=== PATIENT | female | born 1980 | race African-American/Black ===

== ENCOUNTER → 2017-06-29 | Outpatient (REF) | payer MEDICAID ==
[2017-07-05 01:08] LABS: O+P EXAM Final report (.)
== END ==
LOC: M LAB REF 09:59
PROVIDERS: ATTEND Physician Assistant
DX: E11.9 Type 2 diabetes mellitus without complications (principal); R10.817 Generalized abdominal tenderness; G43.009 Migraine without aura, not intractable, without status migrainosus

== ENCOUNTER → 2017-08-23 | Outpatient (REF) | payer MEDICAID ==
[2017-08-23 14:08] LABS: ESTIMATED AVERAGE GLUCOSE 120 MG/DL (60-110); HEMOGLOBIN A1c 5.8 %
== END ==
LOC: M LAB REF 12:44
DX: E11.9 Type 2 diabetes mellitus without complications (principal)

== ENCOUNTER → 2017-10-20 | Outpatient (CLI) | payer OTHER, SELFPAY | LOC: M WUC 14:52 | DX: M25.562 Pain in left knee (principal); M25.531 Pain in right wrist; M79.605 Pain in left leg; M79.601 Pain in right arm | CPT/HCPCS: 73110 ==

== ENCOUNTER 2018-01-26 18:10 | Emergency (ER) | payer OTHER, MEDICAID, SELFPAY ==
[2018-01-26 18:59] LABS: KETONE, URINE AUTO RFX NEGATIVE (NEGATIVE); LEUKOCYTE ESTERASE UR AUTO RFX TRACE (NEGATIVE); NITRITE, URINE AUTO RFX NEGATIVE (NEGATIVE); RBC, URINE AUTO RFX 1 /HPF (0-3); SPECIFIC GRAVITY UR AUTO RFX 1.019 (1.002-1.035); SQUAM EPITHELIAL CELL UR AURFX 1 /HPF (0-6); WBC, URINE AUTO RFX 15 /HPF (0-3)
== END 2018-01-26 20:51 | disposition home or self-care (01) ==
LOC: M ED 18:10
DX: N30.00 Acute cystitis without hematuria (principal); E11.9 Type 2 diabetes mellitus without complications; Z88.8 Allergy status to other drugs, medicaments and biological substances
CPT/HCPCS: 81001

== ENCOUNTER 2018-05-21 11:09 | Emergency (ER) | payer OTHER ==
[2018-05-21] MEDS: KETOROLAC TROMETHAMINE 10 MG TAB PO (14:11)
[2018-05-21] MEDS: BACLOFEN 10 MG TAB PO (14:11)
== END 2018-05-21 15:54 | disposition home or self-care (01) ==
LOC: M ED 11:09
DX: M62.838 Other muscle spasm (principal); J02.9 Acute pharyngitis, unspecified; E11.9 Type 2 diabetes mellitus without complications; G47.33 Obstructive sleep apnea (adult) (pediatric); Z88.8 Allergy status to other drugs, medicaments and biological substances
CPT/HCPCS: 87880

== ENCOUNTER 2018-05-22 05:47 | Emergency (ER) | payer OTHER ==
[2018-05-22 07:20] LABS: HEMATOCRIT 36.9 % (36.0-47.0); HEMOGLOBIN 12.2 g/dl (12.0-15.5); MEAN CORPUSCULAR HEMOGLOBIN 30.3 pg (27.0-33.0); MEAN CORPUSCULAR HGB CONC 33.1 g/dl (32.0-36.5); MEAN CORPUSCULAR VOLUME 91.8 fl (80.0-96.0); PLATELET COUNT, AUTOMATED 254 10^3/uL (150-450); RED BLOOD COUNT 4.02 10^6/uL (4.00-5.40); RED CELL DISTRIBUTION WIDTH 12.7 % (11.5-14.5); WHITE BLOOD COUNT 9.3 10^3/uL (4.0-10.0)
[2018-05-22 07:32] LABS: CONTROL LINE HCG INT CTR LINE PRESENT; HCG, SERUM QUALITATIVE NEGATIVE (NEGATIVE)
[2018-05-22 07:45] LABS: ANION GAP 5 MEQ/L (8-16); BLOOD UREA NITROGEN 9 MG/DL (7-18); CALCIUM LEVEL 8.1 MG/DL (8.5-10.1); CARBON DIOXIDE LEVEL 28 MEQ/L (21-32); CHLORIDE LEVEL 107 MEQ/L (98-107); CREATININE FOR GFR 0.69 MG/DL (0.55-1.30); GLOMERULAR FILTRATION RATE > 60.0 (>60); GLUCOSE, FASTING 100 MG/DL (70-100); SODIUM LEVEL 140 MEQ/L (136-145)
[2018-05-22] MEDS: MORPHINE 10 MG/ML 1ML VIAL (J2270) IM (08:25)
[2018-05-22] MEDS: diazePAM 2 MG TAB PO (10:01)
== END 2018-05-22 10:38 | disposition home or self-care (01) ==
LOC: M ED 05:47
DX: M50.30 Other cervical disc degeneration, unspecified cervical region (principal); E11.9 Type 2 diabetes mellitus without complications; Z86.73 Personal history of transient ischemic attack (TIA), and cerebral infarction without residual deficits; G47.30 Sleep apnea, unspecified; Z87.440 Personal history of urinary (tract) infections; M25.78 Osteophyte, vertebrae; Z88.8 Allergy status to other drugs, medicaments and biological substances
CPT/HCPCS: J2270

== ENCOUNTER → 2018-06-19 | Outpatient (CLI) | payer OTHER ==
[~2018-06-19] MED LIST: LIDOCAINE 1% MDV 20ML VIAL As Ordered
== END ==
LOC: M RADPRO 12:40
DX: C73 Malignant neoplasm of thyroid gland (principal)
CPT/HCPCS: 10022

== ENCOUNTER 2018-08-16 14:41 | Emergency (ER) | payer MEDICAID, OTHER ==
[~2018-08-16] VITALS: Ht 172.7 cm; Wt 136.4 kg
[~2018-08-16 14:41] MED LIST changes: +BACL10TA2 PO; +KETO10TAB PO; -LIDOCAINE 1% MDV 20ML VIAL As Ordered; +MACR100C43 PO; +VALI2TAB PO
[2018-08-16 14:42] VITALS: BP 136/89
[2018-08-16] MEDS ORDERED: IBUP80TA (14:50)
[2018-08-16] MEDS ORDERED: LEVO200T4 (14:50)
[2018-08-16] MEDS ORDERED: PERI0.126 PO (15:58)
[2018-08-16] MEDS ORDERED: NORCOTAB PO (15:58)
[2018-08-16] MEDS ORDERED: AMOX500C PO (15:58)
[2018-08-17] MEDS ORDERED: CLEO300C2 PO (16:51)
== END 2018-08-16 16:14 | disposition home or self-care (01) ==
LOC: M ED 14:41
DX: K08.89 Other specified disorders of teeth and supporting structures (principal); Z86.73 Personal history of transient ischemic attack (TIA), and cerebral infarction without residual deficits; G47.30 Sleep apnea, unspecified; Z79.899 Other long term (current) drug therapy; Z91.040 Latex allergy status; Z88.8 Allergy status to other drugs, medicaments and biological substances

== ENCOUNTER → 2018-08-28 | Outpatient (CLI) | payer OTHER ==
[~2018-08-28] MED LIST changes: +AMOX500C PO; +CLEO300C2 PO; +IBUP80TA; +LEVO200T4; +NORCOTAB PO; +PERI0.126 PO
--- NOTE | 2018-08-29 07:03 | REP ---
PET/CT: History: Initial staging thyroid cancer. CT study of the neck showed extensive lymphadenopathy including some nodes in the thoracic inlet. PET/CT to evaluate the activity level. Fine needle aspiration cytology biopsy positive for papillary thyroid carcinoma. Comparisons: Comparison soft-tissue neck CT study August 17, 2018. TECHNIQUE: 1 hour and 8 minutes following the intravenous injection of a 8.4 mCi dose of F-18 FDG, three-dimensional PET scintigraphy is acquired from the skull base to the proximal thighs. Triplanar noncontrast CT scanning is acquired through the same anatomic range for attenuation correction, and image registration with scan parameters optimized to minimize radiation exposure to the patient. PET scintigraphy and CT datasets were fused and displayed on a workstation with multiplanar and projection display capability. PET/CT Findings: There is mildly hypermetabolic diffuse uptake in the parotid and to some degree submandibular glands as a normal variant. Tonsillar and adenoidal FDG accumulation is seen symmetrically also consistent with normal variant. There are a few normal-sized lymph nodes visualized bilaterally in the neck. No enlarged lymph nodes are visible. The patient is status post thyroidectomy bilateral. Maximum SUV value in left neck lymph nodes is 2.4. There is a small normal-sized lymph node posteriorly in the right neck with maximum standard uptake value 2.5. No abnormal hypermetabolic uptake is seen within the chest. In the abdomen and pelvis, normal hepatic, splenic, gastrointestinal, and genitourinary FDG accumulation is seen. Normal lymph nodes are visible in the inguinal soft tissues. No abnormal abdominal or pelvic hypermetabolic uptake is seen. Impression: Normal size lymph nodes visualized in the neck show equivocal FDG avidity with maximum standard uptake value up to 2.5. No other abnormal hypermetabolic uptake is appreciated. Electronically Signed by Abhishek Frias MD 08/29/2018 11:44 A
== END ==
LOC: M PLARAD 09:09
PROVIDERS: ATTEND Internal Medicine
DX: C73 Malignant neoplasm of thyroid gland (principal); R59.0 Localized enlarged lymph nodes
CPT/HCPCS: 78815; A9552

== ENCOUNTER 2018-09-04 11:59 | Emergency (ER) | payer OTHER ==
[~2018-09-04] VITALS: Ht 172.7 cm; Wt 136.4 kg
[2018-09-04 13:00] LABS: BASO % 0.4 % (0.0-1.0); EOS # 0.1 10^3/uL (0.0-0.50); EOS % 1.6 % (0.0-3.0); HEMATOCRIT 37.1 % (36.0-47.0); HEMOGLOBIN 11.9 g/dl (12.0-15.5); LYMPH # 2.1 10^3/uL (1.5-4.5); LYMPH % 28.7 % (24.0-44.0); MEAN CORPUSCULAR HEMOGLOBIN 29.8 pg (27.0-33.0); MEAN CORPUSCULAR HGB CONC 32.1 g/dl (32.0-36.5); MONO # 0.7 10^3/uL (0.0-0.8); MONO % 9.7 % (0.0-5.0); NEUTROPHILS # 4.4 10^3/uL (1.8-7.7); NEUTROPHILS % 59.5 % (36.0-66.0); PLATELET COUNT, AUTOMATED 262 10^3/uL (150-450); RED BLOOD COUNT 3.99 10^6/uL (4.00-5.40); WHITE BLOOD COUNT 7.4 10^3/uL (4.0-10.0)
[2018-09-04] MEDS ORDERED: NS 1,000 ML IV ONE (13:00)
[2018-09-04 13:12] LABS: ALBUMIN 3.1 GM/DL (3.2-5.2); ALT/SGPT 25 U/L (12-78); AMYLASE 53 U/L (25-115); BILIRUBIN,DIRECT 0.1 MG/DL (0.0-0.2); BILIRUBIN,TOTAL 0.3 MG/DL (0.2-1.0); BLOOD UREA NITROGEN 6 MG/DL (7-18); CALCIUM LEVEL 8.6 MG/DL (8.5-10.1); CARBON DIOXIDE LEVEL 28 MEQ/L (21-32); CHLORIDE LEVEL 106 MEQ/L (98-107); CK-MB VALUE MASS < 1.0 NG/ML (<3.6); CPK CREATINE PHOSPHOKINASE 102 U/L (26-192); CREATININE FOR GFR 0.59 MG/DL (0.55-1.30); ETHYL ALCOHOL (ETHANOL) 0.004 % (0.000-0.010); GLOMERULAR FILTRATION RATE > 60.0 (>60); GLUCOSE, FASTING 85 MG/DL (70-100); LIPASE 85 U/L (73-393); MB/CK RELATIVE INDEX 0.98 (< OR =4); SODIUM LEVEL 140 MEQ/L (136-145); TOTAL PROTEIN 6.8 GM/DL (6.4-8.2); TROPONIN I < 0.02 NG/ML (< 0.10)
[2018-09-04 13:30] LABS: HCG, SERUM QUALITATIVE NEGATIVE (NEGATIVE)
[2018-09-04] MEDS ORDERED: ISOVUE-370 76% 100ML VIAL (Q9967) As Ordered ONE (13:30)
[2018-09-04] MEDS: MORPHINE 2 MG/ML 1ML SYRINGE (J2270) IV PRN ×2 (13:50→16:21)
[2018-09-04 14:33] LABS: AMPHETAMINES LEVEL URINE NEGATIVE (NEGATIVE); BARBITURATES URINE NEGATIVE (NEGATIVE); BENZODIAZEPINES URINE NEGATIVE (NEGATIVE); CANNABINOIDS URINE NEGATIVE (NEGATIVE); COCAINE METABOLITE URINE NEGATIVE (NEGATIVE); METHADONE URINE NEGATIVE (NEGATIVE); OPIATES URINE NEGATIVE (NEGATIVE); PHENCYCLIDINE URINE NEGATIVE (NEGATIVE)
--- NOTE | 2018-09-04 14:50 | REP ---
CT Head without contrast HISTORY: Trauma COMPARISON: 05/22/2018 There is no intraparenchymal hemorrhage, acute infarct, mass or midline shift. The ventricular system is normal in appearance. There is no extra cerebral collection. There is no fracture. The visualized sinuses are clear. IMPRESSION: There is no intracranial lesion. Electronically Signed by Mainor Miller MD 09/04/2018 02:41 P
--- NOTE | 2018-09-04 14:56 | REP ---
CT cervical spine without contrast HISTORY: Trauma COMPARISON: 05/22/2018 The cervical spine is visualized from C1-2 at the C6-7 level. There is no acute fracture or subluxation. Disc bulges are present at the C3-4 and C4-5 levels. A disc bulge with associated osteophyte formation is present at the C5-6 level. There is minimal narrowing of the spinal canal. The neural foramina are patent. The C3-4 through C5-6 intervertebral discs are decreased in height consistent with disc degeneration. There is loss of the normal lordotic curve. IMPRESSION: 1. There is no acute fracture or subluxation. 2. There is cervical spondylosis at the C3-4 through C5-6 levels. Electronically Signed by Mainor Miller MD 09/04/2018 02:47 P
--- NOTE | 2018-09-04 15:06 | REP ---
CT CHEST WITH IV CONTRAST: HISTORY: Pain. CT CONTRAST DOSE: 100 mL of intravenous Isovue 370. Comparison is made with images obtained as part of the PET/CT from August 28, 2018. CT FINDINGS: Digital preliminary facilities officer radiograph demonstrates that the patient's left hand and arm are not able to be raised. There is good opacification of the thoracic aorta and to a slightly lesser extent the pulmonary arterial tree. There is no vascular abnormality. There is minimal residual thymic tissue. No mediastinal mass or adenopathy is observed. No pleural or pericardial effusion is seen. No pulmonary nodule or pulmonary mass lesion is seen. No infiltrate is noted. The lung berry are clear. Bone window settings show no visible rib fracture or bony destructive lesion. IMPRESSION: No acute disease. Electronically Signed by Abhishek Frias MD 09/04/2018 05:38 P
--- NOTE | 2018-09-04 15:10 | REP ---
CT abdomen and pelvis with IV but without oral contrast: History: Pain. Trauma. Comparison is made with CT imaging from PET/CT study August 28, 2018. CT findings: Preliminary digital supervisor boarding radiograph shows nonspecific small and large bowel gas in the central abdomen. The lung bases are clear. The patient appears to be status post gastric bypass procedure. The liver and the spleen are intact. There are two accessory splenules. Gallbladder and pancreas are unremarkable. The kidneys enhance symmetrically are morphologically intact. No abdominal adenopathy is seen. There is a large quantity of formed stool filling and dilating the rectum consistent with constipation. No uterine or ovarian abnormality is seen. Urinary bladder is unremarkable. No abdominal wall defect is seen. Bone window settings show no bony destructive lesion. Impression: Large quantity of formed stool dilating the rectum consistent with constipation. No traumatic abdominal abnormality. Postoperative changes in the left upper quadrant. Electronically Signed by Abhishek Frias MD 09/04/2018 05:38 P
--- NOTE | 2018-09-04 15:26 | REP ---
LEFT WRIST, FOUR VIEWS: HISTORY: Pain. There is no acute fracture or dislocation. The joint spaces are normal in appearance. A small cyst is present in the capitate. IMPRESSION: There is no acute fracture or dislocation. Electronically Signed by Mainor Miller MD 09/04/2018 03:27 P
--- NOTE | 2018-09-04 15:29 | REP ---
Left shoulder: Three views. History: Pain. Findings: The left glenohumeral and acromioclavicular joints are normally aligned. No fracture or subluxation is seen. Impression: No acute bony abnormality. Electronically Signed by Abhishek Frias MD 09/04/2018 05:39 P
--- NOTE | 2018-09-04 15:31 | REP ---
LEFT HAND, FOUR VIEWS: HISTORY: Pain. There is no acute fracture or dislocation. The joint spaces are normal in appearance. A small cyst is present in the capitate. IMPRESSION: There is no acute fracture or dislocation. Electronically Signed by Mainor Miller MD 09/04/2018 03:34 P
--- NOTE | 2018-09-04 15:41 | REP ---
LEFT ELBOW, FIVE VIEWS: HISTORY: Pain. A faint linear lucency is present in the proximal ulna. This may represent a nondisplaced fracture. There is no dislocation. There is no joint effusion. IMPRESSION: There is a faint linear lucency in the proximal ulna seen in only one view. This may represent a fracture. Electronically Signed by Mainor Miller MD 09/04/2018 03:44 P
[2018-09-04] MEDS ORDERED: KETOROLAC 30 MG/ML VIAL (J1885) IV ONE (15:45)
--- NOTE | 2018-09-04 19:34 | REP ---
LEFT HIP, TWO VIEWS: Two views of the left hip performed. There is no acute fracture or dislocation. There are mild degenerative changes at the hip joint with mild joint space narrowing, subchondral sclerosis and spurring. IMPRESSION: Mild degenerative changes without fracture or dislocation. Electronically Signed by Wilian Mueller MD 09/04/2018 07:55 P
--- NOTE | 2018-09-04 19:36 | REP ---
LEFT KNEE: Four views of the left knee performed. There is no acute fracture or dislocation. There is mild medial joint space narrowing, subchondral sclerosis and spurring. Linear ligamentous calcification is seen along the medial femoral condyle. There is mild spurring of the superior pole of the patella. I do not see a significant joint effusion. IMPRESSION: Mild degenerative changes. Mild ligamentous calcification medially. No fracture or dislocation. Electronically Signed by Wilian Mueller MD 09/04/2018 07:55 P
--- NOTE | 2018-09-04 19:38 | REP ---
LEFT FEMUR: AP and lateral views of the left femur are performed. No fracture or dislocation is seen. There are mild degenerative changes at the hip joint and medial knee joint. Mild linear ligamentous calcification is again seen along the medial femoral condyle. There is mild spurring of the superior pole of the patella. No joint effusion is seen at the knee. IMPRESSION: Mild degenerative changes at the hip and knee. No fracture or dislocation. Electronically Signed by Wilian Mueller MD 09/04/2018 07:55 P
[2018-09-04] MEDS ORDERED: MORPHINE 2 MG/ML 1ML SYRINGE (J2270) As Ordered ONE (19:44)
[2018-09-04] MEDS ORDERED: NORC1TAB4 PO (20:16)
[2018-09-04 20:56] VITALS: BP 122/66
--- NOTE | 2018-09-05 17:34 | ECGEPIP ---
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
== END 2018-09-04 21:00 | disposition home or self-care (01) ==
LOC: M ED 11:59 → EDBD 11:59 → M ED 21:00
DX: M79.632 Pain in left forearm (principal); R93.7 Abnormal findings on diagnostic imaging of other parts of musculoskeletal system; V43.52XA Car driver injured in collision with other type car in traffic accident, initial encounter; Y92.410 Unspecified street and highway as the place of occurrence of the external cause; E11.9 Type 2 diabetes mellitus without complications; E89.0 Postprocedural hypothyroidism; Z90.89 Acquired absence of other organs; Z85.850 Personal history of malignant neoplasm of thyroid; Z88.8 Allergy status to other drugs, medicaments and biological substances; Z79.899 Other long term (current) drug therapy
CPT/HCPCS: 36415; 51701; 70450; 71260; 72125; 73030; 73080; 73110; 73130; 73502; 73552; 73564; 74177; 80048; 80076; 80307; 82150; 82550; 82553; 83690; 84484; 84703; 85025; 93005; 93041; 94760; 96374; 96375; 96376; 99285; G0480; J1885; J2270; Q9967

== ENCOUNTER 2018-10-16 08:41 | Emergency (ER) | payer OTHER ==
[~2018-10-16] VITALS: Ht 172.7 cm; Wt 136.4 kg
[~2018-10-16 08:41] MED LIST changes: +NORC1TAB4 PO
[2018-10-16 08:42] VITALS: BP 140/84
[2018-10-16] MEDS ORDERED: IBUP80TA (08:49)
--- NOTE | 2018-10-16 09:32 | REP ---
LEFT HUMERUS: Three views of the left humerus performed. There is no evidence of an acute fracture, dislocation or intrinsic bone disease. IMPRESSION: No fracture or dislocation. Electronically Signed by Wilian Mueller MD 10/17/2018 09:06 A
[2018-10-16] MEDS ORDERED: CODE30TA3 PO (09:35)
== END 2018-10-16 09:38 | disposition home or self-care (01) ==
LOC: M ED 08:41
DX: S40.022A Contusion of left upper arm, initial encounter (principal); W19.XXXA Unspecified fall, initial encounter; Y92.099 Unspecified place in other non-institutional residence as the place of occurrence of the external cause; Y93.9 Activity, unspecified; Y99.9 Unspecified external cause status; Z79.899 Other long term (current) drug therapy; Z91.040 Latex allergy status; Z88.8 Allergy status to other drugs, medicaments and biological substances

== ENCOUNTER → 2018-11-14 | Outpatient (CLI) | payer OTHER ==
[~2018-11-14] MED LIST changes: +ACET300T47 PO; +HYDR-3715 PO; -NORC1TAB4 PO; +NORC1TAB7 PO; -NORCOTAB PO
--- NOTE | 2018-11-15 09:22 | REP ---
MRI LEFT ELBOW: TECHNIQUE: Multiple sequences in the axial, coronal and sagittal planes. There is a chip fracture of the medial aspect of the coronoid process of the proximal ulna with 1 or 2 osseous fragments at that location, not significantly displaced. The two osseous fragments measures approximately 6 mm in maximum length and about 9 mm in maximum length. There is no associated marrow edema of the adjacent ulna. There are no other areas of marrow edema seen in the distal humerus or proximal radius. There is a small joint effusion. Triceps, biceps, brachialis and brachial radialis demonstrate no abnormal signal. There is no abnormal signal in the common flexor or extensor tendons. The collateral ligaments appear intact. No ganglion cyst or other abnormality is seen. IMPRESSION: Chip fracture of the medial aspect of the coronoid process with what appear to be two small osseous fragments at that location, not significantly displaced. No significant marrow edema. Small joint effusion. No evidence of tendon or ligament tear. Electronically Signed by Wilian Mueller MD 11/15/2018 03:11 P
== END ==
LOC: M RAD 17:44
PROVIDERS: ATTEND Physician Assistant Surgical
DX: S52.042D Displaced fracture of coronoid process of left ulna, subsequent encounter for closed fracture with routine healing (principal); M25.422 Effusion, left elbow; Y92.9 Unspecified place or not applicable; Y99.9 Unspecified external cause status; Y93.9 Activity, unspecified; X58.XXXA Exposure to other specified factors, initial encounter

== ENCOUNTER 2019-02-11 17:54 | Emergency (ER) | payer OTHER ==
[~2019-02-11] VITALS: Ht 172.7 cm; Wt 156.6 kg
[~2019-02-11 17:54] MED LIST changes: -LEVO200T4; +LEVO200T4 PO
--- NOTE | 2019-02-11 21:43 | REPVR ---
EXAM: US Duplex Left Lower Extremity Veins, Limited EXAM DATE/TIME: 02/11/2019 8:54 PM CLINICAL HISTORY: 38 years old, female; Edema, localized; Lower extremity, left; Additional info: Lle swelling; R/O dvt TECHNIQUE: Imaging protocol: Real-time Duplex ultrasound of the Left Lower Extremity with 2-D garcia scale, color Doppler flow and spectral waveform analysis. Limited exam focused on the left lower extremity veins. COMPARISON: No relevant prior studies available. FINDINGS: Left deep veins: Unremarkable. The common femoral, femoral, proximal profunda femoral and popliteal veins are patent without thrombus. Normal Doppler waveforms. Normal compressibility and/or augmentation response. Left superficial veins: Unremarkable. Saphenofemoral junction is patent without thrombus. Soft tissues: Unremarkable. IMPRESSION: No acute findings. No evidence of deep vein thrombosis. Electronically signed by: Sergio Sharma On 02/11/2019 21:43:25 PM
[2019-02-11 21:55] VITALS: BP 139/86
== END 2019-02-11 21:56 | disposition home or self-care (01) ==
LOC: M ED 17:54
DX: R22.42 Localized swelling, mass and lump, left lower limb (principal); E11.9 Type 2 diabetes mellitus without complications; G47.33 Obstructive sleep apnea (adult) (pediatric); Z88.9 Allergy status to unspecified drugs, medicaments and biological substances; Z91.040 Latex allergy status

== ENCOUNTER → 2019-05-10 | Outpatient (REF) | payer OTHER | LOC: M LAB REF 15:09 | PROVIDERS: ATTEND Physician Assistant | DX: R30.0 Dysuria (principal) ==

== ENCOUNTER 2019-05-22 06:21 | Emergency (ER) | payer OTHER ==
[~2019-05-22] VITALS: Ht 172.7 cm; Wt 136.4 kg
[2019-05-22 07:49] LABS: BASO % 0.4 % (0.0-1.0); EOS # 0.1 10^3/uL (0.0-0.5); EOS % 1.8 % (0.0-3.0); HEMOGLOBIN 11.8 g/dl (12.0-15.5); LYMPH # 1.6 10^3/uL (1.5-5.0); LYMPH % 27.5 % (24.0-44.0); MEAN CORPUSCULAR HEMOGLOBIN 30.6 pg (27.0-33.0); MEAN CORPUSCULAR HGB CONC 31.9 g/dl (32.0-36.5); MEAN CORPUSCULAR VOLUME 95.9 fl (80.0-96.0); MONO # 0.4 10^3/uL (0.0-0.8); MONO % 7.5 % (0.0-5.0); NEUTROPHILS # 3.6 10^3/uL (1.5-8.5); NEUTROPHILS % 62.6 % (36.0-66.0); PLATELET COUNT, AUTOMATED 221 10^3/uL (150-450); RED BLOOD COUNT 3.86 10^6/uL (4.00-5.40); WHITE BLOOD COUNT 5.7 10^3/uL (4.0-10.0)
[2019-05-22 08:38] LABS: BLOOD UREA NITROGEN 8 MG/DL (7-18); CALCIUM LEVEL 8.5 MG/DL (8.5-10.1); CARBON DIOXIDE LEVEL 32 MEQ/L (21-32); CHLORIDE LEVEL 104 MEQ/L (98-107); GLOMERULAR FILTRATION RATE > 60.0 (>60); GLUCOSE, FASTING 87 MG/DL (70-100); POTASSIUM SERUM 4.2 MEQ/L (3.5-5.1); SODIUM LEVEL 141 MEQ/L (136-145)
[2019-05-22] MEDS ORDERED: FLUCONAZOLE 50MG TABLET PO ONE (09:15)
[2019-05-22 09:19] LABS: HCG, SERUM QUALITATIVE NEGATIVE (NEGATIVE)
[2019-05-22] MEDS ORDERED: FLAG500T PO (09:26)
[2019-05-22] MEDS ORDERED: LEVO250T12 PO (09:34)
[2019-05-22 09:40] VITALS: BP 157/92
[2019-05-22 10:05] LABS: CHLAMYDIA DNA AMPLIFICATION NEGATIVE (NEGATIVE); GC DNA AMPLIFICATION NEGATIVE (NEGATIVE)
== END 2019-05-22 10:13 | disposition home or self-care (01) ==
LOC: M ED 06:21
DX: N39.0 Urinary tract infection, site not specified (principal); B37.3 Candidiasis of vulva and vagina; N76.0 Acute vaginitis; E11.9 Type 2 diabetes mellitus without complications; Z88.8 Allergy status to other drugs, medicaments and biological substances; Z91.040 Latex allergy status

== ENCOUNTER → 2019-11-10 | Outpatient (REF) | payer OTHER ==
[~2019-11-10] MED LIST changes: +FLAG500T PO; +LEVO250T12 PO
== END ==
LOC: M WUC 17:09 → M LAB REF 17:09
PROVIDERS: ATTEND Physician Assistant
DX: R30.0 Dysuria (principal)

== ENCOUNTER → 2019-11-18 | Outpatient (CLI) | payer OTHER ==
[2019-11-18 18:32] LABS: FREE T4 0.79 NG/DL (0.76-1.46); THYROID STIMULATING HORMONE 4.04 uIU/ML (0.358-3.740)
== END ==
LOC: M LAB 17:23
PROVIDERS: ATTEND Nurse Practitioner Family
DX: E89.0 Postprocedural hypothyroidism (principal)

== ENCOUNTER → 2019-11-18 | Outpatient (CLI) | payer OTHER ==
[2019-11-19 11:31] LABS: HIV 1&2 SCREEN CENTAUR NEGATIVE (NEGATIVE)
== END ==
LOC: M LAB 17:21
PROVIDERS: ATTEND Nurse Practitioner Adult Health
DX: Z11.3 Encounter for screening for infections with a predominantly sexual mode of transmission (principal)

== ENCOUNTER → 2019-12-30 | Outpatient (CLI) | payer OTHER | LOC: M LABSMTC 12:19 | PROVIDERS: ATTEND Family Medicine | DX: Z11.59 Encounter for screening for other viral diseases (principal) | CPT/HCPCS: C8903; U0002 ==

== ENCOUNTER → 2020-02-10 | Outpatient (CLI) | payer OTHER | LOC: M LABSMTC 12:10 | PROVIDERS: ATTEND Family Medicine | DX: Z11.59 Encounter for screening for other viral diseases (principal); Z03.89 Encounter for observation for other suspected diseases and conditions ruled out | CPT/HCPCS: C9803; U0002 ==

== ENCOUNTER → 2020-05-04 | Outpatient (REF) | payer OTHER | LOC: M WUC 11:45 | PROVIDERS: ATTEND Physician Assistant | DX: N39.0 Urinary tract infection, site not specified (principal) ==

== ENCOUNTER → 2020-06-04 | Outpatient (REF) | payer OTHER | LOC: M WUC 15:51 | PROVIDERS: ATTEND Nurse Practitioner Family | DX: R11.2 Nausea with vomiting, unspecified (principal) ==

== ENCOUNTER → 2020-06-18 | Outpatient (CLI) | payer SELFPAY | LOC: M LABSMTC 10:31 | PROVIDERS: ATTEND Pediatrics | DX: Z20.828 Contact with and (suspected) exposure to other viral communicable diseases (principal) ==

== ENCOUNTER → 2020-07-01 | Outpatient (CLI) | payer OTHER ==
[2020-07-01 18:13] LABS: FREE T4 1.5 NG/DL (0.76-1.46); THYROID STIMULATING HORMONE 0.017 uIU/ML (0.358-3.740)
== END ==
LOC: M LAB 17:00
PROVIDERS: ATTEND Nurse Practitioner Family
DX: E89.0 Postprocedural hypothyroidism (principal)

== ENCOUNTER → 2020-11-02 | Outpatient (REF) | payer OTHER | LOC: M WUC 21:12 | PROVIDERS: ATTEND Physician Assistant | DX: N76.0 Acute vaginitis (principal) ==

== ENCOUNTER → 2020-11-23 | Outpatient (REF) | payer OTHER | LOC: M WUC 12:23 | PROVIDERS: ATTEND Physician Assistant | DX: N39.0 Urinary tract infection, site not specified (principal) ==

== ENCOUNTER → 2020-12-13 | Outpatient (REF) | payer OTHER | LOC: M LAB REF 17:53 | PROVIDERS: ATTEND Nurse Practitioner Family | DX: N39.0 Urinary tract infection, site not specified (principal) ==

== ENCOUNTER 2021-01-30 11:59 | Inpatient (IN) | payer OTHER ==
[~2021-01-30] VITALS: Ht 172.7 cm; Wt 157.7 kg
[2021-01-30 12:35] LABS: BASO % 0.6 % (0.0-1.0); EOS # 0.1 10^3/uL (0.0-0.5); EOS % 0.9 % (0.0-3.0); HEMATOCRIT 34.5 % (36.0-47.0); LYMPH # 1.6 10^3/uL (1.5-5.0); LYMPH % 22.7 % (24.0-44.0); MEAN CORPUSCULAR HEMOGLOBIN 29.1 pg (27.0-33.0); MEAN CORPUSCULAR HGB CONC 31.9 g/dl (32.0-36.5); MEAN CORPUSCULAR VOLUME 91.3 fl (80.0-96.0); MONO # 0.9 10^3/uL (0.0-0.8); MONO % 13.8 % (2.0-8.0); NEUTROPHILS # 4.2 10^3/uL (1.5-8.5); NEUTROPHILS % 61.6 % (36.0-66.0); PLATELET COUNT, AUTOMATED 185 10^3/uL (150-450); RED BLOOD COUNT 3.78 10^6/uL (4.00-5.40); WHITE BLOOD COUNT 6.8 10^3/uL (4.0-10.0)
[2021-01-30] MEDS ORDERED: ASPIRIN 81 MG CHEW TABLET PO ONE (12:40)
[2021-01-30 13:10] LABS: ALBUMIN 3.3 GM/DL (3.2-5.2); BILIRUBIN,DIRECT 0.2 MG/DL (0.0-0.2); BILIRUBIN,TOTAL 0.9 MG/DL (0.2-1.0); FREE T4 1.14 NG/DL (0.76-1.46); THYROID STIMULATING HORMONE 0.246 uIU/ML (0.358-3.740); TOTAL PROTEIN 7.3 GM/DL (6.4-8.2)
--- NOTE | 2021-01-30 13:41 | REP ---
INDICATION: CHEST PAIN. COMPARISON: None. FINDINGS: The technique utilized in obtaining the radiograph has magnified the cardiac silhouette and accentuated the interstitial markings. Additionally, the examination was taken using apical lordotic technique causing further limitations. The superior mediastinal structures are midline. The lung berry are hypoexpanded. The cardiac silhouette is unremarkable in size, shape, and position. The diaphragmatic surfaces of the lungs are regular, and the costophrenic angles are clear. The pulmonary berry are clear. The imaged osseous structures are intact. IMPRESSION: There is no acute cardiopulmonary disease. <Electronically signed by Pratik Erickson > 01/30/21 0562
[2021-01-30 14:40] LABS: C REACTIVE PROTEIN QUANTITATIV 2.87 MG/DL (0.00-0.30)
[2021-01-30] MEDS ORDERED: NITROGLYCERIN 0.4 MG SUBL TABLET SL STA (15:04)
[2021-01-30 15:10] LABS: ERYTHROCYTE SEDIMENTATION RATE 56 mm/hr (0-20)
[2021-01-30] MEDS ORDERED: HEPARIN SOD (PORCINE) 5000UNITS/ML 1ML VIAL/SYRINGE IV ONE ×2 (15:20→16:25)
[2021-01-30] MEDS ORDERED: HEPARIN DRIP 25,000 UNITS in IV 1 EA IV SCH ×2 (15:20→16:25)
[2021-01-30] MEDS ORDERED: CLOPIDOGREL 300 MG TAB (PLAVIX) PO ONE (15:20)
[2021-01-30 15:53] LABS: D-DIMER QUANT > 4000 ng/ml (<500)
[2021-01-30 15:57] LABS: INR 1.11; PROTHROMBIN TIME 14.5 SECONDS (12.5-14.3)
[2021-01-30 15:58] LABS: PARTIAL THROMBOPLASTIN TIME 28.2 SECONDS (24.2-38.5)
[2021-01-30] MEDS ORDERED: ISOVUE-370 76% 100ML VIAL As Ordered ONE (16:03)
--- NOTE | 2021-01-30 16:52 | REP ---
INDICATION: chest pain/SOB COMPARISON: Standard CT of the chest with contrast 09/04/2018 TECHNIQUE: CT angiography of the chest after the intravenous administration of 75 cc Isovue 370. FINDINGS: There is excellent visualization of the pulmonary arterial vasculature. There are multiple bilateral pulmonary arterial focal filling defects consistent with acute pulmonary emboli. One of the defects is in the distal right main pulmonary artery. There is no mediastinal or hilar adenopathy. There are borderline mediastinal lymph nodes. There are no pleural or pericardial effusions. The imaged upper abdomen and imaged osseous structures are within normal limits. Evaluation of the lung beryr shows them to be stable without evidence of a new nodule, mass, or opacity. IMPRESSION: Pulmonary emboli as described above. <Electronically signed by Pratik Erickson > 01/30/21 1322
[2021-01-30] MEDS ORDERED: VITA1CAP25 PO (17:36)
[2021-01-30] MEDS ORDERED: METF10004 PO (17:36)
[2021-01-30 18:28] LABS: RSV AMPLIFICATION NEGATIVE (NEGATIVE)
--- NOTE | 2021-01-30 18:30 | HPEPDOC ---
General Date of Admission 01/30/21 Date of Service: Jan 30, 2021 Chief Complaint The patient is a 40-year-old female admitted with a reason for visit of Chest Pain. Source: Patient, RN/MD History of Present Illness 40-year-old morbidly obese female with past medical history of thyroid cancer status post total thyroidectomy, gastric bypass surgery, MILTON, diabetes, not on any meds, anxiety and panic attacks presented to the emergency room with the left-sided chest pain since last night. She described the pain as a sharp constant in type, about 5 /10 in intensity, present in the left anterior chest in the third intercostal space in the midclavicular line. She reported she had a temperature of 100.5 last night. She also complained of right calf pain. CT angiogram of the chest in the ED showed bilateral pulmonary emboli. She was admitted for acute pulmonary embolism. Home Medications Scheduled Cholecalciferol (Vitamin D3) (Vitamin D3) 1,250 Mcg Capsule, 1,250 MCG PO 1XWK, (Reported) Levothyroxine Sodium (Levothyroxine Sodium) 200 Mcg Tab, 250 MCG PO DAILY, (Reported) Metformin HCl (Metformin HCl) 1,000 Mg Tablet, 1,000 MG PO BID, (Reported) Allergies Coded Allergies: sumatriptan (Verified Allergy, Severe, 12/04/18) latex (Verified Adverse Reaction, Unknown, 12/04/18) Past Medical History Medical History Papillary carcinoma of thyroid in 2018, status post total thyroidectomy Hypothyroidism from the above Morbid obesity status post gastric Torres-en-Y bypass surgery. still remains morbidly obese with BMI of 50 3. Anxiety and panic attacks MILTON, does not use CPAP Mini stroke in 2011 Migraine Ovarian cyst Frequent UTIs Diabetes, not on any meds Surgical History Total thyroidectomy Torres-en-Y gastric bypass surgery D &C Sac removed from behind the colon Family History Significant Family History: Cancer (, colon cancer in father , lung cancer, sister), Diabetes (mother) Social History Drugs: denies A-FIB/CHADSVASC A-FIB History Current/History of A-Fib/PAF?: No Review of Systems Constitutional: Reports: Fever (last night); Denies: Chills, Night Sweats Eyes: Denies: Pain, Vision change ENT: Denies: Head Aches, Ear Pain, Dysphagia Skin: Denies: Rash, Lesions, Breakdown Pulmonary: Reports: Dyspnea Cardiovascular: Reports: Chest Pain, Edema Gastrointestinal: Denies: Nausea, Vomiting, Abdominal Pain, Diarrhea Genitourinary: Denies: Dysuria, Frequency, Incontinence, Retention Hematologic: Denies: Bruising, Bleeding Excessively Physical Examination General Exam: Positive: Alert, Cooperative, No Acute Distress Eye Exam: Positive: PERRLA, Conjunctiva & lids normal, EOMI; Negative: Sclera icteric ENT Exam: Positive: Atraumatic, Mucous membr. moist/pink, Pharynx Normal Neck Exam: Positive: Supple Chest Exam: Positive: Clear to auscultation, Normal air movement, Other (distant breath sounds) Heart Exam: Positive: Rate Normal, Regular Rhythm, Normal S1, Normal S2; Negative: Murmurs, Rubs Abdomen Exam: Positive: Normal bowel sounds, Soft, Other (very obese); Negative: Tenderness Extremity Exam: Negative: Clubbing, Cyanosis, Edema Psych Exam: Positive: Memory Intact, Oriented x 3 Vital Signs Vital Signs Date Time Temp Pulse Resp B/P (MAP) Pulse Ox O2 Delivery O2 Flow Rate FiO2 01/30/21 12:34 01/30/21 12:00 98.3 103 22 99 Room Air Laboratory Data Labs 24H Laboratory Tests 2 01/30/21 12:23: Immature Granulocyte % (Auto) 0.4, Neutrophils (%) (Auto) 61.6, Lymphocytes (%) (Auto) 22.7L, Monocytes (%) (Auto) 13.8H, Eosinophils (%) (Auto) 0.9, Basophils (%) (Auto) 0.6, Neutrophils # (Auto) 4.2, Lymphocytes # (Auto) 1.6, Monocytes # (Auto) 0.9H, Eosinophils # (Auto) 0.1, Basophils # (Auto) 0.0, Nucleated Red Blood Cells % (auto) 0.0, Erythrocyte Sedimentation Rate 56H, Total Bilirubin 0.9, Direct Bilirubin 0.2, Aspartate Amino Transf (AST/SGOT) 19, Alanine Aminotransferase (ALT/SGPT) 20, Alkaline Phosphatase 90, C-Reactive Protein, Quantitative 2.87H, Total Protein 7.3, Albumin 3.3, Albumin/Globulin Ratio 0.8L, Lipase 66L, Thyroid Stimulating Hormone (TSH) 0.246L, Free Thyroxine 1.14 01/30/21 12:25: POC Glucose (Misc Panel) 104, POC Sodium (Misc Panel) 141, POC Potassium (Misc Panel) 3.6, POC Chloride (Misc Panel) 101, POC Total CO2 (Misc Panel) 22.0L, POC Blood Urea Nitrogen (Misc Panel 4L, POC Ionized Calcium (Misc Panel) 4.7, POC Creatinine (Misc Panel) 0.6, POC Hematocrit (Misc Panel) 37.0L 01/30/21 12:27: POC Troponin I (Misc) 0.32H 01/30/21 14:38: Prothrombin Time 14.5H, Prothromb Time International Ratio 1.11, Activated Partial Thromboplast Time 28.2, D-Dimer, Quantitative > 4000H 01/30/21 14:46: POC Troponin I (Misc) 0.33H CBC/BMP Laboratory Tests 01/30/21 12:23 Assessment/Plan 40-year-old morbidly obese female with past medical history of thyroid cancer status post total thyroidectomy, gastric bypass surgery, MILTON, diabetes, not on any meds, anxiety and panic attacks presented to the emergency room with the left-sided chest pain since last night. She described the pain as a sharp constant in type, about 5 /10 in intensity, present in the left anterior chest in the third intercostal space in the midclavicular line. She also complained of right calf pain. CT angiogram of the chest in the ED showed bilateral pulmonary emboli. She was admitted for acute pulmonary embolism. Pulmonary embolism hypercoagulable work up ordered. heparin infusion Hypothyroidism after total thyroidectomy for papillary cancer of thyroid continue Synthroid Diabetes only on diet control she was taken of metformin by PMD for low A1c Morbid obesity with MILTON does not have a CPAP yet. MILTON protocol. Plan / VTE VTE Prophylaxis Ordered?: Yes ANGELIA DILLON MD Jan 30, 2021 17:22
[2021-01-30] MEDS ORDERED: SYNT50TA PO (18:32)
--- NOTE | 2021-01-30 18:41 | REP ---
INDICATION: PE; lower leg swelling/pain R>L. COMPARISON: None. TECHNIQUE: Multiple ultrasonographic images of the deep venous structures of the bilateral lower extremity were obtained from the inguinal ligament to the ankle. Venous compression techniques, color doppler imaging, and augmentation techniques were also obtained where appropriate. As per the ACR guidelines the anterior tibial vein can not be effectively evaluated. Only compression techniques in the calf on the peroneal and posterior tibial veins was attempted/performed. FINDINGS: There is no abnormal echogenic material seen within any of the visualized deep venous structures that would suggest acute thrombosis. Coaptation is unremarkable throughout. Doppler interrogation shows an expected response to respiratory variability and augmentation in the thigh. Compression techniques in the calf were unobtainable. The color flow images show what appears to be a normal vascular pattern throughout the thigh. IMPRESSION: There is no ultrasonographic evidence of deep venous thrombosis involving any of the visualized deep venous structures of the bilateral lower extremity as described above. Due to technical parameters calf vein DVT can not be ruled out. <Electronically signed by Pratik Erickson > 01/30/21 1910
[2021-01-30 19:38] VITALS: BP 135/90
[2021-01-30] MEDS: ACETAMINOPHEN TAB 650MG DOSE (2X325MG) PO PRN (21:16)
[2021-01-30] MEDS: HEPARIN DRIP 25,000 UNITS in IV 1 EA IV SCH (22:26)
[2021-01-31 06:00] VITALS: BP 103/63
[2021-01-31] MEDS: HEPARIN DRIP 25,000 UNITS in IV 1 EA IV SCH (08:20)
[2021-01-31] MEDS: HEPARIN SOD (PORCINE) 5000UNITS/ML 1ML VIAL/SYRINGE IV PRN ×2 (08:21→21:11)
[2021-01-31] MEDS: ACETAMINOPHEN TAB 650MG DOSE (2X325MG) PO PRN (08:22)
[2021-01-31] MEDS ORDERED: KETOROLAC 30 MG/ML 1ML VIAL IV ONE (09:15)
[2021-01-31] MEDS: PERCOCET 5MG/325MG TAB PO PRN ×2 (09:19→20:07)
[2021-01-31 11:14] LABS: BASO % 0.6 % (0.0-1.0); EOS # 0.1 10^3/uL (0.0-0.5); EOS % 1.9 % (0.0-3.0); HEMATOCRIT 32.6 % (36.0-47.0); HEMOGLOBIN 10.3 g/dl (12.0-15.5); LYMPH # 1.9 10^3/uL (1.5-5.0); LYMPH % 35.9 % (24.0-44.0); MEAN CORPUSCULAR HEMOGLOBIN 29.3 pg (27.0-33.0); MEAN CORPUSCULAR HGB CONC 31.6 g/dl (32.0-36.5); MEAN CORPUSCULAR VOLUME 92.9 fl (80.0-96.0); MONO # 0.9 10^3/uL (0.0-0.8); NEUTROPHILS # 2.4 10^3/uL (1.5-8.5); NEUTROPHILS % 44.2 % (36.0-66.0); PLATELET COUNT, AUTOMATED 185 10^3/uL (150-450); RED BLOOD COUNT 3.51 10^6/uL (4.00-5.40); WHITE BLOOD COUNT 5.4 10^3/uL (4.0-10.0)
[2021-01-31 11:38] LABS: BLOOD UREA NITROGEN 6 MG/DL (7-18); CALCIUM LEVEL 8.4 MG/DL (8.5-10.1); CARBON DIOXIDE LEVEL 30 MEQ/L (21-32); CHLORIDE LEVEL 108 MEQ/L (98-107); CREATININE FOR GFR 0.74 MG/DL (0.55-1.30); GLOMERULAR FILTRATION RATE > 60.0 (>60); GLUCOSE, FASTING 89 MG/DL (70-100); POTASSIUM SERUM 3.9 MEQ/L (3.5-5.1); SODIUM LEVEL 140 MEQ/L (136-145)
[2021-01-31 14:00] VITALS: BP 98/67
--- NOTE | 2021-01-31 14:20 | ECGEPIP ---
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
--- NOTE | 2021-01-31 14:24 | ECGEPIP ---
[facility] - ED Test Date: 2021-01-30 Pat Name: JAQUELINE MUÑOZ Department: Room: - Gender: Female Folder And Notcher: al : 1980 Requested By: GILSON DOAN Order Number: [id number] Reading MD: Crista Salvador Measurements Intervals [place] Rate: 88 P: 47 [place]: 106 QRS: 7 QRSD: 82 T: 21 QT: 364 QTc: 440 Interpretive Statements Sinus rhythm with short [place] Nonspecific T wave abnormality prwp decreased rate 01/30/21 Electronically Signed on 01-31-2021 14:24:41 EDT by Crista Salvador
[2021-01-31 22:00] VITALS: BP 117/68
[2021-01-31] MEDS: DOCUSATE SODIUM 100MG CAPSULE PO SCH (22:26)
--- NOTE | 2021-01-31 22:44 | IPNPDOC ---
Subjective Date Seen The patient was seen on 01/31/21. Subjective Chief Complaint/HPI Continues to complain of chest tightness this morning. No fever or chills. No DVT seen Objective Physical Examination General Exam: Positive: Alert, Cooperative, No Acute Distress Eye Exam: Positive: PERRLA, Conjunctiva & lids normal, EOMI; Negative: Sclera icteric ENT Exam: Positive: Atraumatic, Mucous membr. moist/pink, Pharynx Normal Neck Exam: Positive: Supple Chest Exam: Positive: Clear to auscultation, Normal air movement, Other (distant breath sounds) Heart Exam: Positive: Rate Normal, Regular Rhythm, Normal S1, Normal S2; Negative: Murmurs, Rubs Abdomen Exam: Positive: Normal bowel sounds, Soft, Other (very obese); Negative: Tenderness Extremity Exam: Negative: Clubbing, Cyanosis, Edema Psych Exam: Positive: Memory Intact, Oriented x 3 Assessment /Plan Assessment 40-year-old morbidly obese female with past medical history of thyroid cancer status post total thyroidectomy, gastric bypass surgery, MILTON, diabetes, not on any meds, anxiety and panic attacks presented to the emergency room with the left-sided chest pain since last night. She described the pain as a sharp constant in type, about 5 /10 in intensity, present in the left anterior chest in the third intercostal space in the midclavicular line. She also complained of right calf pain. CT angiogram of the chest in the ED showed bilateral pulmonary emboli. She was admitted for acute pulmonary embolism. Pulmonary embolism hypercoagulable work up ordered. heparin infusion DVT of the legs legative though could not see any calf veins. Hypothyroidism after total thyroidectomy for papillary cancer of thyroid continue Synthroid Diabetes only on diet control she was taken of metformin by PMD for low A1c Morbid obesity with MILTON does not have a CPAP yet. MILTON protocol. Chest pain tylenol, percocet. Plan/VTE VTE Prophylaxis Ordered?: Yes VS, I&O, 24H, Fishbone Vital Signs/I&O Vital Signs Date Time Temp Pulse Resp B/P (MAP) Pulse Ox O2 Delivery O2 Flow Rate FiO2 01/31/21 06:00 98.4 74 18 103/63 (76) 99 Room Air I&O- Last 24 Hours up to 6 AM 01/31/21 06:00 Intake Total 920 ml Output Total 450 ml Balance 470 ml Laboratory Data 24H LABS Laboratory Tests 2 01/30/21 12:23: Immature Granulocyte % (Auto) 0.4, Neutrophils (%) (Auto) 61.6, Lymphocytes (%) (Auto) 22.7L, Monocytes (%) (Auto) 13.8H, Eosinophils (%) (Auto) 0.9, Basophils (%) (Auto) 0.6, Neutrophils # (Auto) 4.2, Lymphocytes # (Auto) 1.6, Monocytes # (Auto) 0.9H, Eosinophils # (Auto) 0.1, Basophils # (Auto) 0.0, Nucleated Red Blood Cells % (auto) 0.0, Erythrocyte Sedimentation Rate 56H, Total Bilirubin 0.9, Direct Bilirubin 0.2, Aspartate Amino Transf (AST/SGOT) 19, Alanine Aminotransferase (ALT/SGPT) 20, Alkaline Phosphatase 90, C-Reactive Protein, Quantitative 2.87H, Total Protein 7.3, Albumin 3.3, Albumin/Globulin Ratio 0.8L, Lipase 66L, Thyroid Stimulating Hormone (TSH) 0.246L, Free Thyroxine 1.14 01/30/21 12:25: POC Glucose (Misc Panel) 104, POC Sodium (Misc Panel) 141, POC Potassium (Misc Panel) 3.6, POC Chloride (Misc Panel) 101, POC Total CO2 (Misc Panel) 22.0L, POC Blood Urea Nitrogen (Misc Panel 4L, POC Ionized Calcium (Misc Panel) 4.7, POC Creatinine (Misc Panel) 0.6, POC Hematocrit (Misc Panel) 37.0L 01/30/21 12:27: POC Troponin I (Misc) 0.32H 01/30/21 14:38: Prothrombin Time 14.5H, Prothromb Time International Ratio 1.11, Activated Partial Thromboplast Time 28.2, D-Dimer, Quantitative > 4000H 01/30/21 14:46: POC Troponin I (Misc) 0.33H 01/30/21 17:08: IE-Opo-I-Type Natriuretic Peptide 1132H 01/30/21 17:42: Coronavirus (COVID-19)(PCR) NEGATIVE, Influenza Type A (RT-PCR) NEGATIVE, Influenza Type B (RT-PCR) NEGATIVE, Respiratory Syncytial Virus (PCR) NEGATIVE 01/31/21 00:01: Activated Partial Thromboplast Time 198.6*H 01/31/21 06:48: Activated Partial Thromboplast Time 53.6H CBC/BMP Laboratory Tests 01/30/21 12:23 ANGELIA DILLON MD Jan 31, 2021 09:02
[2021-02-01] MEDS: HEPARIN DRIP 25,000 UNITS in IV 1 EA IV SCH ×2 (04:43→22:26)
[2021-02-01] MEDS: LEVOTHYROXINE 125MCG TABLET (0.125MG) PO SCH (05:49)
[2021-02-01 06:00] VITALS: BP 128/70
[2021-02-01 06:30] LABS: BASO % 0.3 % (0.0-1.0); EOS # 0.2 10^3/uL (0.0-0.5); EOS % 2.8 % (0.0-3.0); HEMATOCRIT 32.7 % (36.0-47.0); HEMOGLOBIN 10.3 g/dl (12.0-15.5); LYMPH % 32.4 % (24.0-44.0); MEAN CORPUSCULAR HEMOGLOBIN 28.9 pg (27.0-33.0); MEAN CORPUSCULAR HGB CONC 31.5 g/dl (32.0-36.5); MEAN CORPUSCULAR VOLUME 91.9 fl (80.0-96.0); MONO # 0.6 10^3/uL (0.0-0.8); MONO % 9.8 % (2.0-8.0); NEUTROPHILS # 3.3 10^3/uL (1.5-8.5); NEUTROPHILS % 54.2 % (36.0-66.0); PLATELET COUNT, AUTOMATED 195 10^3/uL (150-450); RED BLOOD COUNT 3.56 10^6/uL (4.00-5.40); WHITE BLOOD COUNT 6.1 10^3/uL (4.0-10.0)
[2021-02-01 06:46] LABS: BLOOD UREA NITROGEN 7 MG/DL (7-18); CALCIUM LEVEL 8.5 MG/DL (8.5-10.1); CARBON DIOXIDE LEVEL 27 MEQ/L (21-32); CHLORIDE LEVEL 109 MEQ/L (98-107); CREATININE FOR GFR 0.65 MG/DL (0.55-1.30); GLOMERULAR FILTRATION RATE > 60.0 (>60); GLUCOSE, FASTING 89 MG/DL (70-100); POTASSIUM SERUM 3.8 MEQ/L (3.5-5.1); SODIUM LEVEL 141 MEQ/L (136-145)
[2021-02-01] MEDS ORDERED: ELIQ5TAB PO (07:18)
[2021-02-01] MEDS: DOCUSATE SODIUM 100MG CAPSULE PO SCH ×2 (08:47→20:15)
[2021-02-01] MEDS: PERCOCET 5MG/325MG TAB PO PRN ×2 (08:50→16:14)
[2021-02-01] MEDS ORDERED: LEVOTHYROXINE 50MCG TABLET (0.05MG) PO SCH (09:00)
--- NOTE | 2021-02-01 10:17 | IPNPDOC ---
Subjective Date Seen The patient was seen on 02/01/21. Subjective Chief Complaint/HPI continues to have left sided chest pain and dyspnea on exertion. Objective Physical Examination General Exam: Positive: Alert, Cooperative, No Acute Distress Eye Exam: Positive: PERRLA, Conjunctiva & lids normal, EOMI; Negative: Sclera icteric ENT Exam: Positive: Atraumatic, Mucous membr. moist/pink, Pharynx Normal Neck Exam: Positive: Supple Chest Exam: Positive: Clear to auscultation, Normal air movement, Other (distant breath sounds) Heart Exam: Positive: Rate Normal, Regular Rhythm, Normal S1, Normal S2; Negative: Murmurs, Rubs Abdomen Exam: Positive: Normal bowel sounds, Soft, Other (very obese); Negative: Tenderness Extremity Exam: Negative: Clubbing, Cyanosis, Edema Psych Exam: Positive: Memory Intact, Oriented x 3 Assessment /Plan Assessment 40-year-old morbidly obese female with past medical history of thyroid cancer status post total thyroidectomy, gastric bypass surgery, MILTON, diabetes, not on any meds, anxiety and panic attacks presented to the emergency room with the left-sided chest pain since last night. She described the pain as a sharp constant in type, about 5 /10 in intensity, present in the left anterior chest in the third intercostal space in the midclavicular line. She also complained of right calf pain. CT angiogram of the chest in the ED showed bilateral pulmonary emboli. She was admitted for acute pulmonary embolism. Pulmonary embolism hypercoagulable work up ordered. heparin infusion DVT of the legs legative though could not see any calf veins. Hypothyroidism after total thyroidectomy for papillary cancer of thyroid continue Synthroid Diabetes only on diet control she was taken of metformin by PMD for low A1c Morbid obesity with MILTON does not have a CPAP yet. MILTON protocol. Chest pain tylenol, percocet. Plan/VTE VTE Prophylaxis Ordered?: Yes VS, I&O, 24H, Fishbone Vital Signs/I&O Vital Signs Date Time Temp Pulse Resp B/P (MAP) Pulse Ox O2 Delivery O2 Flow Rate FiO2 02/01/21 08:50 16 02/01/21 06:00 98.7 74 128/70 (89) 99 Room Air I&O- Last 24 Hours up to 6 AM 02/01/21 06:00 Intake Total 1350 ml Output Total 400 ml Balance 950 ml Laboratory Data 24H LABS Laboratory Tests 2 01/31/21 14:13: Activated Partial Thromboplast Time 88.4H 01/31/21 20:04: Activated Partial Thromboplast Time 56.8H 02/01/21 03:14: Activated Partial Thromboplast Time 164.8*H 02/01/21 05:56: Immature Granulocyte % (Auto) 0.5, Neutrophils (%) (Auto) 54.2, Lymphocytes (%) (Auto) 32.4, Monocytes (%) (Auto) 9.8H, Eosinophils (%) (Auto) 2.8, Basophils (%) (Auto) 0.3, Neutrophils # (Auto) 3.3, Lymphocytes # (Auto) 2.0, Monocytes # (Auto) 0.6, Eosinophils # (Auto) 0.2, Basophils # (Auto) 0.0, Nucleated Red Blood Cells % (auto) 0.0, Anion Gap 5L, Glomerular Filtration Rate > 60.0, Calcium Level 8.5 CBC/BMP Laboratory Tests 02/01/21 05:56 ANGELIA DILLON MD Feb 01, 2021 10:17
[2021-02-01] MEDS: HEPARIN SOD (PORCINE) 5000UNITS/ML 1ML VIAL/SYRINGE IV PRN (12:04)
[2021-02-01 14:00] VITALS: BP 125/70
[2021-02-01 15:00] VITALS: BP 122/78
[2021-02-01 22:00] VITALS: BP 121/79
[2021-02-02] MEDS: LEVOTHYROXINE 125MCG TABLET (0.125MG) PO SCH (05:41)
[2021-02-02 06:00] VITALS: BP 110/65
[2021-02-02 06:24] LABS: BASO % 0.4 % (0.0-1.0); EOS # 0.2 10^3/uL (0.0-0.5); EOS % 2.6 % (0.0-3.0); HEMATOCRIT 31.5 % (36.0-47.0); HEMOGLOBIN 9.9 g/dl (12.0-15.5); LYMPH # 2.2 10^3/uL (1.5-5.0); LYMPH % 31.6 % (24.0-44.0); MEAN CORPUSCULAR HGB CONC 31.4 g/dl (32.0-36.5); MEAN CORPUSCULAR VOLUME 92.4 fl (80.0-96.0); MONO # 0.5 10^3/uL (0.0-0.8); MONO % 7.8 % (2.0-8.0); NEUTROPHILS # 3.9 10^3/uL (1.5-8.5); NEUTROPHILS % 57.2 % (36.0-66.0); PLATELET COUNT, AUTOMATED 207 10^3/uL (150-450); RED BLOOD COUNT 3.41 10^6/uL (4.00-5.40); WHITE BLOOD COUNT 6.9 10^3/uL (4.0-10.0)
[2021-02-02 06:45] LABS: BLOOD UREA NITROGEN 8 MG/DL (7-18); CALCIUM LEVEL 8.4 MG/DL (8.5-10.1); CARBON DIOXIDE LEVEL 27 MEQ/L (21-32); CHLORIDE LEVEL 109 MEQ/L (98-107); GLOMERULAR FILTRATION RATE > 60.0 (>60); GLUCOSE, FASTING 88 MG/DL (70-100); POTASSIUM SERUM 3.6 MEQ/L (3.5-5.1); SODIUM LEVEL 141 MEQ/L (136-145)
[2021-02-02] MEDS ORDERED: PERCOCET PO (07:29)
[2021-02-02] MEDS: DOCUSATE SODIUM 100MG CAPSULE PO SCH (09:46)
--- NOTE | 2021-02-02 13:51 | DS.PDOC ---
Discharge Summary General Date of Admission Jan 30, 2021 at 18:03 Date of Discharge 02/02/21 Discharge Summary PROCEDURES PERFORMED DURING STAY: [None]. DISCHARGE DIAGNOSES: Acute pulmonary embolism unproved. SECONDARY DIAGNOSIS: Papillary thyroid cancer status post total thyroidectomy, gastric bypass rust rgery, Morbid obesity, MILTON, diabetes, not on any meds, anxiety and panic attacks COMPLICATIONS/CHIEF COMPLAINT: Acute Pulmonary Embolism. HOSPITAL COURSE: 40-year-old morbidly obese female with past medical history of thyroid cancer status post total thyroidectomy, gastric bypass surgery, MILTON, di abetes, not on any meds, anxiety and panic attacks presented to the emergency room with the left-sided chest pain since last night. She described the pain as a sharp constant in type, about 5 /10 in intensity, present in the left anterior chest in the third intercostal space in the midclavicular line. She also complained of right calf pain. CT angiogram of the chest in the ED showed bilateral pulmonary emboli. She was admitted for acute pulmonary embolism. Pulmonary embolism hypercoagulable work up ordered. heparin infusion DVT of the legs negative though could not see any calf veins. Hypothyroidism after total thyroidectomy for papillary cancer of thyroid continue Synthroid Diabetes only on diet control she was taken of metformin by PMD for low A1c Morbid obesity with MILTON does not have a CPAP yet. MILTON protocol. Chest pain tylenol, percocet. DISCHARGE MEDICATIONS: Please see below. ALLERGIES: Please see below. PHYSICAL EXAMINATION ON DISCHARGE: VITAL SIGNS: Please see below. General Exam: Positive: Alert, Cooperative, No Acute Distress Eye Exam: Positive: PERRLA, Conjunctiva & lids normal, EOMI; Negative: Sclera icteric ENT Exam: Positive: Atraumatic, Mucous membr. moist/pink, Pharynx Normal Neck Exam: Positive: Supple Chest Exam: Positive: Clear to auscultation, Normal air movement, Other (distant breath sounds) Heart Exam: Positive: Rate Normal, Regular Rhythm, Normal S1, Normal S2; Negative: Murmurs, Rubs Abdomen Exam: Positive: Normal bowel sounds, Soft, Other (very obese); Negative: Tenderness Extremity Exam: Negative: Clubbing, Cyanosis, Edema Psych Exam: Positive: Memory Intact, Oriented x 3 LABORATORY DATA: Please see below. ACTIVITY: [As tolerated]. DIET: Carb consistent DISPOSITION: 01 Home, Self-Care. DISCHARGE INSTRUCTIONS: Follow up PMD in 1 week Should be referred to Oncology for Pulmonary embolism. Follow up Hypercoagulable work up. DISCHARGE CONDITION: [Stable]. TIME SPENT ON DISCHARGE: 35 minutes. Vital Signs/I&Os Vital Signs Date Time Temp Pulse Resp B/P (MAP) Pulse Ox O2 Delivery O2 Flow Rate FiO2 02/02/21 06:00 97.6 53 20 110/65 (80) 100 02/01/21 14:00 Room Air I&O- Last 24 Hours up to 6 AM 02/02/21 06:00 Intake Total 1590 ml Output Total 500 ml Balance 1090 ml Laboratory Data Labs 24H Laboratory Tests 2 02/01/21 18:02: Activated Partial Thromboplast Time 96.7H 02/02/21 02:00: Activated Partial Thromboplast Time 87.7H 02/02/21 05:32: Immature Granulocyte % (Auto) 0.4, Neutrophils (%) (Auto) 57.2, Lymphocytes (%) (Auto) 31.6, Monocytes (%) (Auto) 7.8, Eosinophils (%) (Auto) 2.6, Basophils (%) (Auto) 0.4, Neutrophils # (Auto) 3.9, Lymphocytes # (Auto) 2.2, Monocytes # (Auto) 0.5, Eosinophils # (Auto) 0.2, Basophils # (Auto) 0.0, Nucleated Red Blood Cells % (auto) 0.0, Anion Gap 5L, Glomerular Filtration Rate > 60.0, Calcium Level 8.4L 02/02/21 06:02: Activated Partial Thromboplast Time 81.3H CBC/BMP Laboratory Tests 02/02/21 05:32 Discharge Medications Scheduled Apixaban (Eliquis) 5 Mg Tablet, 5 MG PO ASDIRECTED 10 MG (2 TABS) TWICE PER DAY FOR 4 DAYS THEN 5 MG (1 TAB) TWICE PER DAY Cholecalciferol (Vitamin D3) (Vitamin D3) 1,250 Mcg Capsule, 1,250 MCG PO 1XWK, (Reported) SUNDAYS Levothyroxine Sodium (Levothyroxine Sodium) 200 Mcg Tab, 200 MCG PO DAILY, (Reported) TAKE WITH 50MCG TAB. TOTAL OF 250MCG Levothyroxine Sodium (Synthroid) 50 Mcg Tablet, 50 MCG PO DAILY, (Reported) TAKE WITH 200MCG TAB. TOTAL OF 250MCG Scheduled PRN Oxycodone/Acetaminophen (Oxycodone-Acetaminophen 5-325) 1 Each Tablet, 1 TAB PO Q6HP PRN for MODERATE/SEVERE PAIN (PS 5-10) Allergies Coded Allergies: sumatriptan (Verified Allergy, Severe, 12/04/18) latex (Verified Adverse Reaction, Unknown, 12/04/18) ANGELIA DILLON MD Feb 02, 2021 13:51
[2021-02-03 11:38] LABS: DRVV SCREEN 45.5 SEC
[2021-02-03 11:42] LABS: PTT LUPUS TYPE ANTICOAG SCREEN 1.2 (0-1.2)
[2021-02-03 11:49] LABS: DRVV CONFIRM 39.1 SEC; LUPUS CONFIRM RATIO 1.1
[2021-02-03 11:51] LABS: NORMALIZED RATIO 1.09 (0.00-1.20)
[2021-02-04 15:08] LABS: ANTI THROMBIN 3 ANTIGEN IMMUNO 77 % (72-124); ANTI THROMBIN 3 FUNCT ACTIVITY 99 % (75-135); CARDIOLIPIN IGA ANTIBODY <9 APL U/mL (0-11); CARDIOLIPIN IGG ANTIBODY <9 GPL U/mL (0-14); CARDIOLIPIN IGM ANTIBODY <9 MPL U/mL (0-12); PHOSPHOLIPIDS LEVEL 132 mg/dL (150-250); PROTEIN C FUNCTIONAL ACTIVITY 71 % (73-180); PROTEIN S FUNCTIONAL ACTIVITY 89 % (63-140)
== END 2021-02-02 10:29 | disposition home or self-care (01) | DRG 134 ==
LOC: M ED 11:59 → M ED INP 18:03 → M MSPAV 19:35
PROVIDERS: ADMIT Internal Medicine Nephrology; ATTEND Internal Medicine Nephrology
DX: I26.99 Other pulmonary embolism without acute cor pulmonale (principal); Z68.43 Body mass index [BMI] 50.0-59.9, adult; E66.01 Morbid (severe) obesity due to excess calories; E89.0 Postprocedural hypothyroidism; G47.33 Obstructive sleep apnea (adult) (pediatric); E11.9 Type 2 diabetes mellitus without complications; F41.0 Panic disorder [episodic paroxysmal anxiety]; Z85.850 Personal history of malignant neoplasm of thyroid; Z98.84 Bariatric surgery status; Z79.899 Other long term (current) drug therapy; Z86.73 Personal history of transient ischemic attack (TIA), and cerebral infarction without residual deficits; Z88.8 Allergy status to other drugs, medicaments and biological substances; Z20.822 Contact with and (suspected) exposure to COVID-19; Z91.040 Latex allergy status

== ENCOUNTER → 2021-03-29 | Outpatient (REF) | payer OTHER ==
[~2021-03-29] MED LIST changes: +ELIQ5TAB PO; +METF10004 PO; +PERCOCET PO; +SYNT50TA PO; +VITA1CAP25 PO
== END ==
LOC: M WUC 10:01
PROVIDERS: ATTEND Physician Assistant
DX: N39.0 Urinary tract infection, site not specified (principal)

== ENCOUNTER → 2021-07-14 | Outpatient (CLI) | payer OTHER ==
[~2021-07-14] MED LIST changes: +BENZ200C70 PO; -LEVO250T12 PO; +LEVO250T3 PO; +PRED20TA PO; +VENTAER INH
== END ==
LOC: M RAD 15:56
PROVIDERS: ATTEND Specialist
DX: N39.0 Urinary tract infection, site not specified (principal)

== ENCOUNTER 2021-07-16 14:22 | Emergency (ER) | payer OTHER ==
[~2021-07-16] VITALS: Ht 172.7 cm; Wt 136.4 kg
[~2021-07-16 14:22] MED LIST changes: -BENZ200C70 PO; +LEVO250T12 PO; -LEVO250T3 PO; -PRED20TA PO; -VENTAER INH
--- OUTSIDE RECORDS SUMMARY | 2021-07-16 14:30 | CCD ---
Continuity of Care Document (CCD) Created on: 06/29/2021 Gena Garcia External Reference #: [id number] : [id number] Sex: Female Author Author Gena DE LA GARZA Organization Unknown Address [address] [place] [address] Phone [phone] Care Team Providers [employer] Name Role Phone Sharon Abernathy AUTM [phone] Dilma Kim M.D. AUTM [phone] AUTM Unavailable AUTM Unavailable AUTM Unavailable Problems Description No Information Available Social History Type Date Description Comments Sex Unknown ETOH Use Rarely consumes alcohol Tobacco Use Start: Unknown End: Unknown Patient is a former smoker Smoking Status Reviewed: 06/25/21 Patient is a former smoker Allergies and adverse reactions Active Allergies Criticality Reaction | Severity Comments Date Imitrex Unable to assess criticality 12/19/2018 Latex Unable to assess criticality 06/23/2021 Medications Active Medications SIG Qnty Indications Ordering Provide r Date Levothyroxine Sodium 200mcg Capsul es 1 cap by mouth every day Unknown Levothyroxine Sodium 50mcg Capsule s 1 by mouth every day Unknown Vitamin D3 Maximum Strength 125mcg (5000 Ut) Capsules 1 cap by mouth every day Unknown Eliquis 5mg Tablets 1 tab by mouth twice a day Unknown Immunizations Description No Information Available Vital Signs Date Vital Result Comment 06/25/2021 10:23am BP Systolic 118 mmHg BP Diastolic 68 mmHg Heart Rate 50 /min O2 % BldC Oximetry 100 % Height 68.50 inches 5'8.50" Weight 349.00 lb BMI (Body Mass Index) 52.3 kg/m2 [place] Body Weight 140 lb Neck Circumference in inches 17.5 [place] Score 21 Weight 158.306 kg BSA (Body Surface Area) 2.60 m2 12/19/2018 1:49pm Body Temperature 98.6 F Height 68.50 inches 5'8.50" Weight 330.38 lb BMI (Body Mass Index) 49.5 kg/m2 [place] Body Weight 140 lb Weight 149.858 kg BSA (Body Surface Area) 2.54 m2 Results Description No Information Available Procedures Date Code Description Status 06/25/2021 00598 Office/Outpatient New Low MDM 30 -44 Minutes Completed Medical Devices Description No Information Available Encounters Type Date Location Provider Dx Diagnosis Office Visit 06/25/2021 10:30a [facility] Bradley De La Garza P.ABee G47.33 Obstructive sleep apnea (adult) (pediatr ic) Assessments Date Code Description Provider 06/25/2021 G47.33 Obstructive sleep apnea (adult) (pediatric) Svetlana Fong Plan of Treatment Future Appointment(s):* 08/25/2021 10:00 am - Svetlana Fong at [facility] * 07/24/2021 7:45 pm - [facility] at [facility] 06/25/2021 - Svetlana Fong* G47.33 Obstructive sleep apnea (adult) (pediatric) * * New Orders:* Sleep Nocturnal Diagnostic Sleep Study, Scheduled: 07/24/21 * Comments:* 1. The morbidity of untreated obstructive sleep apnea was reviewed and questions were answered.2. PSG and PAP therapy were reviewed and questions were answered.3. We will schedule for PSG.4. Sleep hygiene was reviewed. * Follow up:* 1. Follow up after testing. Functional Status Description No Information Available Mental Status Description No Information Available Referrals Refer to Reason for Referral Status Appt Date Bradley De La Garza R.PYazmin. SNORING, ?MILTON Scheduled 06/14 [facility] [address] [place], [place] [id number] [phone] Adrian Hernández M.D. ? MIL[place] Closed [address] [facility] [address] [place], [place] [id number] [phone]
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
--- OUTSIDE RECORDS SUMMARY | 2021-07-16 14:30 | CCD | Continuity of Care Document ---
Author Author Gena OSORIO Organization Unknown Address [address] [place] [address] Phone [phone] Care Team Providers Care Global Program Director Name Role Phone Cristofer Buck MD AUTM [phone] [facility] Nutrition Services AUTM [phone] [facility] AUTM Dilma Kim MD AUTM [phone] Susanne Abernathy AUTM [phone] [facility] AUTM [phone] [facility] Outpatient Mental Health AUTM [facility] Physical Therapy AUTM [phone] [facility] Surgical AUTM [phone] Wolfgang Manuel AUTM [phone] [facility] AUTM [facility] AUTM [phone] [facility] Urology Clinic AUTM [phone] Problems Active Problems Provider Date Migraine without [...] Onset: 05/29/2018 Degeneration of cervical intervertebral disc Dilma lazaro MD Onset: 05/30/2018 Papillary thyroid carcinoma [...] Kim MD Onset: 02/16/2021 Note: January 2021 Social History Type Date Description Comments Sex [...] Seat Belt/Car Seat Always uses seat belt Allergies, Adverse Reactions, Alerts Active Allergies Criticality Reaction | Severity Comments Date Imitrex Unable to assess criticality | Severe Heart Racing , Minor Stroke 06/28/2017 Environmental Unable to assess criticality 06/28/2017 NKFA Unable to assess criticality 02/06/2018 Latex Unable to assess criticality Itching 2019 Medications Active Medications SIG Qnty Indications Ordering Provide r Date Vitamin D3 Ultra Potency 1.25mg (73543 Ut) Tablets 1 tablet once a week by mouth 12tabs Dilma butts MD 04/21/2021 Levothyroxine Sodium 50mcg Tablets 1 by [...] Dilma Kim MD 000 History Medications Vitamin B12 TR 1000mcg Tablets ER 1 by mouth every day 90tabs Dilma Kim MD 01/20/2021 - 04/21/2021 Vitamin D3 Ultra Potency 1.25mg (76489 Ut) Tablets 1 tablet once a week [...] Available Vital Signs Date Vital Result Comment 05/05/2021 3:16pm BP Systolic 112 mmHg BP Diastolic 76 mmHg Heart Rate 79 /min Body Temperature 97.7 F O2 % BldC Oximetry 100 % Weight 351.25 lb Weight 159.327 kg 04/21/2021 8:08am BP Systolic 120 mmHg BP Diastolic 79 mmHg Heart Rate 63 /min Body Temperature 97.8 F Respiratory Rate 18 /min O2 % BldC Oximetry 98 % Weight 346.00 lb Weight 156.946 kg Results Test Acquired Date Facility Test Result H/L Range Note Bacterial Vaginosis 05/05/2021 [facility] Source: Genital 1 Nubia species Negative Negative Gardnerella vaginalis Negative Negative Trichomonas vaginalis Negative Negative Xray 05/05/2021 [facility] [address], [address] [place] [address] [phone] Mammo Screening Bilateral with CAD <pending> Affirm Vaginitis Panel 05/05/2021 [facility]#Other Observations <pending> Laboratory test finding 04/21/2021 [facility] Vitamin B12 Serum 238 pg/mL 232 - 1245 2 CBC No Diff 04/21/2021 [facility] CBC No Diff (SEE NOTE) 3 [...] 7.4 - 10.4 Comprehensive Metabolic Panel [facility] Comprehensive Metabo (SEE NOTE) 4 [...] >60 mL/min 5 Laboratory test finding 04/21/2021 Didi grajeda Vitamin D (25-Hydroxy) 16 NG/ML 6 Xray 04/21/2021 [facility] [address], [address] [place] [address] [phone] Mammo Screening Bilateral with CAD <pending> Laboratory test finding 02/25/2021 [facility]i Conrad TSH Highly Sensitive 1.36 uIU/mL 0.47 - 5.01 CBC With Differential 01/30/2021 [facility] White Blood Count 6.8 10 Normal 4.0-10.0 [...] 36.0-66.0 Lymph % 22.7 % Low 24.0-44.0 [place] % 13.8 % High 2.0-8.0 Eos % 0.9 % Normal 0.0-3.0 Baso % 0.6 % Normal 0.0-1.0 Immature Granulocyte % 0.4 % Normal 0-3.0 Nucleated Red Blood Cell % 0.0 % Normal 0-0 Neutrophils # 4.2 10 Normal 1.5-8.5 Lymph # 1.6 10 Normal 1.5-5.0 [place] # 0.9 10 High 0.0-0.8 Eos # 0.1 10 Normal 0.0-0.5 Baso # 0.0 10 Normal 0.0-0.2 Laboratory test finding 01/30/2021 [facility] Lipase 66 U/L Low 73-393 Thyroid Stimulating Hormone 0.246 uIU/ML Low 0.358-3.740 Free T4 1.14 ng/dL Normal 0.76-1.46 C Reactive Protein Quantitativ 2.87 mg/dL High 0.00-0.30 Erythrocyte Sedimentation Rate 56 mm/hr High 0-20 Liver Profile 01/30/2021 [facility] Ast/Sgot 19 U/L Normal 7-37 Alt/SGPT 20 U/L Normal 12-78 Alkaline Phosphatase 90 U/L Normal 45-117 Bilirubin,Total 0.9 mg/dL Normal 0.2-1.0 Bilirubin,Direct 0.2 mg/dL Normal 0.0-0.2 Total Protein 7.3 GM/DL Normal 6.4-8.2 Albumin 3.3 GM/DL Normal 3.2-5.2 Albumin/Globulin Ratio 0.8 Low 1.2-2.2 Istat Chem8+ Panel 01/30/2021 [facility] iSTAT HCT 37.0 % Low 38.0-51.0 iSTAT Glucose 104 mg/dL Normal 70-105 iSTAT Sodium 141 mEq/L Normal 136-145 iSTAT Potassium 3.6 mEq/L Normal 3.5-5.1 iSTAT CA++ 4.7 mg/dL Normal 4.5-5.3 iSTAT Chloride 101 mEq/L Normal 98-109 iSTAT Co2 22.0 MM/L Low 23.0-27.0 iSTAT BUN 4 mg/dL Low 8-26 iSTAT Creatinine 0.6 mg/dL Normal 0.6-1.3 Laboratory test finding 01/30/2021 [facility] D-Dimer Quant > 4000 ng/ml High <500 PT & Aptt 01/30/2021 [facility] Prothrombin Time 14.5 seconds High 12.5-14.3 Inr 1.11 Normal 7 Partial Thromboplastin Time 28.2 seconds Normal 24.2-38.5 Laboratory test finding 01/30/2021 [facility] NT-Pro BNP 1132 pg/mL High <125 CBC No Diff 01/19/2021 [facility] CBC No Diff (SEE NOTE) 8, [...] 7.4 - 10.4 Comprehensive Metabolic Panel 01/19/2021 [facility] Comprehensive Metabo (SEE NOTE) 10 Sodium 141 [...] >60 mL/min 11 Laboratory test finding 01/19/2021 [facility] TSH Highly Sensitive 0.11 uIU/mL Low 0.47 - 5.01 Cve Panel 01/19/2021 [facility] Cve Panel (SEE NOTE) 12 Cholesterol 133 mg/dL 131 - 200 Triglycerides 68 mg/dL 35 - 160 HDL 44 mg/dL 29 - 86 LDL 85 mg/dL 65 - 175 Risk Factor 3.0 Low 3.2 - 4.4 LDL/HDL 1.93 1.47 - 3.22 13 Laboratory test finding 01/19/2021 [facility] Hgba1c 6.0 % 4.4 - 6.1 14 Vitamin B12 Serum 199 pg/mL Low 232 - 1245 Folic Acid Serum(Folate) 9.6 NG/ML 4.4 - 31.0 Iron 49 g/dL 42 - 135 Vitamin D (25-Hydroxy) 7 NG/ML 15 Thyroid Antibodies 01/19/2021 [facility] Thyroid Peroxidase (Tpo)Ab <9 IU/mL 0-34 Thyroglobulin Antibody <1.0 IU/mL 0.0-0.9 16 Xray 12/10/2020 [facility] [address] [place], [place] [id number] [phone] US Abd Complete <pending> US Pelvic <pending> [...] ng/ml 16 Thyroglobulin Antibody measu red by [facility] Methodology Procedures Date Code Description Status 05/05/2021 68169 Preventive Visit Est 40-64 Yrs C ompleted 01/19/2021 11886 Office/Outpatient Established Lo w MDM 20-29 Min Completed 12/10/2020 07647 Office/Outpatient Established Mo d MDM 30-39 Min Completed 12/10/2020 79643 Office/Outpatient Established Lo w MDM 20-29 Min Completed 12/10/2020 31423 Admin Patient Focused Health Ris k Assessment Instrument Completed 12/10/2020 71049 Brief Emotional/Beha v Assessment W/ Scoring Doc Per Standard Inst Completed Medical Devices Description No Information Available Encounters Type Date Location Provider Dx Diagnosis Office Visit 05/05/2021 3:30p [facility] Jenna Mireles NP Z01.419 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) w/o abn findings Z87.440 Personal history of urinary (tract) infections Assessments Date Code Description Provider 05/05/2021 Z01.419 Encounter for gyneco logical examination (general) (routine) without abnormal findings Jenna Mireles NP 05/05/2021 Z87.440 Personal history of urinary (tra ct) infections Jenna Mireles, LANRE 04/21/2021 E53.8 Deficiency of other specified B [...] breast Dilma Kim MD 04/21/2021 Z79.899 Other assisted (current) drug t herapy Dilma Kim MD [...] MD 12/10/2020 N94.6 Dysmenorrhea, unspecified Jenna O LANRE ken 12/10/2020 E66.9 Obesity, unspecified Dilma butts MD 12/10/2020 Z98.84 Bariatric surgery status Dilma lazo MD 12/10/2020 Z00.01 Encounter for genera l adult medical examination with abnormal findings Dilma Kim MD Plan of Treatment Future Appointment(s):* 06/23/2021 8:00 am - Dilma Kim MD at [facility] * 05/25/2021 4:00 pm - Dilma Kim MD at [facility] Functional Status Description No Information Available Mental Status Description No Information Available Referrals Refer to Dr Reason for Referral Status Appt Date [facility] Frequent UTI's. Eval and treat Created [address] [place], [place] [id number] [phone] [facility] 40-year-old female who weigh s 357 pounds with a BMI of 54.3. She would like to get nutrition consult. Please evaluate and treat. Thank you. Sent [address] [facility] [address] [phone] [facility] 40-year-old female with multiple symptoms suggestive of sleep apnea. She scored 14 on [place] scale today. Please evaluate and treat. Thank you. Closed [address] [place], [place] [address] [phone]"
--- OUTSIDE RECORDS SUMMARY | 2021-07-16 14:31 | CCD | Continuity of Care Document ---
Author Author Gena KIM MD Organization Unknown Address [address] [place] [address] Phone [phone] Care Team Providers Care Formulator Name Role Phone Cristofer Buck MD AUTM [phone] [facility] Nutrition Services AUTM [phone] [facility] AUTM Dilma Kim MD AUTM [phone] Susanne Abernathy AUTM [phone] [facility] AUTM [phone] [facility] Outpatient Mental Health AUTM [facility] Physical Therapy AUTM [phone] [facility] Surgical AUTM [phone] Wolfgang Manuel AUTM [phone] [facility] AUTM [facility] AUTM [phone] Problems Active Problems Provider Date Migraine without [...] r Date Vitamin D3 Ultra Potency 1.25mg (20945 Ut) Tablets 1 tablet once a week [...] times a day 60tabs Dilma Kim MD 00/ History Medications Vitamin B12 TR 1000mcg Tablets ER 1 by mouth every day 90tabs Dilma Kim MD 01/20/2021 - 04/21/2021 Vitamin D3 Ultra Potency 1.25mg (37258 Ut) Tablets 1 tablet once a week [...] Available Vital Signs Date Vital Result Comment 04/21/2021 8:08am BP Systolic 120 mmHg BP Diastolic 79 mmHg Heart Rate 63 /min Body Temperature 346.0 F Respiratory Rate 18 /min O2 % BldC Oximetry 98 % Weight 978.00 lb Weight 443.621 kg 02/25/2021 9:58am BP Systolic 122 mmHg BP Diastolic 82 mmHg Heart Rate 64 /min Body Temperature 97.8 F Respiratory Rate 16 /min O2 % BldC Oximetry 99 % Weight 352.00 lb Weight 159.667 kg Height 68 inches 5'8" BMI (Body Mass Index) 53.5 kg/m2 BSA (Body Surface Area) 2.60 m2 Results Test Acquired Date Facility Test Result H/L Range Note Laboratory test finding 04/21/2021 Didi grajeda Vitamin D (25-Hydroxy) <pending> Xray 04/21/2021 [facility] [address], [address] [place], [place] [address] [phone] Mammo Screening Bilateral with CAD <pending> Laboratory test finding 04/21/2021 [facility] taras Vitamin B12 Serum <pending> Laboratory test finding 02/25/2021 [facility] TSH Highly Sensitive 1.36 uIU/mL 0.47 - 5.01 Liver Profile 01/30/2021 [facility] Ast/Sgot 19 U/L Normal 7-37 Alt/SGPT 20 U/L Normal 12-78 Alkaline Phosphatase 90 U/L Normal 45-117 Bilirubin,Total 0.9 mg/dL Normal 0.2-1.0 Bilirubin,Direct 0.2 mg/dL Normal 0.0-0.2 Total Protein 7.3 GM/DL Normal 6.4-8.2 Albumin 3.3 GM/DL Normal 3.2-5.2 Albumin/Globulin Ratio 0.8 Low 1.2-2.2 Laboratory test finding 01/30/2021 [facility] Lipase 66 U/L Low 73-393 Thyroid Stimulating Hormone 0.246 uIU/ML Low 0.358-3.740 Free T4 1.14 ng/dL Normal 0.76-1.46 C Reactive Protein Quantitativ 2.87 mg/dL High 0.00-0.30 Erythrocyte Sedimentation Rate 56 mm/hr High 0-20 CBC With Differential 01/30/2021 [facility] White Blood Count 6.8 10 Normal 4.0-10.0 [...] 36.0-66.0 Lymph % 22.7 % Low 24.0-44.0 [place] % 13.8 % High 2.0-8.0 Eos % 0.9 % Normal 0.0-3.0 Baso % 0.6 % Normal 0.0-1.0 Immature Granulocyte % 0.4 % Normal 0-3.0 Nucleated Red Blood Cell % 0.0 % Normal 0-0 Neutrophils # 4.2 10 Normal 1.5-8.5 Lymph # 1.6 10 Normal 1.5-5.0 [place] # 0.9 10 High 0.0-0.8 Eos # 0.1 10 Normal 0.0-0.5 Baso # 0.0 10 Normal 0.0-0.2 Istat Chem8+ Panel 01/30/2021 [facility] iSTAT HCT 37.0 % Low 38.0-51.0 iSTAT Glucose 104 mg/dL Normal 70-105 iSTAT Sodium 141 mEq/L Normal 136-145 iSTAT Potassium 3.6 mEq/L Normal 3.5-5.1 iSTAT CA++ 4.7 mg/dL Normal 4.5-5.3 iSTAT Chloride 101 mEq/L Normal 98-109 iSTAT Co2 22.0 MM/L Low 23.0-27.0 iSTAT BUN 4 mg/dL Low 8-26 iSTAT Creatinine 0.6 mg/dL Normal 0.6-1.3 Laboratory test finding 01/30/2021 [facility] D-Dimer Quant > 4000 ng/ml High <500 PT & Aptt 01/30/2021 [facility] Prothrombin Time 14.5 seconds High 12.5-14.3 Inr 1.11 Normal 1 Partial Thromboplastin Time 28.2 seconds Normal 24.2-38.5 Laboratory test finding 01/30/2021 [facility] NT-Pro BNP 1132 pg/mL High <125 CBC No Diff 01/19/2021 [facility] CBC No Diff (SEE NOTE) 2, 3 WBC 7.7 10^3/uL 4.2 - 11.0 RBC [...] 7.4 - 10.4 Comprehensive Metabolic Panel 01/19/2021 [facility] Comprehensive Metabo (SEE NOTE) 4 Sodium 141 mEq/L 134 - 153 Potassium [...] GFR >60 mL/min 5 Laboratory test finding 01/19/2021 [facility] TSH Highly Sensitive 0.11 uIU/mL Low 0.47 - 5.01 Cve Panel 01/19/2021 [facility] Cve Panel (SEE NOTE) 6 Cholesterol 133 mg/dL 131 - 200 Triglycerides 68 mg/dL 35 - 160 HDL 44 mg/dL 29 - 86 LDL 85 mg/dL 65 - 175 Risk Factor 3.0 Low 3.2 - 4.4 LDL/HDL 1.93 1.47 - 3.22 7 Laboratory test finding 01/19/2021 [facility] Hgba1c 6.0 % 4.4 - 6.1 8 Vitamin B12 Serum 199 pg/mL Low 232 - 1245 Folic Acid Serum(Folate) 9.6 NG/ML 4.4 - 31.0 Iron 49 g/dL 42 - 135 Vitamin D (25-Hydroxy) 7 NG/ML 9 Thyroid Antibodies 01/19/2021 [facility] Thyroid Peroxidase (Tpo)Ab <9 IU/mL 0-34 Thyroglobulin Antibody <1.0 IU/mL 0.0-0.9 10 Xray 12/10/2020 [facility] [address] [place] [address] [phone] US Abd Complete <pending> US Pelvic <pending> 1 THERAPUTIC HUMAN INR VALUES INDICATIONS NORMAL RANGES PROPHYLAXIS/TREATMENT OF: VENOUS THROMBOSIS 2.0-3.0 PULMONARY EMBOLISM 2.0-3.0 PREVENTION OF SYSTEMIC EMBOLISM FROM: TISSUE HEART VALVES 2.0-3.0 ACUTE MYOCARDIAL INFARCTION 2.0-3.0 VALVULAR HEART DISEASE 2.0-3.0 ATRIAL FIBRILLATION 2.0-3.0 MECHANICAL VALVES(HIGH RISK) 2.5-3.5 RECURRENT MYOCARDIAL INFARCTION 2.5-3.5 2 .~.~<DG1.3.1>Z00.01</DG1.3.1><DG1.3.1>E03.9</DG1.3.1><DG1.3.1>E66.9</DG1.3.1><DG 1.3. Is patient fasting? N~.~.~<DG1.3.1>Z00.01</DG1.3.1><DG1.3.1&gt ;E03.9</DG1.3.1><DG1.3.1>E66.9</DG1.3 .~.~<DG1.3.1>Z00.01</DG1.3.1><DG1.3.1>E03.9</DG1.3.1><DG1.3.1>E66.9</DG1.3.1><DG 1.3. Is patient fasting? N~.~ .~<DG1.3.1>Z00.01</DG1.3.1><DG1.3.1>E03.9</DG1.3.1><DG1.3.1>E66.9</DG1.3 .~.~<DG1.3.1>Z00.01</DG1.3.1><DG1.3.1>E03.9</DG1.3.1><DG1.3.1>E66. 9</DG1.3.1><DG1.3. .~.~<DG1.3.1>Z00.01</DG1.3.1><DG1.3.1>E03.9</DG1.3.1><DG1.3.1>E66.9</DG1.3.1><DG 1.3. .~.~<DG1.3.1>Z00.01</DG1.3.1><DG1.3 .1>E03.9</DG1.3.1><DG1.3.1>E66.9</DG1.3.1><DG1.3. .~.~<DG1.3.1>Z00.01</DG1.3.1><DG1.3.1>E03.9</DG1.3.1><DG1.3.1>E66.9</DG1.3.1><DG 1.3. 3 COMPLETE BLOOD COUNT 4 COMPREHENSIVE METABOLIC [...] 80 and above >32 mL/min Normal 6 LIPID PANEL 7 CVE RISK CHOL/HDL LDL/HDL MEN: 1/2 AVERAGE 3.43 1.00 AVERAGE 4.97 3.55 2X AVERAGE 9.55 6.25 3X AVERAGE 23.99 7.99 WOMEN: 1/2 AVERAGE 3.27 1.47 AVERAGE 4.44 3.22 2X AVERAGE 7.05 5.03 3X AVERAGE 11.04 6.14 8 {A1] {HB] 9 VITAMIN-D(25HYDROXY) Deficiency: <=20 ng/ml Insufficiency: 21-29 ng/ml Preferred level: => 30 ng/ml 10 Thyroglobulin Antibody measu red by [facility] Methodology Procedures Date Code Description Status 01/19/2021 54908 Office/Outpatient Established Lo w MDM 20-29 Min Completed 12/10/2020 22066 Office/Outpatient Established Mo d MDM 30-39 Min Completed 12/10/2020 76493 Office/Outpatient Established Lo w MDM 20-29 Min Completed 12/10/2020 21622 Admin Patient Focused Health Ris k Assessment Instrument Completed 12/10/2020 16119 Brief Emotional/Beha v Assessment W/ Scoring Doc Per Standard Inst Completed Medical Devices Description No Information Available Encounters Description No Information Available Assessments Date Code Description Provider 04/21/2021 E53.8 Deficiency of other specified B group vitamins Dilma Kim MD 04/21/2021 I26.99 Other pulmonary embolism without acute cor pulmonale Dilma Kim MD 04/21/2021 E03.9 Hypothyroidism, innaified Dilma Kim MD 04/21/2021 D64.9 Anemia, unspecified Dilma woodall MD 04/21/2021 Z79.899 Other long-term (current) drug t herapy Dilma Kim MD 04/21/2021 E55.9 Vitamin D deficiency, unspecifie d Dilma Kim MD 02/25/2021 I26.99 Other pulmonary embolism without acute cor pulmonale Dilma Kim MD 02/25/2021 E03.9 Hypothyroidism, innaified Dilma Kim MD 01/19/2021 E03.9 Hypothyroidism, unspecified [...] lazo MD 12/10/2020 N94.6 Dysmenorrhea, unspecified Jenna ken, LANRE 12/10/2020 E66.9 Obesity, unspecified Dilma butts MD 12/10/2020 Z98.84 Bariatric surgery status Dilma lazo MD 12/10/2020 Z00.01 Encounter for [facility] adult medical examination with abnormal findings Dilma Kim MD Plan of Treatment Future Appointment(s):* 06/23/2021 8:00 am - Dilma Kim MD at [facility] * 05/05/2021 3:30 pm - Jenna Mireles NP [facility] * 05/25/2021 4:00 pm - Dilma Kim MD at [facility] 04/21/2021 - Dilma Kim MD* E53.8 Deficiency of other specified B group vitamins * I26.99 Other pulmonary embolism without acute cor pulmonale * E03.9 Hypothyroidism, unspecified * D64.9 Anemia, unspecified * Z79.899 Other long-term (current) drug therapy * E55.9 Vitamin D deficiency, unspecified * All * New Medication:* Vitamin D3 Ultra Potency 1.25 mg (68337 Ut) - 1 tablet once a week by mouth Functional Status Description No Information Available Mental Status Description No Information Available Referrals Refer to Reason for Referral Status Appt Date [facility] 40-year-old female who weigh s 357 pounds with a BMI of 54.3. She would like to get nutrition consult. Please evaluate and treat. Thank you. Sent [address] [place] [phone] [facility] 40-year-old female with multiple symptoms suggestive of sleep apnea. She scored 14 on [place] scale today. Please evaluate and treat. Thank you. Closed [address] [place] [address] [phone]
--- OUTSIDE RECORDS SUMMARY | 2021-07-16 14:31 | CCD | Continuity of Care Document ---
Author Author Gena KIM MD Organization Unknown Address [address] [place] [address] Phone [phone] Care Team Providers Care Dairy Processing Supervisor Name Role Phone Cristofer Buck MD AUTM [phone] [facility] Nutrition Services AUTM [phone] [facility] AUTM Dilma Kim MD AUTM [phone] Susanne Abernathy AUTM [phone] [facility] AUTM [facility] Outpatient Mental Health AUTM [phone] [facility] Physical Therapy AUTM [phone] [facility] Surgical AUTM [phone] Wolfgang Manuel AUTM [phone] [facility] AUTM [phone] [facility] AUTM [phone] Problems Active Problems Provider Date Migraine without [...] r Date Vitamin D3 Ultra Potency 1.25mg (35584 Ut) Tablets 1 tablet once a week [...] times a day 60tabs Dilma Kim MD 00 History Medications Vitamin B12 TR 1000mcg Tablets ER 1 by mouth every day 90tabs Dilma Kim MD 01/20/2021 - 04/21/2021 Vitamin D3 Ultra Potency 1.25mg (11324 Ut) Tablets 1 tablet once a week [...] % Weight 346.00 lb Weight 156.946 kg 02/25/2021 9:58am BP Systolic 122 mmHg BP Diastolic 82 mmHg Heart Rate 64 /min Body Temperature 97.8 F Respiratory Rate 16 /min O2 % BldC Oximetry 99 % Weight 352.00 lb Weight 159.667 kg Height 68 inches 5'8" BMI (Body Mass Index) 53.5 kg/m2 BSA (Body Surface Area) 2.60 m2 Results Test Acquired Date Facility Test Result H/L Range Note CBC No Diff 04/21/2021 [facility] CBC No Diff (SEE NOTE) 1, 2 WBC 7.5 10^3/uL 4.2 - 11.0 RBC [...] 7.4 - 10.4 Comprehensive Metabolic Panel 04/21/2021 [facility] Comprehensive Metabo (SEE NOTE) 3 Sodium 138 mEq/L 134 - 153 Potassium [...] >60 mL/min Afr Amer GFR >60 mL/min 4 Laboratory test finding 04/21/2021 [facility] Vitamin D (25-Hydroxy) 16 NG/ML 5 [facility] [address], [address] [place] [address] [phone] Mammo Screening Bilateral with CAD <pending> Laboratory test finding 04/21/2021 [facility] Vitamin B12 Serum 238 pg/mL 232 - 1245 Laboratory test finding 02/25/2021 [facility] TSH Highly Sensitive 1.36 uIU/mL 0.47 - 5.01 Liver Profile 01/30/2021 [facility] Ast/Sgot 19 U/L Normal 7-37 Alt/SGPT 20 U/L Normal 12-78 Alkaline Phosphatase 90 U/L Normal 45-117 Bilirubin,Total 0.9 mg/dL Normal 0.2-1.0 Bilirubin,Direct 0.2 mg/dL Normal 0.0-0.2 Total Protein 7.3 GM/DL Normal 6.4-8.2 Albumin 3.3 GM/DL Normal 3.2-5.2 Albumin/Globulin Ratio 0.8 Low 1.2-2.2 Laboratory test finding 01/30/2021 [facility] Lipase 66 U/L Low 73-393 Thyroid Stimulating Hormone 0.246 uIU/ML Low 0.358-3.740 Free T4 1.14 ng/dL Normal 0.76-1.46 C Reactive Protein Quantitativ 2.87 mg/dL High 0.00-0.30 Erythrocyte Sedimentation Rate 56 mm/hr High 0-20 CBC With Differential 01/30/2021 [facility] White Blood Count 6.8 10 Normal [...] 36.0-66.0 Lymph % 22.7 % Low 24.0-44.0 Harris % 13.8 % High 2.0-8.0 Eos % 0.9 % Normal 0.0-3.0 Baso % 0.6 % Normal 0.0-1.0 Immature Granulocyte % 0.4 % Normal 0-3.0 Nucleated Red Blood Cell % 0.0 % Normal 0-0 Neutrophils # 4.2 10 Normal 1.5-8.5 Lymph # 1.6 10 Normal 1.5-5.0 Harris # 0.9 10 High 0.0-0.8 Eos # 0.1 10 Normal 0.0-0.5 Baso # 0.0 10 Normal 0.0-0.2 Istat Chem8+ Panel 01/30/2021 [facility] iSTAT HCT 37.0 % Low 38.0-51.0 iSTAT Glucose 104 mg/dL Normal 70-105 iSTAT Sodium 141 mEq/L Normal 136-145 iSTAT Potassium 3.6 mEq/L Normal 3.5-5.1 iSTAT CA++ 4.7 mg/dL Normal 4.5-5.3 iSTAT Chloride 101 mEq/L Normal 98-109 iSTAT Co2 22.0 MM/L Low 23.0-27.0 iSTAT BUN 4 mg/dL Low 8-26 iSTAT Creatinine 0.6 mg/dL Normal 0.6-1.3 Laboratory test finding 01/30/2021 [facility] D-Dimer Quant > 4000 ng/ml High <500 PT & Aptt 01/30/2021 [facility] Prothrombin Time 14.5 seconds High 12.5-14.3 Inr 1.11 Normal 6 Partial Thromboplastin Time 28.2 seconds Normal 24.2-38.5 Laboratory test finding 01/30/2021 [facility] NT-Pro BNP 1132 pg/mL High <125 CBC No Diff 01/19/2021 [facility] CBC No Diff (SEE NOTE) 7, 8 WBC 7.7 10^3/uL 4.2 - 11.0 RBC [...] 7.4 - 10.4 Comprehensive Metabolic Panel 01/19/2021 [facility] Comprehensive Metabo (SEE NOTE) 9 Sodium 141 mEq/L 134 - 153 Potassium [...] >60 mL/min Afr Amer GFR >60 mL/min 10 Laboratory test finding 01/19/2021 [facility] TSH Highly Sensitive 0.11 uIU/mL Low 0.47 - 5.01 Cve Panel 01/19/2021 [facility] Cve Panel (SEE NOTE) 11 Cholesterol 133 mg/dL 131 - 200 Triglycerides 68 mg/dL 35 - 160 HDL 44 mg/dL 29 - 86 LDL 85 mg/dL 65 - 175 Risk Factor 3.0 Low 3.2 - 4.4 LDL/HDL 1.93 1.47 - 3.22 12 Laboratory test finding 01/19/2021 [facility] l Hgba1c 6.0 % 4.4 - 6.1 13 Vitamin B12 Serum 199 pg/mL Low 232 - 1245 Folic Acid Serum(Folate) 9.6 NG/ML 4.4 - 31.0 Iron 49 g/dL 42 - 135 Vitamin D (25-Hydroxy) 7 NG/ML 14 Thyroid Antibodies 01/19/2021 [facility] Thyroid Peroxidase (Tpo)Ab <9 IU/mL 0-34 Thyroglobulin Antibody <1.0 IU/mL 0.0-0.9 15 Xray 12/10/2020 [facility] [address] [place], [place] [id number] [phone] US Abd Complete <pending> US Pelvic <pending> 1 Is patient fasting? N 2 COMPLETE BLOOD COUNT 3 COMPREHENSIVE METABOLIC PANE L 4 Male GFR Interprentation 20-49 yrs >60 mL/min Normal 50-59 yrs >56 mL/min Normal 60-69 yrs >49 mL/min Normal 70-79yrs >42 mL/min Normal 80 and above >35 mL/min Normal Female GFR Interpretation 20-39 yrs >60 mL/min Normal 40-49 yrs >58 mL/min Normal 50-59 yrs >51 mL/min Normal 60-69 yrs >45 mL/min Normal 70-79 yrs >39 mL/min Normal 80 and above >32 mL/min Normal 5 VITAMIN-D(25HYDROXY) Deficiency: <=20 ng/ml Insufficiency: 21-29 ng/ml Preferred level: => 30 ng/ml 6 THERAPUTIC HUMAN INR VALUES INDICATIONS NORMAL RANGES PROPHYLAXIS/TREATMENT OF: VENOUS THROMBOSIS 2.0-3.0 PULMONARY EMBOLISM 2.0-3.0 PREVENTION OF SYSTEMIC EMBOLISM FROM: TISSUE HEART VALVES 2.0-3.0 ACUTE MYOCARDIAL INFARCTION 2.0-3.0 VALVULAR HEART DISEASE 2.0-3.0 ATRIAL FIBRILLATION 2.0-3.0 MECHANICAL VALVES(HIGH RISK) 2.5-3.5 RECURRENT MYOCARDIAL INFARCTION 2.5-3.5 7 .~.~<DG1.3.1>Z00.01</DG1.3.1><DG1.3.1>E03.9</DG1.3.1><DG1.3.1>E66.9</DG1.3.1><DG 1.3. Is patient fasting? N~.~.~<DG1.3.1>Z00.01</DG1.3.1><DG1.3.1&gt ;E03.9</DG1.3.1><DG1.3.1>E66.9</DG1.3 .~.~<DG1.3.1>Z00.01</DG1.3.1><DG1.3.1>E03.9</DG1.3.1><DG1.3.1>E66.9</DG1.3.1><DG 1.3. Is patient fasting? N~.~ .~<DG1.3.1>Z00.01</DG1.3.1><DG1.3.1>E03.9</DG1.3.1><DG1.3.1>E66.9</DG1.3 .~.~<DG1.3.1>Z00.01</DG1.3.1><DG1.3.1>E03.9</DG1.3.1><DG1.3.1>E66. 9</DG1.3.1><DG1.3. .~.~<DG1.3.1>Z00.01</DG1.3.1><DG1.3.1>E03.9</DG1.3.1><DG1.3.1>E66.9</DG1.3.1><DG 1.3. .~.~<DG1.3.1>Z00.01</DG1.3.1><DG1.3 .1>E03.9</DG1.3.1><DG1.3.1>E66.9</DG1.3.1><DG1.3. .~.~<DG1.3.1>Z00.01</DG1.3.1><DG1.3.1>E03.9</DG1.3.1><DG1.3.1>E66.9</DG1.3.1><DG 1.3. 8 COMPLETE BLOOD COUNT 9 COMPREHENSIVE METABOLIC PANE L 10 Male GFR Interprentation 20-49 yrs >60 mL/min Normal 50-59 yrs >56 mL/min Normal 60-69 yrs >49 mL/min Normal 70-79yrs >42 mL/min Normal 80 and above >35 mL/min Normal Female GFR Interpretation 20-39 yrs >60 mL/min Normal 40-49 yrs >58 mL/min Normal 50-59 yrs >51 mL/min Normal 60-69 yrs >45 mL/min Normal 70-79 yrs >39 mL/min Normal 80 and above >32 mL/min Normal 11 LIPID PANEL 12 CVE RISK CHOL/HDL LDL/HDL MEN: 1/2 AVERAGE 3.43 1.00 AVERAGE 4.97 3.55 2X AVERAGE 9.55 6.25 3X AVERAGE 23.99 7.99 WOMEN: 1/2 AVERAGE 3.27 1.47 AVERAGE 4.44 3.22 2X AVERAGE 7.05 5.03 3X AVERAGE 11.04 6.14 13 {A1] {HB] 14 VITAMIN-D(25HYDROXY) Deficiency: <=20 ng/ml Insufficiency: 21-29 ng/ml Preferred level: => 30 ng/ml 15 Thyroglobulin Antibody measu red by [employer] Methodology Procedures Date Code Description Status 01/19/2021 52773 Office/Outpatient Established Lo w MDM 20-29 Min Completed 12/10/2020 55846 Office/Outpatient Established Mo d MDM 30-39 Min Completed 12/10/2020 46486 Office/Outpatient Established Lo w MDM 20-29 Min Completed 12/10/2020 41622 Admin Patient Focused Health Ris k Assessment Instrument Completed 12/10/2020 73148 Brief Emotional/Beha v Assessment W/ Scoring Doc [...] lazo MD 12/10/2020 N94.6 Dysmenorrhea, unspecified Jenna ken NP 12/10/2020 E66.9 Obesity, unspecified Dilma butts MD 12/10/2020 Z98.84 Bariatric surgery status Dilma lazo MD 12/10/2020 Z00.01 Encounter for [facility] adult medical examination with abnormal findings Dilma Kim MD Plan of Treatment Future Appointment(s):* 06/23/2021 8:00 am - Dilma Kim MD at [facility] * 05/05/2021 3:30 pm - Jenna Mireles NP at [facility] * 05/25/2021 4:00 pm - Dilma Kim MD at [facility] 03/13/2020 - Karey Rodriguez, TU, CDN, Cde* E66.9 Obesity, unspecified * Z71.3 Dietary counseling and surveillance Functional Status Description No Information Available Mental Status Description No Information Available Referrals Refer to Dr Reason for Referral Status Appt Date [facility] 40-year-old female who weigh s 357 pounds with a BMI of 54.3. She would like to get nutrition consult. Please evaluate and treat. Thank you. Sent [address] [facility] [address] [phone] [facility] 40-year-old female with multiple symptoms suggestive of sleep apnea. She scored 14 on [place] scale today. Please evaluate and treat. Thank you. Closed [address] [place] [address] [phone]
--- OUTSIDE RECORDS SUMMARY | 2021-07-16 14:31 | CCD | Continuity of Care Document ---
Author Author Gena OSORIO Organization Unknown Address [address] [place] [address] Phone [phone] Care Team Providers Care Economic Development Director Name Role Phone Cristofer Buck MD AUTM [phone] [facility] Nutrition Services AUTM [phone] [facility] AUTM Dilma Kim MD AUTM [phone] Susanne Abernathy AUTM [phone] [facility]M [facility] Outpatient Mental Health AUTM [facility] Physical Therapy AUTM [phone] [facility] Surgical AUTM [phone] Wolfgang Manuel AUTM [phone] [facility] AUTM [phone] [facility] AUTM [phone] Problems Active Problems Provider Date Migraine without [...] r Date Vitamin D3 Ultra Potency 1.25mg (02229 Ut) Tablets 1 tablet once a week [...] - 04/21/2021 Vitamin D3 Ultra Potency 1.25mg (56052 Ut) Tablets 1 tablet once a week [...] Date Facility Test Result H/L Range Note Xray 05/05/2021 [facility] Madrigal [address], [address] [place] [address] [phone] Mammo Screening Bilateral with CAD <pending> Affirm Vaginitis Panel 05/05/2021 [facility]#Other Observations <pending> Laboratory test finding 04/21/2021 [facility] Vitamin B12 Serum 238 pg/mL 232 - 1245 1 CBC No Diff 04/21/2021 [facility] CBC No Diff (SEE NOTE) 2 WBC 7.5 10^3/uL 4.2 - 11.0 [...] 7.4 - 10.4 Comprehensive Metabolic Panel 04/21/2021 [facility]ital Comprehensive Metabo (SEE NOTE) 3 [...] >60 mL/min 4 Laboratory test finding 04/21/2021 [facility] Vitamin D (25-Hydroxy) 16 NG/ML 5 Xray 04/21/2021 [facility] [address], [address] [place], [place] [id number] [phone] Mammo Screening Bilateral with CAD <pending> Laboratory test finding 02/25/2021 [facility] TSH Highly Sensitive 1.36 uIU/mL 0.47 - 5.01 Liver Profile 01/30/2021 [facility] Ast/Sgot 19 U/L Normal 7-37 Alt/SGPT 20 U/L Normal 12-78 Alkaline Phosphatase 90 U/L Normal 45-117 Bilirubin,Total 0.9 mg/dL Normal 0.2-1.0 Bilirubin,Direct 0.2 mg/dL Normal 0.0-0.2 Total Protein 7.3 GM/DL Normal 6.4-8.2 Albumin 3.3 GM/DL Normal 3.2-5.2 Albumin/Globulin Ratio 0.8 Low 1.2-2.2 Laboratory test finding 01/30/2021 [facility] Lipase 66 U/L Low 73-393 Thyroid Stimulating Hormone 0.246 uIU/ML Low 0.358-3.740 Free T4 1.14 ng/dL Normal 0.76-1.46 C Reactive Protein Quantitativ 2.87 mg/dL High 0.00-0.30 Erythrocyte Sedimentation Rate 56 mm/hr High 0-20 CBC With Differential 01/30/2021 [facility] White Blood Count 6.8 10 Normal [...] 36.0-66.0 Lymph % 22.7 % Low 24.0-44.0 Tripp % 13.8 % High 2.0-8.0 Eos % 0.9 % Normal 0.0-3.0 Baso % 0.6 % Normal 0.0-1.0 Immature Granulocyte % 0.4 % Normal 0-3.0 Nucleated Red Blood Cell % 0.0 % Normal 0-0 Neutrophils # 4.2 10 Normal 1.5-8.5 Lymph # 1.6 10 Normal 1.5-5.0 Tripp # 0.9 10 High 0.0-0.8 Eos # 0.1 10 Normal 0.0-0.5 Baso # 0.0 10 Normal 0.0-0.2 Istat Chem8+ Panel 01/30/2021 [facility] iSTAT HCT 37.0 % Low 38.0-51.0 iSTAT Glucose 104 mg/dL Normal 70-105 iSTAT Sodium 141 mEq/L Normal 136-145 iSTAT Potassium 3.6 mEq/L Normal 3.5-5.1 iSTAT CA++ 4.7 mg/dL Normal 4.5-5.3 iSTAT Chloride 101 mEq/L Normal 98-109 iSTAT Co2 22.0 MM/L Low 23.0-27.0 iSTAT BUN 4 mg/dL Low 8-26 iSTAT Creatinine 0.6 mg/dL Normal 0.6-1.3 Laboratory test finding 01/30/2021 [facility] D-Dimer Quant > 4000 ng/ml High <500 PT & Aptt 01/30/2021 [facility] Prothrombin Time 14.5 seconds High 12.5-14.3 Inr 1.11 Normal 6 Partial Thromboplastin Time 28.2 seconds Normal 24.2-38.5 Laboratory test finding 01/30/2021 [facility] NT-Pro BNP 1132 pg/mL High <125 CBC No Diff 01/19/2021 [facility] CBC No Diff (SEE NOTE) 7, 8 [...] 7.4 - 10.4 Comprehensive Metabolic Panel 01/19/2021 [facility] Comprehensive Metabo (SEE NOTE) 9 Sodium 141 [...] >60 mL/min 10 Laboratory test finding 01/19/2021 [facility] TSH Highly Sensitive 0.11 uIU/mL Low 0.47 - 5.01 Cve Panel 01/19/2021 [facility] Cve Panel (SEE NOTE) 11 Cholesterol 133 mg/dL 131 - 200 Triglycerides 68 mg/dL 35 - 160 HDL 44 mg/dL 29 - 86 LDL 85 mg/dL 65 - 175 Risk Factor 3.0 Low 3.2 - 4.4 LDL/HDL 1.93 1.47 - 3.22 12 Laboratory test finding 01/19/2021 [facility] Hgba1c 6.0 % 4.4 - 6.1 13 Vitamin B12 Serum 199 pg/mL Low 232 - 1245 Folic Acid Serum(Folate) 9.6 NG/ML 4.4 - 31.0 Iron 49 g/dL 42 - 135 Vitamin D (25-Hydroxy) 7 NG/ML 14 Thyroid Antibodies 01/19/2021 [facility] Thyroid Peroxidase (Tpo)Ab <9 IU/mL 0-34 Thyroglobulin Antibody <1.0 IU/mL 0.0-0.9 15 Xray 12/10/2020 [facility] [address] [place] [address] [phone] US Abd Complete <pending> US Pelvic <pending> [...] ng/ml 15 Thyroglobulin Antibody measu red by K[facility] [employer] [place] Methodology Procedures Date Code Description Status 05/05/2021 88469 Preventive Visit Est 40-64 Yrs C ompleted 01/19/2021 59494 Office/Outpatient Established Lo w MDM 20-29 Min Completed 12/10/2020 13484 Office/Outpatient Established Mo d MDM 30-39 Min Completed 12/10/2020 75668 Office/Outpatient Established Lo w MDM 20-29 Min Completed 12/10/2020 97394 Admin Patient Focused Health Ris k Assessment Instrument Completed 12/10/2020 98446 Brief Emotional/Beha v Assessment W/ Scoring Doc Per Standard Inst Completed Medical Devices Description No Information Available Encounters Type Date Location Provider Dx Diagnosis Office Visit 05/05/2021 3:[address]p [facility] Jenna Mireles NP Z01.419 Encntr for analysis consultant exam (general) (routine) w/o abn findings Z87.440 [...] breast Dilma Kim MD 04/21/2021 Z79.899 Other custodial (current) drug t herapy Dilam Kim MD 02/25/2021 I26.99 Other pulmonary embolism without acute cor pulmonale Dilma Kim MD 02/25/2021 E03.9 Hypothyroidism, unspecified Dilma Kim MD 01/19/2021 E03.9 Hypothyroidism, unspecified Dilma Kim MD 01/19/2021 E66.9 Obesity, unspecified Dilma butst MD 01/19/2021 Z98.84 Bariatric surgery status Dilma [...] 12/10/2020 N94.6 Dysmenorrhea, unspecified Jenna O 'lars, TOOLMAKER HELPER 12/10/2020 E66.9 Obesity, unspecified Dilma butts MD 12/10/2020 Z98.84 Bariatric surgery status Dilma lazo MD 12/10/2020 Z00.01 Encounter for genera l adult medical examination with abnormal findings Dilma Kim MD Plan of Treatment Future Appointment(s):* 06/23/2021 8:00 am - Dilma Kim MD at [facility] * 05/25/2021 4:00 pm - Dilma Kim MD at [facility] 05/05/2021 - Jenna Mireles NP* Z01.419 Encounter for gynecological examination (general) (routine) without abnormal findings* Follow up:* 1 year. * Recommendations:* reviewed pap guidelines and SBE. Mammo rx given . * Instructions:* Call for problems or questions * Z87.440 Personal history of urinary (tract) infections* Recommendations:* will refer to DR Luis for evaluation. We did affirm today to r/o issue also. Admits to higher intake soda, using cranberry pills and fluid. I suggested daily vit c for bladder health. I will notify if affirm abn. Functional Status Description No Information Available Mental Status Description No Information Available Referrals Refer to Reason for Referral Status Appt Date [facility] 40-year-old female who weigh s 357 pounds with a BMI of 54.3. She would like to get nutrition consult. Please evaluate and treat. Thank you. Sent [address] [facility] [address] [phone] [facility] 40-year-old female with multiple symptoms suggestive of sleep apnea. She scored 14 on [place] scale today. Please evaluate and treat. Thank you. Closed [address] [place] [address] [phone]"
--- OUTSIDE RECORDS SUMMARY | 2021-07-16 14:32 | CCD ---
Author Author [facility] Organization [facility] Address Unknown Phone Unavailable Care Team Providers Care Leather Cleaner Name Role Phone Zackary FERNÁNDEZ Unavailable Unavailable MAJAK, R FAY DPM Unavailable Unavailable MAJAK, R FAY DPM Unavailable Unavailable MAJAK, R FAY DPM Unavailable Unavailable MAJAK, R FAY DPM Unavailable Unavailable MAJAK, R FAY DPM Unavailable Unavailable MAJAK, R FAY DPM Unavailable Unavailable MAJAK, R FAY DPM Unavailable Unavailable MAJAK, R FAY DPM Unavailable Unavailable MAJAK, R FAY DPM Unavailable Unavailable MAJAK, R FAY DPM Unavailable Unavailable MAJAK, R FAY DPM Unavailable Unavailable MAJAK, R FAY DPM Unavailable Unavailable MAJAK, R FAY DPM Unavailable Unavailable MAJAK, R FAY DPM Unavailable Unavailable MAJAK, R FAY DPM Unavailable Unavailable MAJAK, R FAY DPM Unavailable Unavailable MAJAK, R FAY DPM Unavailable Unavailable MAJAK, R FAY DPM Unavailable Unavailable MAJAK, R FAY DPM Unavailable Unavailable MAJAK, R FAY DPM Unavailable Unavailable MAJAK, R FAY DPM Unavailable Unavailable MAJAK, R FAY DPM Unavailable Unavailable MAJAK, R FAY DPM Unavailable Unavailable MAJAK, R FAY DPM Unavailable Unavailable MAJAK, R FAY DPM Unavailable Unavailable MAJAK, R FAY DPM Unavailable Unavailable MAJAK, R FAY DPM Unavailable Unavailable MAJAK, R FAY DPM Unavailable Unavailable MAJAK, R FAY DPM Unavailable Unavailable MAJAK, R FAY DPM Unavailable Unavailable MAJAK, R FAY DPM Unavailable Unavailable MAJAK, R FAY DPM Unavailable Unavailable MAJAK, R FAY DPM Unavailable Unavailable Mao Kim MD Unavailable Unavailable Mao Kim MD Unavailable Unavailable Mao Kim MD Unavailable Unavailable Mao Kim MD Unavailable Unavailable Mao Kim MD Unavailable Unavailable Mao Kim MD Unavailable Unavailable Mao Kim MD Unavailable Unavailable Mao Kim MD Unavailable Unavailable Julio F Dilma PEREZ Unavailable Unavailable Mao Kim MD Unavailable Unavailable Julio F Dilma PEREZ Unavailable Unavailable Kunnumpurath, F Dilma MD Unavailable Unavailable Kunnumpurath, F Dilma MD Unavailable Unavailable Kunnumpurath, F Dilma MD Unavailable Unavailable Kunnumpurath, F Dilma MD Unavailable Unavailable Kunnumpurath, F Dilma MD Unavailable Unavailable Kunnumpurath, F Dilma MD Unavailable Unavailable Kunnumpurath, F Dilma MD Unavailable Unavailable Kunnumpurath, F Dilma MD Unavailable Unavailable Kunnumpurath, F Dilma MD Unavailable Unavailable Kunnumpurath, F Dilma MD Unavailable Unavailable Kunnumpurath, F Dilma MD Unavailable Unavailable Kunnumpurath, F Dilma MD Unavailable Unavailable Kunnumpurath, F Dilma MD Unavailable Unavailable Kunnumpurath, F Dilma MD Unavailable Unavailable Kunnumpurath, F Dilma MD Unavailable Unavailable Kunnumpurath, F Dilma MD Unavailable Unavailable Kunnumpurath, F Dilma MD Unavailable Unavailable Kunnumpurath, F Dilma MD Unavailable Unavailable Kunnumpurath, F Dilma MD Unavailable Unavailable Kunnumpurath, F Dilma MD Unavailable Unavailable Kunnumpurath, F Dilma MD Unavailable Unavailable Kunnumpurath, F Dilma MD Unavailable Unavailable Kunnumpurath, F Dilma MD Unavailable Unavailable Kunnumpurath, F Dilma MD Unavailable Unavailable Kunnumpurath, F Dilma MD Unavailable Unavailable Kunnumpurath, F Dilma MD Unavailable Unavailable Kunnumpurath, F Dilma MD Unavailable Unavailable Kunnumpurath, F Dilma MD Unavailable Unavailable Kunnumpurath, F Dilma MD Unavailable Unavailable Kunnumpurath, F Dilma MD Unavailable Unavailable Kunnumpurath, F Dilma MD Unavailable Unavailable Kunnumpurath, F Dilma MD Unavailable Unavailable Kunnumpurath, F Dilma MD Unavailable Unavailable Kunnumpurath, F Dilma MD Unavailable Unavailable Kunnumpurath, F Dilma MD Unavailable Unavailable RING, K GORAN PA Unavailable Unavailable RING, K GORAN PA Unavailable Unavailable RING, K GORAN PA Unavailable Unavailable RING, K GORAN PA Unavailable Unavailable RING, K GORAN PA Unavailable Unavailable RING, K GORAN PA Unavailable Unavailable RING, K GORAN PA Unavailable Unavailable RING, K GORAN PA Unavailable Unavailable RING, K GORAN PA Unavailable Unavailable RING, K GORAN PA Unavailable Unavailable RING, K GORAN PA Unavailable Unavailable RING, K GORAN PA Unavailable Unavailable RING, K GORAN PA Unavailable Unavailable RING, K GORAN PA Unavailable Unavailable RING, K GORAN PA Unavailable Unavailable RING, K GORAN PA Unavailable Unavailable RING, K GORAN PA Unavailable Unavailable RING, K GORAN PA Unavailable Unavailable RING, K GORAN PA Unavailable Unavailable RING, K GORAN PA Unavailable Unavailable RING, K GORAN PA Unavailable Unavailable RING, K GORAN PA Unavailable Unavailable RING, K GORAN PA Unavailable Unavailable Kunnumpurath, F Dilma MD Unavailable Unavailable Kunnumpurath, F Dilma MD Unavailable Unavailable Kunnumpurath, F Dilam MD Unavailable Unavailable Kunnumpurath, F Dilma MD Unavailable Unavailable Kunnumpurath, F Dilma MD Unavailable Unavailable Kunnumpurath, F Dilma MD Unavailable Unavailable Kunnumpurath, F Dilma MD Unavailable Unavailable Kunnumpurath, F Dilma MD Unavailable Unavailable Kunnumpurath, F Dilma MD Unavailable Unavailable Kunnumpurath, F Dilma MD Unavailable Unavailable Kunnumpurath, F Dilma MD Unavailable Unavailable Kunnumpurath, F Dilma MD Unavailable Unavailable Kunnumpurath, F Dilma MD Unavailable Unavailable Kunnumpurath, F Dilma MD Unavailable Unavailable Kunnumpurath, F Dilma MD Unavailable Unavailable Kunnumpurath, F Dilma MD Unavailable Unavailable Kunnumpurath, F Dilma MD Unavailable Unavailable Kunnumpurath, F Idlma MD Unavailable Unavailable Kunnumpurath, F Dilma MD Unavailable Unavailable Kunnumpurath, F Dilma MD Unavailable Unavailable Kunnumpurath, F Dilma MD Unavailable Unavailable Kunnumpurath, F Dilma MD Unavailable Unavailable Kunnumpurath, F Dilma MD Unavailable Unavailable Kunnumpurath, F Dilma MD Unavailable Unavailable Kunnumpurath, F Dilma MD Unavailable Unavailable Kunnumpurath, F Dilma MD Unavailable Unavailable Kunnumpurath, F Dilma MD Unavailable Unavailable Kunnumpurath, F Dilma MD Unavailable Unavailable Kunnumpurath, F Dilma MD Unavailable Unavailable Kunnumpurath, F Dilma MD Unavailable Unavailable Kunnumpurath, F Dilma MD Unavailable Unavailable Kunnumpurath, F Dilma MD Unavailable Unavailable Rosynumpurath, F Dilma MD Unavailable Unavailable Kunnumpurath, F Dilma MD Unavailable Unavailable Kunnumpurath, F Dilma MD Unavailable Unavailable Kunnumpurath, F Dilma MD Unavailable Unavailable Kunnumpurath, F Dilma MD Unavailable Unavailable Kunnumpurath, F Dilma MD Unavailable Unavailable Kunnumpurath, F Dilma MD Unavailable Unavailable Kunnumpurath, F Dilma MD Unavailable Unavailable Kunnumpurath, F Dilma MD Unavailable Unavailable Kunnumpurath, F Dilma MD Unavailable Unavailable Kunnumpurath, F Dilma MD Unavailable Unavailable Kunnumpurath, F Dilma MD Unavailable Unavailable Kunnumpurath, F Dilma MD Unavailable Unavailable Kunnumpurath, F Dilma MD Unavailable Unavailable MCGREGOR, M AMADO PA Unavailable Unavailable MCGREGOR, M AMADO PA Unavailable Unavailable MCGREGOR, M AMADO PA Unavailable Unavailable MCGREGOR, M AMADO PA Unavailable Unavailable MCGREGOR, M AMADO PA Unavailable Unavailable MCGREGOR, M AMADO PA Unavailable Unavailable MCGREGOR, M AMADO PA Unavailable Unavailable MCGREGOR, M AMADO PA Unavailable Unavailable MCGREGOR, M AMADO PA Unavailable Unavailable MCGREGOR, M AMADO PA Unavailable Unavailable MCGREGOR, M AMADO PA Unavailable Unavailable MCGREGOR, M AMADO PA Unavailable Unavailable MCGREGOR, M AMADO PA Unavailable Unavailable MCGREGOR, M AMADO PA Unavailable Unavailable MCGREGOR, M AMADO PA Unavailable Unavailable MCGREGOR, M AMADO PA Unavailable Unavailable MCGREGOR, M AMADO PA Unavailable Unavailable MCGREGOR, M AMADO PA Unavailable Unavailable MCGREGOR, M AMADO PA Unavailable Unavailable MCGREGOR, M AMADO PA Unavailable Unavailable MCGREGOR, M AMADO PA Unavailable Unavailable MCGREGOR, M AMADO PA Unavailable Unavailable MCGREGOR, M AMADO PA Unavailable Unavailable MCGREGOR, M AMADO PA Unavailable Unavailable MCGREGOR, M AMADO PA Unavailable Unavailable MCGREGOR, M AMADO PA Unavailable Unavailable MCGREGOR, M AMADO PA Unavailable Unavailable MCGREGOR, M AMADO PA Unavailable Unavailable MCGREGOR, M AMADO PA Unavailable Unavailable MCGREGOR, M AMADO PA Unavailable Unavailable MCGREGOR, M AMADO PA Unavailable Unavailable MCGREGOR, M AMADO PA Unavailable Unavailable MCGREGOR, M AMADO PA Unavailable Unavailable MCGREGOR, M AMADO PA Unavailable Unavailable MCGREGOR, M AMADO PA Unavailable Unavailable Da Silva, Tricia FLANGING OPERATOR Unavailable Unavailable Da Silva, Tricia FLANGING OPERATOR Unavailable Unavailable Da Silva, Tricia FLANGING OPERATOR Unavailable Unavailable Da Silva, Tricia FLANGING OPERATOR Unavailable Unavailable Da Silva, Tricia FLANGING OPERATOR Unavailable Unavailable Da Silva, Tricia FLANGING OPERATOR Unavailable Unavailable Da Silva, Tricia FLANGING OPERATOR Unavailable Unavailable Da Silva, Tricia FLANGING OPERATOR Unavailable Unavailable Da Silva, Tricia FLANGING OPERATOR Unavailable Unavailable Da Silva, Tricia FLANGING OPERATOR Unavailable Unavailable Da Silva, Tricia FLANGING OPERATOR Unavailable Unavailable Da Silva, Tricia FLANGING OPERATOR Unavailable Unavailable Da Silva, Tricia FLANGING OPERATOR Unavailable Unavailable MAISHA, B FIDEL FLANGING OPERATOR Unavailable Unavailable MAISHA, B FIDEL FLANGING OPERATOR Unavailable Unavailable MAISHA, B FIDEL FLANGING OPERATOR Unavailable Unavailable MAISHA, B FIDEL FLANGING OPERATOR Unavailable Unavailable MAISHA, B FIDEL FLANGING OPERATOR Unavailable Unavailable MAISHA, B FIDEL FLANGING OPERATOR Unavailable Unavailable MAISHA, B FIDEL FLANGING OPERATOR Unavailable Unavailable MAISHA, B FIDEL FLANGING OPERATOR Unavailable Unavailable MAISHA, B FIDEL FLANGING OPERATOR Unavailable Unavailable MAISHA, B FIDEL FLANGING OPERATOR Unavailable Unavailable MAISHA, B FIDEL FLANGING OPERATOR Unavailable Unavailable MAISHA, B FIDEL FLANGING OPERATOR Unavailable Unavailable MAISHA, B FIDEL FLANGING OPERATOR Unavailable Unavailable MAISHA, B FIDEL FLANGING OPERATOR Unavailable Unavailable MAISHA, B FIDEL FLANGING OPERATOR Unavailable Unavailable MAISHA, B FIDEL FLANGING OPERATOR Unavailable Unavailable MAISHA, B FIDEL FLANGING OPERATOR Unavailable Unavailable MAISHA, B FIDEL FLANGING OPERATOR Unavailable Unavailable MAISHA, B FIDEL FLANGING OPERATOR Unavailable Unavailable MAISHA, B FIDEL FLANGING OPERATOR Unavailable Unavailable MAISHA, B FIDEL FLANGING OPERATOR Unavailable Unavailable MAISHA, B FIDEL FLANGING OPERATOR Unavailable Unavailable MAISHA, B FIDEL FLANGING OPERATOR Unavailable Unavailable MAISHA, B FIDEL FLANGING OPERATOR Unavailable Unavailable MAISHA, B FIDEL FLANGING OPERATOR Unavailable Unavailable MAISHA, B FIDEL FLANGING OPERATOR Unavailable Unavailable MAISHA, B FIDEL FLANGING OPERATOR Unavailable Unavailable MAISHA, B FIDEL FLANGING OPERATOR Unavailable Unavailable MAISHA, B FIDEL FLANGING OPERATOR Unavailable Unavailable MAISHA, B FIDEL FLANGING OPERATOR Unavailable Unavailable MAISHA, B FIDEL FLANGING OPERATOR Unavailable Unavailable MAISHA, B FIDEL FLANGING OPERATOR Unavailable Unavailable MAISHA, B FIDEL FLANGING OPERATOR Unavailable Unavailable MAISHA, B FIDEL FLANGING OPERATOR Unavailable Unavailable MAISHA, B FIDEL FLANGING OPERATOR Unavailable Unavailable MAISHA, B FIDEL FLANGING OPERATOR Unavailable Unavailable MAISHA, B FIDEL FLANGING OPERATOR Unavailable Unavailable MAISHA, B FIDEL FLANGING OPERATOR Unavailable Unavailable MAISHA, B FIDEL FLANGING OPERATOR Unavailable Unavailable MAISHA, B FIDEL FLANGING OPERATOR Unavailable Unavailable MAISHA, B FIDEL FLANGING OPERATOR Unavailable Unavailable MAISHA, B FIDEL FLANGING OPERATOR Unavailable Unavailable MAISHA, B FIDEL FLANGING OPERATOR Unavailable Unavailable MAISHA, B FIDEL FLANGING OPERATOR Unavailable Unavailable MAISHA, B FIDEL FLANGING OPERATOR Unavailable Unavailable MAISHA, B FIDEL FLANGING OPERATOR Unavailable Unavailable MAISHA, B FIDEL FLANGING OPERATOR Unavailable Unavailable MAISHA, B FIDEL FLANGING OPERATOR Unavailable Unavailable MAISHA, B FIDEL FLANGING OPERATOR Unavailable Unavailable MAISHA, B FIDEL FLANGING OPERATOR Unavailable Unavailable MAISHA, B FIDEL FLANGING OPERATOR Unavailable Unavailable MAISHA, B FIDEL FLANGING OPERATOR Unavailable Unavailable MAISHA, B FIDEL FLANGING OPERATOR Unavailable Unavailable MAISHA, B FIDEL FLANGING OPERATOR Unavailable Unavailable MAISHA, B FIDEL FLANGING OPERATOR Unavailable Unavailable MAISHA, B FIDEL FLANGING OPERATOR Unavailable Unavailable MAISHA, B FIDEL FLANGING OPERATOR Unavailable Unavailable MAISHA, B FIDEL FLANGING OPERATOR Unavailable Unavailable MAISHA, B FIDEL FLANGING OPERATOR Unavailable Unavailable MAISHA, B FIDEL FLANGING OPERATOR Unavailable Unavailable MAISHA, B FIDEL FLANGING OPERATOR Unavailable Unavailable MAISHA, B FIDEL FLANGING OPERATOR Unavailable Unavailable GUIDO, BRYNN ELIJAH FLANGING OPERATOR Unavailable Unavailable GUIDO, BRYNN ELIJAH FLANGING OPERATOR Unavailable Unavailable GUIDO, BRYNN ELIJAH FLANGING OPERATOR Unavailable Unavailable GUIDO, BRYNN ELIJAH FLANGING OPERATOR Unavailable Unavailable GUIDO, BRYNN ELIJAH FLANGING OPERATOR Unavailable Unavailable GUIDO, BRYNN ELIJAH FLANGING OPERATOR Unavailable Unavailable GUIDO, BRYNN ELIJAH FLANGING OPERATOR Unavailable Unavailable GUIDO, BRYNN ELIJAH FLANGING OPERATOR Unavailable Unavailable GUIDO, BRYNN ELIJAH FLANGING OPERATOR Unavailable Unavailable GUIDO, BRYNN ELIJAH FLANGING OPERATOR Unavailable Unavailable GUIDO, BRYNN ELIJAH FLANGING OPERATOR Unavailable Unavailable GUIDO, BRYNN ELIJAH FLANGING OPERATOR Unavailable Unavailable GUIDO, RBYNN ELIJAH FLANGING OPERATOR Unavailable Unavailable GUIDO, BRYNN ELIJAH FLANGING OPERATOR Unavailable Unavailable GUIDO, BRYNN ELIJAH FLANGING OPERATOR Unavailable Unavailable GUIDO, BRYNN ELIJAH FLANGING OPERATOR Unavailable Unavailable GUIDO, BRYNN ELIJAH FLANGING OPERATOR Unavailable Unavailable GUIDO, BRYNN ELIJAH FLANGING OPERATOR Unavailable Unavailable GUIDO, BRYNN ELIJAH FLANGING OPERATOR Unavailable Unavailable GUIDO, BRYNN ELIJAH FLANGING OPERATOR Unavailable Unavailable GUIDO, BRYNN ELIJAH FLANGING OPERATOR Unavailable Unavailable GUIDO, BRYNN ELIJAH FLANGING OPERATOR Unavailable Unavailable GUIDO, BRYNN ELIJAH FLANGING OPERATOR Unavailable Unavailable DilRenzo lozoya DDS Unavailable Unavailable Dille, Renzo Steel DDS Unavailable Unavailable DilleRenzo DDS Unavailable Unavailable DilleRenzo DDS Unavailable Unavailable OBEN, T THOMAS MD Unavailable Unavailable OBEN, T THOMAS MD Unavailable Unavailable OBEN, T THOMAS MD Unavailable Unavailable OBEN, T THOMAS MD Unavailable Unavailable OBEN, T THOMAS MD Unavailable Unavailable OBEN, T THOMAS MD Unavailable Unavailable OBEN, T THOMAS MD Unavailable Unavailable OBEN, T THOMAS MD Unavailable Unavailable OBEN, T THOMAS MD Unavailable Unavailable OBEN, T THOMAS MD Unavailable Unavailable OBEN, T THOMAS MD Unavailable Unavailable OBEN, T THOMAS MD Unavailable Unavailable OBEN, T THOMAS MD Unavailable Unavailable OBEN, T THOMAS MD Unavailable Unavailable OBEN, T THOMAS MD Unavailable Unavailable OBEN, T THOMAS MD Unavailable Unavailable OBEN, T THOMAS MD Unavailable Unavailable OBEN, T THOMAS MD Unavailable Unavailable OBEN, T THOMAS MD Unavailable Unavailable OBEN, T THOMAS MD Unavailable Unavailable OBEN, T THOMAS MD Unavailable Unavailable OBEN, T THOMAS MD Unavailable Unavailable OBEN, T THOMAS MD Unavailable Unavailable OBEN, T THOMAS MD Unavailable Unavailable OBEN, T THOMAS MD Unavailable Unavailable OBEN, T THOMAS MD Unavailable Unavailable OBEN, T THOMAS MD Unavailable Unavailable OBEN, T THOMAS MD Unavailable Unavailable OBEN, T THOMAS MD Unavailable Unavailable OBEN, T THOMAS MD Unavailable Unavailable OBEN, T THOMAS MD Unavailable Unavailable OBEN, T THOMAS MD Unavailable Unavailable OBEN, T THOMAS MD Unavailable Unavailable OBEN, T THOMAS MD Unavailable Unavailable OBEN, T THOMAS MD Unavailable Unavailable OBEN, T THOMAS MD Unavailable Unavailable OBEN, T THOMAS MD Unavailable Unavailable OBEN, T THOMAS MD Unavailable Unavailable OBEN, T THOMAS MD Unavailable Unavailable OBEN, T THOMAS MD Unavailable Unavailable OBEN, T THOMAS MD Unavailable Unavailable OBEN, T THOMAS MD Unavailable Unavailable OBEN, T THOMAS MD Unavailable Unavailable OBEN, T THOMAS MD Unavailable Unavailable OBEN, T THOMAS MD Unavailable Unavailable OBEN, T THOMAS MD Unavailable Unavailable OBEN, T THOMAS MD Unavailable Unavailable OBEN, T THOMAS MD Unavailable Unavailable OBEN, T THOMAS MD Unavailable Unavailable OBEN, T THOMAS MD Unavailable Unavailable OBEN, T THOMAS MD Unavailable Unavailable OBEN, T THOMAS MD Unavailable Unavailable OBEN, T THOMAS MD Unavailable Unavailable OBEN, T THOMAS MD Unavailable Unavailable OBEN, T THOMAS MD Unavailable Unavailable OBEN, T THOMAS MD Unavailable Unavailable OBCatherine ARRIAGA MD Unavailable Unavailable OBCatherine ARRIAGA MD Unavailable Unavailable Campanaro, Mare Christina PA Unavailable Unavailable Campanaro, Mare Christina PA Unavailable Unavailable Campanaro, Mare Christina PA Unavailable Unavailable Campanaro, Mare Christina PA Unavailable Unavailable Campanaro, Mare Christina PA Unavailable Unavailable Campanaro, Mare Christina PA Unavailable Unavailable Campanaro, Mare Christina PA Unavailable Unavailable Campanaro, Mare Christina PA Unavailable Unavailable Campanaro, Mare Christina PA Unavailable Unavailable Campanaro, Mare Christina PA Unavailable Unavailable Campanaro, Mare Christina PA Unavailable Unavailable Campanaro, Mare Christina PA Unavailable Unavailable Campanaro, Mare Christina PA Unavailable Unavailable Campanaro, Mare Christina PA Unavailable Unavailable Campanaro, Mare Christina PA Unavailable Unavailable Campanaro, Mare Christina PA Unavailable Unavailable Campanaro, Mare Christina PA Unavailable Unavailable Fish, Arlen Ennis MD Unavailable Unavailable Fish, Arlen Ennis MD Unavailable Unavailable Fish, B Loli PEREZ Unavailable Unavailable Fish, Arlen Ennis MD Unavailable Unavailable Fish, Arlen Ennis MD Unavailable Unavailable Fish, Arlen Ennis MD Unavailable Unavailable Fish, Arlen Ennis MD Unavailable Unavailable Fish, Arlen Ennis MD Unavailable Unavailable Fish, Arlen Ennis MD Unavailable Unavailable Fish, Arlen Ennis MD Unavailable Unavailable Fish, Arlen Ennis MD Unavailable Unavailable Fish, Arlen Ennis MD Unavailable Unavailable Fish, Arlen Ennis MD Unavailable Unavailable Fish, Arlen Ennis MD Unavailable Unavailable Fish, Arlen Ennis MD Unavailable Unavailable Fish, Arlen Ennis MD Unavailable Unavailable Fish, Arlen Ennis MD Unavailable Unavailable Fish, Arlen Ennis MD Unavailable Unavailable Fish, Arlen Ennis MD Unavailable Unavailable Fish, Arlen Ennis MD Unavailable Unavailable Fish, Arlen Ennis MD Unavailable Unavailable Fish, Arlen Ennis MD Unavailable Unavailable Fish, Arlen Ennis MD Unavailable Unavailable Fish, Arlen Ennis MD Unavailable Unavailable Fish, Arlen Ennis MD Unavailable Unavailable Fish, Arlen Ennis MD Unavailable Unavailable Fish, Arlen Ennis MD Unavailable Unavailable Fish, Arlen Ennis MD Unavailable Unavailable Fish, Arlen Ennis MD Unavailable Unavailable Fish, Arlen Ennis MD Unavailable Unavailable Fish, Arlen Ennis MD Unavailable Unavailable Fish, Arlen Ennis MD Unavailable Unavailable Fish, Arlen Ennis MD Unavailable Unavailable Fish, Arlen Ennis MD Unavailable Unavailable Fish, B Loli PEREZ Unavailable Unavailable Fish, Arlen Ennis MD Unavailable Unavailable Fish, B Loli PEREZ Unavailable Unavailable Fish, B Loli PEREZ Unavailable Unavailable Fish, B Loli MD Unavailable Unavailable Fish, B Loli MD Unavailable Unavailable Fish, B Loli MD Unavailable Unavailable Fish, B Loli MD Unavailable Unavailable Fish, B Loli MD Unavailable Unavailable Fish, B Loli MD Unavailable Unavailable Fish, B Loli MD Unavailable Unavailable Fish, B Loli MD Unavailable Unavailable Fish, B Loli MD Unavailable Unavailable Fish, B Loli MD Unavailable Unavailable Fish, B Loli MD Unavailable Unavailable Fish, B Loli MD Unavailable Unavailable Fish, B Loli MD Unavailable Unavailable Fish, B Loli MD Unavailable Unavailable Fish, B Loli MD Unavailable Unavailable Fish, B Loli MD Unavailable Unavailable Fish, B Loli MD Unavailable Unavailable Fish, B Loli MD Unavailable Unavailable Fish, B Loli MD Unavailable Unavailable Fish, B Loli MD Unavailable Unavailable Fish, B Loli MD Unavailable Unavailable Fish, B Loli MD Unavailable Unavailable Fish, B Loli MD Unavailable Unavailable Fish, B Loli MD Unavailable Unavailable Fish, B Loli MD Unavailable Unavailable Fish, B Loli MD Unavailable Unavailable Fish, B Loli MD Unavailable Unavailable Cherry, Shadia Unavailable Unavailable Cherry, Shadia Unavailable Unavailable Cherry, Shadia Unavailable Unavailable Cherry, Shadia Unavailable Unavailable Cherry, Shadia Unavailable Unavailable Cherry, Shadia Unavailable Unavailable Cherry, Shadia Unavailable Unavailable Cherry, Shadia Unavailable Unavailable Cherry, Shadia Unavailable Unavailable Cherry, Shadia Unavailable Unavailable Cherry, Shadia Unavailable Unavailable Cherry, Shadia Unavailable Unavailable Cherry, Shadia Unavailable Unavailable Cherry, Shadia Unavailable Unavailable Cherry, Shadia Unavailable Unavailable Cherry, Shadia Unavailable Unavailable Cherry, Shadia Unavailable Unavailable Cherry, Shadia Unavailable Unavailable Cherry, Shadia Unavailable Unavailable Cherry, Shadia Unavailable Unavailable Cherry, Shadia Unavailable Unavailable Cherry, Shadia Unavailable Unavailable Cherry, Shadia Unavailable Unavailable Cherry, Shadia Unavailable Unavailable Cherry, Shadia Unavailable Unavailable Cherry, Shadia Unavailable Unavailable Cherry, Shadia Unavailable Unavailable Cherry, Shadia Unavailable Unavailable Cherry, Shadia Unavailable Unavailable Cherry, Shadia Unavailable Unavailable Cherry, Shadia Unavailable Unavailable Cherry, Shadia Unavailable Unavailable Cherry, Shadia Unavailable Unavailable Cherry, Shadia Unavailable Unavailable Cherry, Shadia Unavailable Unavailable Cherry, Shadia Unavailable Unavailable Cherry, Shadia Unavailable Unavailable Cherry, Shadia Unavailable Unavailable Re-disclosure Warning The records that you are about to access may contain information from federally-assisted alcohol or drug abuse programs. If such information is present, then the following federally mandated warning applies: This information has been disclosed to you from records protected by federal confidentiality rules (42 CFR part 2). The federal rules prohibit you from making any further disclosure of this information unless further disclosure is expressly permitted by the written consent of the person to whom it pertains or as otherwise permitted by 42 CFR part 2. A general authorization for the release of medical or other information is NOT sufficient for this purpose. The Federal rules restrict any use of the information to criminally investigate or prosecute any alcohol or drug abuse patient.The records that you are about to access may contain highly sensitive health information, the redisclosure of which is protected by Article 27-F of the [facility] Public Health law. If you continue you may have access to information: Regarding HIV / AIDS; Provided by facilities licensed or operated by the [facility] Office of Mental Health; or Provided by the [facility] Office for People With Developmental Disabilities. If such information is present, then the following [facility] mandated warning applies: This information has been disclosed to you from confidential records which are protected by state law. State law prohibits you from making any further disclosure of this information without the specific written consent of the person to whom it pertains, or as otherwise permitted by law. Any unauthorized further disclosure in violation of state law may result in a fine or correction sentence or both. A general authorization for the release of medical or other information is NOT sufficient authorization for further disc losure. Family History Family Member Name Family Member Gender Family Member Status Date o f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 06/02/2020 12:00:00 AM ED T [facility] ([facility] [id number] Plantar fascial fibromatosis Plantar fascial fibromato sis Problem 06/02/2020 12:00:00 AM EDT [facility] ([facility] Other synovitis and tenosynovitis, right ankle and foot Other synovitis and tenosynovitis, right ankle and foot Problem 06/02/2020 12:00:00 AM E DT [facility] ([facility] Surgeries/Procedures Procedure Description Date Indications Data Source(s) OFFICE OUTPATIENT NEW 30 MINUTES 06/25/2021 12:00:00 A M EST [facility] ([facility], ) OFFICE OUTPATIENT VISIT 15 MINUTES 05/25/2021 12:00:00 AM EDT [facility] ([facility]) PERIODIC PREVENTIVE MED EST PATIENT 40-64YRS 12:00:00 AM EDT [facility] ([facility]) OFFICE OUTPATIENT VISIT 15 MINUTES 03/29/2021 12:00:00 AM EDT [facility] ([facility]) OFFICE OUTPATIENT VISIT 15 MINUTES 01/19/2021 12:00:00 AM EDT [facility] ([facility]) OFFICE OUTPATIENT VISIT 15 MINUTES 12/13/2020 12:00:00 AM EDT [facility] ([facility]) Brief Emotional/Behav Assessment W/ Scoring Doc Per Standard Inst 12/10/2020 12:00:00 AM EDT [facility] ([facility]) Admin Patient Focused Health Risk Assessment Instrument 12/10/2020 12:00:00 AM EDT [facility] ([facility]) OFFICE OUTPATIENT VISIT 15 MINUTES 12/10/2020 12:00:00 AM EDT [facility] ([facility]) OFFICE OUTPATIENT VISIT 25 MINUTES 12/10/2020 12:00:00 AM EDT [facility] ([facility]) OFFICE OUTPATIENT VISIT 15 MINUTES 11/23/2020 12:00:00 AM EDT [facility] ([facility]) OFFICE OUTPATIENT VISIT 15 MINUTES 11/02/2020 12:00:00 AM EDT [facility] ([facility]) Strapping Foot Or Ankle 05/19/2020 12:00:00 AM EDT [facility] ([facility] Results ID Date Data Source [id number] 05/05/2021 03:50:00 PM EDT [facility] ([facility]) Name Value Range Interpretation Code Description Data Saray rce(s) Supporting Document(s) Z#Other Observations Laboratory test result [facility] ([facility]) ID Date Data Source [id number] 05/05/2021 03:50:00 PM EDT [facility] ([facility]) Name Value Range Interpretation Code Description Data Saray rce(s) Supporting Document(s) Source: Laboratory test result [facility] ([facility]) {SOURCE: Genital Nubia species Laboratory test result [facility] ([facility]) {SOURCE: Genital Gardnerella vaginalis Laboratory test result [facility] ([facility]) {SOURCE: Genital Trichomonas vaginalis Laboratory test result [facility] ([facility]) {SOURCE: Genital ID Date Data Source [id number] 05/07/2021 07:18:[address] [facility] Name Value Range Interpretation Code Description Data Saray rce(s) Supporting Document(s) SOURCE: Genital [facility] Nubia sp rRNA [Presence] in Vaginal fluid by DNA probe Negative N egative [facility] Gardnerella vaginalis rRNA [Presence] in Genital specimen by DNA probe Negative Negative [facility] Trichomonas vaginalis rRNA [Presence] in Genital specimen by DNA probe Negative Negative [facility] ID Date Data Source [id number] 05/05/2021 03:49:00 PM EDT [facility] ([facility]) Name Value Range Interpretation Code Description Data Saray rce(s) Supporting Document(s) Mammo Screening Bilateral with CAD Laboratory test result [facility] ([facility]) ID Date Data Source [id number] 04/21/2021 08:27:00 AM EDT [facility] ([facility]) Name Value Range Interpretation Code Description Data Saray rce(s) Supporting Document(s) Mammo Screening Bilateral with CAD Laboratory test result [facility] ([facility]) ID Date Data Source [id number] 04/21/2021 08:25:00 AM EDT [facility] ([facility]) Name Value Range Interpretation Code Description Data Saray rce(s) Supporting Document(s) Calcidiol [Mass/volume] in Serum or Plasma 16 ng/mL [facility] ([facility]) Is patient fasting? N ID Date Data Source [id number] 04/21/2021 08:25:00 AM EDT [facility] ([facility]) Name Value Range Interpretation Code Description Data Saray rce(s) Supporting Document(s) Sodium 138 meq/L 134-153 [facility] ([facility]) Is patient fasting? N Potassium 4.1 meq/L 3.6-5.0 [facility] ([facility]) Is patient fasting? N Comprehensive Metabo Laboratory test result [facility] ([facility]) Is patient fasting? N Co2 27 meq/L 22-30 [facility] ([facility]) Is patient fasting? N Chloride 102 meq/L 98-107 [facility] ([facility]) Is patient fasting? N Glucose 97 mg/dL 70-99 [facility] ([facility]) Is patient fasting? N BUN 7 mg/dL 7-21 [facility] ([facility]) Is patient fasting? N Total Protein 6.9 g/dL 6.3-8.2 [facility] ([facility]) Is patient fasting? N Creatinine 0.6 mg/dL 0.7-1.5 Below low normal [facility] ( [facility]) Is patient fasting? N BUN/Creat 12 8-27 [facility] ([facility]) Is patient fasting? N Albumin 3.9 g/dL 3.9-5.0 [facility] ([facility]) Is patient fasting? N Globulin 3.0 GM/DL 2.4-3.2 [facility] ([facility]) Is patient fasting? N Calcium 9.1 mg/dL 8.4-10.2 [facility] ([facility]) Is patient fasting? N Total Bili Laboratory test result 0.2-1.3 [facility] ([facility]) Is patient fasting? N A/G Ratio 1.3 0.8-2.0 [facility] ([facility]) Is patient fasting? N Alkaline Phos 83 U/L 38-126 [facility] ([facility]) Is patient fasting? N Sgot/Ast 18 U/L 5-40 [facility] ([facility]) Is patient fasting? N SGPT/Alt 11 U/L 7-56 [facility] ([facility]) Is patient fasting? N Anion Gap 9.0 mmol/L 8.0-16.0 [facility] ([facility]) Is patient fasting? N Non-Aa GFR Laboratory test result [facility] ([facility]) Is patient fasting? N Afr Amer GFR Laboratory test result [facility] ([facility]) Is patient fasting? N Age 41 yrs [facility] ([facility]) Is patient fasting? N ID Date Data Source [id number] 04/21/2021 08:25:00 AM EDT [facility] ([facility]) Name Value Range Interpretation Code Description Data Saray rce(s) Supporting Document(s) CBC No Diff Laboratory test result [facility] ([facility]) Is patient fasting? N RBC 3.75 10^6/uL 4.20-5.40 Below low normal [facility] ([facility]) Is patient fasting? N WBC 7.5 10^3/uL 4.2-11.0 [facility] ([facility]) Is patient fasting? N Hematocrit 33.0 % 37.0-47.0 Below low normal [facility] ( [facility]) Is patient fasting? N MCV 88.0 fL 81.0-101 [facility] ([facility]) Is patient fasting? N Hemoglobin 9.9 g/dL 12.0-16.0 Below low normal [facility] ( [facility]) Is patient fasting? N MCH 26.4 pg 27.0-34.0 Below low normal [facility] ( [facility]) Is patient fasting? N MCHC 30.0 g/dL 31.0-36.0 Below low normal [facility] ( [facility]) Is patient fasting? N MPV 11.3 fL 7.4-10.4 Above high normal [facility] ([facility]) Is patient fasting? N RDW 15.8 % 11.5-14.5 Above high normal [facility] ([facility]) Is patient fasting? N Platelets 324 10^3/uL 150-450 [facility] ([facility]) Is patient fasting? N ID Date Data Source [id number] 04/21/2021 08:25:00 AM EDT [facility] ([facility]) Name Value Range Interpretation Code Description Data Saray rce(s) Supporting Document(s) Cobalamin (Vitamin B12) [Mass/volume] in Serum or Plasma 238 pg/mL 2 32-1245 [facility] ([facility]) Is patient fasting? N ID Date Data Source [id number] 04/23/2021 06:56:[address] [facility] Name Value Range Interpretation Code Description Data Saray rce(s) Supporting Document(s) Calcidiol [Moles/volume] in Serum or Plasma 16 NG/ML [facility] VITAMIN-D(2 5HYDROXY) Deficiency: <=20 ng/ml Insufficiency: 21-29 ng/ml Preferred level: => 30 ng/ml ID Date Data Source [id number] 04/21/2021 04:22:[address] [facility] Name Value Range Interpretation Code Description Data Saray rce(s) Supporting Document(s) Cobalamin (Vitamin B12) [Mass/volume] in Serum or Plasma 238 PG/ML 232 - 1245 [facility] ID Date Data Source [id number] 04/21/2021 03:58:[address] [facility] Name Value Range Interpretation Code Description Data Saray rce(s) Supporting Document(s) COMPREHENSIVE METABOLIC PANEL [facility] COMPREHENSIVE METABOLIC PANEL Sodium [Moles/volume] in Serum or Plasma 138 mEq/L 134 - 153 [facility] Potassium [Moles/volume] in Serum or Plasma 4.1 mEq/L 3.6 - 5.0 [facility] Chloride [Moles/volume] in Serum or Plasma 102 mEq/L 98 - 107 [facility] Carbon dioxide, total [Moles/volume] in Serum or Plasma 27 MEQ/L 22 - 30 [facility] Glucose [Mass/volume] in Serum or Plasma 97 MG/DL 70 - 99 [facility] BUN 7 MG/DL 7 - 21 [facility] Creatinine [Mass/volume] in Serum or Plasma 0.6 MG/DL 0.7 - 1.[address] [facility] BUN/CREAT 12 8 - 27 [facility] Protein [Mass/volume] in Serum or Plasma 6.9 G/DL 6.3 - 8.2 [facility] Albumin [Mass/volume] in Serum or Plasma 3.9 G/DL 3.9 - 5.0 [facility] Globulin [Mass/volume] in Serum by calculation 3.0 GM/DL 2.4 - 3.2 [facility] A/G RATIO 1.3 0.8 - 2.0 [facility] Calcium [Mass/volume] in Serum or Plasma 9.1 MG/DL 8.4 - 10.2 [facility] Bilirubin.total [Mass/volume] in Serum or Plasma <0.7 MG/DL 0.2 - 1.3 [facility] Alkaline phosphatase [Enzymatic activity/volume] in Serum or Plasma 83 U/L 38 - 126 [facility] Aspartate aminotransferase [Enzymatic activity/volume] in Serum or Plasma 18 U/L 5 - 40 [facility] Alanine aminotransferase [Enzymatic activity/volume] in Seru m or Plasma 11 U/L 7 - 56 [facility] Anion gap 3 in Serum or Plasma 9.0 mmol/L 8.0 - 16.0 [facility] AGE 41 yrs [facility] NON-AA GFR >60 mL/min [facility] ital AFR AMER GFR >60 mL/min [facility] Ho spital Male GFR In terprentation 20-49 yrs >60 mL/min Normal 50-59 yrs >56 mL/min Normal 60-69 yrs >49 mL/min Normal 70-79yrs >42 mL/min Normal 80 and above >35 mL/min Normal Female GFR Interpretation 20-39 yrs >60 mL/min Normal 40-49 yrs >58 mL/min Normal 50-59 yrs >51 mL/min Normal 60-69 yrs >45 mL/min Normal 70-79 yrs >39 mL/min Normal 80 and above >32 mL/min Normal ID Date Data Source [id number] 04/21/2021 03:27:[address] [facility] Name Value Range Interpretation Code Description Data Saray rce(s) Supporting Document(s) CBC NO DIFF [facility] ital COMPLETE BLOOD COUNT Leukocytes [#/volume] in Blood by Automated count 7.5 10^3/uL 4.2 - [address] [facility] Erythrocytes [#/volume] in Blood by Automated count 3.75 10^6/uL 4. 20 - 5.[address] [facility] Hemoglobin [Mass/volume] in Blood 9.9 g/dL 12.0 - 16.[address] [facility] Hematocrit [Volume Fraction] of Blood by Automated count 33.0 % 3 7.0 - 47.[address] [facility] Erythrocyte mean corpuscular volume [Entitic volume] by Auto mated count 88.0 fL 81.0 - 101 [facility] Erythrocyte mean corpuscular hemoglobin [Entitic mass] by Automated count 26.4 pg 27.0 - 34.[address] [facility] Erythrocyte mean corpuscular hemoglobin concentration [Mass/volume] by Automated count 30.0 g/dL 31.0 - 36.[address] [facility] Erythrocyte distribution width [Ratio] by Automated count 15.8 % 11.5 - 14.[address] [facility] Platelets [#/volume] in Blood by Automated count 324 10^3/uL 150 - [address] [facility] Platelet mean volume [Entitic volume] in Blood by Automated count 11.3 fL 7.4 - 10.[address] [facility] ID Date Data Source [id number] 03/29/2021 06:53:00 PM EDT [facility] ([facility]) Name Value Range Interpretation Code Description Data Saray rce(s) Supporting Document(s) Bacteria identified in Urine by Culture Laboratory test result [facility] ([facility]) <content>FULL REPORT IN LAB NOTES ([facility] a nd [facility]).</content>
<content></content>
<content>ORGANISM 1: KLEBSIELLA PNEUMONIAE</content>
<content></content>
<content>COLONY COUNT >100,000</content>
<content></content>
<content></content>
<content> ORGANISM 1: KLEBSIELLA PNEUMONIAE</content>
<content></content>
<content>KLEBSIELLA PNEUMONIAE: REACTION</content>
<content>TRIMETHOPRIM/SULFAMETHOXAZOLE IV 160mg TMP & 800mg SMXq6h <=20 S</content>
<content> TRIMETHOPRIM/SULFAMETHOXAZOLE PO Bactrim DS Bid <=20 S</content>
<content>AMPICILLIN IV 500mg q6h >=32 R</content>
<content>AMPICILLIN PO 500mg q6h fasting >=32 R</content>
<content>GENTAMICIN IV 80mg q8h <=1 S</content>
<content>NITROFURANTOIN PO 100mg BID 64 I</content>
<content>CEFAZOLIN IV 1gm q8h <=4 S</content>
<content> LEVOFLOXACIN IV 500mg qd <=0.12 S</content>
<content>LEVOFLOXACIN PO 250mg qd <=0.12 S</content>
<content>LEVOFLOXACIN PO 500mg qd <=0.12 S</content>
<content>TOBRAMYCIN IV 80mg q8h <=1 S</content>
<content>CEFTRIAXONE IV 1gm q24h <=1 S</content>
<content>CEFTAZIDIME IV 1gm q8h <=1 S</content>
<content> AMPICILLIN/SULBACTAM IV 1.5g q6h 16 I</content>
<content>PIPERACILLIN/TAZOBACTAM IV 2.25 gm q6h <=4 S</content>
<content>AZTREONAM IV 1gm q8h <=1 S</content>
<content>ERTAPENEM IV 1gm qd <=0.5 S</content>
<content>MEROPENEM IV 1 gm q8h <=0.25 S</content>
<content>MEROPENEM IV 500 mg q8h <=0.25 S</content>
<content> TIGECYCLINE IV 50mg q12h 1 S</content>
<content>CEFEPIME IV 1 gm q12h <=1 S</content>
<content>CEFEPIME IV 2 gm q12h <=1 S</content>
<content>EXTD BRD SPCTRM BETA LACTAMASE IV NEGATIVE FOR ESBL</content>
<content></content> ID Date Data Source [id number] 02/25/2021 10:37:00 AM EDT [facility] ([facility]) Name Value Range Interpretation Code Description Data Saray rce(s) Supporting Document(s) Thyrotropin [Units/volume] in Serum or Plasma 1.36 uIU/mL 0.47-5.[address] [facility] ([facility]) ID Date Data Source [id number] 02/25/2021 01:47:[address] [facility] Name Value Range Interpretation Code Description Data Saray rce(s) Supporting Document(s) Thyrotropin [Units/volume] in Serum or Plasma by Detec tion limit <= 0.05 mIU/L 1.36 uIU/mL 0.47 - 5.01 [facility] ID Date Data Source [id number] 01/30/2021 05:42:00 PM EDT [facility] Name Value Range Interpretation Code Description Data Saray rce(s) Supporting Document(s) SARS coronavirus 2 RNA [Presence] in Res piratory specimen by LENNY with probe detection NEGATIVE [facility] This lab was ordered by [facility] a nd reported by [facility]. ID Date Data Source [id number] 01/30/2021 05:08:[address] [facility] ([facility]) Name Value Range Interpretation Code Description Data Saray rce(s) Supporting Document(s) Natriuretic peptide.B prohormone N-Terminal [Mass/volu me] in Serum or Plasma 1132 pg/mL Above high normal [facility] ([facility]) ID Date Data Source [id number] 01/30/2021 02:38:00 PM EDT [facility] ([facility]) Name Value Range Interpretation Code Description Data [facility] rce(s) Supporting Document(s) Prothrombin Time 14.5 s 12.5-14.3 Above high normal [facility] ([facility]) Inr 1.11 Normal (applies to non-numeric resul ts) [facility] ([facility]) THERAPUTIC HUMAN INR VALUES INDICATIONS NORMAL RANGES PROPHYLAXIS/TREATMENT OF: VENOUS THROMBOSIS 2.0-3.0 PULMONARY EMBOLISM 2.0-3.0 PREVENTION OF SYSTEMIC EMBOLISM FROM: TISSUE HEART VALVES 2.0-3.0 ACUTE MYOCARDIAL INFARCTION 2.0-3.0 VALVULAR HEART DISEASE 2.0-3.0 ATRIAL FIBRILLATION 2.0-3.0 MECHANICAL VALVES(HIGH RISK) 2.5-3.5 RECURRENT MYOCARDIAL INFARCTION 2.5-3.5 Partial Thromboplastin Time 28.2 s 24.2-38.5 Norm al (applies to non-numeric results) [facility] ([facility]) ID Date Data Source [id number] 01/30/2021 02:38:00 PM EDT [facility] ([facility]) Name Value Range Interpretation Code Description Data Saray rce(s) Supporting Document(s) Fibrin D-dimer FEU [Mass/volume] in Platelet poor plasma Lab oratory test result Above high normal [facility] ([facility]) ID Date Data Source [id number] 01/30/2021 12:25:00 PM EDT [facility] ([facility]) Name Value Range Interpretation Code Description Data Saray rce(s) Supporting Document(s) Laboratory test finding (navigational concept) 37.0 % 3 8.0-51.0 Below low normal [facility] ([facility]) Laboratory test finding (navigational concept) 104 mg/dL 7 0-105 Normal (applies to non-numeric results) [facility] ([facility]) Laboratory test finding (navigational concept) 141 meq/L 1 36-145 Normal (applies to non-numeric results) [facility] ([facility]) Laboratory test finding (navigational concept) 3.6 meq/L 3 .5-5.1 Normal (applies to non-numeric results) [facility] ([facility]) Laboratory test finding (navigational concept) 4.7 mg/dL 4 .5-5.3 Normal (applies to non-numeric results) [facility] ([facility]) Laboratory test finding (navigational concept) 101 meq/L 9 8-109 Normal (applies to non-numeric results) [facility] ([facility]) Laboratory test finding (navigational concept) 22.0 MM/L 2 3.0-27.0 Below low normal [facility] ([facility]) Laboratory test finding (navigational concept) 4 mg/dL 8-26 Below low normal [facility] ([facility]) Laboratory test finding (navigational concept) 0.6 mg/dL 0 .6-1.3 Normal (applies to non-numeric results) [facility] ([facility]) ID Date Data Source [id number] 01/30/2021 12:23:00 PM EDT [facility] ([facility]) Name Value Range Interpretation Code Description Data Saray rce(s) Supporting Document(s) Ast/Sgot 19 U/L 7-37 Normal (applies to non-numeric resul ts) [facility] ([facility]) Alkaline Phosphatase 90 U/L 45-117 Normal (applies to non-num hosea results) [facility] ([facility]) Alt/SGPT 20 U/L 12-78 Normal (applies to non-numeric resul ts) [facility] ([facility]) Bilirubin,Total 0.9 mg/dL 0.2-1.0 Normal (applies to non-numeric results) [facility] ([facility]) Bilirubin,Direct 0.2 mg/dL 0.0-0.2 Normal (applies to non-numeric results) [facility] ([facility]) Total Protein 7.3 GM/DL 6.4-8.2 Normal (applies to non-numeric re sults) [facility] ([facility]) Albumin 3.3 GM/DL 3.2-5.2 Normal (applies to non-numeric resul ts) [facility] ([facility]) Albumin/Globulin Ratio 0.8 1.2-2.2 Below low normal [facility] ([facility]) ID Date Data Source [id number] 01/30/2021 12:23:00 PM EDT [facility] ([facility]) Name Value Range Interpretation Code Description Data Saray rce(s) Supporting Document(s) Lipase [Enzymatic activity/volume] in Serum or Plasma 66 U/L 73-393 Below low normal [facility] ([facility]) Thyroxine (T4) free [Mass/volume] in Serum or Plasma 1.14 ng/dL 0.76-1.46 Normal (applies to non-numeric results) [facility] ([facility]) C reactive protein [Mass/volume] in Serum or Plasma by High sensitivity method 2.87 mg/dL 0.00-0.30 Above high normal [facility] ([facility]) Thyrotropin [Units/volume] in Serum or Plasma 0.246 uIU/ML 0. 358-3.740 Below low normal [facility] ([facility]) Erythrocyte sedimentation rate by Westergren method 56 mm/hr 0-20 Above high normal [facility] ([facility]) ID Date Data Source [id number] 01/30/2021 12:23:00 PM EDT [facility] ([facility]) Name Value Range Interpretation Code Description Data Saray rce(s) Supporting Document(s) White Blood Count 6.8 10 4.0-10.0 Normal (applies to non-numeri c results) [facility] ([facility]) Red Blood Count 3.78 10 4.00-5.40 Below low normal [facility] ([facility]) Hemoglobin 11.0 g/dL 12.0-15.5 Below low normal [facility] ( [facility]) Hematocrit 34.5 % 36.0-47.0 Below low normal [facility] ( [facility]) Mean Corpuscular Volume 91.3 fl 80.0-96.0 Normal ( applies to non-numeric results) [facility] ([facility]) Mean Corpuscular Hemoglobin 29.1 pg 27.0-33.0 Norm al (applies to non-numeric results) [facility] ([facility]) Red Cell Distribution Width 15.0 % 11.5-14.5 Above high normal [facility] ([facility]) Mean Corpuscular HGB Conc 31.9 g/dL 32.0-36.5 Below low normal [facility] ([facility]) Neutrophils % 61.6 % 36.0-66.0 Normal (applies to non-numeric re sults) [facility] ([facility]) Platelet Count, Automated 185 10 150-450 Normal (applies to non-numeric results) [facility] ([facility]) Eos % 0.9 % 0.0-3.0 Normal (applies to non-numeric resul ts) [facility] ([facility]) Nance % 13.8 % 2.0-8.0 Above high normal [facility] ([facility]) Lymph % 22.7 % 24.0-44.0 Below low normal [facility] ( [facility]) Baso % 0.6 % 0.0-1.0 Normal (applies to non-numeric resul ts) [facility] ([facility]) Immature Granulocyte % 0.4 % 0-3.0 Normal (applies to non-n umeric results) [facility] ([facility]) Nucleated Red Blood Cell % 0.0 % 0-0 Normal (applies to n on-numeric results) [facility] ([facility]) Neutrophils # 4.2 10 1.5-8.5 Normal (applies to non-numeric re sults) [facility] ([facility]) Lymph # 1.6 10 1.5-5.0 Normal (applies to non-numeric resul ts) [facility] ([facility]) Nance # 0.9 10 0.0-0.8 Above high normal [facility] ([facility]) Baso # 0.0 10 0.0-0.2 Normal (applies to non-numeric resul ts) [facility] ([facility]) Eos # 0.1 10 0.0-0.5 Normal (applies to non-numeric resul ts) [facility] ([facility]) ID Date Data Source [id number] 01/19/2021 10:22:00 AM EDT [facility] ([facility]) Name Value Range Interpretation Code Description Data Saray rce(s) Supporting Document(s) Thyroid Peroxidase (Tpo)Ab Laboratory test result 0-34 [facility] ([facility]) .~.~<DG1.3.1>Z00.01</DG1.3.1><DG1.3.1>E03.9</DG1.3.1><DG1.3.1>E66.9</DG1.3.1><DG 1.3. Is patient fasting? N~.~.~<DG1.3.1>Z00.01</DG1.3.1><DG1.3.1>E03.9</DG1.3.1><DG1.3.1>E66.9</DG1.3 .~.~<DG1.3.1> Z00.01</DG1.3.1><DG1.3.1>E03.9</DG1.3.1><DG1.3.1>E66.9</DG1.3.1><DG1.3. Is patient fasting? N~.~.~<DG1.3.1>Z00.01</DG1.3.1><DG1.3.1>E03.9</DG1.3.1><DG1.3.1>E66.9</DG1.3 .~.~<DG1.3.1>Z00.01</DG1.3.1> <DG1.3.1>E03.9</DG1.3.1><DG1.3.1>E66.9</DG1.3.1><DG1.3. .~.~<DG1.3.1>Z00.01</DG1.3.1><DG1.3.1>E03.9</DG1.3.1><DG1.3.1>E66.9</DG1.3.1><DG 1.3. .~.~<DG1.3.1>Z00.01</DG1.3.1><DG1.3.1>E03.9</DG1.3.1> <DG1.3.1>E66.9</DG1.3.1><DG1.3. .~.~<DG1.3.1>Z00.01</DG1.3.1><DG1.3.1>E03.9</DG1.3.1><DG1.3.1>E66.9</DG1.3.1><DG 1.3. Thyroglobulin Antibody Laboratory test result 0.0-0.9 [facility] ([facility]) .~.~<DG1.3.1>Z00.01</DG1.3.1><DG1.3.1>E03.9</DG1.3.1><DG1.3.1>E66.9</DG1.3.1><DG 1.3. Is patient fasting? N~.~.~<DG1.3.1>Z00.01</DG1.3.1><DG1.3.1>E03.9</DG1.3.1><DG1.3.1>E66.9</DG1.3 .~.~<DG1.3.1> Z00.01</DG1.3.1><DG1.3.1>E03.9</DG1.3.1><DG1.3.1>E66.9</DG1.3.1><DG1.3. Is patient fasting? N~.~.~<DG1.3.1>Z00.01</DG1.3.1><DG1.3.1>E03.9</DG1.3.1><DG1.3.1>E66.9</DG1.3 .~.~<DG1.3.1>Z00.01</DG1.3.1> <DG1.3.1>E03.9</DG1.3.1><DG1.3.1>E66.9</DG1.3.1><DG1.3. .~.~<DG1.3.1>Z00.01</DG1.3.1><DG1.3.1>E03.9</DG1.3.1><DG1.3.1>E66.9</DG1.3.1><DG 1.3. .~.~<DG1.3.1>Z00.01</DG1.3.1><DG1.3.1>E03.9</DG1.3.1> <DG1.3.1>E66.9</DG1.3.1><DG1.3. .~.~<DG1.3.1>Z00.01</DG1.3.1><DG1.3.1>E03.9</DG1.3.1><DG1.3.1>E66.9</DG1.3.1><DG 1.3. ID Date Data Source [id number] 01/19/2021 10:22:00 AM EDT [facility] ([facility]) Name Value Range Interpretation Code Description Data Saray rce(s) Supporting Document(s) Cobalamin (Vitamin B12) [Mass/volume] in Serum or Plasma 199 pg/ mL 232-1245 Below low normal [facility] ([facility]) .~.~<DG1.3.1>Z00.01</DG1.3.1><DG1.3.1>E03.9</DG1.3.1><DG1.3.1>E66.9</DG1.3.1><DG 1.3. Is patient fasting? N~.~.~<DG1.3.1>Z00.01</DG1.3.1><DG1.3.1>E03.9</DG1.3.1><DG1.3.1>E66.9</DG1.3 .~.~<DG1.3.1> Z00.01</DG1.3.1><DG1.3.1>E03.9</DG1.3.1><DG1.3.1>E66.9</DG1.3.1><DG1.3. Is patient fasting? N~.~.~<DG1.3.1>Z00.01</DG1.3.1><DG1.3.1>E03.9</DG1.3.1><DG1.3.1>E66.9</DG1.3 .~.~<DG1.3.1>Z00.01</DG1.3.1> <DG1.3.1>E03.9</DG1.3.1><DG1.3.1>E66.9</DG1.3.1><DG1.3. .~.~<DG1.3.1>Z00.01</DG1.3.1><DG1.3.1>E03.9</DG1.3.1><DG1.3.1>E66.9</DG1.3.1><DG 1.3. .~.~<DG1.3.1>Z00.01</DG1.3.1><DG1.3.1>E03.9</DG1.3.1> <DG1.3.1>E66.9</DG1.3.1><DG1.3. .~.~<DG1.3.1>Z00.01</DG1.3.1><DG1.3.1>E03.9</DG1.3.1><DG1.3.1>E66.9</DG1.3.1><DG 1.3. Hemoglobin A1c/Hemoglobin.total in Blood 6.0 % 4.4-6.1 [facility] ([facility]) .~.~<DG1.3.1>Z00.01</DG1.3.1><DG1.3.1>E03.9</DG1.3.1><DG1.3.1>E66.9</DG1.3.1><DG 1.3. Is patient fasting? N~.~.~<DG1.3.1>Z00.01</DG1.3.1><DG1.3.1>E03.9</DG1.3.1><DG1.3.1>E66.9</DG1.3 .~.~<DG1.3.1> Z00.01</DG1.3.1><DG1.3.1>E03.9</DG1.3.1><DG1.3.1>E66.9</DG1.3.1><DG1.3. Is patient fasting? N~.~.~<DG1.3.1>Z00.01</DG1.3.1><DG1.3.1>E03.9</DG1.3.1><DG1.3.1>E66.9</DG1.3 .~.~<DG1.3.1>Z00.01</DG1.3.1> <DG1.3.1>E03.9</DG1.3.1><DG1.3.1>E66.9</DG1.3.1><DG1.3. .~.~<DG1.3.1>Z00.01</DG1.3.1><DG1.3.1>E03.9</DG1.3.1><DG1.3.1>E66.9</DG1.3.1><DG 1.3. .~.~<DG1.3.1>Z00.01</DG1.3.1><DG1.3.1>E03.9</DG1.3.1> <DG1.3.1>E66.9</DG1.3.1><DG1.3. .~.~<DG1.3.1>Z00.01</DG1.3.1><DG1.3.1>E03.9</DG1.3.1><DG1.3.1>E66.9</DG1.3.1><DG 1.3. Calcidiol [Mass/volume] in Serum or Plasma 7 ng/mL [facility] ([facility]) .~.~<DG1.3.1>Z00.01</DG1.3.1><DG1.3.1>E03.9</DG1.3.1><DG1.3.1>E66.9</DG1.3.1><DG 1.3. Is patient fasting? N~.~.~<DG1.3.1>Z00.01</DG1.3.1><DG1.3.1>E03.9</DG1.3.1><DG1.3.1>E66.9</DG1.3 .~.~<DG1.3.1> Z00.01</DG1.3.1><DG1.3.1>E03.9</DG1.3.1><DG1.3.1>E66.9</DG1.3.1><DG1.3. Is patient fasting? N~.~.~<DG1.3.1>Z00.01</DG1.3.1><DG1.3.1>E03.9</DG1.3.1><DG1.3.1>E66.9</DG1.3 .~.~<DG1.3.1>Z00.01</DG1.3.1> <DG1.3.1>E03.9</DG1.3.1><DG1.3.1>E66.9</DG1.3.1><DG1.3. .~.~<DG1.3.1>Z00.01</DG1.3.1><DG1.3.1>E03.9</DG1.3.1><DG1.3.1>E66.9</DG1.3.1><DG 1.3. .~.~<DG1.3.1>Z00.01</DG1.3.1><DG1.3.1>E03.9</DG1.3.1> <DG1.3.1>E66.9</DG1.3.1><DG1.3. .~.~<DG1.3.1>Z00.01</DG1.3.1><DG1.3.1>E03.9</DG1.3.1><DG1.3.1>E66.9</DG1.3.1><DG 1.3. Iron [Mass/volume] in Serum or Plasma 49 ug/dL 42-135 [facility] ([facility]) .~.~<DG1.3.1>Z00.01</DG1.3.1><DG1.3.1>E03.9</DG1.3.1><DG1.3.1>E66.9</DG1.3.1><DG 1.3. Is patient fasting? N~.~.~<DG1.3.1>Z00.01</DG1.3.1><DG1.3.1>E03.9</DG1.3.1><DG1.3.1>E66.9</DG1.3 .~.~<DG1.3.1> Z00.01</DG1.3.1><DG1.3.1>E03.9</DG1.3.1><DG1.3.1>E66.9</DG1.3.1><DG1.3. Is patient fasting? N~.~.~<DG1.3.1>Z00.01</DG1.3.1><DG1.3.1>E03.9</DG1.3.1><DG1.3.1>E66.9</DG1.3 .~.~<DG1.3.1>Z00.01</DG1.3.1> <DG1.3.1>E03.9</DG1.3.1><DG1.3.1>E66.9</DG1.3.1><DG1.3. .~.~<DG1.3.1>Z00.01</DG1.3.1><DG1.3.1>E03.9</DG1.3.1><DG1.3.1>E66.9</DG1.3.1><DG 1.3. .~.~<DG1.3.1>Z00.01</DG1.3.1><DG1.3.1>E03.9</DG1.3.1> <DG1.3.1>E66.9</DG1.3.1><DG1.3. .~.~<DG1.3.1>Z00.01</DG1.3.1><DG1.3.1>E03.9</DG1.3.1><DG1.3.1>E66.9</DG1.3.1><DG 1.3. Folate [Mass/volume] in Serum or Plasma 9.6 ng/mL 4.4-31.[address] [facility] .~.~<DG1.3.1>Z00.01</DG1.3.1><DG1.3.1>E03.9</DG1.3.1><DG1.3.1>E66.9</DG1.3.1><DG 1.3. Is patient fasting? N~.~.~<DG1.3.1>Z00.01</DG1.3.1><DG1.3.1>E03.9</DG1.3.1><DG1.3.1>E66.9</DG1.3 .~.~<DG1.3.1> Z00.01</DG1.3.1><DG1.3.1>E03.9</DG1.3.1><DG1.3.1>E66.9</DG1.3.1><DG1.3. Is patient fasting? N~.~.~<DG1.3.1>Z00.01</DG1.3.1><DG1.3.1>E03.9</DG1.3.1><DG1.3.1>E66.9</DG1.3 .~.~<DG1.3.1>Z00.01</DG1.3.1> <DG1.3.1>E03.9</DG1.3.1><DG1.3.1>E66.9</DG1.3.1><DG1.3. .~.~<DG1.3.1>Z00.01</DG1.3.1><DG1.3.1>E03.9</DG1.3.1><DG1.3.1>E66.9</DG1.3.1><DG 1.3. .~.~<DG1.3.1>Z00.01</DG1.3.1><DG1.3.1>E03.9</DG1.3.1> <DG1.3.1>E66.9</DG1.3.1><DG1.3. .~.~<DG1.3.1>Z00.01</DG1.3.1><DG1.3.1>E03.9</DG1.3.1><DG1.3.1>E66.9</DG1.3.1><DG 1.3. ID Date Data Source [id number] 01/19/2021 10:22:00 AM EDT [facility] ([facility]) Name Value Range Interpretation Code Description Data Saray rce(s) Supporting Document(s) Cve Panel Laboratory test result [facility] ([facility]) .~.~<DG1.3.1>Z00.01</DG1.3.1><DG1.3.1>E03.9</DG1.3.1><DG1.3.1>E66.9</DG1.3.1><DG 1.3. Is patient fasting? N~.~.~<DG1.3.1>Z00.01</DG1.3.1><DG1.3.1>E03.9</DG1.3.1><DG1.3.1>E66.9</DG1.3 .~.~<DG1.3.1> Z00.01</DG1.3.1><DG1.3.1>E03.9</DG1.3.1><DG1.3.1>E66.9</DG1.3.1><DG1.3. Is patient fasting? N~.~.~<DG1.3.1>Z00.01</DG1.3.1><DG1.3.1>E03.9</DG1.3.1><DG1.3.1>E66.9</DG1.3 .~.~<DG1.3.1>Z00.01</DG1.3.1> <DG1.3.1>E03.9</DG1.3.1><DG1.3.1>E66.9</DG1.3.1><DG1.3. .~.~<DG1.3.1>Z00.01</DG1.3.1><DG1.3.1>E03.9</DG1.3.1><DG1.3.1>E66.9</DG1.3.1><DG 1.3. .~.~<DG1.3.1>Z00.01</DG1.3.1><DG1.3.1>E03.9</DG1.3.1> <DG1.3.1>E66.9</DG1.3.1><DG1.3. .~.~<DG1.3.1>Z00.01</DG1.3.1><DG1.3.1>E03.9</DG1.3.1><DG1.3.1>E66.9</DG1.3.1><DG 1.3. Cholesterol 133 mg/dL 131-200 [facility] ([facility]) .~.~<DG1.3.1>Z00.01</DG1.3.1><DG1.3.1>E03.9</DG1.3.1><DG1.3.1>E66.9</DG1.3.1><DG 1.3. Is patient fasting? N~.~.~<DG1.3.1>Z00.01</DG1.3.1><DG1.3.1>E03.9</DG1.3.1><DG1.3.1>E66.9</DG1.3 .~.~<DG1.3.1> Z00.01</DG1.3.1><DG1.3.1>E03.9</DG1.3.1><DG1.3.1>E66.9</DG1.3.1><DG1.3. Is patient fasting? N~.~.~<DG1.3.1>Z00.01</DG1.3.1><DG1.3.1>E03.9</DG1.3.1><DG1.3.1>E66.9</DG1.3 .~.~<DG1.3.1>Z00.01</DG1.3.1> <DG1.3.1>E03.9</DG1.3.1><DG1.3.1>E66.9</DG1.3.1><DG1.3. .~.~<DG1.3.1>Z00.01</DG1.3.1><DG1.3.1>E03.9</DG1.3.1><DG1.3.1>E66.9</DG1.3.1><DG 1.3. .~.~<DG1.3.1>Z00.01</DG1.3.1><DG1.3.1>E03.9</DG1.3.1> <DG1.3.1>E66.9</DG1.3.1><DG1.3. .~.~<DG1.3.1>Z00.01</DG1.3.1><DG1.3.1>E03.9</DG1.3.1><DG1.3.1>E66.9</DG1.3.1><DG 1.3. Triglycerides 68 mg/dL 35-160 [facility] ([facility]) .~.~<DG1.3.1>Z00.01</DG1.3.1><DG1.3.1>E03.9</DG1.3.1><DG1.3.1>E66.9</DG1.3.1><DG 1.3. Is patient fasting? N~.~.~<DG1.3.1>Z00.01</DG1.3.1><DG1.3.1>E03.9</DG1.3.1><DG1.3.1>E66.9</DG1.3 .~.~<DG1.3.1> Z00.01</DG1.3.1><DG1.3.1>E03.9</DG1.3.1><DG1.3.1>E66.9</DG1.3.1><DG1.3. Is patient fasting? N~.~.~<DG1.3.1>Z00.01</DG1.3.1><DG1.3.1>E03.9</DG1.3.1><DG1.3.1>E66.9</DG1.3 .~.~<DG1.3.1>Z00.01</DG1.3.1> <DG1.3.1>E03.9</DG1.3.1><DG1.3.1>E66.9</DG1.3.1><DG1.3. .~.~<DG1.3.1>Z00.01</DG1.3.1><DG1.3.1>E03.9</DG1.3.1><DG1.3.1>E66.9</DG1.3.1><DG 1.3. .~.~<DG1.3.1>Z00.01</DG1.3.1><DG1.3.1>E03.9</DG1.3.1> <DG1.3.1>E66.9</DG1.3.1><DG1.3. .~.~<DG1.3.1>Z00.01</DG1.3.1><DG1.3.1>E03.9</DG1.3.1><DG1.3.1>E66.9</DG1.3.1><DG 1.3. HDL 44 mg/dL 29-86 [facility] ([facility]) .~.~<DG1.3.1>Z00.01</DG1.3.1><DG1.3.1>E03.9</DG1.3.1><DG1.3.1>E66.9</DG1.3.1><DG 1.3. Is patient fasting? N~.~.~<DG1.3.1>Z00.01</DG1.3.1><DG1.3.1>E03.9</DG1.3.1><DG1.3.1>E66.9</DG1.3 .~.~<DG1.3.1> Z00.01</DG1.3.1><DG1.3.1>E03.9</DG1.3.1><DG1.3.1>E66.9</DG1.3.1><DG1.3. Is patient fasting? N~.~.~<DG1.3.1>Z00.01</DG1.3.1><DG1.3.1>E03.9</DG1.3.1><DG1.3.1>E66.9</DG1.3 .~.~<DG1.3.1>Z00.01</DG1.3.1> <DG1.3.1>E03.9</DG1.3.1><DG1.3.1>E66.9</DG1.3.1><DG1.3. .~.~<DG1.3.1>Z00.01</DG1.3.1><DG1.3.1>E03.9</DG1.3.1><DG1.3.1>E66.9</DG1.3.1><DG 1.3. .~.~<DG1.3.1>Z00.01</DG1.3.1><DG1.3.1>E03.9</DG1.3.1> <DG1.3.1>E66.9</DG1.3.1><DG1.3. .~.~<DG1.3.1>Z00.01</DG1.3.1><DG1.3.1>E03.9</DG1.3.1><DG1.3.1>E66.9</DG1.3.1><DG 1.3. LDL 85 mg/dL 65-175 [facility] ([facility]) .~.~<DG1.3.1>Z00.01</DG1.3.1><DG1.3.1>E03.9</DG1.3.1><DG1.3.1>E66.9</DG1.3.1><DG 1.3. Is patient fasting? N~.~.~<DG1.3.1>Z00.01</DG1.3.1><DG1.3.1>E03.9</DG1.3.1><DG1.3.1>E66.9</DG1.3 .~.~<DG1.3.1> Z00.01</DG1.3.1><DG1.3.1>E03.9</DG1.3.1><DG1.3.1>E66.9</DG1.3.1><DG1.3. Is patient fasting? N~.~.~<DG1.3.1>Z00.01</DG1.3.1><DG1.3.1>E03.9</DG1.3.1><DG1.3.1>E66.9</DG1.3 .~.~<DG1.3.1>Z00.01</DG1.3.1> <DG1.3.1>E03.9</DG1.3.1><DG1.3.1>E66.9</DG1.3.1><DG1.3. .~.~<DG1.3.1>Z00.01</DG1.3.1><DG1.3.1>E03.9</DG1.3.1><DG1.3.1>E66.9</DG1.3.1><DG 1.3. .~.~<DG1.3.1>Z00.01</DG1.3.1><DG1.3.1>E03.9</DG1.3.1> <DG1.3.1>E66.9</DG1.3.1><DG1.3. .~.~<DG1.3.1>Z00.01</DG1.3.1><DG1.3.1>E03.9</DG1.3.1><DG1.3.1>E66.9</DG1.3.1><DG 1.3. Risk Factor 3.0 3.2-4.4 Below low normal [facility] ([facility]) .~.~<DG1.3.1>Z00.01</DG1.3.1><DG1.3.1>E03.9</DG1.3.1><DG1.3.1>E66.9</DG1.3.1><DG 1.3. Is patient fasting? N~.~.~<DG1.3.1>Z00.01</DG1.3.1><DG1.3.1>E03.9</DG1.3.1><DG1.3.1>E66.9</DG1.3 .~.~<DG1.3.1> Z00.01</DG1.3.1><DG1.3.1>E03.9</DG1.3.1><DG1.3.1>E66.9</DG1.3.1><DG1.3. Is patient fasting? N~.~.~<DG1.3.1>Z00.01</DG1.3.1><DG1.3.1>E03.9</DG1.3.1><DG1.3.1>E66.9</DG1.3 .~.~<DG1.3.1>Z00.01</DG1.3.1> <DG1.3.1>E03.9</DG1.3.1><DG1.3.1>E66.9</DG1.3.1><DG1.3. .~.~<DG1.3.1>Z00.01</DG1.3.1><DG1.3.1>E03.9</DG1.3.1><DG1.3.1>E66.9</DG1.3.1><DG 1.3. .~.~<DG1.3.1>Z00.01</DG1.3.1><DG1.3.1>E03.9</DG1.3.1> <DG1.3.1>E66.9</DG1.3.1><DG1.3. .~.~<DG1.3.1>Z00.01</DG1.3.1><DG1.3.1>E03.9</DG1.3.1><DG1.3.1>E66.9</DG1.3.1><DG 1.3. LDL/HDL 1.93 1.47-3.22 [facility] ([facility]) .~.~<DG1.3.1>Z00.01</DG1.3.1><DG1.3.1>E03.9</DG1.3.1><DG1.3.1>E66.9</DG1.3.1><DG 1.3. Is patient fasting? N~.~.~<DG1.3.1>Z00.01</DG1.3.1><DG1.3.1>E03.9</DG1.3.1><DG1.3.1>E66.9</DG1.3 .~.~<DG1.3.1> Z00.01</DG1.3.1><DG1.3.1>E03.9</DG1.3.1><DG1.3.1>E66.9</DG1.3.1><DG1.3. Is patient fasting? N~.~.~<DG1.3.1>Z00.01</DG1.3.1><DG1.3.1>E03.9</DG1.3.1><DG1.3.1>E66.9</DG1.3 .~.~<DG1.3.1>Z00.01</DG1.3.1> <DG1.3.1>E03.9</DG1.3.1><DG1.3.1>E66.9</DG1.3.1><DG1.3. .~.~<DG1.3.1>Z00.01</DG1.3.1><DG1.3.1>E03.9</DG1.3.1><DG1.3.1>E66.9</DG1.3.1><DG 1.3. .~.~<DG1.3.1>Z00.01</DG1.3.1><DG1.3.1>E03.9</DG1.3.1> <DG1.3.1>E66.9</DG1.3.1><DG1.3. .~.~<DG1.3.1>Z00.01</DG1.3.1><DG1.3.1>E03.9</DG1.3.1><DG1.3.1>E66.9</DG1.3.1><DG 1.3. ID Date Data Source [id number] 01/19/2021 10:22:00 AM EDT [facility] ([facility]) Name Value Range Interpretation Code Description Data Saray rce(s) Supporting Document(s) Thyrotropin [Units/volume] in Serum or Plasma 0.11 uIU/mL 0. 47-5.01 Below low normal [facility] ([facility]) .~.~<DG1.3.1>Z00.01</DG1.3.1><DG1.3.1>E03.9</DG1.3.1><DG1.3.1>E66.9</DG1.3.1><DG 1.3. Is patient fasting? N~.~.~<DG1.3.1>Z00.01</DG1.3.1><DG1.3.1>E03.9</DG1.3.1><DG1.3.1>E66.9</DG1.3 .~.~<DG1.3.1> Z00.01</DG1.3.1><DG1.3.1>E03.9</DG1.3.1><DG1.3.1>E66.9</DG1.3.1><DG1.3. Is patient fasting? N~.~.~<DG1.3.1>Z00.01</DG1.3.1><DG1.3.1>E03.9</DG1.3.1><DG1.3.1>E66.9</DG1.3 .~.~<DG1.3.1>Z00.01</DG1.3.1> <DG1.3.1>E03.9</DG1.3.1><DG1.3.1>E66.9</DG1.3.1><DG1.3. .~.~<DG1.3.1>Z00.01</DG1.3.1><DG1.3.1>E03.9</DG1.3.1><DG1.3.1>E66.9</DG1.3.1><DG 1.3. .~.~<DG1.3.1>Z00.01</DG1.3.1><DG1.3.1>E03.9</DG1.3.1> <DG1.3.1>E66.9</DG1.3.1><DG1.3. .~.~<DG1.3.1>Z00.01</DG1.3.1><DG1.3.1>E03.9</DG1.3.1><DG1.3.1>E66.9</DG1.3.1><DG 1.3. ID Date Data Source [id number] 01/19/2021 10:22:00 AM EDT [facility] ([facility]) Name Value Range Interpretation Code Description Data Saray rce(s) Supporting Document(s) Comprehensive [employer] Laboratory test result [facility] ([facility]) .~.~<DG1.3.1>Z00.01</DG1.3.1><DG1.3.1>E03.9</DG1.3.1><DG1.3.1>E66.9</DG1.3.1><DG 1.3. Is patient fasting? N~.~.~<DG1.3.1>Z00.01</DG1.3.1><DG1.3.1>E03.9</DG1.3.1><DG1.3.1>E66.9</DG1.3 .~.~<DG1.3.1> Z00.01</DG1.3.1><DG1.3.1>E03.9</DG1.3.1><DG1.3.1>E66.9</DG1.3.1><DG1.3. Is patient fasting? N~.~.~<DG1.3.1>Z00.01</DG1.3.1><DG1.3.1>E03.9</DG1.3.1><DG1.3.1>E66.9</DG1.3 .~.~<DG1.3.1>Z00.01</DG1.3.1> <DG1.3.1>E03.9</DG1.3.1><DG1.3.1>E66.9</DG1.3.1><DG1.3. .~.~<DG1.3.1>Z00.01</DG1.3.1><DG1.3.1>E03.9</DG1.3.1><DG1.3.1>E66.9</DG1.3.1><DG 1.3. .~.~<DG1.3.1>Z00.01</DG1.3.1><DG1.3.1>E03.9</DG1.3.1> <DG1.3.1>E66.9</DG1.3.1><DG1.3. .~.~<DG1.3.1>Z00.01</DG1.3.1><DG1.3.1>E03.9</DG1.3.1><DG1.3.1>E66.9</DG1.3.1><DG 1.3. Sodium 141 meq/L 134-153 [facility] ([facility]) .~.~<DG1.3.1>Z00.01</DG1.3.1><DG1.3.1>E03.9</DG1.3.1><DG1.3.1>E66.9</DG1.3.1><DG 1.3. Is patient fasting? N~.~.~<DG1.3.1>Z00.01</DG1.3.1><DG1.3.1>E03.9</DG1.3.1><DG1.3.1>E66.9</DG1.3 .~.~<DG1.3.1> Z00.01</DG1.3.1><DG1.3.1>E03.9</DG1.3.1><DG1.3.1>E66.9</DG1.3.1><DG1.3. Is patient fasting? N~.~.~<DG1.3.1>Z00.01</DG1.3.1><DG1.3.1>E03.9</DG1.3.1><DG1.3.1>E66.9</DG1.3 .~.~<DG1.3.1>Z00.01</DG1.3.1> <DG1.3.1>E03.9</DG1.3.1><DG1.3.1>E66.9</DG1.3.1><DG1.3. .~.~<DG1.3.1>Z00.01</DG1.3.1><DG1.3.1>E03.9</DG1.3.1><DG1.3.1>E66.9</DG1.3.1><DG 1.3. .~.~<DG1.3.1>Z00.01</DG1.3.1><DG1.3.1>E03.9</DG1.3.1> <DG1.3.1>E66.9</DG1.3.1><DG1.3. .~.~<DG1.3.1>Z00.01</DG1.3.1><DG1.3.1>E03.9</DG1.3.1><DG1.3.1>E66.9</DG1.3.1><DG 1.3. Chloride 104 meq/L 98-107 [facility] ([facility]) .~.~<DG1.3.1>Z00.01</DG1.3.1><DG1.3.1>E03.9</DG1.3.1><DG1.3.1>E66.9</DG1.3.1><DG 1.3. Is patient fasting? N~.~.~<DG1.3.1>Z00.01</DG1.3.1><DG1.3.1>E03.9</DG1.3.1><DG1.3.1>E66.9</DG1.3 .~.~<DG1.3.1> Z00.01</DG1.3.1><DG1.3.1>E03.9</DG1.3.1><DG1.3.1>E66.9</DG1.3.1><DG1.3. Is patient fasting? N~.~.~<DG1.3.1>Z00.01</DG1.3.1><DG1.3.1>E03.9</DG1.3.1><DG1.3.1>E66.9</DG1.3 .~.~<DG1.3.1>Z00.01</DG1.3.1> <DG1.3.1>E03.9</DG1.3.1><DG1.3.1>E66.9</DG1.3.1><DG1.3. .~.~<DG1.3.1>Z00.01</DG1.3.1><DG1.3.1>E03.9</DG1.3.1><DG1.3.1>E66.9</DG1.3.1><DG 1.3. .~.~<DG1.3.1>Z00.01</DG1.3.1><DG1.3.1>E03.9</DG1.3.1> <DG1.3.1>E66.9</DG1.3.1><DG1.3. .~.~<DG1.3.1>Z00.01</DG1.3.1><DG1.3.1>E03.9</DG1.3.1><DG1.3.1>E66.9</DG1.3.1><DG 1.3. Potassium 4.2 meq/L 3.6-5.0 [facility] ([facility]) .~.~<DG1.3.1>Z00.01</DG1.3.1><DG1.3.1>E03.9</DG1.3.1><DG1.3.1>E66.9</DG1.3.1><DG 1.3. Is patient fasting? N~.~.~<DG1.3.1>Z00.01</DG1.3.1><DG1.3.1>E03.9</DG1.3.1><DG1.3.1>E66.9</DG1.3 .~.~<DG1.3.1> Z00.01</DG1.3.1><DG1.3.1>E03.9</DG1.3.1><DG1.3.1>E66.9</DG1.3.1><DG1.3. Is patient fasting? N~.~.~<DG1.3.1>Z00.01</DG1.3.1><DG1.3.1>E03.9</DG1.3.1><DG1.3.1>E66.9</DG1.3 .~.~<DG1.3.1>Z00.01</DG1.3.1> <DG1.3.1>E03.9</DG1.3.1><DG1.3.1>E66.9</DG1.3.1><DG1.3. .~.~<DG1.3.1>Z00.01</DG1.3.1><DG1.3.1>E03.9</DG1.3.1><DG1.3.1>E66.9</DG1.3.1><DG 1.3. .~.~<DG1.3.1>Z00.01</DG1.3.1><DG1.3.1>E03.9</DG1.3.1> <DG1.3.1>E66.9</DG1.3.1><DG1.3. .~.~<DG1.3.1>Z00.01</DG1.3.1><DG1.3.1>E03.9</DG1.3.1><DG1.3.1>E66.9</DG1.3.1><DG 1.3. Glucose 134 mg/dL 70-99 Above high normal [facility] ([facility]) .~.~<DG1.3.1>Z00.01</DG1.3.1><DG1.3.1>E03.9</DG1.3.1><DG1.3.1>E66.9</DG1.3.1><DG 1.3. Is patient fasting? N~.~.~<DG1.3.1>Z00.01</DG1.3.1><DG1.3.1>E03.9</DG1.3.1><DG1.3.1>E66.9</DG1.3 .~.~<DG1.3.1> Z00.01</DG1.3.1><DG1.3.1>E03.9</DG1.3.1><DG1.3.1>E66.9</DG1.3.1><DG1.3. Is patient fasting? N~.~.~<DG1.3.1>Z00.01</DG1.3.1><DG1.3.1>E03.9</DG1.3.1><DG1.3.1>E66.9</DG1.3 .~.~<DG1.3.1>Z00.01</DG1.3.1> <DG1.3.1>E03.9</DG1.3.1><DG1.3.1>E66.9</DG1.3.1><DG1.3. .~.~<DG1.3.1>Z00.01</DG1.3.1><DG1.3.1>E03.9</DG1.3.1><DG1.3.1>E66.9</DG1.3.1><DG 1.3. .~.~<DG1.3.1>Z00.01</DG1.3.1><DG1.3.1>E03.9</DG1.3.1> <DG1.3.1>E66.9</DG1.3.1><DG1.3. .~.~<DG1.3.1>Z00.01</DG1.3.1><DG1.3.1>E03.9</DG1.3.1><DG1.3.1>E66.9</DG1.3.1><DG 1.3. Co2 27 meq/L 22-30 [facility] ([facility]) .~.~<DG1.3.1>Z00.01</DG1.3.1><DG1.3.1>E03.9</DG1.3.1><DG1.3.1>E66.9</DG1.3.1><DG 1.3. Is patient fasting? N~.~.~<DG1.3.1>Z00.01</DG1.3.1><DG1.3.1>E03.9</DG1.3.1><DG1.3.1>E66.9</DG1.3 .~.~<DG1.3.1> Z00.01</DG1.3.1><DG1.3.1>E03.9</DG1.3.1><DG1.3.1>E66.9</DG1.3.1><DG1.3. Is patient fasting? N~.~.~<DG1.3.1>Z00.01</DG1.3.1><DG1.3.1>E03.9</DG1.3.1><DG1.3.1>E66.9</DG1.3 .~.~<DG1.3.1>Z00.01</DG1.3.1> <DG1.3.1>E03.9</DG1.3.1><DG1.3.1>E66.9</DG1.3.1><DG1.3. .~.~<DG1.3.1>Z00.01</DG1.3.1><DG1.3.1>E03.9</DG1.3.1><DG1.3.1>E66.9</DG1.3.1><DG 1.3. .~.~<DG1.3.1>Z00.01</DG1.3.1><DG1.3.1>E03.9</DG1.3.1> <DG1.3.1>E66.9</DG1.3.1><DG1.3. .~.~<DG1.3.1>Z00.01</DG1.3.1><DG1.3.1>E03.9</DG1.3.1><DG1.3.1>E66.9</DG1.3.1><DG 1.3. BUN 8 mg/dL 7-[address] [facility] .~.~<DG1.3.1>Z00.01</DG1.3.1><DG1.3.1>E03.9</DG1.3.1><DG1.3.1>E66.9</DG1.3.1><DG 1.3. Is patient fasting? N~.~.~<DG1.3.1>Z00.01</DG1.3.1><DG1.3.1>E03.9</DG1.3.1><DG1.3.1>E66.9</DG1.3 .~.~<DG1.3.1> Z00.01</DG1.3.1><DG1.3.1>E03.9</DG1.3.1><DG1.3.1>E66.9</DG1.3.1><DG1.3. Is patient fasting? N~.~.~<DG1.3.1>Z00.01</DG1.3.1><DG1.3.1>E03.9</DG1.3.1><DG1.3.1>E66.9</DG1.3 .~.~<DG1.3.1>Z00.01</DG1.3.1> <DG1.3.1>E03.9</DG1.3.1><DG1.3.1>E66.9</DG1.3.1><DG1.3. .~.~<DG1.3.1>Z00.01</DG1.3.1><DG1.3.1>E03.9</DG1.3.1><DG1.3.1>E66.9</DG1.3.1><DG 1.3. .~.~<DG1.3.1>Z00.01</DG1.3.1><DG1.3.1>E03.9</DG1.3.1> <DG1.3.1>E66.9</DG1.3.1><DG1.3. .~.~<DG1.3.1>Z00.01</DG1.3.1><DG1.3.1>E03.9</DG1.3.1><DG1.3.1>E66.9</DG1.3.1><DG 1.3. BUN/Kasandra 13 04-09 [facility] ([facility]) .~.~<DG1.3.1>Z00.01</DG1.3.1><DG1.3.1>E03.9</DG1.3.1><DG1.3.1>E66.9</DG1.3.1><DG 1.3. Is patient fasting? N~.~.~<DG1.3.1>Z00.01</DG1.3.1><DG1.3.1>E03.9</DG1.3.1><DG1.3.1>E66.9</DG1.3 .~.~<DG1.3.1> Z00.01</DG1.3.1><DG1.3.1>E03.9</DG1.3.1><DG1.3.1>E66.9</DG1.3.1><DG1.3. Is patient fasting? N~.~.~<DG1.3.1>Z00.01</DG1.3.1><DG1.3.1>E03.9</DG1.3.1><DG1.3.1>E66.9</DG1.3 .~.~<DG1.3.1>Z00.01</DG1.3.1> <DG1.3.1>E03.9</DG1.3.1><DG1.3.1>E66.9</DG1.3.1><DG1.3. .~.~<DG1.3.1>Z00.01</DG1.3.1><DG1.3.1>E03.9</DG1.3.1><DG1.3.1>E66.9</DG1.3.1><DG 1.3. .~.~<DG1.3.1>Z00.01</DG1.3.1><DG1.3.1>E03.9</DG1.3.1> <DG1.3.1>E66.9</DG1.3.1><DG1.3. .~.~<DG1.3.1>Z00.01</DG1.3.1><DG1.3.1>E03.9</DG1.3.1><DG1.3.1>E66.9</DG1.3.1><DG 1.3. Creatinine 0.6 mg/dL 0.7-1.5 Below low normal [facility] ( [facility]) .~.~<DG1.3.1>Z00.01</DG1.3.1><DG1.3.1>E03.9</DG1.3.1><DG1.3.1>E66.9</DG1.3.1><DG 1.3. Is patient fasting? N~.~.~<DG1.3.1>Z00.01</DG1.3.1><DG1.3.1>E03.9</DG1.3.1><DG1.3.1>E66.9</DG1.3 .~.~<DG1.3.1> Z00.01</DG1.3.1><DG1.3.1>E03.9</DG1.3.1><DG1.3.1>E66.9</DG1.3.1><DG1.3. Is patient fasting? N~.~.~<DG1.3.1>Z00.01</DG1.3.1><DG1.3.1>E03.9</DG1.3.1><DG1.3.1>E66.9</DG1.3 .~.~<DG1.3.1>Z00.01</DG1.3.1> <DG1.3.1>E03.9</DG1.3.1><DG1.3.1>E66.9</DG1.3.1><DG1.3. .~.~<DG1.3.1>Z00.01</DG1.3.1><DG1.3.1>E03.9</DG1.3.1><DG1.3.1>E66.9</DG1.3.1><DG 1.3. .~.~<DG1.3.1>Z00.01</DG1.3.1><DG1.3.1>E03.9</DG1.3.1> <DG1.3.1>E66.9</DG1.3.1><DG1.3. .~.~<DG1.3.1>Z00.01</DG1.3.1><DG1.3.1>E03.9</DG1.3.1><DG1.3.1>E66.9</DG1.3.1><DG 1.3. Globulin 3.1 GM/DL 2.4-3.2 [facility] ([facility]) .~.~<DG1.3.1>Z00.01</DG1.3.1><DG1.3.1>E03.9</DG1.3.1><DG1.3.1>E66.9</DG1.3.1><DG 1.3. Is patient fasting? N~.~.~<DG1.3.1>Z00.01</DG1.3.1><DG1.3.1>E03.9</DG1.3.1><DG1.3.1>E66.9</DG1.3 .~.~<DG1.3.1> Z00.01</DG1.3.1><DG1.3.1>E03.9</DG1.3.1><DG1.3.1>E66.9</DG1.3.1><DG1.3. Is patient fasting? N~.~.~<DG1.3.1>Z00.01</DG1.3.1><DG1.3.1>E03.9</DG1.3.1><DG1.3.1>E66.9</DG1.3 .~.~<DG1.3.1>Z00.01</DG1.3.1> <DG1.3.1>E03.9</DG1.3.1><DG1.3.1>E66.9</DG1.3.1><DG1.3. .~.~<DG1.3.1>Z00.01</DG1.3.1><DG1.3.1>E03.9</DG1.3.1><DG1.3.1>E66.9</DG1.3.1><DG 1.3. .~.~<DG1.3.1>Z00.01</DG1.3.1><DG1.3.1>E03.9</DG1.3.1> <DG1.3.1>E66.9</DG1.3.1><DG1.3. .~.~<DG1.3.1>Z00.01</DG1.3.1><DG1.3.1>E03.9</DG1.3.1><DG1.3.1>E66.9</DG1.3.1><DG 1.3. Albumin 3.8 g/dL 3.9-5.0 Below low normal [facility] ( [facility]) .~.~<DG1.3.1>Z00.01</DG1.3.1><DG1.3.1>E03.9</DG1.3.1><DG1.3.1>E66.9</DG1.3.1><DG 1.3. Is patient fasting? N~.~.~<DG1.3.1>Z00.01</DG1.3.1><DG1.3.1>E03.9</DG1.3.1><DG1.3.1>E66.9</DG1.3 .~.~<DG1.3.1> Z00.01</DG1.3.1><DG1.3.1>E03.9</DG1.3.1><DG1.3.1>E66.9</DG1.3.1><DG1.3. Is patient fasting? N~.~.~<DG1.3.1>Z00.01</DG1.3.1><DG1.3.1>E03.9</DG1.3.1><DG1.3.1>E66.9</DG1.3 .~.~<DG1.3.1>Z00.01</DG1.3.1> <DG1.3.1>E03.9</DG1.3.1><DG1.3.1>E66.9</DG1.3.1><DG1.3. .~.~<DG1.3.1>Z00.01</DG1.3.1><DG1.3.1>E03.9</DG1.3.1><DG1.3.1>E66.9</DG1.3.1><DG 1.3. .~.~<DG1.3.1>Z00.01</DG1.3.1><DG1.3.1>E03.9</DG1.3.1> <DG1.3.1>E66.9</DG1.3.1><DG1.3. .~.~<DG1.3.1>Z00.01</DG1.3.1><DG1.3.1>E03.9</DG1.3.1><DG1.3.1>E66.9</DG1.3.1><DG 1.3. Total Protein 6.9 g/dL 6.3-8.2 [facility]) .~.~<DG1.3.1>Z00.01</DG1.3.1><DG1.3.1>E03.9</DG1.3.1><DG1.3.1>E66.9</DG1.3.1><DG 1.3. Is patient fasting? N~.~.~<DG1.3.1>Z00.01</DG1.3.1><DG1.3.1>E03.9</DG1.3.1><DG1.3.1>E66.9</DG1.3 .~.~<DG1.3.1> Z00.01</DG1.3.1><DG1.3.1>E03.9</DG1.3.1><DG1.3.1>E66.9</DG1.3.1><DG1.3. Is patient fasting? N~.~.~<DG1.3.1>Z00.01</DG1.3.1><DG1.3.1>E03.9</DG1.3.1><DG1.3.1>E66.9</DG1.3 .~.~<DG1.3.1>Z00.01</DG1.3.1> <DG1.3.1>E03.9</DG1.3.1><DG1.3.1>E66.9</DG1.3.1><DG1.3. .~.~<DG1.3.1>Z00.01</DG1.3.1><DG1.3.1>E03.9</DG1.3.1><DG1.3.1>E66.9</DG1.3.1><DG 1.3. .~.~<DG1.3.1>Z00.01</DG1.3.1><DG1.3.1>E03.9</DG1.3.1> <DG1.3.1>E66.9</DG1.3.1><DG1.3. .~.~<DG1.3.1>Z00.01</DG1.3.1><DG1.3.1>E03.9</DG1.3.1><DG1.3.1>E66.9</DG1.3.1><DG 1.3. Calcium 9.0 mg/dL 8.4-10.2 [facility] ([facility]) .~.~<DG1.3.1>Z00.01</DG1.3.1><DG1.3.1>E03.9</DG1.3.1><DG1.3.1>E66.9</DG1.3.1><DG 1.3. Is patient fasting? N~.~.~<DG1.3.1>Z00.01</DG1.3.1><DG1.3.1>E03.9</DG1.3.1><DG1.3.1>E66.9</DG1.3 .~.~<DG1.3.1> Z00.01</DG1.3.1><DG1.3.1>E03.9</DG1.3.1><DG1.3.1>E66.9</DG1.3.1><DG1.3. Is patient fasting? N~.~.~<DG1.3.1>Z00.01</DG1.3.1><DG1.3.1>E03.9</DG1.3.1><DG1.3.1>E66.9</DG1.3 .~.~<DG1.3.1>Z00.01</DG1.3.1> <DG1.3.1>E03.9</DG1.3.1><DG1.3.1>E66.9</DG1.3.1><DG1.3. .~.~<DG1.3.1>Z00.01</DG1.3.1><DG1.3.1>E03.9</DG1.3.1><DG1.3.1>E66.9</DG1.3.1><DG 1.3. .~.~<DG1.3.1>Z00.01</DG1.3.1><DG1.3.1>E03.9</DG1.3.1> <DG1.3.1>E66.9</DG1.3.1><DG1.3. .~.~<DG1.3.1>Z00.01</DG1.3.1><DG1.3.1>E03.9</DG1.3.1><DG1.3.1>E66.9</DG1.3.1><DG 1.3. A/G Ratio 1.2 0.8-2.0 [facility] ([facility]) .~.~<DG1.3.1>Z00.01</DG1.3.1><DG1.3.1>E03.9</DG1.3.1><DG1.3.1>E66.9</DG1.3.1><DG 1.3. Is patient fasting? N~.~.~<DG1.3.1>Z00.01</DG1.3.1><DG1.3.1>E03.9</DG1.3.1><DG1.3.1>E66.9</DG1.3 .~.~<DG1.3.1> Z00.01</DG1.3.1><DG1.3.1>E03.9</DG1.3.1><DG1.3.1>E66.9</DG1.3.1><DG1.3. Is patient fasting? N~.~.~<DG1.3.1>Z00.01</DG1.3.1><DG1.3.1>E03.9</DG1.3.1><DG1.3.1>E66.9</DG1.3 .~.~<DG1.3.1>Z00.01</DG1.3.1> <DG1.3.1>E03.9</DG1.3.1><DG1.3.1>E66.9</DG1.3.1><DG1.3. .~.~<DG1.3.1>Z00.01</DG1.3.1><DG1.3.1>E03.9</DG1.3.1><DG1.3.1>E66.9</DG1.3.1><DG 1.3. .~.~<DG1.3.1>Z00.01</DG1.3.1><DG1.3.1>E03.9</DG1.3.1> <DG1.3.1>E66.9</DG1.3.1><DG1.3. .~.~<DG1.3.1>Z00.01</DG1.3.1><DG1.3.1>E03.9</DG1.3.1><DG1.3.1>E66.9</DG1.3.1><DG 1.3. Alkaline Phos 88 U/L 38-126 [facility] ([facility]) .~.~<DG1.3.1>Z00.01</DG1.3.1><DG1.3.1>E03.9</DG1.3.1><DG1.3.1>E66.9</DG1.3.1><DG 1.3. Is patient fasting? N~.~.~<DG1.3.1>Z00.01</DG1.3.1><DG1.3.1>E03.9</DG1.3.1><DG1.3.1>E66.9</DG1.3 .~.~<DG1.3.1> Z00.01</DG1.3.1><DG1.3.1>E03.9</DG1.3.1><DG1.3.1>E66.9</DG1.3.1><DG1.3. Is patient fasting? N~.~.~<DG1.3.1>Z00.01</DG1.3.1><DG1.3.1>E03.9</DG1.3.1><DG1.3.1>E66.9</DG1.3 .~.~<DG1.3.1>Z00.01</DG1.3.1> <DG1.3.1>E03.9</DG1.3.1><DG1.3.1>E66.9</DG1.3.1><DG1.3. .~.~<DG1.3.1>Z00.01</DG1.3.1><DG1.3.1>E03.9</DG1.3.1><DG1.3.1>E66.9</DG1.3.1><DG 1.3. .~.~<DG1.3.1>Z00.01</DG1.3.1><DG1.3.1>E03.9</DG1.3.1> <DG1.3.1>E66.9</DG1.3.1><DG1.3. .~.~<DG1.3.1>Z00.01</DG1.3.1><DG1.3.1>E03.9</DG1.3.1><DG1.3.1>E66.9</DG1.3.1><DG 1.3. Total Bili Laboratory test result 0.2-1.3 [facility] ([facility]) .~.~<DG1.3.1>Z00.01</DG1.3.1><DG1.3.1>E03.9</DG1.3.1><DG1.3.1>E66.9</DG1.3.1><DG 1.3. Is patient fasting? N~.~.~<DG1.3.1>Z00.01</DG1.3.1><DG1.3.1>E03.9</DG1.3.1><DG1.3.1>E66.9</DG1.3 .~.~<DG1.3.1> Z00.01</DG1.3.1><DG1.3.1>E03.9</DG1.3.1><DG1.3.1>E66.9</DG1.3.1><DG1.3. Is patient fasting? N~.~.~<DG1.3.1>Z00.01</DG1.3.1><DG1.3.1>E03.9</DG1.3.1><DG1.3.1>E66.9</DG1.3 .~.~<DG1.3.1>Z00.01</DG1.3.1> <DG1.3.1>E03.9</DG1.3.1><DG1.3.1>E66.9</DG1.3.1><DG1.3. .~.~<DG1.3.1>Z00.01</DG1.3.1><DG1.3.1>E03.9</DG1.3.1><DG1.3.1>E66.9</DG1.3.1><DG 1.3. .~.~<DG1.3.1>Z00.01</DG1.3.1><DG1.3.1>E03.9</DG1.3.1> <DG1.3.1>E66.9</DG1.3.1><DG1.3. .~.~<DG1.3.1>Z00.01</DG1.3.1><DG1.3.1>E03.9</DG1.3.1><DG1.3.1>E66.9</DG1.3.1><DG 1.3. Sgot/Ast 16 U/L 5-40 [facility] ([facility]) .~.~<DG1.3.1>Z00.01</DG1.3.1><DG1.3.1>E03.9</DG1.3.1><DG1.3.1>E66.9</DG1.3.1><DG 1.3. Is patient fasting? N~.~.~<DG1.3.1>Z00.01</DG1.3.1><DG1.3.1>E03.9</DG1.3.1><DG1.3.1>E66.9</DG1.3 .~.~<DG1.3.1> Z00.01</DG1.3.1><DG1.3.1>E03.9</DG1.3.1><DG1.3.1>E66.9</DG1.3.1><DG1.3. Is patient fasting? N~.~.~<DG1.3.1>Z00.01</DG1.3.1><DG1.3.1>E03.9</DG1.3.1><DG1.3.1>E66.9</DG1.3 .~.~<DG1.3.1>Z00.01</DG1.3.1> <DG1.3.1>E03.9</DG1.3.1><DG1.3.1>E66.9</DG1.3.1><DG1.3. .~.~<DG1.3.1>Z00.01</DG1.3.1><DG1.3.1>E03.9</DG1.3.1><DG1.3.1>E66.9</DG1.3.1><DG 1.3. .~.~<DG1.3.1>Z00.01</DG1.3.1><DG1.3.1>E03.9</DG1.3.1> <DG1.3.1>E66.9</DG1.3.1><DG1.3. .~.~<DG1.3.1>Z00.01</DG1.3.1><DG1.3.1>E03.9</DG1.3.1><DG1.3.1>E66.9</DG1.3.1><DG 1.3. Anion Gap 10.0 mmol/L 8.0-16.0 [facility]) .~.~<DG1.3.1>Z00.01</DG1.3.1><DG1.3.1>E03.9</DG1.3.1><DG1.3.1>E66.9</DG1.3.1><DG 1.3. Is patient fasting? N~.~.~<DG1.3.1>Z00.01</DG1.3.1><DG1.3.1>E03.9</DG1.3.1><DG1.3.1>E66.9</DG1.3 .~.~<DG1.3.1> Z00.01</DG1.3.1><DG1.3.1>E03.9</DG1.3.1><DG1.3.1>E66.9</DG1.3.1><DG1.3. Is patient fasting? N~.~.~<DG1.3.1>Z00.01</DG1.3.1><DG1.3.1>E03.9</DG1.3.1><DG1.3.1>E66.9</DG1.3 .~.~<DG1.3.1>Z00.01</DG1.3.1> <DG1.3.1>E03.9</DG1.3.1><DG1.3.1>E66.9</DG1.3.1><DG1.3. .~.~<DG1.3.1>Z00.01</DG1.3.1><DG1.3.1>E03.9</DG1.3.1><DG1.3.1>E66.9</DG1.3.1><DG 1.3. .~.~<DG1.3.1>Z00.01</DG1.3.1><DG1.3.1>E03.9</DG1.3.1> <DG1.3.1>E66.9</DG1.3.1><DG1.3. .~.~<DG1.3.1>Z00.01</DG1.3.1><DG1.3.1>E03.9</DG1.3.1><DG1.3.1>E66.9</DG1.3.1><DG 1.3. SGPT/Alt 13 U/L 7-56 [facility] ([facility]) .~.~<DG1.3.1>Z00.01</DG1.3.1><DG1.3.1>E03.9</DG1.3.1><DG1.3.1>E66.9</DG1.3.1><DG 1.3. Is patient fasting? N~.~.~<DG1.3.1>Z00.01</DG1.3.1><DG1.3.1>E03.9</DG1.3.1><DG1.3.1>E66.9</DG1.3 .~.~<DG1.3.1> Z00.01</DG1.3.1><DG1.3.1>E03.9</DG1.3.1><DG1.3.1>E66.9</DG1.3.1><DG1.3. Is patient fasting? N~.~.~<DG1.3.1>Z00.01</DG1.3.1><DG1.3.1>E03.9</DG1.3.1><DG1.3.1>E66.9</DG1.3 .~.~<DG1.3.1>Z00.01</DG1.3.1> <DG1.3.1>E03.9</DG1.3.1><DG1.3.1>E66.9</DG1.3.1><DG1.3. .~.~<DG1.3.1>Z00.01</DG1.3.1><DG1.3.1>E03.9</DG1.3.1><DG1.3.1>E66.9</DG1.3.1><DG 1.3. .~.~<DG1.3.1>Z00.01</DG1.3.1><DG1.3.1>E03.9</DG1.3.1> <DG1.3.1>E66.9</DG1.3.1><DG1.3. .~.~<DG1.3.1>Z00.01</DG1.3.1><DG1.3.1>E03.9</DG1.3.1><DG1.3.1>E66.9</DG1.3.1><DG 1.3. Non-Aa GFR Laboratory test result [facility] ([facility]) .~.~<DG1.3.1>Z00.01</DG1.3.1><DG1.3.1>E03.9</DG1.3.1><DG1.3.1>E66.9</DG1.3.1><DG 1.3. Is patient fasting? N~.~.~<DG1.3.1>Z00.01</DG1.3.1><DG1.3.1>E03.9</DG1.3.1><DG1.3.1>E66.9</DG1.3 .~.~<DG1.3.1> Z00.01</DG1.3.1><DG1.3.1>E03.9</DG1.3.1><DG1.3.1>E66.9</DG1.3.1><DG1.3. Is patient fasting? N~.~.~<DG1.3.1>Z00.01</DG1.3.1><DG1.3.1>E03.9</DG1.3.1><DG1.3.1>E66.9</DG1.3 .~.~<DG1.3.1>Z00.01</DG1.3.1> <DG1.3.1>E03.9</DG1.3.1><DG1.3.1>E66.9</DG1.3.1><DG1.3. .~.~<DG1.3.1>Z00.01</DG1.3.1><DG1.3.1>E03.9</DG1.3.1><DG1.3.1>E66.9</DG1.3.1><DG 1.3. .~.~<DG1.3.1>Z00.01</DG1.3.1><DG1.3.1>E03.9</DG1.3.1> <DG1.3.1>E66.9</DG1.3.1><DG1.3. .~.~<DG1.3.1>Z00.01</DG1.3.1><DG1.3.1>E03.9</DG1.3.1><DG1.3.1>E66.9</DG1.3.1><DG 1.3. Afr Amer GFR Laboratory test result [facility]) .~.~<DG1.3.1>Z00.01</DG1.3.1><DG1.3.1>E03.9</DG1.3.1><DG1.3.1>E66.9</DG1.3.1><DG 1.3. Is patient fasting? N~.~.~<DG1.3.1>Z00.01</DG1.3.1><DG1.3.1>E03.9</DG1.3.1><DG1.3.1>E66.9</DG1.3 .~.~<DG1.3.1> Z00.01</DG1.3.1><DG1.3.1>E03.9</DG1.3.1><DG1.3.1>E66.9</DG1.3.1><DG1.3. Is patient fasting? N~.~.~<DG1.3.1>Z00.01</DG1.3.1><DG1.3.1>E03.9</DG1.3.1><DG1.3.1>E66.9</DG1.3 .~.~<DG1.3.1>Z00.01</DG1.3.1> <DG1.3.1>E03.9</DG1.3.1><DG1.3.1>E66.9</DG1.3.1><DG1.3. .~.~<DG1.3.1>Z00.01</DG1.3.1><DG1.3.1>E03.9</DG1.3.1><DG1.3.1>E66.9</DG1.3.1><DG 1.3. .~.~<DG1.3.1>Z00.01</DG1.3.1><DG1.3.1>E03.9</DG1.3.1> <DG1.3.1>E66.9</DG1.3.1><DG1.3. .~.~<DG1.3.1>Z00.01</DG1.3.1><DG1.3.1>E03.9</DG1.3.1><DG1.3.1>E66.9</DG1.3.1><DG 1.3. Age [address] [facility] ([facility]) .~.~<DG1.3.1>Z00.01</DG1.3.1><DG1.3.1>E03.9</DG1.3.1><DG1.3.1>E66.9</DG1.3.1><DG 1.3. Is patient fasting? N~.~.~<DG1.3.1>Z00.01</DG1.3.1><DG1.3.1>E03.9</DG1.3.1><DG1.3.1>E66.9</DG1.3 .~.~<DG1.3.1> Z00.01</DG1.3.1><DG1.3.1>E03.9</DG1.3.1><DG1.3.1>E66.9</DG1.3.1><DG1.3. Is patient fasting? N~.~.~<DG1.3.1>Z00.01</DG1.3.1><DG1.3.1>E03.9</DG1.3.1><DG1.3.1>E66.9</DG1.3 .~.~<DG1.3.1>Z00.01</DG1.3.1> <DG1.3.1>E03.9</DG1.3.1><DG1.3.1>E66.9</DG1.3.1><DG1.3. .~.~<DG1.3.1>Z00.01</DG1.3.1><DG1.3.1>E03.9</DG1.3.1><DG1.3.1>E66.9</DG1.3.1><DG 1.3. .~.~<DG1.3.1>Z00.01</DG1.3.1><DG1.3.1>E03.9</DG1.3.1> <DG1.3.1>E66.9</DG1.3.1><DG1.3. .~.~<DG1.3.1>Z00.01</DG1.3.1><DG1.3.1>E03.9</DG1.3.1><DG1.3.1>E66.9</DG1.3.1><DG 1.3. ID Date Data Source [id number] 01/19/2021 10:22:00 AM EDT [facility] ([facility]) Name Value Range Interpretation Code Description Data Saray rce(s) Supporting Document(s) CBC No Diff Laboratory test result [facility] ([facility]) .~.~<DG1.3.1>Z00.01</DG1.3.1><DG1.3.1>E03.9</DG1.3.1><DG1.3.1>E66.9</DG1.3.1><DG 1.3. Is patient fasting? N~.~.~<DG1.3.1>Z00.01</DG1.3.1><DG1.3.1>E03.9</DG1.3.1><DG1.3.1>E66.9</DG1.3 .~.~<DG1.3.1> Z00.01</DG1.3.1><DG1.3.1>E03.9</DG1.3.1><DG1.3.1>E66.9</DG1.3.1><DG1.3. Is patient fasting? N~.~.~<DG1.3.1>Z00.01</DG1.3.1><DG1.3.1>E03.9</DG1.3.1><DG1.3.1>E66.9</DG1.3 .~.~<DG1.3.1>Z00.01</DG1.3.1> <DG1.3.1>E03.9</DG1.3.1><DG1.3.1>E66.9</DG1.3.1><DG1.3. .~.~<DG1.3.1>Z00.01</DG1.3.1><DG1.3.1>E03.9</DG1.3.1><DG1.3.1>E66.9</DG1.3.1><DG 1.3. .~.~<DG1.3.1>Z00.01</DG1.3.1><DG1.3.1>E03.9</DG1.3.1> <DG1.3.1>E66.9</DG1.3.1><DG1.3. .~.~<DG1.3.1>Z00.01</DG1.3.1><DG1.3.1>E03.9</DG1.3.1><DG1.3.1>E66.9</DG1.3.1><DG 1.3. WBC 7.7 10^3/uL 4.2-11.0 [facility] ([facility]) .~.~<DG1.3.1>Z00.01</DG1.3.1><DG1.3.1>E03.9</DG1.3.1><DG1.3.1>E66.9</DG1.3.1><DG 1.3. Is patient fasting? N~.~.~<DG1.3.1>Z00.01</DG1.3.1><DG1.3.1>E03.9</DG1.3.1><DG1.3.1>E66.9</DG1.3 .~.~<DG1.3.1> Z00.01</DG1.3.1><DG1.3.1>E03.9</DG1.3.1><DG1.3.1>E66.9</DG1.3.1><DG1.3. Is patient fasting? N~.~.~<DG1.3.1>Z00.01</DG1.3.1><DG1.3.1>E03.9</DG1.3.1><DG1.3.1>E66.9</DG1.3 .~.~<DG1.3.1>Z00.01</DG1.3.1> <DG1.3.1>E03.9</DG1.3.1><DG1.3.1>E66.9</DG1.3.1><DG1.3. .~.~<DG1.3.1>Z00.01</DG1.3.1><DG1.3.1>E03.9</DG1.3.1><DG1.3.1>E66.9</DG1.3.1><DG 1.3. .~.~<DG1.3.1>Z00.01</DG1.3.1><DG1.3.1>E03.9</DG1.3.1> <DG1.3.1>E66.9</DG1.3.1><DG1.3. .~.~<DG1.3.1>Z00.01</DG1.3.1><DG1.3.1>E03.9</DG1.3.1><DG1.3.1>E66.9</DG1.3.1><DG 1.3. Hemoglobin 11.1 g/dL 12.0-16.0 Below low normal [facility] ( [facility]) .~.~<DG1.3.1>Z00.01</DG1.3.1><DG1.3.1>E03.9</DG1.3.1><DG1.3.1>E66.9</DG1.3.1><DG 1.3. Is patient fasting? N~.~.~<DG1.3.1>Z00.01</DG1.3.1><DG1.3.1>E03.9</DG1.3.1><DG1.3.1>E66.9</DG1.3 .~.~<DG1.3.1> Z00.01</DG1.3.1><DG1.3.1>E03.9</DG1.3.1><DG1.3.1>E66.9</DG1.3.1><DG1.3. Is patient fasting? N~.~.~<DG1.3.1>Z00.01</DG1.3.1><DG1.3.1>E03.9</DG1.3.1><DG1.3.1>E66.9</DG1.3 .~.~<DG1.3.1>Z00.01</DG1.3.1> <DG1.3.1>E03.9</DG1.3.1><DG1.3.1>E66.9</DG1.3.1><DG1.3. .~.~<DG1.3.1>Z00.01</DG1.3.1><DG1.3.1>E03.9</DG1.3.1><DG1.3.1>E66.9</DG1.3.1><DG 1.3. .~.~<DG1.3.1>Z00.01</DG1.3.1><DG1.3.1>E03.9</DG1.3.1> <DG1.3.1>E66.9</DG1.3.1><DG1.3. .~.~<DG1.3.1>Z00.01</DG1.3.1><DG1.3.1>E03.9</DG1.3.1><DG1.3.1>E66.9</DG1.3.1><DG 1.3. RBC 3.74 10^6/uL 4.20-5.40 Below low normal [facility] ([facility]) .~.~<DG1.3.1>Z00.01</DG1.3.1><DG1.3.1>E03.9</DG1.3.1><DG1.3.1>E66.9</DG1.3.1><DG 1.3. Is patient fasting? N~.~.~<DG1.3.1>Z00.01</DG1.3.1><DG1.3.1>E03.9</DG1.3.1><DG1.3.1>E66.9</DG1.3 .~.~<DG1.3.1> Z00.01</DG1.3.1><DG1.3.1>E03.9</DG1.3.1><DG1.3.1>E66.9</DG1.3.1><DG1.3. Is patient fasting? N~.~.~<DG1.3.1>Z00.01</DG1.3.1><DG1.3.1>E03.9</DG1.3.1><DG1.3.1>E66.9</DG1.3 .~.~<DG1.3.1>Z00.01</DG1.3.1> <DG1.3.1>E03.9</DG1.3.1><DG1.3.1>E66.9</DG1.3.1><DG1.3. .~.~<DG1.3.1>Z00.01</DG1.3.1><DG1.3.1>E03.9</DG1.3.1><DG1.3.1>E66.9</DG1.3.1><DG 1.3. .~.~<DG1.3.1>Z00.01</DG1.3.1><DG1.3.1>E03.9</DG1.3.1> <DG1.3.1>E66.9</DG1.3.1><DG1.3. .~.~<DG1.3.1>Z00.01</DG1.3.1><DG1.3.1>E03.9</DG1.3.1><DG1.3.1>E66.9</DG1.3.1><DG 1.3. MCH 29.7 pg 27.0-34.[address] [facility] ([facility]) .~.~<DG1.3.1>Z00.01</DG1.3.1><DG1.3.1>E03.9</DG1.3.1><DG1.3.1>E66.9</DG1.3.1><DG 1.3. Is patient fasting? N~.~.~<DG1.3.1>Z00.01</DG1.3.1><DG1.3.1>E03.9</DG1.3.1><DG1.3.1>E66.9</DG1.3 .~.~<DG1.3.1> Z00.01</DG1.3.1><DG1.3.1>E03.9</DG1.3.1><DG1.3.1>E66.9</DG1.3.1><DG1.3. Is patient fasting? N~.~.~<DG1.3.1>Z00.01</DG1.3.1><DG1.3.1>E03.9</DG1.3.1><DG1.3.1>E66.9</DG1.3 .~.~<DG1.3.1>Z00.01</DG1.3.1> <DG1.3.1>E03.9</DG1.3.1><DG1.3.1>E66.9</DG1.3.1><DG1.3. .~.~<DG1.3.1>Z00.01</DG1.3.1><DG1.3.1>E03.9</DG1.3.1><DG1.3.1>E66.9</DG1.3.1><DG 1.3. .~.~<DG1.3.1>Z00.01</DG1.3.1><DG1.3.1>E03.9</DG1.3.1> <DG1.3.1>E66.9</DG1.3.1><DG1.3. .~.~<DG1.3.1>Z00.01</DG1.3.1><DG1.3.1>E03.9</DG1.3.1><DG1.3.1>E66.9</DG1.3.1><DG 1.3. MCV 93.6 fL 81.0-[address] [facility] ([facility]) .~.~<DG1.3.1>Z00.01</DG1.3.1><DG1.3.1>E03.9</DG1.3.1><DG1.3.1>E66.9</DG1.3.1><DG 1.3. Is patient fasting? N~.~.~<DG1.3.1>Z00.01</DG1.3.1><DG1.3.1>E03.9</DG1.3.1><DG1.3.1>E66.9</DG1.3 .~.~<DG1.3.1> Z00.01</DG1.3.1><DG1.3.1>E03.9</DG1.3.1><DG1.3.1>E66.9</DG1.3.1><DG1.3. Is patient fasting? N~.~.~<DG1.3.1>Z00.01</DG1.3.1><DG1.3.1>E03.9</DG1.3.1><DG1.3.1>E66.9</DG1.3 .~.~<DG1.3.1>Z00.01</DG1.3.1> <DG1.3.1>E03.9</DG1.3.1><DG1.3.1>E66.9</DG1.3.1><DG1.3. .~.~<DG1.3.1>Z00.01</DG1.3.1><DG1.3.1>E03.9</DG1.3.1><DG1.3.1>E66.9</DG1.3.1><DG 1.3. .~.~<DG1.3.1>Z00.01</DG1.3.1><DG1.3.1>E03.9</DG1.3.1> <DG1.3.1>E66.9</DG1.3.1><DG1.3. .~.~<DG1.3.1>Z00.01</DG1.3.1><DG1.3.1>E03.9</DG1.3.1><DG1.3.1>E66.9</DG1.3.1><DG 1.3. Hematocrit 35.0 % 37.0-47.0 Below low normal [facility] ( [facility]) .~.~<DG1.3.1>Z00.01</DG1.3.1><DG1.3.1>E03.9</DG1.3.1><DG1.3.1>E66.9</DG1.3.1><DG 1.3. Is patient fasting? N~.~.~<DG1.3.1>Z00.01</DG1.3.1><DG1.3.1>E03.9</DG1.3.1><DG1.3.1>E66.9</DG1.3 .~.~<DG1.3.1> Z00.01</DG1.3.1><DG1.3.1>E03.9</DG1.3.1><DG1.3.1>E66.9</DG1.3.1><DG1.3. Is patient fasting? N~.~.~<DG1.3.1>Z00.01</DG1.3.1><DG1.3.1>E03.9</DG1.3.1><DG1.3.1>E66.9</DG1.3 .~.~<DG1.3.1>Z00.01</DG1.3.1> <DG1.3.1>E03.9</DG1.3.1><DG1.3.1>E66.9</DG1.3.1><DG1.3. .~.~<DG1.3.1>Z00.01</DG1.3.1><DG1.3.1>E03.9</DG1.3.1><DG1.3.1>E66.9</DG1.3.1><DG 1.3. .~.~<DG1.3.1>Z00.01</DG1.3.1><DG1.3.1>E03.9</DG1.3.1> <DG1.3.1>E66.9</DG1.3.1><DG1.3. .~.~<DG1.3.1>Z00.01</DG1.3.1><DG1.3.1>E03.9</DG1.3.1><DG1.3.1>E66.9</DG1.3.1><DG 1.3. RDW 15.5 % 11.5-14.5 Above high normal [facility] ([facility]) .~.~<DG1.3.1>Z00.01</DG1.3.1><DG1.3.1>E03.9</DG1.3.1><DG1.3.1>E66.9</DG1.3.1><DG 1.3. Is patient fasting? N~.~.~<DG1.3.1>Z00.01</DG1.3.1><DG1.3.1>E03.9</DG1.3.1><DG1.3.1>E66.9</DG1.3 .~.~<DG1.3.1> Z00.01</DG1.3.1><DG1.3.1>E03.9</DG1.3.1><DG1.3.1>E66.9</DG1.3.1><DG1.3. Is patient fasting? N~.~.~<DG1.3.1>Z00.01</DG1.3.1><DG1.3.1>E03.9</DG1.3.1><DG1.3.1>E66.9</DG1.3 .~.~<DG1.3.1>Z00.01</DG1.3.1> <DG1.3.1>E03.9</DG1.3.1><DG1.3.1>E66.9</DG1.3.1><DG1.3. .~.~<DG1.3.1>Z00.01</DG1.3.1><DG1.3.1>E03.9</DG1.3.1><DG1.3.1>E66.9</DG1.3.1><DG 1.3. .~.~<DG1.3.1>Z00.01</DG1.3.1><DG1.3.1>E03.9</DG1.3.1> <DG1.3.1>E66.9</DG1.3.1><DG1.3. .~.~<DG1.3.1>Z00.01</DG1.3.1><DG1.3.1>E03.9</DG1.3.1><DG1.3.1>E66.9</DG1.3.1><DG 1.3. MCHC 31.7 g/dL 31.0-36.0 [facility] ([facility]) .~.~<DG1.3.1>Z00.01</DG1.3.1><DG1.3.1>E03.9</DG1.3.1><DG1.3.1>E66.9</DG1.3.1><DG 1.3. Is patient fasting? N~.~.~<DG1.3.1>Z00.01</DG1.3.1><DG1.3.1>E03.9</DG1.3.1><DG1.3.1>E66.9</DG1.3 .~.~<DG1.3.1> Z00.01</DG1.3.1><DG1.3.1>E03.9</DG1.3.1><DG1.3.1>E66.9</DG1.3.1><DG1.3. Is patient fasting? N~.~.~<DG1.3.1>Z00.01</DG1.3.1><DG1.3.1>E03.9</DG1.3.1><DG1.3.1>E66.9</DG1.3 .~.~<DG1.3.1>Z00.01</DG1.3.1> <DG1.3.1>E03.9</DG1.3.1><DG1.3.1>E66.9</DG1.3.1><DG1.3. .~.~<DG1.3.1>Z00.01</DG1.3.1><DG1.3.1>E03.9</DG1.3.1><DG1.3.1>E66.9</DG1.3.1><DG 1.3. .~.~<DG1.3.1>Z00.01</DG1.3.1><DG1.3.1>E03.9</DG1.3.1> <DG1.3.1>E66.9</DG1.3.1><DG1.3. .~.~<DG1.3.1>Z00.01</DG1.3.1><DG1.3.1>E03.9</DG1.3.1><DG1.3.1>E66.9</DG1.3.1><DG 1.3. Platelets 289 10^3/uL 150-450 [facility] ([facility]) .~.~<DG1.3.1>Z00.01</DG1.3.1><DG1.3.1>E03.9</DG1.3.1><DG1.3.1>E66.9</DG1.3.1><DG 1.3. Is patient fasting? N~.~.~<DG1.3.1>Z00.01</DG1.3.1><DG1.3.1>E03.9</DG1.3.1><DG1.3.1>E66.9</DG1.3 .~.~<DG1.3.1> Z00.01</DG1.3.1><DG1.3.1>E03.9</DG1.3.1><DG1.3.1>E66.9</DG1.3.1><DG1.3. Is patient fasting? N~.~.~<DG1.3.1>Z00.01</DG1.3.1><DG1.3.1>E03.9</DG1.3.1><DG1.3.1>E66.9</DG1.3 .~.~<DG1.3.1>Z00.01</DG1.3.1> <DG1.3.1>E03.9</DG1.3.1><DG1.3.1>E66.9</DG1.3.1><DG1.3. .~.~<DG1.3.1>Z00.01</DG1.3.1><DG1.3.1>E03.9</DG1.3.1><DG1.3.1>E66.9</DG1.3.1><DG 1.3. .~.~<DG1.3.1>Z00.01</DG1.3.1><DG1.3.1>E03.9</DG1.3.1> <DG1.3.1>E66.9</DG1.3.1><DG1.3. .~.~<DG1.3.1>Z00.01</DG1.3.1><DG1.3.1>E03.9</DG1.3.1><DG1.3.1>E66.9</DG1.3.1><DG 1.3. MPV 10.8 fL 7.4-10.4 Above high normal [facility] ([facility]) .~.~<DG1.3.1>Z00.01</DG1.3.1><DG1.3.1>E03.9</DG1.3.1><DG1.3.1>E66.9</DG1.3.1><DG 1.3. Is patient fasting? N~.~.~<DG1.3.1>Z00.01</DG1.3.1><DG1.3.1>E03.9</DG1.3.1><DG1.3.1>E66.9</DG1.3 .~.~<DG1.3.1> Z00.01</DG1.3.1><DG1.3.1>E03.9</DG1.3.1><DG1.3.1>E66.9</DG1.3.1><DG1.3. Is patient fasting? N~.~.~<DG1.3.1>Z00.01</DG1.3.1><DG1.3.1>E03.9</DG1.3.1><DG1.3.1>E66.9</DG1.3 .~.~<DG1.3.1>Z00.01</DG1.3.1> <DG1.3.1>E03.9</DG1.3.1><DG1.3.1>E66.9</DG1.3.1><DG1.3. .~.~<DG1.3.1>Z00.01</DG1.3.1><DG1.3.1>E03.9</DG1.3.1><DG1.3.1>E66.9</DG1.3.1><DG 1.3. .~.~<DG1.3.1>Z00.01</DG1.3.1><DG1.3.1>E03.9</DG1.3.1> <DG1.3.1>E66.9</DG1.3.1><DG1.3. .~.~<DG1.3.1>Z00.01</DG1.3.1><DG1.3.1>E03.9</DG1.3.1><DG1.3.1>E66.9</DG1.3.1><DG 1.3. ID Date Data Source [id number] 01/20/2021 09:38:00 AM EDT [facility] Value Range Interpretation Code Description Data Saray rce(s) Supporting Document(s) Thyroperoxidase Ab [Units/volume] in Serum or Plasma <9 IU/mL 0-34 [facility] Thyroglobulin Ab [Units/volume] in Serum or Plasma <1.0 IU/mL 0.0-0.9 [facility] Thyroglobulin Antibody measured by [employer] Methodology ID Date Data Source [id number] 01/19/2021 02:09:00 PM EDT [facility] Name Value Range Interpretation Code Description Data Saray rce(s) Supporting Document(s) Calcidiol [Moles/volume] in Serum or Plasma 7 NG/ML [facility] VITAMIN-D(2 5HYDROXY) Deficiency: <=20 ng/ml Insufficiency: 21-29 ng/ml Preferred level: => 30 ng/ml ID Date Data Source [id number] 01/19/2021 02:09:[address] [facility] Name Value Range Interpretation Code Description Data Saray rce(s) Supporting Document(s) Folate [Mass/volume] in Serum or Plasma 9.6 NG/ML 4.4 - 31.0 [facility] ID Date Data Source [id number] 01/19/2021 02:09:00 PM EDT [facility] Value Range Interpretation Code Description Data Saray rce(s) Supporting Document(s) Cobalamin (Vitamin B12) [Mass/volume] in Serum or Plasma 199 PG/ML 232 - [address] [facility] ID Date Data Source [id number] 01/19/2021 01:38:00 PM EDT [facility] Value Range Interpretation Code Description Data Saray rce(s) Supporting Document(s) Iron [Mass/volume] in Serum or Plasma 49 UG/DL 42 - 135 [facility] ID Date Data Source [id number] 01/19/2021 01:38:00 PM EDT [facility] Value Range Interpretation Code Description Data Saray rce(s) Supporting Document(s) [facility] Cholesterol [Mass/volume] in Serum or Plasma 133 MG/DL 131 - 200 [facility] Deprecated Triglyceride [Mass/volume] in Serum or Plasma 68 MG/DL 3 5 - 160 [facility] HDL 44 MG/DL 29 - 86 [facility] Cholesterol in LDL [Mass/volume] in Serum or Plasma by Direc t assay 85 mg/dL 65 - 175 [facility] Cholesterol.total/Cholesterol in HDL [Mass Ratio] in Serum o r Plasma 3.0 3.2 - 4.[address] [facility] LDL/HDL 1.93 1.47 - 3.22 [facility] CVE RISK CHOL/HDL LDL/HDLMEN: 1/2 AVERAGE 3.43 1.00 AVERAGE 4.97 3.55 2X AVERAGE 9.55 6.25 3X AVERAGE 23.99 7.99WOMEN: 1/2 AVERAGE 3.27 1.47 AVERAGE 4.44 3.22 2X AVERAGE 7.05 5.03 3X AVERAGE 11.04 6.14 ID Date Data Source [id number] 01/19/2021 01:23:[address] [facility] Name Value Range Interpretation Code Description Data Saray rce(s) Supporting Document(s) Thyrotropin [Units/volume] in Serum or Plasma by Detec tion limit <= 0.05 mIU/L 0.11 uIU/mL 0.47 - 5.[address] [facility] ID Date Data Source [id number] 01/19/2021 01:23:[address] [facility] Name Value Range Interpretation Code Description Data Saray rce(s) Supporting Document(s) COMPREHENSIVE METABOLIC PANEL [facility] COMPREHENSIVE METABOLIC PANEL Sodium [Moles/volume] in Serum or Plasma 141 mEq/L 134 - 153 [facility] Potassium [Moles/volume] in Serum or Plasma 4.2 mEq/L 3.6 - 5.0 [facility] Chloride [Moles/volume] in Serum or Plasma 104 mEq/L 98 - 107 [facility] Carbon dioxide, total [Moles/volume] in Serum or Plasma 27 MEQ/L 22 - 30 [facility] Glucose [Mass/volume] in Serum or Plasma 134 MG/DL 70 - [address] [facility] BUN 8 MG/DL 7 - 21 [facility] Creatinine [Mass/volume] in Serum or Plasma 0.6 MG/DL 0.7 - 1.[address] [facility] BUN/CREAT 13 8 - 27 [facility] Protein [Mass/volume] in Serum or Plasma 6.9 G/DL 6.3 - 8.2 [facility] Albumin [Mass/volume] in Serum or Plasma 3.8 G/DL 3.9 - 5.[address] [facility] Globulin [Mass/volume] in Serum by calculation 3.1 GM/DL 2.4 - 3.2 [facility] A/G RATIO 1.2 0.8 - 2.0 [facility] Calcium [Mass/volume] in Serum or Plasma 9.0 MG/DL 8.4 - 10.2 [facility] Bilirubin.total [Mass/volume] in Serum or Plasma <0.7 MG/DL 0.2 - 1.3 [facility] Alkaline phosphatase [Enzymatic activity/volume] in Serum or Plasma 88 U/L 38 - 126 [facility] Aspartate aminotransferase [Enzymatic activity/volume] in Serum or Plasma 16 U/L 5 - 40 [facility] Alanine aminotransferase [Enzymatic activity/volume] in Seru m or Plasma 13 U/L 7 - 56 [facility] Anion gap 3 in Serum or Plasma 10.0 mmol/L 8.0 - 16.0 [facility] AGE 40 yrs [facility] GFR >60 mL/min [facility] AFR AMER GFR >60 mL/min [facility] sp[facility] Male GFR In terprentation 20-49 yrs >60 mL/min Normal 50-59 yrs >56 mL/min Normal 60-69 yrs >49 mL/min Normal 70-79yrs >42 mL/min Normal 80 and above >35 mL/min Normal Female GFR Interpretation 20-39 yrs >60 mL/min Normal 40-49 yrs >58 mL/min Normal 50-59 yrs >51 mL/min Normal 60-69 yrs >45 mL/min Normal 70-79 yrs >39 mL/min Normal 80 and above >32 mL/min Normal ID Date Data Source [id number] 01/19/2021 12:55:[address] [facility] Name Value Range Interpretation Code Description Data Saray rce(s) Supporting Document(s) Hemoglobin A1c/Hemoglobin.total in Blood 6.0 % 4.4 - 6.1 [facility] {A1]{HB] ID Date Data Source [id number] 01/19/2021 12:54:[address] [facility] Name Value Range Interpretation Code Description Data Saray rce(s) Supporting Document(s) CBC NO DIFF [facility] COMPLETE BLOOD COUNT Leukocytes [#/volume] in Blood by Automated count 7.7 10^3/uL 4.2 - [address] [facility] Erythrocytes [#/volume] in Blood by Automated count 3.74 10^6/uL 4. 20 - 5.[address] [facility] Hemoglobin [Mass/volume] in Blood 11.1 g/dL 12.0 - 16.[address] [facility] Hematocrit [Volume Fraction] of Blood by Automated count 35.0 % 3 7.0 - 47.[address] [facility] Erythrocyte mean corpuscular volume [Entitic volume] by Auto mated count 93.6 fL 81.0 - 101 [facility] Erythrocyte mean corpuscular hemoglobin [Entitic mass] by Automated count 29.7 pg 27.0 - 34.0 [facility] Erythrocyte mean corpuscular hemoglobin concentration [Mass/volume] by Automated count 31.7 g/dL 31.0 - 36.0 [facility] Erythrocyte distribution width [Ratio] by Automated count 15.5 % 11.5 - 14.[address] [facility] Platelets [#/volume] in Blood by Automated count 289 10^3/uL 150 - [address] [facility] Platelet mean volume [Entitic volume] in Blood by Automated count 10.8 fL 7.4 - 10.[address] [facility] ID Date Data Source [id number] 12/13/2020 08:32:00 AM EDT [facility] ([facility]) Name Value Range Interpretation Code Description Data Saray rce(s) Supporting Document(s) Trichomonas vaginalis rRNA [Presence] in Unspecified specimen by Probe and target amplification method Laboratory test result [facility] ([facility]) A negative test result does not exclude the possibility of infection because test results may be affected by improper specimen collection, technical error, sample mix-up, or because the number of organisms in the sample is below the limit of detection of the test. ID Date Data Source [id number] 12/13/2020 08:32:00 AM EDT [facility] ([facility]) Name Value Range Interpretation Code Description Data Saray rce(s) Supporting Document(s) Bacteria identified in Urine by Culture Laboratory test result [facility] ([facility]) <content>FULL REPORT IN LAB NOTES ([facility]</content>
<content></content>
<content>ORGANISM 1: ESCHERICHIA COLI</content>
<content></content>
<content>COLONY COUNT > 100,000</content>
<content></content>
<content></content>
<content>O RGANISM 1: ESCHERICHIA COLI</content>
<content></content>
<content> ESCHERICHIA COLI: REACTION</content>
<content>TRIMETHOPRIM/SULFAMETHOXAZOLE IV 160mg TMP & 800mg SMXq6h >=320 R</content>
<content> TRIMETHOPRIM/SULFAMETHOXAZOLE PO Bactrim DS Bid >=320 R</content>
<content>AMPICILLIN IV 500mg q6h >=32 R</content>
<content>AMPICILLIN PO 500mg q6h fasting >=32 R</content>
<content>GENTAMICIN IV 80mg q8h <=1 S</content>
<content>NITROFURANTOIN PO 100mg BID <=16 S</content>
<content>CEFAZOLIN IV 1gm q8h <=4 S</content>
<content>LEVOFLOXACIN IV 500mg qd >=8 R</content>
<content>LEVOFLOXACIN PO 250mg qd >=8 R</content>
<content>LEVOFLOXACIN PO 500mg qd >=8 R</content>
<content>TOBRAMYCIN IV 80mg q8h <=1 S</content>
<content> CEFTRIAXONE IV 1gm q24h <=1 S</content>
<content>CEFTAZIDIME IV 1gm q8h <=1 S</content>
<content>AMPICILLIN/SULBACTAM IV 1.5g q6h 16 I</content>
<content>PIPERACILLIN/TAZOBACTAM IV 2.25 gm q6h <=4 S</content>
<content>AZTREONAM IV 1gm q8h <=1 S</content>
<content>ERTAPENEM IV 1gm qd <=0.5 S</content>
<content> MEROPENEM IV 1 gm q8h <=0.25 S</content>
<content>MEROPENEM IV 500 mg q8h <=0.25 S</content>
<content>TIGECYCLINE IV 50mg q12h <=0.5 S</content>
<content>CEFEPIME IV 1 gm q12h <=1 S</content>
<content>CEFEPIME IV 2 gm q12h <=1 S</content>
<content>EXTD BRD SPCTRM BETA LACTAMASE IV NEGATIVE FOR ESBL</content>
<content></content> ID Date Data Source [id number] 12/10/2020 04:20:00 PM EDT [facility] ([facility]) Name Value Range Interpretation Code Description Data Saray rce(s) Supporting Document(s) US Abd Complete Laboratory test result [facility] ([facility]) US Pelvic Laboratory test result [facility] ([facility]) ID Date Data Source [id number] 11/23/2020 09:19:00 AM EDT [facility] ([facility], [facility]) Name Value Range Interpretation Code Description Data Saray rce(s) Supporting Document(s) Bacteria identified in Urine by Culture Laboratory test result [facility] ([facility], [facility]) <content>FULL REPORT IN LAB NOTES ([facility]).</content>
<content></content>
<content>ORGANISM 1: PSEUDOMONAS AERUGINOSA</content>
<content></content>
<content>COLONY COUNT >100,000</content>
<content></content>
<content></content>
<content> ORGANISM 1: PSEUDOMONAS AERUGINOSA</content>
<content></content>
<content>PSEUDOMONAS AERUGINOSA: REACTION</content>
<content>GENTAMICIN IV 80mg q8h <=1 S</content>
<content>CEFAZOLIN IV 1gm q8h >=64 R</content>
<content>LEVOFLOXACIN IV 500mg qd 0.5 S</content>
<content>LEVOFLOXACIN PO 250mg qd 0.5 S</content>
<content>LEVOFLOXACIN PO 500mg qd 0.5 S</content>
<content>TOBRAMYCIN IV 80mg q8h <=1 S</content>
<content>CEFTAZIDIME IV 1gm q8h 4 S</content>
<content>PIPERACILLIN/TAZOBACTAM IV 2.25 gm q6h 8 S</content>
<content>MEROPENEM IV 1 gm q8h <=0.25 S</content>
<content> MEROPENEM IV 500 mg q8h <=0.25 S</content>
<content>TIGECYCLINE IV 50mg q12h 2 R</content>
<content>CEFEPIME IV 1 gm q12h <=1 S</content>
<content>CEFEPIME IV 2 gm q12h <=1 S</content>
<content></content> ID Date Data Source [id number] 11/02/2020 05:32:00 PM EDT [facility]) Name Value Range Interpretation Code Description Data Saray rce(s) Supporting Document(s) Trichomonas vaginalis rRNA [Presence] in Unspecified specimen by Probe and target amplification method Laboratory test result [facility] ([facility]) A negative test result does not exclude the possibility of infection because test results may be affected by improper specimen collection, technical error, sample mix-up, or because the number of organisms in the sample is below the limit of detection of the test. ID Date Data Source [id number] 11/02/2020 05:32:00 PM EDT [facility]) Name Value Range Interpretation Code Description Data Saray rce(s) Supporting Document(s) Bacteria identified in Urine by Culture Laboratory test result [facility] ([facility]) <content>FULL REPORT IN LAB NOTES ([facility]).</content>
<content></content>
<content>ORGANISM 1: PROTEUS MIRABILIS</content>
<content></content>
<content>COLONY COUNT >100,000</content>
<content></content>
<content></content>
<content> ORGANISM 1: PROTEUS MIRABILIS</content>
<content></content>
<content> PROTEUS MIRABILIS: REACTION</content>
<content>TRIMETHOPRIM/SULFAMETHOXAZOLE IV 160mg TMP & 800mg SMXq6h <=20 S</content>
<content> TRIMETHOPRIM/SULFAMETHOXAZOLE PO Bactrim DS Bid <=20 S</content>
<content>AMPICILLIN IV 500mg q6h <=2 S</content>
<content>AMPICILLIN PO 500mg q6h fasting <=2 S</content>
<content>GENTAMICIN IV 80mg q8h <=1 S</content>
<content>NITROFURANTOIN PO 100mg BID 128 R</content>
<content>CEFAZOLIN IV 1gm q8h <=4 S</content>
<content>LEVOFLOXACIN IV 500mg qd <=0.12 S</content>
<content>LEVOFLOXACIN PO 250mg qd <=0.12 S</content>
<content>LEVOFLOXACIN PO 500mg qd <=0.12 S</content>
<content>TOBRAMYCIN IV 80mg q8h <=1 S</content>
<content> CEFTRIAXONE IV 1gm q24h <=1 S</content>
<content>CEFTAZIDIME IV 1gm q8h <=1 S</content>
<content>AMPICILLIN/SULBACTAM IV 1.5g q6h <=2 S</content>
<content>PIPERACILLIN/TAZOBACTAM IV 2.25 gm q6h <=4 S</content>
<content>AZTREONAM IV 1gm q8h <=1 S</content>
<content>ERTAPENEM IV 1gm qd <=0.5 S</content>
<content> MEROPENEM IV 1 gm q8h <=0.25 S</content>
<content>MEROPENEM IV 500 mg q8h <=0.25 S</content>
<content>TIGECYCLINE IV 50mg q12h 1 R</content>
<content>CEFEPIME IV 1 gm q12h <=1 S</content>
<content>CEFEPIME IV 2 gm q12h <=1 S</content>
<content></content> ID Date Data Source [id number] 11/02/2020 05:28:00 PM EDT [facility] ([facility]) Name Value Range Interpretation Code Description Data Saray rce(s) Supporting Document(s) Bacteria identified in Urine by Culture Laboratory test result [facility] ([facility]) ID Date Data Source [id number] 07/30/2020 01:59:35 PM [facility] Name Value Range Interpretation Code Description Data Saray rce(s) Supporting Document(s) Progress Note [facility] LFUXLj1cCrTCYdEz88/BNXnxCPOxd4RkKVorPMg3PXmoKMOpU7KiQVS0oE1vVSL9REaVFmFnLtKhSkG5 lbm [file] hrECIkYzGh64/circuit court judge+VbLO6dNesquL+ZjdGRJ70r2zj [file] ICAgICAgICAgICAgICAgICAgICAgICAgICAgICAgIC AgICAgICAgICAgICAgICAgICAgICAgICAgICAgICAgICAgICAgICANCiAgICAgICAgICAgICAgICAgIC AgICAgICAgICAgICAgICAgICAgICAgICAgICAgICAgICAgICAgICAgICAgICAgICAgICAgICAgICAgIC AgICAgICAgICAgICAgICAgICAgICANCiAgICAgICAg ICAgICAgICAgICAgICAgICAgICAgICAgICAgICAgICAgICAgICAgICAgICAgICAgICAgICAgICAgICAg ICAgICAgICAgICAgICAgICAgICAgICAgICAgICAgICANCiAgICAgICAgICAgICAgICAgICAgICAgICAg ICAgICAgICAgICAgICAgICAgICAgICAgICAgICAgIC AgICAgICAgICAgICAgICAgICAgICAgICAgICAgICAgICAgICAgICAgICANCiAgICAgICAgICAgICAgIC AgICAgICAgICAgICAgICAgICAgICAgICAgICAgICAgICAgICAgICAgICAgICAgICAgICAgICAgICAgIC AgICAgICAgICAgICAgICAgICAgICAgICANCiAgICAg ICAgICAgICAgICAgICAgICAgICAgICAgICAgICAgICAgICAgICAgICAgICAgICAgICAgICAgICAgICAg ICAgICAgICAgICAgICAgICAgICAgICAgICAgICAgICAgICANCiAgICAgICAgICAgICAgICAgICAgICAg ICAgICAgICAgICAgICAgICAgICAgICAgICAgICAgIC AgICAgICAgICAgICAgICAgICAgICAgICAgICAgICAgICAgICAgICAgICAgICANCiAgICAgICAgICAgIC AgICAgICAgICAgICAgICAgICAgICAgICAgICAgICAgICAgICAgICAgICAgICAgICAgICAgICAgICAgIC AgICAgICAgICAgICAgICAgICAgICAgICAgICANCiAg ICAgICAgICAgICAgICAgICAgICAgICAgICAgICAgICAgICAgICAgICAgICAgICAgICAgICAgICAgICAg ICAgICAgICAgICAgICAgICAgICAgICAgICAgICAgICAgICAgICANCiAgICAgICAgICAgICAgICAgICAg ICAgICAgICAgICAgICAgICAgICAgICAgICAgICAgIC AgICAgICAgICAgICAgICAgICAgICAgICAgICAgICAgICAgICAgICAgICAgICAgICANCjw/zEWyG2zrcW CjmjR6U8iaIi6RLi9EYB1qu9DoBEBkPZxtdtRsOwpMJaRbOBCsZzuPXqn3OVlvAF8YrZVtT1VkR1JyFD plAV5JJWZwDFVulPPrKMQvNOLtQfO5ZXVxKEudDI5D nOZcHCzhYWVeREJoHlYrNUKpZAHnTLYzLFBuSVPCBA4AMiGwZ8FhkF38DTPVRp5+DQplbmRvYmoNCjMx ADNfg9JtZKu1MJ4XUMCvTrmqv8GgFmRaUOCIAAnbYD2MDKS6LVPqKFBgYd5SRURqT872ncCmXW6RAw3S TmYdFC4jph2MHcFkXGBnNqhSAuw1QKqcIF8BfXKlJX oYgt6obuLubmIHf0ZpzzGatXRSkEG2tPKhSeEXh9CkCBFPMPFdpYTjZv2jAo4lGUOzKCDzCpYwCRBXWM 8RVXZrYMTwnWJfHRKgWIQUAJ9GXVpoHDJ7XMPukeWgzVMzSHfgCO0RGYOwefSyBeJqQDSTHOe+Pg0KZW 1yu2AiTRwmMsPrDU1iyf6KSEnDRyPdQ1X8nAPiF6N9 BKvxCn2XSIBwGOMxGnndTXYLNTlmXO1VUU8vtbM9WC6QdJOyJKAtPGQlmFYzCMw5V47esBZyYBdrTS0I ICA+Jane+Fp9KJUNxLEPmHXXhOzDuHHRVYeWjZ8PyS0WVt3FbB4QqSV80hJgpwnPbQMkdZV6VMA2zISTr ASAQKJ9PkJXycO3ecoBhHUFpIMEUUrQqV85enBKzOC OeJIPiNOSrYr1KDQFrP1ClokUloMqvysXoZOFrCXLYYF0VHCtyeiUbpIUcnVdmSS01vAtyGW5XMk1CEr ZlII2jaq8CkRJsIn5UGJDxHH4IJIOrVFIgUVDlXRS4XGSjQsSlSPqbUWXzDCOtOUE0TOQbRJVhKX2SGy MsBWBwRNToWTAqMGKcUECxis5POMMlWPD9XQq3SdMl BTVpPJXxCXndEOUbAQRpREO2QCMnXOYhOP7NCcLrTAPxUYF0KhKsGEApHVYxbt4MPBIqSKPvYjheIVJu FCXeGNBnDTkeOWKuCVB3JqIbAHOgZKBaEN8DMgAtZTOvMSD5KQNdJLBgQUQocx8FXOTqAEPrIQsgHuSs XNYdYNZoLGxzDRVpYMQ4BAB7KCApOWUxIO5JAxOcPJ ZaSHY4ZgUcZEPsRKAnge5LSVZuNHZyYAZ9DTBcEZIkWTGzHIsiNVZiOAJgBoSkYTZbJGYoVJ8FTlQnIN QqLTE7KgwdLVZtWQGpef9IWZQzBFJwKfLzDOAcRINuXULsDDlzMZJzZNRpFGvuAKViWCAqEA9IEzYjUQ WjUYGhEFBbXTLnBLUdtv5DNXRpNNArIAO2MVRlSEKe XOUpUWsjURZrJJOpKHWeOTHjNNPjLK2QCiTsEKAzQWP1CDsmWUDxGSRasy5DTCOgLAD4VMobDzGnZMWi LIOvEPviKYCjUUTmIOckCNKqIUPiOD6QVjAxTCClVXM9IQadKOOfFHIwmo3UMBUtMKZ2YuV1SrHgPQKq IDZxZSzuTWPnAFWtGoXtVDDtMPGzGS6ETyGbKJFdKD T3QJVkAAZcATPllz9QTPFzBUP8Cga6XLYkMXIeKSOzJBygINWaTZH8MIL2JMKcWFJzYK6BDfLgFTPfAM TnFnDqFBGwXSNfif1HXWMiKIX4PVB5CtLjFNLqVUGdSOfiKOUhVXM3RIQ6WKAeVZCdJD3SZtGnGRYfOZ UfQYFtYPUhWECrbq0UFXHtNWG8TpGqIUVgJCPiNOUo WPi9riWarJBfZZp8PD2LU7EmxwHpSxAIHb1Rm310TAWwVZVkEu0LI4cmAo3mEPSbVWWCHm5RXLr8BOK5 GFV5SqJfUJR7ZrG4EVBzOzVkWlXoJcAzEPXwEcF+TNsqIaq8LhK2DTNrTscdNuqqZbExUHZnEUTgJWWv OVI5QX1yWHAXWe5+RNpssKRtmYskOJTIIuF5XLu1SAxxOTREAt1C ID Date Data Source [id number] 07/06/2020 12:04:00 [place] [address] PHONE: [phone] FAX: [phone] Name .................. : TONI Velázquez Acct Number.................. : [id number] ROOM. ................. : Number ................... : [id number] Stay type ............. : O/P Discharge Date......... ... : 07/05/20 Admit Date ......... : 07/05/20 Admit Phys .................... : MILADYS RUSSELL Date of ....... : 1980 Family Phys ................... : ROSYJESSE Phone .................. : [phone] Age ................................ : 40 Film# .................. .:[id number] Sex ................................. : F Unsigned transcriptions are preliminary reports and do not represent a medical or legal document THYROID [id number] COMPLETE:07/05/20 07:54 [facility] [id number] (PROCEDURE REASONS: MASS THYROID ULTRASOUND: INDICATION: Mass. FINDINGS: Mueller scale and color Doppler examination of the thyroid bed demonstrate evidence of a prior thyroidectomy with no evidence of residual or recurrent thyroid tissue. There is no evidence of mass visualized. IMPRESSION: No evidence of residual or recurrent thyroid tissue. Electronically Reviewed and Signed By Kostas Ricci M.D. , 07/06/20 12:04, [facility] Transcribe Initials: ANTONIO , Transcribe Date: 07/05/20 09:57, Dictation Date: Copy for: MILADYS ENNIS M.D. via fax Copy for: [address] [place] [address] REC Page 1 of 1 Name Value Range Interpretation Code Description Data Saray rce(s) Supporting Document(s) ID Date Data Source [id number] 07/01/2020 05:08:[address] [facility] Name Value Range Interpretation Code Description Data Saray rce(s) Supporting Document(s) Thyroid Stimulating Hormone 0.017 uIU/ML 0.358-3.740 Below low normal [facility] ([facility]) Free T4 1.50 ng/dL 0.76-1.46 Above high normal [facility] ([facility]) ID Date Data Source [id number] 07/01/2020 05:08:00 PM EST [facility] ([facility]) Name Value Range Interpretation Code Description Data Saray rce(s) Supporting Document(s) Thyroid Stimulating Hormone 0.017 uIU/ML 0.358-3.740 [facility] ([facility]) Free T4 1.50 ng/dL 0.76-1.46 [facility] ([facility]) ID Date Data Source [id number] 06/18/2020 12:00:00 AM EST [facility] Name Value Range Interpretation Code Description Data Saray rce(s) Supporting Document(s) 2019-nCoV RNA XXX LENNY+probe-Imp [facility] This lab was ordered by [facility] and reported by [employer]. ID Date Data Source [id number] 06/09/2020 03:24:46 PM EDT [facility] Current Problems: Dental caries (ICD-521 .00) (OEK53-X95.9)DENTAL CARIES EXTENDING INTO PULP (ICD-521.03) (RCS13-S16.63)Current Medications: CLINDAMYCIN HCL 300 MG CAPS (CLINDAMYCIN HCL) 1 every 6 hours until finished; Route: ORAL* LEVOTHYROXIN Current Allergies: * AMOXICILLIN (Critical)* SEASONL (Critical)* LATEX (Critical) Dental Chart: Procedures:Type - CDT Code - Description B - (D0140) Limited oral evaluation - problem focused on Tooth # 5 (Performed by Dano Wilson DDS) B - (D0220) Intraoral, periapical, first radiographic image on Tooth # 5 (Performed by Dano Wilson DDS) Treatments:Type - CDT Code - Description T - (D7140) Extraction, erupted tooth or exposed root (elevation and/or forceps removal) on Tooth # 5 (Performed by Dano Wilson DDS) Chart Notes:pina (Jun 09 2020 4:53PM): CC: "I think i have an infection."HPI: Pt has present abscess, started to show monday and has gotten bigger and painful.Pain Lvl: 6RMH (-) per ptAllergies; no changesT emperature: 97.5 passed COVID questionairePA taken-Dexis. #5 Shows fracture on the mesial in the middle 1/3 of the root. Mesial loss of bone Exam reveals:#5 tender to palpation, tender to percusion. Pain on biting down. Unable to probe. Pt. is very tender. No mobilitypt. was cooperativeDX: Fractured #5, periodontal abscess.Plan: gave pt options of extaction/implant, bridge or partial. Pt wants to get a implant;. Sent refferal to OS for impant/extraction.E-scribe Amoxicillin 500mg q8h until gone dispense 21 tabs zero refills Informed Pt about new pain management policy of the clinic regarding about narcotic,told pt to alternate Ibuprophen 600- 800mg and tylenol 500mg every 4 to 6 hrs for pain when neededAdditional PPE requirements due to COVID-19 in the dental setting, N95, surgical mask, hair covering, gown Pt was cooperative.Referral: [facility] for EXT #5, bone graft if necessary and implant placement.NV: Dano Jernigan DDS by pina (06/09/2020 4:30 PM): Tooth Notes and Watches: Assessment & Plan Medications:CLINDAMYCIN HCL 300 MG CAPSLEVOTHYROXINMedication Changes:New Prescription:CLINDAMYCIN HCL 300 MG CAPS-1 every 6 hours until finished Qty: 28[Capsule] Refills: 0 Method: ElectronicAllergies:* AMOXICILLIN (Critical)* SEASONL (Critical)* LATEX (Critical) Name Value Range Interpretation Code Description Data Saray rce(s) Supporting Document(s) ID Date Data Source [id number] 06/04/2020 01:08:00 PM EDT [facility] ([facility]) Name Value Range Interpretation Code Description Data Saray rce(s) Supporting Document(s) Bacteria identified in Urine by Culture [facility] FULL REPORT IN LAB NOTES ([facility] and [facility] ). NO GROWTH CLINICAL SIGNIFICANCE 1 ORGANISM ID Date Data Source [id number] 06/04/2020 12:00:00 AM EDT [facility] Name Value Range Interpretation Code Description Data Saray rce(s) Supporting Document(s) SARS coronavirus 2 Ag [facility] This lab was ordered by [facility] and reported by [facility]. ID Date Data Source [id number] 05/18/2020 02:32:29 PM EDT [facility] Current Problems: Dental caries (ICD-521 .00) (OST13-E03.9)DENTAL CARIES EXTENDING INTO PULP (ICD-521.03) (YGR42-V03.63)Current Medications: * LEVOTHYROXIN Current Allergies: * AMOXICILLIN (Critical)* SEASONL (Critical)* LATEX (Critical) Dental Chart: Procedures:Type - CDT Code - Description B - (D2940) Sedative filling on Tooth # 5 on Tooth Surface MO (Performed by Dano Wilson DDS) Chart Notes:pina (May 18 2020 4:00PM): CC: " told me to eat soft foods so i was eating grapes with no skin and I think my tooth broke"HPI: todayPain Lvl: noneNo new xrays takenExam reveals: loss of congregational tooth #5_MOpt. was cooperativeDX: loss of congregational tooth #5Plan: IRM placed and advised pt that CRN needs to be completed that was [place] planed over a year agoAdditional PPE requirements due to COVID-19 in the dental setting, N95, surgical mask, hair covering, gown Pt was cooperative.NV: CRN prep Dano Wilson DDS by pina (05/18/2020 4:00 PM): Tooth Notes and Watches: Assessment & Plan Medications:LEVOTHYROXINAllergies:* AMOXICILLIN (Critical)* SEASONL (Critical)* LATEX (Critical) Name Value Range Interpretation Code Description Data Saray rce(s) Supporting Document(s) ID Date Data Source [id number] 05/18/2020 10:32:56 AM EDT [facility] Current Problems: Dental caries (ICD-521 .00) (HNN55-I31.9)DENTAL CARIES EXTENDING INTO PULP (ICD-521.03) (CQM51-G43.63)Current Medications: * LEVOTHYROXIN Current Allergies: * AMOXICILLIN (Critical)* SEASONL (Critical)* LATEX (Critical) Dental Chart: Procedures:Type - CDT Code - Description B - (D0270) Bitewing, single radiographic image (Performed by Steve FLEMING, Dano) B - (D0220) Intraoral, periapical, first radiographic image on Tooth # 5 (Performed by Dano Wilson DDS) B - (D0140) Limited oral evaluation - problem focused on Tooth # 5 (Performed by Dano Wilson DDS) Chart Notes:pina (May 18 2020 2:00PM): CC: "i fell as i was walking to my car and my teeth clenched."HPI: pt stated this happened this morning at 8am, having pain when biting down.Pain Lvl: 4RMH (-) per ptAllergies; no changesBP: 142/84Temperature: 97.1 passed COVID questionairePA taken-Dexis and single bitewing taken. Possible fracture on the distal of #5. No displacement seen. No other pathology noted. Exam reveals: #5 and surrounding tissue tender to palpation, percusssion, and biting pressure, possibly due to recent trauma. No mobility, no inflammation of soft tissue. Restorations are in place and are not loose.pt. was cooperativeDX: Trauma secondary to fall but cannot rule out tooth fracture on #5.Plan: pt is told to wait a few days to see if the pain goes away if it doesn't pt is to be seen in office again to reevaluate for likely fracture of #5 Note: Pt. has been treatment planned for crown on 04/08/20Additional PPE requirements due to COVID-19 in the dental setting, N95, s urgical mask, hair covering, gown Pt was cooperative.NV: crown prep/RestorationDano Wilson DDS by pina (05/18/2020 1:59 PM): Tooth Notes and Watches: Assessment & Plan Medications:LEVOTHYROXINAllergies:* AMOXICILLIN (Critical)* SEASONL (Critical)* LATEX (Critical) __Current Problems: Dental caries (ICD-521.00) (KZX51-W62.9)DENTAL CARIES EXTENDING INTO PULP (ICD-521.03) (KDE07-B96.63)Current Medications: * LEVOTHYROXIN Current Allergies: * AMOXICILLIN (Critical)* SEASONL (Critical)* LATEX (Critical) Dental Chart: Chart Notes:pina (May 21 2020 2:10PM): Note AppendNote has the date wrong for whenthe crown was treatment planned. Note states that crown was treatment planned on 04/08/20. It should have read 04/08/19.Dano Wilson DDS by pina (05/21/2020 2:08 PM): Tooth Notes and Watches: Name Value Range Interpretation Code Description Data Saray rce(s) Supporting Document(s) Procedure Social History Code Duration Value Status Description Data Source(s ) Smoking 06/25/2021 12:00:00 AM EST Patient is a former smoker completed Patient is a former smoker [facility] ([facility], ) Smoking 03/29/2021 12:00:00 AM EDT Patient is a former smoker completed Patient is a former smoker [facility] ([facility]) Alcohol intake 07/30/2020 12:00:00 AM EST Current drinker of al cohol (finding) completed Current drinker of alcohol (finding) [facility] Tobacco use and exposure 07/30/2020 12:00:00 AM EST Never used co mpleted Never used [facility] Smoking 07/30/2020 12:00:00 AM EST Former smoker completed Former smoker [facility] Vital Signs ID Date Data Source UNK Name Value Range Interpretation Code Description Data Source(s) Body surface area Derived from formula 2.60 m2 2.60 m2 [facility] ([facility]) Systolic blood pressure 118 mm[Hg] 118 mm[Hg] [facility] ([facility]) Diastolic blood pressure 68 mm[Hg] 68 mm[Hg] [facility] Heart rate 50 /min 50 /min [facility] ([facility]) Oxygen saturation in Arterial blood by Pulse oximetry 100 % 100 % [facility] ([facility]) Body height 68.50 [in_i] 68.50 [in_i] [facility] ([facility]) 5'8.50" Body weight 349.00 [lb_av] 349.00 [lb_av] [facility] ([facility]) Body mass index (BMI) [Ratio] 52.3 kg/m2 52.3 k g/m2 [facility] ([facility]) [place] body weight 140 [lb_av] 140 [lb_av] [facility] ([facility]) Body weight 158.306 kg 158.306 kg [facility] ([facility]) Systolic blood pressure 126 mm[Hg] 126 mm[Hg] [facility] ([facility]) Diastolic blood pressure 82 mm[Hg] 82 mm[Hg] [facility] ([facility]) Heart rate 71 /min 71 /min [facility] ([facility]) Body temperature 97.1 [degF] 97.1 [degF] [facility] ([facility]) Respiratory rate 16 /min 16 /min [facility] ( [facility]) Oxygen saturation in Arterial blood by Pulse oximetry 99 % 99 % [facility] ([facility]) Body weight 348.00 [lb_av] 348.00 [lb_av] [facility] ([facility]) Body weight 157.853 kg 157.853 kg [facility] ([facility]) Body height 68 [in_i] 68 [in_i] [facility] ([facility]) 5'8" Body mass index (BMI) [Ratio] 52.9 kg/m2 52.9 k g/m2 [facility] ([facility]) Body surface area Derived from formula 2.59 m2 2.59 m2 [facility] ([facility]) Diastolic blood pressure 76 mm[Hg] 76 mm[Hg] [facility] Heart rate 79 /min 79 /min [facility]) Body temperature 97.7 [degF] 97.7 [degF] [facility] ([facility]) Oxygen saturation in Arterial blood by Pulse oximetry 100 % 100 % [facility] ([facility]) Body weight 351.25 [lb_av] 351.25 [lb_av] [facility] T ([facility]) Body weight 159.327 kg [address] [facility] ([facility]) Systolic blood pressure 112 mm[Hg] 112 mm[Hg] M EDENT ([facility]) Diastolic blood pressure 79 mm[Hg] 79 mm[Hg] [facility] ([facility]) Heart rate 63 /min 63 /min [facility]) Systolic blood pressure 120 mm[Hg] 120 mm[Hg] [facility] Body temperature 97.8 [degF] 97.8 [degF] [facility] ([facility]) Respiratory rate 18 /min 18 /min [facility] ( [facility]) Oxygen saturation in Arterial blood by Pulse oximetry 98 % 98 % [facility] ([facility]) Body weight 346.00 [lb_av] 346.00 [lb_av] [facility] T ([facility]) Body weight 156.946 kg 156.946 kg [facility] ([facility]) Systolic blood pressure 115 mm[Hg] 115 mm[Hg] [facility] Diastolic blood pressure 83 mm[Hg] 83 mm[Hg] [facility] ([facility]) Heart rate 92 /min 92 /min [facility] ([facility], [facility]) Respiratory rate 17 /min 17 /min [facility] ( [facility], [facility]) Oxygen saturation in Arterial blood by Pulse oximetry 98 % 98 % [facility]) Body temperature 97.9 [degF] 97.9 [degF] [facility] ([facility], [facility]) Body weight 300.00 [lb_av] 300.00 [lb_av] [facility] ([facility], [facility]) Body height 68 [in_i] 68 [in_i] [facility] ([facility]) 5'8" Body mass index (BMI) [Ratio] 45.6 kg/m2 45.6 k g/m2 [facility] ([facility]) Body mass index (BMI) [Ratio] 53.5 kg/m2 53.5 k g/m2 [facility] ([facility]) Systolic blood pressure 122 mm[Hg] 122 mm[Hg] M EDENT ([facility]) Body surface area Derived from formula 2.60 m2 [address] [facility] ([facility]) Heart rate 64 /min 64 /min [facility] ([facility]) Body temperature 97.8 [degF] 97.8 [degF] [facility]) Respiratory rate 16 /min 16 /min [facility] ( [facility]) Oxygen saturation in Arterial blood by Pulse oximetry 99 % 99 % [facility] ([facility]) Body weight 352.00 [lb_av] 352.00 [lb_av] [facility] T ([facility]) Diastolic blood pressure 82 mm[Hg] 82 mm[Hg] [facility] ([facility]) Body height 68 [in_i] 68 [in_i] [facility]) 5'8" Body weight 159.667 kg 159.667 kg [facility] ([facility]) Body height 68 [in_i] 68 [in_i] [facility] ([facility]) 5'8" Systolic blood pressure 132 mm[Hg] 132 mm[Hg] ED[facility] ([facility]) Diastolic blood pressure 76 mm[Hg] 76 mm[Hg] [facility] ([facility]) Heart rate 73 /min 73 /min [facility]) Body surface area Derived from formula 2.62 m2 2.62 m2 [facility] ([facility]) Body temperature 96.9 [degF] 96.9 [degF] [facility] ([facility]) Respiratory rate 15 /min 15 /min [facility] ( [facility]) Oxygen saturation in Arterial blood by Pulse oximetry 96 % 96 % [facility] ([facility]) Body weight 357.25 [lb_av] 357.25 [lb_av] [facility] T ([facility]) Body weight 162.049 kg 162.049 kg [facility] ([facility]) Body mass index (BMI) [Ratio] 54.3 kg/m2 54.3 k g/m2 [facility]) Systolic blood pressure 120 mm[Hg] 120 mm[Hg] M EDENT ([facility], [facility]) Body height 68 [in_i] 68 [in_i] [facility] ([facility], [facility]) 5'8" Diastolic blood pressure 85 mm[Hg] 85 mm[Hg] [facility] ([facility], [facility]) Heart rate 71 /min 71 /min [facility] ([facility], [facility]) Respiratory rate 13 /min 13 /min [facility] ( [facility], [facility]) Oxygen saturation in Arterial blood by Pulse oximetry 98 % 98 % [facility], [facility]) Body temperature 96.8 [degF] 96.8 [degF] [facility] ([facility], [facility]) Body weight 300.00 [lb_av] 300.00 [lb_av] [facility] T ([facility], [facility]) Body mass index (BMI) [Ratio] 45.6 kg/m2 45.6 k g/m2 [facility] ([facility], [facility]) Systolic blood pressure 130 mm[Hg] 130 mm[Hg] M EDENT ([facility]) Respiratory rate 16 /min 16 /min [facility] ( [facility]) Oxygen saturation in Arterial blood by Pulse oximetry 97 % 97 % [facility] ([facility]) Body weight 358.00 [lb_av] 358.00 [lb_av] [facility] T ([facility]) Body weight 162.389 kg 162.389 kg [facility] ([facility]) Diastolic blood pressure 90 mm[Hg] 90 mm[Hg] [facility] ([facility]) Heart rate 60 /min 60 /min [facility] ([facility]) Body temperature 97.3 [degF] 97.3 [degF] [facility] ([facility]) Body height 68 [in_i] 68 [in_i] [facility] ([facility]) 5'8" Body mass index (BMI) [Ratio] 54.4 kg/m2 54.4 k g/m2 [facility] ([facility]) Body surface area Derived from formula 2.62 m2 2.62 m2 [facility] ([facility]) Diastolic blood pressure 89 mm[Hg] 89 mm[Hg] [facility] ([facility], [facility]) Systolic blood pressure 126 mm[Hg] 126 mm[Hg] M EDENT ([facility], [facility]) Heart rate 87 /min 87 /min [facility] ([facility], [facility]) Respiratory rate 13 /min 13 /min [facility] ( [facility], [facility]) Oxygen saturation in Arterial blood by Pulse oximetry 98 % 98 % [facility] ([facility], [facility]) Body temperature 96.0 [degF] 96.0 [degF] [facility] ([facility], [facility]) Body weight 300.00 [lb_av] 300.00 [lb_av] [facility] T ([facility], [facility]) Body height 68 [in_i] 68 [in_i] [facility] ([facility], [facility]) 5'8" Body mass index (BMI) [Ratio] 45.6 kg/m2 45.6 k g/m2 [facility] ([facility], [facility]) Respiratory rate 18 /min 18 /min [facility] ( [facility], [facility]) Oxygen saturation in Arterial blood by Pulse oximetry 96 % 96 % [facility] ([facility], [facility]) Body temperature 97.9 [degF] 97.9 [degF] [facility] ([facility], [facility]) Body weight 300.00 [lb_av] 300.00 [lb_av] [facility] T ([facility], [facility]) Body height 68 [in_i] 68 [in_i] [facility] ([facility]) 5'8" Body mass index (BMI) [Ratio] 45.6 kg/m2 45.6 k g/m2 [facility] ([facility], [facility]) Systolic blood pressure 126 mm[Hg] 126 mm[Hg] M EDENT ([facility], [facility]) Diastolic blood pressure 87 mm[Hg] 87 mm[Hg] [facility] ([facility], [facility]) Heart rate 72 /min 72 /min [facility] ([facility], [facility]) Systolic blood pressure 126 mm[Hg] 126 mm[Hg] M EDENT ([facility] ) Diastolic blood pressure 84 mm[Hg] 84 mm[Hg] [facility] ([facility] ) Heart rate 85 /min 85 /min [facility] ([facility] ) Body temperature 96.4 [degF] 96.4 [degF] [facility] ([facility] ) Body height 68.3 [in_i] 68.3 [in_i] [facility] ([facility] ) 5'8.30" Body weight 354.31 [lb_av] 354.31 [lb_av] [facility] T ([facility] ) Body mass index (BMI) [Ratio] 53.4 kg/m2 53.4 k g/m2 [facility] ([facility] ) Oxygen saturation in Arterial blood by Pulse oximetry 97 % 97 % [facility] ([facility] ) Body height 68 [in_i] 68 [in_i] [facility] ([facility], [facility]) 5'8" Body mass index (BMI) [Ratio] 45.6 kg/m2 45.6 k g/m2 [facility] ([facility], [facility]) Body weight 300.00 [lb_av] 300.00 [lb_av] [facility] T ([facility]) Oxygen saturation in Arterial blood by Pulse oximetry 98 % 98 % [facility] ([facility], [facility]) Systolic blood pressure 133 mm[Hg] 133 mm[Hg] M EDENT ([facility], [facility]) Diastolic blood pressure 89 mm[Hg] 89 mm[Hg] [facility] ([facility], [facility]) Heart rate 67 /min 67 /min [facility] ([facility], [facility]) Respiratory rate 18 /min 18 /min [facility] ( [facility], [facility]) Body temperature 98.0 [degF] 98.0 [degF] [facility] ([facility], [facility]) Systolic blood pressure 122 mm[Hg] 122 mm[Hg] M EDENT ([facility] ) Diastolic blood pressure 68 mm[Hg] 68 mm[Hg] [facility] ([facility] ) Heart rate 80 /min 80 /[facility] Body temperature 97.5 [degF] 97.5 [degF] [facility] ([facility] ) Body height 68.3 [in_i] 68.3 [in_i] [facility] ([facility] ) 5'8.30" Body weight 323.12 [lb_av] 323.12 [lb_av] [facility] T ([facility] ) Body mass index (BMI) [Ratio] 48.7 kg/m2 48.7 k g/m2 [facility] ([facility] ) Oxygen saturation in Arterial blood by Pulse oximetry 98 % 98 % [facility] ([facility] ) ID Date Data Source [id number] 07/30/2020 01:59:35 PM [facility] Name Value Range Interpretation Code Description Data Source(s) WEIGHT RECORDED 330 lb 330 lb [facility] Body height Measured 69 in 69 in [facility] PREFERRED NAME [facility] PREFERRED NAME [facility] ID Date Data Source [id number] 07/30/2020 08:52:40 AM [facility] Name Value Range Interpretation Code Description Data Source(s) [facility]ED [facility]
[2021-07-16 20:25] LABS: BASO % 0.5 % (0.0-1.0); EOS # 0.2 10^3/uL (0.0-0.5); EOS % 2.1 % (0.0-3.0); HEMATOCRIT 34.2 % (36.0-47.0); HEMOGLOBIN 10.2 g/dl (12.0-15.5); LYMPH # 2.6 10^3/uL (1.5-5.0); LYMPH % 33.1 % (24.0-44.0); MEAN CORPUSCULAR HEMOGLOBIN 26.2 pg (27.0-33.0); MEAN CORPUSCULAR HGB CONC 29.8 g/dl (32.0-36.5); MEAN CORPUSCULAR VOLUME 87.9 fl (80.0-96.0); MONO # 0.6 10^3/uL (0.0-0.8); MONO % 7.4 % (2.0-8.0); NEUTROPHILS # 4.4 10^3/uL (1.5-8.5); NEUTROPHILS % 56.6 % (36.0-66.0); PLATELET COUNT, AUTOMATED 280 10^3/uL (150-450); RED BLOOD COUNT 3.89 10^6/uL (4.00-5.40); WHITE BLOOD COUNT 7.7 10^3/uL (4.0-10.0)
[2021-07-16 20:38] LABS: INR 0.99; PROTHROMBIN TIME 13.5 SECONDS (12.7-14.5)
[2021-07-16 20:39] LABS: PARTIAL THROMBOPLASTIN TIME 26.1 SECONDS (25.9-37.0)
[2021-07-16 20:41] LABS: D-DIMER QUANT 643.85 ng/ml (<500)
[2021-07-16] MEDS ORDERED: ISOVUE-370 76% 100ML VIAL As Ordered ONE (20:52)
[2021-07-16 20:59] LABS: ALBUMIN 3.2 GM/DL (3.2-5.2); ALT/SGPT 22 U/L (12-78); BILIRUBIN,DIRECT < 0.1 MG/DL (0.0-0.2); BILIRUBIN,TOTAL 0.3 MG/DL (0.2-1.0); TOTAL PROTEIN 7.5 GM/DL (6.4-8.2)
[2021-07-16 21:03] LABS: ERYTHROCYTE SEDIMENTATION RATE 42 mm/hr (0-20)
--- OUTSIDE RECORDS SUMMARY | 2021-07-16 21:50 | CCD ---
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 nicotine dependence Diagnosis 01/19/2021 09:42:[address] [facility] Z9089 Acquired absence of other organs Acquired absenc e of other organs Diagnosis 01/19/2021 09:42:[address] [facility] O70448 Personal history of malignant neoplasm o f thyroid Personal history of malignant neoplasm of thyroid Diagnosis 01/19/2021 09:42:00 AM EDT [facility] Z6843 Body mass index [BMI] 50.0-59.9, adult B willie mass index [BMI] 50.0-59.9, adult Diagnosis 01/19/2021 09:42:00 AM [facility] E669 Obesity, unspecified Obesity, unspecified Diagnosis 01/19/2021 09:42:00 AM [facility] Z9884 Bariatric surgery status Bariatric surgery status Diag nosis 12/10/2020 03:17:[address] [facility] G4730 Sleep apnea, unspecified Sleep apnea, unspecified Diag nosis 12/10/2020 03:17:00 PM [facility] R109 Unspecified abdominal pain Unspecified abdominal pain Diagnosis 12/10/2020 03:17:00 PM [facility] Z0001 Encounter for general adult medical exam ination with abnormal findings Encounter for general adult medical examination with abnormal findings Diagnosis 12/10/2020 03:17:00 PM [facility] N946 Dysmenorrhea, unspecified Dysmenorrhea, unspecified Di agnosis 12/10/2020 02:29:[address] [facility] R99 Ill-defined and unknown cause of mortali ty Ill-defined and unknown cause of mortality Diagnosis 10/10/2020 02:46:00 PM [facility] R06.83 Snoring Snoring Problem 05/25/2021 12:00:00 [facility] [id number] Pulmonary embolism Pulmonary embolism Problem 01/2021 12:00:00 AM ED[facility] Note: January 2021 E55.9 Vitamin D deficiency Vitamin D deficiency Problem 01/19/2021 12:00:00 AM EDT [facility] ([facility]) E53.8 Vitamin B-complex deficiency Vitamin B-complex deficie ncy Problem 01/19/2021 12:00:00 AM EDT [facility] ([facility]) 521.81 Cracked tooth Cracked tooth 06/19/2020 01:01:59 PM EST [facility] [id number] Type 2 diabetes mellitus Type 2 diabetes mellitus Prob corine 06/02/2020 12:00:00 AM EDT [facility] ([facility] [id number] Pronation Pronation Problem 06/02/2020 12:00:00 AM ED T [facility] ([facility] [id number] Plantar fascial fibromatosis Plantar fascial fibromato sis Problem 06/02/2020 12:00:00 AM EDT [facility] ([facility] Other synovitis and tenosynovitis, right ankle and foot Other synovitis and tenosynovitis, right ankle and foot Problem 06/02/2020 12:00:00 AM E DT [facility] ([facility] Surgeries/Procedures Procedure Description Date Indications Data Source(s) OFFICE OUTPATIENT NEW 30 MINUTES 06/25/2021 12:00:00 A M EST [facility] ([facility], ) OFFICE OUTPATIENT VISIT 15 MINUTES 05/25/2021 12:00:00 AM EDT [facility] ([facility]) PERIODIC PREVENTIVE MED EST PATIENT 40-64YRS 12:00:00 AM EDT [facility] ([facility]) OFFICE OUTPATIENT VISIT 15 MINUTES 03/29/2021 12:00:00 AM EDT [facility] ([facility]) OFFICE OUTPATIENT VISIT 15 MINUTES 01/19/2021 12:00:00 AM EDT [facility] ([facility]) OFFICE OUTPATIENT VISIT 15 MINUTES 12/13/2020 12:00:00 AM EDT [facility] ([facility]) Brief Emotional/Behav Assessment W/ Scoring Doc Per Standard Inst 12/10/2020 12:00:00 AM EDT [facility] ([facility]) Admin Patient Focused Health Risk Assessment Instrument 12/10/2020 12:00:00 AM EDT [facility] ([facility]) OFFICE OUTPATIENT VISIT 15 MINUTES 12/10/2020 12:00:00 AM EDT [facility] ([facility]) OFFICE OUTPATIENT VISIT 25 MINUTES 12/10/2020 12:00:00 AM EDT [facility] ([facility]) OFFICE OUTPATIENT VISIT 15 MINUTES 11/23/2020 12:00:00 AM EDT [facility] ([facility]) OFFICE OUTPATIENT VISIT 15 MINUTES 11/02/2020 12:00:00 AM EDT [facility] ([facility]) Strapping Foot Or Ankle 05/19/2020 12:00:00 AM EDT [facility] ([facility] Results ID Date Data Source [id number] 05/05/2021 03:50:00 PM EDT [facility] ([facility]) Name Value Range Interpretation Code Description Data Saray rce(s) Supporting Document(s) Z#Other Observations Laboratory test result [facility] ([facility]) ID Date Data Source [id number] 05/05/2021 03:50:00 PM EDT [facility] ([facility]) Name Value Range Interpretation Code Description Data Saray rce(s) Supporting Document(s) Source: Laboratory test result [facility] ([facility]) {SOURCE: Genital Nubia species Laboratory test result [facility] ([facility]) {SOURCE: Genital Gardnerella vaginalis Laboratory test result [facility] ([facility]) {SOURCE: Genital Trichomonas vaginalis Laboratory test result [facility] ([facility]) {SOURCE: Genital ID Date Data Source [id number] 05/07/2021 07:18:[address] [facility] Name Value Range Interpretation Code Description Data Saray rce(s) Supporting Document(s) SOURCE: Genital [facility] Nubia sp rRNA [Presence] in Vaginal fluid by DNA probe Negative N egative [facility] Gardnerella vaginalis rRNA [Presence] in Genital specimen by DNA probe Negative Negative [facility] Trichomonas vaginalis rRNA [Presence] in Genital specimen by DNA probe Negative Negative [facility] ID Date Data Source [id number] 05/05/2021 03:49:00 PM EDT [facility] ([facility]) Name Value Range Interpretation Code Description Data Saray rce(s) Supporting Document(s) Mammo Screening Bilateral with CAD Laboratory test result [facility] ([facility]) ID Date Data Source [id number] 04/21/2021 08:27:00 AM EDT [facility] ([facility]) Name Value Range Interpretation Code Description Data Saray rce(s) Supporting Document(s) Mammo Screening Bilateral with CAD Laboratory test result [facility] ([facility]) ID Date Data Source [id number] 04/21/2021 08:25:00 AM EDT [facility] ([facility]) Name Value Range Interpretation Code Description Data Saray rce(s) Supporting Document(s) Calcidiol [Mass/volume] in Serum or Plasma 16 ng/mL [facility] ([facility]) Is patient fasting? N ID Date Data Source [id number] 04/21/2021 08:25:00 AM EDT [facility] ([facility]) Name Value Range Interpretation Code Description Data Saray rce(s) Supporting Document(s) Sodium 138 meq/L 134-153 [facility] ([facility]) Is patient fasting? N Potassium 4.1 meq/L 3.6-5.0 [facility] ([facility]) Is patient fasting? N Comprehensive Metabo Laboratory test result [facility] ([facility]) Is patient fasting? N Co2 27 meq/L 22-30 [facility] ([facility]) Is patient fasting? N Chloride 102 meq/L 98-107 [facility] ([facility]) Is patient fasting? N Glucose 97 mg/dL 70-99 [facility] ([facility]) Is patient fasting? N BUN 7 mg/dL 7-21 [facility] ([facility]) Is patient fasting? N Total Protein 6.9 g/dL 6.3-8.2 [facility] ([facility]) Is patient fasting? N Creatinine 0.6 mg/dL 0.7-1.5 Below low normal [facility] ( [facility]) Is patient fasting? N BUN/Creat 12 8-27 [facility] ([facility]) Is patient fasting? N Albumin 3.9 g/dL 3.9-5.0 [facility] ([facility]) Is patient fasting? N Globulin 3.0 GM/DL 2.4-3.2 [facility] ([facility]) Is patient fasting? N Calcium 9.1 mg/dL 8.4-10.2 [facility] ([facility]) Is patient fasting? N Total Bili Laboratory test result 0.2-1.3 [facility] ([facility]) Is patient fasting? N A/G Ratio 1.3 0.8-2.0 [facility] ([facility]) Is patient fasting? N Alkaline Phos 83 U/L 38-126 [facility] ([facility]) Is patient fasting? N Sgot/Ast 18 U/L 5-40 [facility] ([facility]) Is patient fasting? N SGPT/Alt 11 U/L 7-56 [facility] ([facility]) Is patient fasting? N Anion Gap 9.0 mmol/L 8.0-16.0 [facility] ([facility]) Is patient fasting? N Non-Aa GFR Laboratory test result [facility] ([facility]) Is patient fasting? N Afr Amer GFR Laboratory test result [facility] ([facility]) Is patient fasting? N Age 41 yrs [facility] ([facility]) Is patient fasting? N ID Date Data Source [id number] 04/21/2021 08:25:00 AM EDT [facility] ([facility]) Name Value Range Interpretation Code Description Data Saray rce(s) Supporting Document(s) CBC No Diff Laboratory test result [facility] ([facility]) Is patient fasting? N RBC 3.75 10^6/uL 4.20-5.40 Below low normal [facility] ([facility]) Is patient fasting? N WBC 7.5 10^3/uL 4.2-11.0 [facility] ([facility]) Is patient fasting? N Hematocrit 33.0 % 37.0-47.0 Below low normal [facility] ( [facility]) Is patient fasting? N MCV 88.0 fL 81.0-101 [facility] ([facility]) Is patient fasting? N Hemoglobin 9.9 g/dL 12.0-16.0 Below low normal [facility] ( [facility]) Is patient fasting? N MCH 26.4 pg 27.0-34.0 Below low normal [facility] ( [facility]) Is patient fasting? N MCHC 30.0 g/dL 31.0-36.0 Below low normal [facility] ( [facility]) Is patient fasting? N MPV 11.3 fL 7.4-10.4 Above high normal [facility] ([facility]) Is patient fasting? N RDW 15.8 % 11.5-14.5 Above high normal [facility] ([facility]) Is patient fasting? N Platelets 324 10^3/uL 150-450 [facility] ([facility]) Is patient fasting? N ID Date Data Source [id number] 04/21/2021 08:25:00 AM EDT [facility] ([facility]) Name Value Range Interpretation Code Description Data Saray rce(s) Supporting Document(s) Cobalamin (Vitamin B12) [Mass/volume] in Serum or Plasma 238 pg/mL 2 32-1245 [facility] ([facility]) Is patient fasting? N ID Date Data Source [id number] 04/23/2021 06:56:[address] [facility] Name Value Range Interpretation Code Description Data Saray rce(s) Supporting Document(s) Calcidiol [Moles/volume] in Serum or Plasma 16 NG/ML [facility] VITAMIN-D(2 5HYDROXY) Deficiency: <=20 ng/ml Insufficiency: 21-29 ng/ml Preferred level: => 30 ng/ml ID Date Data Source [id number] 04/21/2021 04:22:[address] [facility] Name Value Range Interpretation Code Description Data Saray rce(s) Supporting Document(s) Cobalamin (Vitamin B12) [Mass/volume] in Serum or Plasma 238 PG/ML 232 - [address] [facility] ID Date Data Source [id number] 04/21/2021 03:58:[address] [facility] Name Value Range Interpretation Code Description Data Saray rce(s) Supporting Document(s) COMPREHENSIVE METABOLIC PANEL [facility] COMPREHENSIVE METABOLIC PANEL Sodium [Moles/volume] in Serum or Plasma 138 mEq/L 134 - [address] [facility] Potassium [Moles/volume] in Serum or Plasma 4.1 mEq/L 3.6 - 5.[address] [facility] Chloride [Moles/volume] in Serum or Plasma 102 mEq/L 98 - [address] [facility] Carbon dioxide, total [Moles/volume] in Serum or Plasma 27 MEQ/L 22 - [address] [facility] Glucose [Mass/volume] in Serum or Plasma 97 MG/DL 70 - [address] [facility] BUN 7 MG/DL 7 - 21 [facility] Creatinine [Mass/volume] in Serum or Plasma 0.6 MG/DL 0.7 - 1.[address] [facility] BUN/CREAT 12 8 - 27 [facility] Protein [Mass/volume] in Serum or Plasma 6.9 G/DL 6.3 - 8.[address] [facility] Albumin [Mass/volume] in Serum or Plasma 3.9 G/DL 3.9 - 5.[address] [facility] Globulin [Mass/volume] in Serum by calculation 3.0 GM/DL 2.4 - 3.[address] [facility] A/G RATIO 1.3 0.8 - 2.0 [facility] Calcium [Mass/volume] in Serum or Plasma 9.1 MG/DL 8.4 - 10.[address] [facility] Bilirubin.total [Mass/volume] in Serum or Plasma <0.7 MG/DL 0.2 - 1.[address] [facility] Alkaline phosphatase [Enzymatic activity/volume] in Serum or Plasma 83 U/L 38 - [address] [facility] Aspartate aminotransferase [Enzymatic activity/volume] in Serum or Plasma 18 U/L 5 - [address] [facility] Alanine aminotransferase [Enzymatic activity/volume] in Seru m or Plasma 11 U/L 7 - [address] [facility] Anion gap 3 in Serum or Plasma 9.0 mmol/L 8.0 - 16.[address] [facility] AGE 41 yrs [facility] Hospit al NON-AA GFR >60 mL/min [facility] Hosp ital AFR AMER GFR >60 mL/min [facility] Ho spital Male GFR In terprentation 20-49 [...] >32 mL/min Normal ID Date Data Source [id number] 04/21/2021 03:27:[address] [facility] Name Value Range Interpretation Code Description Data Saray rce(s) Supporting Document(s) CBC NO DIFF [facility] ital COMPLETE BLOOD COUNT Leukocytes [#/volume] in Blood by Automated count 7.5 10^3/uL 4.2 - [address] [facility] Erythrocytes [#/volume] in Blood by Automated count 3.75 10^6/uL 4. 20 - 5.[address] [facility] Hemoglobin [Mass/volume] in Blood 9.9 g/dL 12.0 - 16.[address] [facility] Hematocrit [Volume Fraction] of Blood by Automated count 33.0 % 3 7.0 - 47.[address] [facility] Erythrocyte mean corpuscular volume [Entitic volume] by Auto mated count 88.0 fL 81.0 - [address] [facility] Erythrocyte mean corpuscular hemoglobin [Entitic mass] by Automated count 26.4 pg 27.0 - 34.[address] [facility] Erythrocyte mean corpuscular hemoglobin concentration [Mass/volume] by Automated count 30.0 g/dL 31.0 - 36.[address] [facility] Erythrocyte distribution width [Ratio] by Automated count 15.8 % 11.5 - 14.[address] [facility] Platelets [#/volume] in Blood by Automated count 324 10^3/uL 150 - [address] [facility] Platelet mean volume [Entitic volume] in Blood by Automated count 11.3 fL 7.4 - 10.[address] [facility] ID Date Data Source [id number] 03/29/2021 06:53:00 PM EDT [facility] ([facility]) Name Value Range Interpretation Code Description Data Saray rce(s) Supporting Document(s) Bacteria identified in Urine by Culture Laboratory test result [facility] ([facility]) <content>FULL REPORT IN LAB NOTES (eCW a [...] FOR ESBL</content>
<content></content> ID Date Data Source [id number] 02/25/2021 10:37:00 AM EDT [facility] ([facility]) Name Value Range Interpretation Code Description Data Saray rce(s) Supporting Document(s) Thyrotropin [Units/volume] in Serum or Plasma 1.36 uIU/mL 0.47-5.01 [facility] ID Date Data Source [id number] 02/25/2021 01:47:[address] [facility] Name Value Range Interpretation Code Description Data Saray rce(s) Supporting Document(s) Thyrotropin [Units/volume] in Serum or Plasma by Detec tion limit <= 0.05 mIU/L 1.36 uIU/mL 0.47 - 5.[address] [facility] ID Date Data Source [id number] 01/30/2021 05:42:00 PM EDT [facility] Name Value Range Interpretation Code Description Data Saray rce(s) Supporting Document(s) SARS coronavirus 2 RNA [Presence] in Res piratory specimen by LENNY with probe detection NEGATIVE [facility] This lab was ordered by [facility] a nd reported by [facility]. ID Date Data Source [id number] 01/30/2021 05:08:00 PM EDT [facility] Name Value Range Interpretation Code Description Data Saray rce(s) Supporting Document(s) Natriuretic peptide.B prohormone N-Terminal [Mass/volu me] in Serum or Plasma 1132 pg/mL Above high normal [facility] ([facility]) ID Date Data Source [id number] 01/30/2021 02:38:00 PM EDT [facility] ([facility]) Name Value Range Interpretation Code Description Data [facility] rce(s) Supporting Document(s) Prothrombin Time 14.5 s 12.5-14.3 Above high normal [facility] ([facility]) Inr 1.11 Normal (applies to non-numeric resul ts) [facility] THERAPUTIC HUMAN INR VALUES INDICATIONS NORMAL RANGES PROPHYLAXIS/TREATMENT OF: VENOUS THROMBOSIS 2.0-3.0 PULMONARY EMBOLISM 2.0-3.0 PREVENTION OF SYSTEMIC EMBOLISM FROM: TISSUE HEART VALVES 2.0-3.0 ACUTE MYOCARDIAL INFARCTION 2.0-3.0 VALVULAR HEART DISEASE 2.0-3.0 ATRIAL FIBRILLATION 2.0-3.0 MECHANICAL VALVES(HIGH RISK) 2.5-3.5 RECURRENT MYOCARDIAL INFARCTION 2.5-3.5 Partial Thromboplastin Time 28.2 s 24.2-38.5 Norm al (applies to non-numeric results) [facility] ID Date Data Source [id number] 01/30/2021 02:38:00 PM EDT [facility] ([facility]) Name Value Range Interpretation Code Description Data Saray rce(s) Supporting Document(s) Fibrin D-dimer FEU [Mass/volume] in Platelet poor plasma Lab oratory test result Above high normal [facility] ([facility]) ID Date Data Source [id number] 01/30/2021 12:25:00 PM EDT [facility] ([facility]) Name Value Range Interpretation Code Description Data Saray rce(s) Supporting Document(s) Laboratory test finding (navigational concept) 37.0 % 3 8.0-51.0 Below low normal [facility] ([facility]) Laboratory test finding (navigational concept) 104 mg/dL 7 0-105 Normal (applies to non-numeric results) [facility] ([facility]) Laboratory test finding (navigational concept) 141 meq/L 1 36-145 Normal (applies to non-numeric results) [facility] ([facility]) Laboratory test finding (navigational concept) 3.6 meq/L 3 .5-5.1 Normal (applies to non-numeric results) [facility] ([facility]) Laboratory test finding (navigational concept) 4.7 mg/dL 4 .5-5.3 Normal (applies to non-numeric results) [facility] ([facility]) Laboratory test finding (navigational concept) 101 meq/L 9 8-109 Normal (applies to non-numeric results) [facility] ([facility]) Laboratory test finding (navigational concept) 22.0 MM/L 2 3.0-27.0 Below low normal [facility] ([facility]) Laboratory test finding (navigational concept) 4 mg/dL 8-26 Below low normal [facility] Laboratory test finding (navigational concept) 0.6 mg/dL 0 .6-1.3 Normal (applies to non-numeric results) [facility] ([facility]) ID Date Data Source [id number] 01/30/2021 12:23:00 PM EDT [facility] ([facility]) Name Value Range Interpretation Code Description Data Saray rce(s) Supporting Document(s) Ast/Sgot 19 U/L 7-37 Normal (applies to non-numeric resul ts) [facility] ([facility]) Alkaline Phosphatase 90 U/L 45-117 Normal (applies to non-num hosea results) [facility] ([facility]) Alt/SGPT 20 U/L 12-78 Normal (applies to non-numeric resul ts) [facility] ([facility]) Bilirubin,Total 0.9 mg/dL 0.2-1.0 Normal (applies to non-numeric results) [facility] ([facility]) Bilirubin,Direct 0.2 mg/dL 0.0-0.2 Normal (applies to non-numeric results) [facility] ([facility]) Total Protein 7.3 GM/DL 6.4-8.2 Normal (applies to non-numeric re sults) [facility] ([facility]) Albumin 3.3 GM/DL 3.2-5.2 Normal (applies to non-numeric resul ts) [facility] ([facility]) Albumin/Globulin Ratio 0.8 1.2-2.2 Below low normal [facility] ([facility]) ID Date Data Source [id number] 01/30/2021 12:23:00 PM EDT [facility] ([facility]) Name Value Range Interpretation Code Description Data Saray rce(s) Supporting Document(s) Lipase [Enzymatic activity/volume] in Serum or Plasma 66 U/L 73-393 Below low normal [facility] ([facility]) Thyroxine (T4) free [Mass/volume] in Serum or Plasma 1.14 ng/dL 0.76-1.46 Normal (applies to non-numeric results) [facility] ([facility]) C reactive protein [Mass/volume] in Serum or Plasma by High sensitivity method 2.87 mg/dL 0.00-0.30 Above high normal [facility] ([facility]) Thyrotropin [Units/volume] in Serum or Plasma 0.246 uIU/ML 0. 358-3.740 Below low normal [facility] ([facility]) Erythrocyte sedimentation rate by Westergren method 56 mm/hr 0-20 Above high normal [facility] ([facility]) ID Date Data Source [id number] 01/30/2021 12:23:00 PM EDT [facility] ([facility]) Name Value Range Interpretation Code Description Data Saray rce(s) Supporting Document(s) White Blood Count 6.8 10 4.0-10.0 Normal (applies to non-numeri c results) [facility] ([facility]) Red Blood Count 3.78 10 4.00-5.40 Below low normal [facility] ([facility]) Hemoglobin 11.0 g/dL 12.0-15.5 Below low normal [facility] ( [facility]) Hematocrit 34.5 % 36.0-47.[address] [facility] Mean Corpuscular Volume 91.3 fl 80.0-96.0 Normal ( applies to non-numeric results) [facility] ([facility]) Mean Corpuscular Hemoglobin 29.1 pg 27.0-33.0 Norm al (applies to non-numeric results) [facility] ([facility]) Red Cell Distribution Width 15.0 % 11.5-14.[address] [facility] Mean Corpuscular HGB Conc 31.9 g/dL 32.0-36.5 Below low normal [facility] ([facility]) Neutrophils % 61.6 % 36.0-66.0 Normal (applies to non-numeric re sults) [facility] ([facility]) Platelet Count, Automated 185 10 150-450 Normal (applies to non-numeric results) [facility] ([facility]) Eos % 0.9 % 0.0-3.0 Normal (applies to non-numeric resul ts) [facility] ([facility]) Mayes % 13.8 % 2.0-8.0 Above high normal [facility] ([facility]) Lymph % 22.7 % 24.0-44.0 Below low normal [facility] ( [facility]) Baso % 0.6 % 0.0-1.0 Normal (applies to non-numeric resul ts) [facility] ([facility]) Immature Granulocyte % 0.4 % 0-3.0 Normal (applies to non-n umeric results) [facility] ([facility]) Nucleated Red Blood Cell % 0.0 % 0-0 Normal (applies to n on-numeric results) [facility] ([facility]) Neutrophils # 4.2 10 1.5-8.5 Normal (applies to non-numeric re sults) [facility] ([facility]) Lymph # 1.6 10 1.5-5.0 Normal (applies to non-numeric resul ts) [facility] ([facility]) Mayes # 0.9 10 0.0-0.8 Above high normal [facility] ([facility]) Baso # 0.0 10 0.0-0.2 Normal (applies to non-numeric resul ts) [facility] ([facility]) Eos # 0.1 10 0.0-0.5 Normal (applies to non-numeric resul ts) [facility] ([facility]) ID Date Data Source [id number] 01/19/2021 10:22:00 AM EDT [facility] ([facility]) Name Value Range Interpretation Code Description Data Saray rce(s) Supporting Document(s) Thyroid Peroxidase (Tpo)Ab Laboratory test result 0-34 [facility] ([facility]) .~.~<DG1.3.1>Z00.01</DG1.3.1><DG1.3.1>E03.9</DG1.3.1><DG1.3.1>E66.9</DG1.3.1><DG 1.3. Is patient fasting? N~.~.~<DG1.3.1>Z00.01</DG1.3.1><DG1.3.1>E03.9</DG1.3.1><DG1.3.1>E66.9</DG1.3 .~.~<DG1.3.1> Z00.01</DG1.3.1><DG1.3.1>E03.9</DG1.3.1><DG1.3.1>E66.9</DG1.3.1><DG1.3. Is patient fasting? N~.~.~<DG1.3.1>Z00.01</DG1.3.1><DG1.3.1>E03.9</DG1.3.1><DG1.3.1>E66.9</DG1.3 .~.~<DG1.3.1>Z00.01</DG1.3.1> <DG1.3.1>E03.9</DG1.3.1><DG1.3.1>E66.9</DG1.3.1><DG1.3. .~.~<DG1.3.1>Z00.01</DG1.3.1><DG1.3.1>E03.9</DG1.3.1><DG1.3.1>E66.9</DG1.3.1><DG 1.3. .~.~<DG1.3.1>Z00.01</DG1.3.1><DG1.3.1>E03.9</DG1.3.1> <DG1.3.1>E66.9</DG1.3.1><DG1.3. .~.~<DG1.3.1>Z00.01</DG1.3.1><DG1.3.1>E03.9</DG1.3.1><DG1.3.1>E66.9</DG1.3.1><DG 1.3. Thyroglobulin Antibody Laboratory test result 0.0-0.9 [facility] ([facility]) .~.~<DG1.3.1>Z00.01</DG1.3.1><DG1.3.1>E03.9</DG1.3.1><DG1.3.1>E66.9</DG1.3.1><DG 1.3. Is patient fasting? N~.~.~<DG1.3.1>Z00.01</DG1.3.1><DG1.3.1>E03.9</DG1.3.1><DG1.3.1>E66.9</DG1.3 .~.~<DG1.3.1> Z00.01</DG1.3.1><DG1.3.1>E03.9</DG1.3.1><DG1.3.1>E66.9</DG1.3.1><DG1.3. Is patient fasting? N~.~.~<DG1.3.1>Z00.01</DG1.3.1><DG1.3.1>E03.9</DG1.3.1><DG1.3.1>E66.9</DG1.3 .~.~<DG1.3.1>Z00.01</DG1.3.1> <DG1.3.1>E03.9</DG1.3.1><DG1.3.1>E66.9</DG1.3.1><DG1.3. .~.~<DG1.3.1>Z00.01</DG1.3.1><DG1.3.1>E03.9</DG1.3.1><DG1.3.1>E66.9</DG1.3.1><DG 1.3. .~.~<DG1.3.1>Z00.01</DG1.3.1><DG1.3.1>E03.9</DG1.3.1> <DG1.3.1>E66.9</DG1.3.1><DG1.3. .~.~<DG1.3.1>Z00.01</DG1.3.1><DG1.3.1>E03.9</DG1.3.1><DG1.3.1>E66.9</DG1.3.1><DG 1.3. ID Date Data Source [id number] 01/19/2021 10:22:00 AM EDT [facility] ([facility]) Name Value Range Interpretation Code Description Data Saray rce(s) Supporting Document(s) Cobalamin (Vitamin B12) [Mass/volume] in Serum or Plasma 199 pg/ mL 232-1245 Below low normal [facility] ([facility]) .~.~<DG1.3.1>Z00.01</DG1.3.1><DG1.3.1>E03.9</DG1.3.1><DG1.3.1>E66.9</DG1.3.1><DG 1.3. Is patient fasting? N~.~.~<DG1.3.1>Z00.01</DG1.3.1><DG1.3.1>E03.9</DG1.3.1><DG1.3.1>E66.9</DG1.3 .~.~<DG1.3.1> Z00.01</DG1.3.1><DG1.3.1>E03.9</DG1.3.1><DG1.3.1>E66.9</DG1.3.1><DG1.3. Is patient fasting? N~.~.~<DG1.3.1>Z00.01</DG1.3.1><DG1.3.1>E03.9</DG1.3.1><DG1.3.1>E66.9</DG1.3 .~.~<DG1.3.1>Z00.01</DG1.3.1> <DG1.3.1>E03.9</DG1.3.1><DG1.3.1>E66.9</DG1.3.1><DG1.3. .~.~<DG1.3.1>Z00.01</DG1.3.1><DG1.3.1>E03.9</DG1.3.1><DG1.3.1>E66.9</DG1.3.1><DG 1.3. .~.~<DG1.3.1>Z00.01</DG1.3.1><DG1.3.1>E03.9</DG1.3.1> <DG1.3.1>E66.9</DG1.3.1><DG1.3. .~.~<DG1.3.1>Z00.01</DG1.3.1><DG1.3.1>E03.9</DG1.3.1><DG1.3.1>E66.9</DG1.3.1><DG 1.3. Hemoglobin A1c/Hemoglobin.total in Blood 6.0 % 4.4-6.1 [facility] ([facility]) .~.~<DG1.3.1>Z00.01</DG1.3.1><DG1.3.1>E03.9</DG1.3.1><DG1.3.1>E66.9</DG1.3.1><DG 1.3. Is patient fasting? N~.~.~<DG1.3.1>Z00.01</DG1.3.1><DG1.3.1>E03.9</DG1.3.1><DG1.3.1>E66.9</DG1.3 .~.~<DG1.3.1> Z00.01</DG1.3.1><DG1.3.1>E03.9</DG1.3.1><DG1.3.1>E66.9</DG1.3.1><DG1.3. Is patient fasting? N~.~.~<DG1.3.1>Z00.01</DG1.3.1><DG1.3.1>E03.9</DG1.3.1><DG1.3.1>E66.9</DG1.3 .~.~<DG1.3.1>Z00.01</DG1.3.1> <DG1.3.1>E03.9</DG1.3.1><DG1.3.1>E66.9</DG1.3.1><DG1.3. .~.~<DG1.3.1>Z00.01</DG1.3.1><DG1.3.1>E03.9</DG1.3.1><DG1.3.1>E66.9</DG1.3.1><DG 1.3. .~.~<DG1.3.1>Z00.01</DG1.3.1><DG1.3.1>E03.9</DG1.3.1> <DG1.3.1>E66.9</DG1.3.1><DG1.3. .~.~<DG1.3.1>Z00.01</DG1.3.1><DG1.3.1>E03.9</DG1.3.1><DG1.3.1>E66.9</DG1.3.1><DG 1.3. Calcidiol [Mass/volume] in Serum or Plasma 7 ng/mL [facility] ([facility]) .~.~<DG1.3.1>Z00.01</DG1.3.1><DG1.3.1>E03.9</DG1.3.1><DG1.3.1>E66.9</DG1.3.1><DG 1.3. Is patient fasting? N~.~.~<DG1.3.1>Z00.01</DG1.3.1><DG1.3.1>E03.9</DG1.3.1><DG1.3.1>E66.9</DG1.3 .~.~<DG1.3.1> Z00.01</DG1.3.1><DG1.3.1>E03.9</DG1.3.1><DG1.3.1>E66.9</DG1.3.1><DG1.3. Is patient fasting? N~.~.~<DG1.3.1>Z00.01</DG1.3.1><DG1.3.1>E03.9</DG1.3.1><DG1.3.1>E66.9</DG1.3 .~.~<DG1.3.1>Z00.01</DG1.3.1> <DG1.3.1>E03.9</DG1.3.1><DG1.3.1>E66.9</DG1.3.1><DG1.3. .~.~<DG1.3.1>Z00.01</DG1.3.1><DG1.3.1>E03.9</DG1.3.1><DG1.3.1>E66.9</DG1.3.1><DG 1.3. .~.~<DG1.3.1>Z00.01</DG1.3.1><DG1.3.1>E03.9</DG1.3.1> <DG1.3.1>E66.9</DG1.3.1><DG1.3. .~.~<DG1.3.1>Z00.01</DG1.3.1><DG1.3.1>E03.9</DG1.3.1><DG1.3.1>E66.9</DG1.3.1><DG 1.3. Iron [Mass/volume] in Serum or Plasma 49 ug/dL 42-135 [facility] ([facility]) .~.~<DG1.3.1>Z00.01</DG1.3.1><DG1.3.1>E03.9</DG1.3.1><DG1.3.1>E66.9</DG1.3.1><DG 1.3. Is patient fasting? N~.~.~<DG1.3.1>Z00.01</DG1.3.1><DG1.3.1>E03.9</DG1.3.1><DG1.3.1>E66.9</DG1.3 .~.~<DG1.3.1> Z00.01</DG1.3.1><DG1.3.1>E03.9</DG1.3.1><DG1.3.1>E66.9</DG1.3.1><DG1.3. Is patient fasting? N~.~.~<DG1.3.1>Z00.01</DG1.3.1><DG1.3.1>E03.9</DG1.3.1><DG1.3.1>E66.9</DG1.3 .~.~<DG1.3.1>Z00.01</DG1.3.1> <DG1.3.1>E03.9</DG1.3.1><DG1.3.1>E66.9</DG1.3.1><DG1.3. .~.~<DG1.3.1>Z00.01</DG1.3.1><DG1.3.1>E03.9</DG1.3.1><DG1.3.1>E66.9</DG1.3.1><DG 1.3. .~.~<DG1.3.1>Z00.01</DG1.3.1><DG1.3.1>E03.9</DG1.3.1> <DG1.3.1>E66.9</DG1.3.1><DG1.3. .~.~<DG1.3.1>Z00.01</DG1.3.1><DG1.3.1>E03.9</DG1.3.1><DG1.3.1>E66.9</DG1.3.1><DG 1.3. Folate [Mass/volume] in Serum or Plasma 9.6 ng/mL 4.4-31.0 [facility] .~.~<DG1.3.1>Z00.01</DG1.3.1><DG1.3.1>E03.9</DG1.3.1><DG1.3.1>E66.9</DG1.3.1><DG 1.3. Is patient fasting? N~.~.~<DG1.3.1>Z00.01</DG1.3.1><DG1.3.1>E03.9</DG1.3.1><DG1.3.1>E66.9</DG1.3 .~.~<DG1.3.1> Z00.01</DG1.3.1><DG1.3.1>E03.9</DG1.3.1><DG1.3.1>E66.9</DG1.3.1><DG1.3. Is patient fasting? N~.~.~<DG1.3.1>Z00.01</DG1.3.1><DG1.3.1>E03.9</DG1.3.1><DG1.3.1>E66.9</DG1.3 .~.~<DG1.3.1>Z00.01</DG1.3.1> <DG1.3.1>E03.9</DG1.3.1><DG1.3.1>E66.9</DG1.3.1><DG1.3. .~.~<DG1.3.1>Z00.01</DG1.3.1><DG1.3.1>E03.9</DG1.3.1><DG1.3.1>E66.9</DG1.3.1><DG 1.3. .~.~<DG1.3.1>Z00.01</DG1.3.1><DG1.3.1>E03.9</DG1.3.1> <DG1.3.1>E66.9</DG1.3.1><DG1.3. .~.~<DG1.3.1>Z00.01</DG1.3.1><DG1.3.1>E03.9</DG1.3.1><DG1.3.1>E66.9</DG1.3.1><DG 1.3. ID Date Data Source [id number] 01/19/2021 10:22:00 AM EDT [facility] ([facility]) Name Value Range Interpretation Code Description Data Saray rce(s) Supporting Document(s) Cve Panel Laboratory test result [facility] ([facility]) .~.~<DG1.3.1>Z00.01</DG1.3.1><DG1.3.1>E03.9</DG1.3.1><DG1.3.1>E66.9</DG1.3.1><DG 1.3. Is patient fasting? N~.~.~<DG1.3.1>Z00.01</DG1.3.1><DG1.3.1>E03.9</DG1.3.1><DG1.3.1>E66.9</DG1.3 .~.~<DG1.3.1> Z00.01</DG1.3.1><DG1.3.1>E03.9</DG1.3.1><DG1.3.1>E66.9</DG1.3.1><DG1.3. Is patient fasting? N~.~.~<DG1.3.1>Z00.01</DG1.3.1><DG1.3.1>E03.9</DG1.3.1><DG1.3.1>E66.9</DG1.3 .~.~<DG1.3.1>Z00.01</DG1.3.1> <DG1.3.1>E03.9</DG1.3.1><DG1.3.1>E66.9</DG1.3.1><DG1.3. .~.~<DG1.3.1>Z00.01</DG1.3.1><DG1.3.1>E03.9</DG1.3.1><DG1.3.1>E66.9</DG1.3.1><DG 1.3. .~.~<DG1.3.1>Z00.01</DG1.3.1><DG1.3.1>E03.9</DG1.3.1> <DG1.3.1>E66.9</DG1.3.1><DG1.3. .~.~<DG1.3.1>Z00.01</DG1.3.1><DG1.3.1>E03.9</DG1.3.1><DG1.3.1>E66.9</DG1.3.1><DG 1.3. Cholesterol 133 mg/dL 131-200 [facility] ([facility]) .~.~<DG1.3.1>Z00.01</DG1.3.1><DG1.3.1>E03.9</DG1.3.1><DG1.3.1>E66.9</DG1.3.1><DG 1.3. Is patient fasting? N~.~.~<DG1.3.1>Z00.01</DG1.3.1><DG1.3.1>E03.9</DG1.3.1><DG1.3.1>E66.9</DG1.3 .~.~<DG1.3.1> Z00.01</DG1.3.1><DG1.3.1>E03.9</DG1.3.1><DG1.3.1>E66.9</DG1.3.1><DG1.3. Is patient fasting? N~.~.~<DG1.3.1>Z00.01</DG1.3.1><DG1.3.1>E03.9</DG1.3.1><DG1.3.1>E66.9</DG1.3 .~.~<DG1.3.1>Z00.01</DG1.3.1> <DG1.3.1>E03.9</DG1.3.1><DG1.3.1>E66.9</DG1.3.1><DG1.3. .~.~<DG1.3.1>Z00.01</DG1.3.1><DG1.3.1>E03.9</DG1.3.1><DG1.3.1>E66.9</DG1.3.1><DG 1.3. .~.~<DG1.3.1>Z00.01</DG1.3.1><DG1.3.1>E03.9</DG1.3.1> <DG1.3.1>E66.9</DG1.3.1><DG1.3. .~.~<DG1.3.1>Z00.01</DG1.3.1><DG1.3.1>E03.9</DG1.3.1><DG1.3.1>E66.9</DG1.3.1><DG 1.3. Triglycerides 68 mg/dL 35-160 [facility] ([facility]) .~.~<DG1.3.1>Z00.01</DG1.3.1><DG1.3.1>E03.9</DG1.3.1><DG1.3.1>E66.9</DG1.3.1><DG 1.3. Is patient fasting? N~.~.~<DG1.3.1>Z00.01</DG1.3.1><DG1.3.1>E03.9</DG1.3.1><DG1.3.1>E66.9</DG1.3 .~.~<DG1.3.1> Z00.01</DG1.3.1><DG1.3.1>E03.9</DG1.3.1><DG1.3.1>E66.9</DG1.3.1><DG1.3. Is patient fasting? N~.~.~<DG1.3.1>Z00.01</DG1.3.1><DG1.3.1>E03.9</DG1.3.1><DG1.3.1>E66.9</DG1.3 .~.~<DG1.3.1>Z00.01</DG1.3.1> <DG1.3.1>E03.9</DG1.3.1><DG1.3.1>E66.9</DG1.3.1><DG1.3. .~.~<DG1.3.1>Z00.01</DG1.3.1><DG1.3.1>E03.9</DG1.3.1><DG1.3.1>E66.9</DG1.3.1><DG 1.3. .~.~<DG1.3.1>Z00.01</DG1.3.1><DG1.3.1>E03.9</DG1.3.1> <DG1.3.1>E66.9</DG1.3.1><DG1.3. .~.~<DG1.3.1>Z00.01</DG1.3.1><DG1.3.1>E03.9</DG1.3.1><DG1.3.1>E66.9</DG1.3.1><DG 1.3. HDL 44 mg/dL 29-86 [facility] ([facility]) .~.~<DG1.3.1>Z00.01</DG1.3.1><DG1.3.1>E03.9</DG1.3.1><DG1.3.1>E66.9</DG1.3.1><DG 1.3. Is patient fasting? N~.~.~<DG1.3.1>Z00.01</DG1.3.1><DG1.3.1>E03.9</DG1.3.1><DG1.3.1>E66.9</DG1.3 .~.~<DG1.3.1> Z00.01</DG1.3.1><DG1.3.1>E03.9</DG1.3.1><DG1.3.1>E66.9</DG1.3.1><DG1.3. Is patient fasting? N~.~.~<DG1.3.1>Z00.01</DG1.3.1><DG1.3.1>E03.9</DG1.3.1><DG1.3.1>E66.9</DG1.3 .~.~<DG1.3.1>Z00.01</DG1.3.1> <DG1.3.1>E03.9</DG1.3.1><DG1.3.1>E66.9</DG1.3.1><DG1.3. .~.~<DG1.3.1>Z00.01</DG1.3.1><DG1.3.1>E03.9</DG1.3.1><DG1.3.1>E66.9</DG1.3.1><DG 1.3. .~.~<DG1.3.1>Z00.01</DG1.3.1><DG1.3.1>E03.9</DG1.3.1> <DG1.3.1>E66.9</DG1.3.1><DG1.3. .~.~<DG1.3.1>Z00.01</DG1.3.1><DG1.3.1>E03.9</DG1.3.1><DG1.3.1>E66.9</DG1.3.1><DG 1.3. LDL 85 mg/dL 65-175 [facility] ([facility]) .~.~<DG1.3.1>Z00.01</DG1.3.1><DG1.3.1>E03.9</DG1.3.1><DG1.3.1>E66.9</DG1.3.1><DG 1.3. Is patient fasting? N~.~.~<DG1.3.1>Z00.01</DG1.3.1><DG1.3.1>E03.9</DG1.3.1><DG1.3.1>E66.9</DG1.3 .~.~<DG1.3.1> Z00.01</DG1.3.1><DG1.3.1>E03.9</DG1.3.1><DG1.3.1>E66.9</DG1.3.1><DG1.3. Is patient fasting? N~.~.~<DG1.3.1>Z00.01</DG1.3.1><DG1.3.1>E03.9</DG1.3.1><DG1.3.1>E66.9</DG1.3 .~.~<DG1.3.1>Z00.01</DG1.3.1> <DG1.3.1>E03.9</DG1.3.1><DG1.3.1>E66.9</DG1.3.1><DG1.3. .~.~<DG1.3.1>Z00.01</DG1.3.1><DG1.3.1>E03.9</DG1.3.1><DG1.3.1>E66.9</DG1.3.1><DG 1.3. .~.~<DG1.3.1>Z00.01</DG1.3.1><DG1.3.1>E03.9</DG1.3.1> <DG1.3.1>E66.9</DG1.3.1><DG1.3. .~.~<DG1.3.1>Z00.01</DG1.3.1><DG1.3.1>E03.9</DG1.3.1><DG1.3.1>E66.9</DG1.3.1><DG 1.3. Risk Factor 3.0 3.2-4.4 Below low normal [facility] ([facility]) .~.~<DG1.3.1>Z00.01</DG1.3.1><DG1.3.1>E03.9</DG1.3.1><DG1.3.1>E66.9</DG1.3.1><DG 1.3. Is patient fasting? N~.~.~<DG1.3.1>Z00.01</DG1.3.1><DG1.3.1>E03.9</DG1.3.1><DG1.3.1>E66.9</DG1.3 .~.~<DG1.3.1> Z00.01</DG1.3.1><DG1.3.1>E03.9</DG1.3.1><DG1.3.1>E66.9</DG1.3.1><DG1.3. Is patient fasting? N~.~.~<DG1.3.1>Z00.01</DG1.3.1><DG1.3.1>E03.9</DG1.3.1><DG1.3.1>E66.9</DG1.3 .~.~<DG1.3.1>Z00.01</DG1.3.1> <DG1.3.1>E03.9</DG1.3.1><DG1.3.1>E66.9</DG1.3.1><DG1.3. .~.~<DG1.3.1>Z00.01</DG1.3.1><DG1.3.1>E03.9</DG1.3.1><DG1.3.1>E66.9</DG1.3.1><DG 1.3. .~.~<DG1.3.1>Z00.01</DG1.3.1><DG1.3.1>E03.9</DG1.3.1> <DG1.3.1>E66.9</DG1.3.1><DG1.3. .~.~<DG1.3.1>Z00.01</DG1.3.1><DG1.3.1>E03.9</DG1.3.1><DG1.3.1>E66.9</DG1.3.1><DG 1.3. LDL/HDL 1.93 1.47-3.22 [facility] ([facility]) .~.~<DG1.3.1>Z00.01</DG1.3.1><DG1.3.1>E03.9</DG1.3.1><DG1.3.1>E66.9</DG1.3.1><DG 1.3. Is patient fasting? N~.~.~<DG1.3.1>Z00.01</DG1.3.1><DG1.3.1>E03.9</DG1.3.1><DG1.3.1>E66.9</DG1.3 .~.~<DG1.3.1> Z00.01</DG1.3.1><DG1.3.1>E03.9</DG1.3.1><DG1.3.1>E66.9</DG1.3.1><DG1.3. Is patient fasting? N~.~.~<DG1.3.1>Z00.01</DG1.3.1><DG1.3.1>E03.9</DG1.3.1><DG1.3.1>E66.9</DG1.3 .~.~<DG1.3.1>Z00.01</DG1.3.1> <DG1.3.1>E03.9</DG1.3.1><DG1.3.1>E66.9</DG1.3.1><DG1.3. .~.~<DG1.3.1>Z00.01</DG1.3.1><DG1.3.1>E03.9</DG1.3.1><DG1.3.1>E66.9</DG1.3.1><DG 1.3. .~.~<DG1.3.1>Z00.01</DG1.3.1><DG1.3.1>E03.9</DG1.3.1> <DG1.3.1>E66.9</DG1.3.1><DG1.3. .~.~<DG1.3.1>Z00.01</DG1.3.1><DG1.3.1>E03.9</DG1.3.1><DG1.3.1>E66.9</DG1.3.1><DG 1.3. ID Date Data Source [id number] 01/19/2021 10:22:00 AM EDT [facility] ([facility]) Name Value Range Interpretation Code Description Data Saray rce(s) Supporting Document(s) Thyrotropin [Units/volume] in Serum or Plasma 0.11 uIU/mL 0. 47-5.01 Below low normal [facility] ([facility]) .~.~<DG1.3.1>Z00.01</DG1.3.1><DG1.3.1>E03.9</DG1.3.1><DG1.3.1>E66.9</DG1.3.1><DG 1.3. Is patient fasting? N~.~.~<DG1.3.1>Z00.01</DG1.3.1><DG1.3.1>E03.9</DG1.3.1><DG1.3.1>E66.9</DG1.3 .~.~<DG1.3.1> Z00.01</DG1.3.1><DG1.3.1>E03.9</DG1.3.1><DG1.3.1>E66.9</DG1.3.1><DG1.3. Is patient fasting? N~.~.~<DG1.3.1>Z00.01</DG1.3.1><DG1.3.1>E03.9</DG1.3.1><DG1.3.1>E66.9</DG1.3 .~.~<DG1.3.1>Z00.01</DG1.3.1> <DG1.3.1>E03.9</DG1.3.1><DG1.3.1>E66.9</DG1.3.1><DG1.3. .~.~<DG1.3.1>Z00.01</DG1.3.1><DG1.3.1>E03.9</DG1.3.1><DG1.3.1>E66.9</DG1.3.1><DG 1.3. .~.~<DG1.3.1>Z00.01</DG1.3.1><DG1.3.1>E03.9</DG1.3.1> <DG1.3.1>E66.9</DG1.3.1><DG1.3. .~.~<DG1.3.1>Z00.01</DG1.3.1><DG1.3.1>E03.9</DG1.3.1><DG1.3.1>E66.9</DG1.3.1><DG 1.3. ID Date Data Source [id number] 01/19/2021 10:22:00 AM EDT [facility] ([facility]) Name Value Range Interpretation Code Description Data Sarya rce(s) Supporting Document(s) Comprehensive [employer] Laboratory test result [facility] ([facility]) .~.~<DG1.3.1>Z00.01</DG1.3.1><DG1.3.1>E03.9</DG1.3.1><DG1.3.1>E66.9</DG1.3.1><DG 1.3. Is patient fasting? N~.~.~<DG1.3.1>Z00.01</DG1.3.1><DG1.3.1>E03.9</DG1.3.1><DG1.3.1>E66.9</DG1.3 .~.~<DG1.3.1> Z00.01</DG1.3.1><DG1.3.1>E03.9</DG1.3.1><DG1.3.1>E66.9</DG1.3.1><DG1.3. Is patient fasting? N~.~.~<DG1.3.1>Z00.01</DG1.3.1><DG1.3.1>E03.9</DG1.3.1><DG1.3.1>E66.9</DG1.3 .~.~<DG1.3.1>Z00.01</DG1.3.1> <DG1.3.1>E03.9</DG1.3.1><DG1.3.1>E66.9</DG1.3.1><DG1.3. .~.~<DG1.3.1>Z00.01</DG1.3.1><DG1.3.1>E03.9</DG1.3.1><DG1.3.1>E66.9</DG1.3.1><DG 1.3. .~.~<DG1.3.1>Z00.01</DG1.3.1><DG1.3.1>E03.9</DG1.3.1> <DG1.3.1>E66.9</DG1.3.1><DG1.3. .~.~<DG1.3.1>Z00.01</DG1.3.1><DG1.3.1>E03.9</DG1.3.1><DG1.3.1>E66.9</DG1.3.1><DG 1.3. Sodium 141 meq/L 134-153 [facility] ([facility]) .~.~<DG1.3.1>Z00.01</DG1.3.1><DG1.3.1>E03.9</DG1.3.1><DG1.3.1>E66.9</DG1.3.1><DG 1.3. Is patient fasting? N~.~.~<DG1.3.1>Z00.01</DG1.3.1><DG1.3.1>E03.9</DG1.3.1><DG1.3.1>E66.9</DG1.3 .~.~<DG1.3.1> Z00.01</DG1.3.1><DG1.3.1>E03.9</DG1.3.1><DG1.3.1>E66.9</DG1.3.1><DG1.3. Is patient fasting? N~.~.~<DG1.3.1>Z00.01</DG1.3.1><DG1.3.1>E03.9</DG1.3.1><DG1.3.1>E66.9</DG1.3 .~.~<DG1.3.1>Z00.01</DG1.3.1> <DG1.3.1>E03.9</DG1.3.1><DG1.3.1>E66.9</DG1.3.1><DG1.3. .~.~<DG1.3.1>Z00.01</DG1.3.1><DG1.3.1>E03.9</DG1.3.1><DG1.3.1>E66.9</DG1.3.1><DG 1.3. .~.~<DG1.3.1>Z00.01</DG1.3.1><DG1.3.1>E03.9</DG1.3.1> <DG1.3.1>E66.9</DG1.3.1><DG1.3. .~.~<DG1.3.1>Z00.01</DG1.3.1><DG1.3.1>E03.9</DG1.3.1><DG1.3.1>E66.9</DG1.3.1><DG 1.3. Chloride 104 meq/L 98-107 [facility] ([facility]) .~.~<DG1.3.1>Z00.01</DG1.3.1><DG1.3.1>E03.9</DG1.3.1><DG1.3.1>E66.9</DG1.3.1><DG 1.3. Is patient fasting? N~.~.~<DG1.3.1>Z00.01</DG1.3.1><DG1.3.1>E03.9</DG1.3.1><DG1.3.1>E66.9</DG1.3 .~.~<DG1.3.1> Z00.01</DG1.3.1><DG1.3.1>E03.9</DG1.3.1><DG1.3.1>E66.9</DG1.3.1><DG1.3. Is patient fasting? N~.~.~<DG1.3.1>Z00.01</DG1.3.1><DG1.3.1>E03.9</DG1.3.1><DG1.3.1>E66.9</DG1.3 .~.~<DG1.3.1>Z00.01</DG1.3.1> <DG1.3.1>E03.9</DG1.3.1><DG1.3.1>E66.9</DG1.3.1><DG1.3. .~.~<DG1.3.1>Z00.01</DG1.3.1><DG1.3.1>E03.9</DG1.3.1><DG1.3.1>E66.9</DG1.3.1><DG 1.3. .~.~<DG1.3.1>Z00.01</DG1.3.1><DG1.3.1>E03.9</DG1.3.1> <DG1.3.1>E66.9</DG1.3.1><DG1.3. .~.~<DG1.3.1>Z00.01</DG1.3.1><DG1.3.1>E03.9</DG1.3.1><DG1.3.1>E66.9</DG1.3.1><DG 1.3. Potassium 4.2 meq/L 3.6-5.0 [facility] ([facility]) .~.~<DG1.3.1>Z00.01</DG1.3.1><DG1.3.1>E03.9</DG1.3.1><DG1.3.1>E66.9</DG1.3.1><DG 1.3. Is patient fasting? N~.~.~<DG1.3.1>Z00.01</DG1.3.1><DG1.3.1>E03.9</DG1.3.1><DG1.3.1>E66.9</DG1.3 .~.~<DG1.3.1> Z00.01</DG1.3.1><DG1.3.1>E03.9</DG1.3.1><DG1.3.1>E66.9</DG1.3.1><DG1.3. Is patient fasting? N~.~.~<DG1.3.1>Z00.01</DG1.3.1><DG1.3.1>E03.9</DG1.3.1><DG1.3.1>E66.9</DG1.3 .~.~<DG1.3.1>Z00.01</DG1.3.1> <DG1.3.1>E03.9</DG1.3.1><DG1.3.1>E66.9</DG1.3.1><DG1.3. .~.~<DG1.3.1>Z00.01</DG1.3.1><DG1.3.1>E03.9</DG1.3.1><DG1.3.1>E66.9</DG1.3.1><DG 1.3. .~.~<DG1.3.1>Z00.01</DG1.3.1><DG1.3.1>E03.9</DG1.3.1> <DG1.3.1>E66.9</DG1.3.1><DG1.3. .~.~<DG1.3.1>Z00.01</DG1.3.1><DG1.3.1>E03.9</DG1.3.1><DG1.3.1>E66.9</DG1.3.1><DG 1.3. Glucose 134 mg/dL 70-99 Above high normal [facility] ([facility]) .~.~<DG1.3.1>Z00.01</DG1.3.1><DG1.3.1>E03.9</DG1.3.1><DG1.3.1>E66.9</DG1.3.1><DG 1.3. Is patient fasting? N~.~.~<DG1.3.1>Z00.01</DG1.3.1><DG1.3.1>E03.9</DG1.3.1><DG1.3.1>E66.9</DG1.3 .~.~<DG1.3.1> Z00.01</DG1.3.1><DG1.3.1>E03.9</DG1.3.1><DG1.3.1>E66.9</DG1.3.1><DG1.3. Is patient fasting? N~.~.~<DG1.3.1>Z00.01</DG1.3.1><DG1.3.1>E03.9</DG1.3.1><DG1.3.1>E66.9</DG1.3 .~.~<DG1.3.1>Z00.01</DG1.3.1> <DG1.3.1>E03.9</DG1.3.1><DG1.3.1>E66.9</DG1.3.1><DG1.3. .~.~<DG1.3.1>Z00.01</DG1.3.1><DG1.3.1>E03.9</DG1.3.1><DG1.3.1>E66.9</DG1.3.1><DG 1.3. .~.~<DG1.3.1>Z00.01</DG1.3.1><DG1.3.1>E03.9</DG1.3.1> <DG1.3.1>E66.9</DG1.3.1><DG1.3. .~.~<DG1.3.1>Z00.01</DG1.3.1><DG1.3.1>E03.9</DG1.3.1><DG1.3.1>E66.9</DG1.3.1><DG 1.3. Co2 27 meq/L 22-30 [facility] ([facility]) .~.~<DG1.3.1>Z00.01</DG1.3.1><DG1.3.1>E03.9</DG1.3.1><DG1.3.1>E66.9</DG1.3.1><DG 1.3. Is patient fasting? N~.~.~<DG1.3.1>Z00.01</DG1.3.1><DG1.3.1>E03.9</DG1.3.1><DG1.3.1>E66.9</DG1.3 .~.~<DG1.3.1> Z00.01</DG1.3.1><DG1.3.1>E03.9</DG1.3.1><DG1.3.1>E66.9</DG1.3.1><DG1.3. Is patient fasting? N~.~.~<DG1.3.1>Z00.01</DG1.3.1><DG1.3.1>E03.9</DG1.3.1><DG1.3.1>E66.9</DG1.3 .~.~<DG1.3.1>Z00.01</DG1.3.1> <DG1.3.1>E03.9</DG1.3.1><DG1.3.1>E66.9</DG1.3.1><DG1.3. .~.~<DG1.3.1>Z00.01</DG1.3.1><DG1.3.1>E03.9</DG1.3.1><DG1.3.1>E66.9</DG1.3.1><DG 1.3. .~.~<DG1.3.1>Z00.01</DG1.3.1><DG1.3.1>E03.9</DG1.3.1> <DG1.3.1>E66.9</DG1.3.1><DG1.3. .~.~<DG1.3.1>Z00.01</DG1.3.1><DG1.3.1>E03.9</DG1.3.1><DG1.3.1>E66.9</DG1.3.1><DG 1.3. BUN 8 mg/[facility] 7[facility] .~.~<DG1.3.1>Z00.01</DG1.3.1><DG1.3.1>E03.9</DG1.3.1><DG1.3.1>E66.9</DG1.3.1><DG 1.3. Is patient fasting? N~.~.~<DG1.3.1>Z00.01</DG1.3.1><DG1.3.1>E03.9</DG1.3.1><DG1.3.1>E66.9</DG1.3 .~.~<DG1.3.1> Z00.01</DG1.3.1><DG1.3.1>E03.9</DG1.3.1><DG1.3.1>E66.9</DG1.3.1><DG1.3. Is patient fasting? N~.~.~<DG1.3.1>Z00.01</DG1.3.1><DG1.3.1>E03.9</DG1.3.1><DG1.3.1>E66.9</DG1.3 .~.~<DG1.3.1>Z00.01</DG1.3.1> <DG1.3.1>E03.9</DG1.3.1><DG1.3.1>E66.9</DG1.3.1><DG1.3. .~.~<DG1.3.1>Z00.01</DG1.3.1><DG1.3.1>E03.9</DG1.3.1><DG1.3.1>E66.9</DG1.3.1><DG 1.3. .~.~<DG1.3.1>Z00.01</DG1.3.1><DG1.3.1>E03.9</DG1.3.1> <DG1.3.1>E66.9</DG1.3.1><DG1.3. .~.~<DG1.3.1>Z00.01</DG1.3.1><DG1.3.1>E03.9</DG1.3.1><DG1.3.1>E66.9</DG1.3.1><DG 1.3. BUN/Kasandra 13 04-09 [facility] ([facility]) .~.~<DG1.3.1>Z00.01</DG1.3.1><DG1.3.1>E03.9</DG1.3.1><DG1.3.1>E66.9</DG1.3.1><DG 1.3. Is patient fasting? N~.~.~<DG1.3.1>Z00.01</DG1.3.1><DG1.3.1>E03.9</DG1.3.1><DG1.3.1>E66.9</DG1.3 .~.~<DG1.3.1> Z00.01</DG1.3.1><DG1.3.1>E03.9</DG1.3.1><DG1.3.1>E66.9</DG1.3.1><DG1.3. Is patient fasting? N~.~.~<DG1.3.1>Z00.01</DG1.3.1><DG1.3.1>E03.9</DG1.3.1><DG1.3.1>E66.9</DG1.3 .~.~<DG1.3.1>Z00.01</DG1.3.1> <DG1.3.1>E03.9</DG1.3.1><DG1.3.1>E66.9</DG1.3.1><DG1.3. .~.~<DG1.3.1>Z00.01</DG1.3.1><DG1.3.1>E03.9</DG1.3.1><DG1.3.1>E66.9</DG1.3.1><DG 1.3. .~.~<DG1.3.1>Z00.01</DG1.3.1><DG1.3.1>E03.9</DG1.3.1> <DG1.3.1>E66.9</DG1.3.1><DG1.3. .~.~<DG1.3.1>Z00.01</DG1.3.1><DG1.3.1>E03.9</DG1.3.1><DG1.3.1>E66.9</DG1.3.1><DG 1.3. Creatinine 0.6 mg/dL 0.7-1.5 Below low normal [facility] ( [facility]) .~.~<DG1.3.1>Z00.01</DG1.3.1><DG1.3.1>E03.9</DG1.3.1><DG1.3.1>E66.9</DG1.3.1><DG 1.3. Is patient fasting? N~.~.~<DG1.3.1>Z00.01</DG1.3.1><DG1.3.1>E03.9</DG1.3.1><DG1.3.1>E66.9</DG1.3 .~.~<DG1.3.1> Z00.01</DG1.3.1><DG1.3.1>E03.9</DG1.3.1><DG1.3.1>E66.9</DG1.3.1><DG1.3. Is patient fasting? N~.~.~<DG1.3.1>Z00.01</DG1.3.1><DG1.3.1>E03.9</DG1.3.1><DG1.3.1>E66.9</DG1.3 .~.~<DG1.3.1>Z00.01</DG1.3.1> <DG1.3.1>E03.9</DG1.3.1><DG1.3.1>E66.9</DG1.3.1><DG1.3. .~.~<DG1.3.1>Z00.01</DG1.3.1><DG1.3.1>E03.9</DG1.3.1><DG1.3.1>E66.9</DG1.3.1><DG 1.3. .~.~<DG1.3.1>Z00.01</DG1.3.1><DG1.3.1>E03.9</DG1.3.1> <DG1.3.1>E66.9</DG1.3.1><DG1.3. .~.~<DG1.3.1>Z00.01</DG1.3.1><DG1.3.1>E03.9</DG1.3.1><DG1.3.1>E66.9</DG1.3.1><DG 1.3. Globulin 3.1 GM/DL 2.4-3.2 [facility] ([facility]) .~.~<DG1.3.1>Z00.01</DG1.3.1><DG1.3.1>E03.9</DG1.3.1><DG1.3.1>E66.9</DG1.3.1><DG 1.3. Is patient fasting? N~.~.~<DG1.3.1>Z00.01</DG1.3.1><DG1.3.1>E03.9</DG1.3.1><DG1.3.1>E66.9</DG1.3 .~.~<DG1.3.1> Z00.01</DG1.3.1><DG1.3.1>E03.9</DG1.3.1><DG1.3.1>E66.9</DG1.3.1><DG1.3. Is patient fasting? N~.~.~<DG1.3.1>Z00.01</DG1.3.1><DG1.3.1>E03.9</DG1.3.1><DG1.3.1>E66.9</DG1.3 .~.~<DG1.3.1>Z00.01</DG1.3.1> <DG1.3.1>E03.9</DG1.3.1><DG1.3.1>E66.9</DG1.3.1><DG1.3. .~.~<DG1.3.1>Z00.01</DG1.3.1><DG1.3.1>E03.9</DG1.3.1><DG1.3.1>E66.9</DG1.3.1><DG 1.3. .~.~<DG1.3.1>Z00.01</DG1.3.1><DG1.3.1>E03.9</DG1.3.1> <DG1.3.1>E66.9</DG1.3.1><DG1.3. .~.~<DG1.3.1>Z00.01</DG1.3.1><DG1.3.1>E03.9</DG1.3.1><DG1.3.1>E66.9</DG1.3.1><DG 1.3. Albumin 3.8 g/dL 3.9-5.0 Below low normal [facility] ( [facility]) .~.~<DG1.3.1>Z00.01</DG1.3.1><DG1.3.1>E03.9</DG1.3.1><DG1.3.1>E66.9</DG1.3.1><DG 1.3. Is patient fasting? N~.~.~<DG1.3.1>Z00.01</DG1.3.1><DG1.3.1>E03.9</DG1.3.1><DG1.3.1>E66.9</DG1.3 .~.~<DG1.3.1> Z00.01</DG1.3.1><DG1.3.1>E03.9</DG1.3.1><DG1.3.1>E66.9</DG1.3.1><DG1.3. Is patient fasting? N~.~.~<DG1.3.1>Z00.01</DG1.3.1><DG1.3.1>E03.9</DG1.3.1><DG1.3.1>E66.9</DG1.3 .~.~<DG1.3.1>Z00.01</DG1.3.1> <DG1.3.1>E03.9</DG1.3.1><DG1.3.1>E66.9</DG1.3.1><DG1.3. .~.~<DG1.3.1>Z00.01</DG1.3.1><DG1.3.1>E03.9</DG1.3.1><DG1.3.1>E66.9</DG1.3.1><DG 1.3. .~.~<DG1.3.1>Z00.01</DG1.3.1><DG1.3.1>E03.9</DG1.3.1> <DG1.3.1>E66.9</DG1.3.1><DG1.3. .~.~<DG1.3.1>Z00.01</DG1.3.1><DG1.3.1>E03.9</DG1.3.1><DG1.3.1>E66.9</DG1.3.1><DG 1.3. Total Protein 6.9 g/dL 6.3-8.2 [facility]) .~.~<DG1.3.1>Z00.01</DG1.3.1><DG1.3.1>E03.9</DG1.3.1><DG1.3.1>E66.9</DG1.3.1><DG 1.3. Is patient fasting? N~.~.~<DG1.3.1>Z00.01</DG1.3.1><DG1.3.1>E03.9</DG1.3.1><DG1.3.1>E66.9</DG1.3 .~.~<DG1.3.1> Z00.01</DG1.3.1><DG1.3.1>E03.9</DG1.3.1><DG1.3.1>E66.9</DG1.3.1><DG1.3. Is patient fasting? N~.~.~<DG1.3.1>Z00.01</DG1.3.1><DG1.3.1>E03.9</DG1.3.1><DG1.3.1>E66.9</DG1.3 .~.~<DG1.3.1>Z00.01</DG1.3.1> <DG1.3.1>E03.9</DG1.3.1><DG1.3.1>E66.9</DG1.3.1><DG1.3. .~.~<DG1.3.1>Z00.01</DG1.3.1><DG1.3.1>E03.9</DG1.3.1><DG1.3.1>E66.9</DG1.3.1><DG 1.3. .~.~<DG1.3.1>Z00.01</DG1.3.1><DG1.3.1>E03.9</DG1.3.1> <DG1.3.1>E66.9</DG1.3.1><DG1.3. .~.~<DG1.3.1>Z00.01</DG1.3.1><DG1.3.1>E03.9</DG1.3.1><DG1.3.1>E66.9</DG1.3.1><DG 1.3. Calcium 9.0 mg/dL 8.4-10.2 [facility] ([facility]) .~.~<DG1.3.1>Z00.01</DG1.3.1><DG1.3.1>E03.9</DG1.3.1><DG1.3.1>E66.9</DG1.3.1><DG 1.3. Is patient fasting? N~.~.~<DG1.3.1>Z00.01</DG1.3.1><DG1.3.1>E03.9</DG1.3.1><DG1.3.1>E66.9</DG1.3 .~.~<DG1.3.1> Z00.01</DG1.3.1><DG1.3.1>E03.9</DG1.3.1><DG1.3.1>E66.9</DG1.3.1><DG1.3. Is patient fasting? N~.~.~<DG1.3.1>Z00.01</DG1.3.1><DG1.3.1>E03.9</DG1.3.1><DG1.3.1>E66.9</DG1.3 .~.~<DG1.3.1>Z00.01</DG1.3.1> <DG1.3.1>E03.9</DG1.3.1><DG1.3.1>E66.9</DG1.3.1><DG1.3. .~.~<DG1.3.1>Z00.01</DG1.3.1><DG1.3.1>E03.9</DG1.3.1><DG1.3.1>E66.9</DG1.3.1><DG 1.3. .~.~<DG1.3.1>Z00.01</DG1.3.1><DG1.3.1>E03.9</DG1.3.1> <DG1.3.1>E66.9</DG1.3.1><DG1.3. .~.~<DG1.3.1>Z00.01</DG1.3.1><DG1.3.1>E03.9</DG1.3.1><DG1.3.1>E66.9</DG1.3.1><DG 1.3. A/G Ratio 1.2 0.8-2.0 [facility] ([facility]) .~.~<DG1.3.1>Z00.01</DG1.3.1><DG1.3.1>E03.9</DG1.3.1><DG1.3.1>E66.9</DG1.3.1><DG 1.3. Is patient fasting? N~.~.~<DG1.3.1>Z00.01</DG1.3.1><DG1.3.1>E03.9</DG1.3.1><DG1.3.1>E66.9</DG1.3 .~.~<DG1.3.1> Z00.01</DG1.3.1><DG1.3.1>E03.9</DG1.3.1><DG1.3.1>E66.9</DG1.3.1><DG1.3. Is patient fasting? N~.~.~<DG1.3.1>Z00.01</DG1.3.1><DG1.3.1>E03.9</DG1.3.1><DG1.3.1>E66.9</DG1.3 .~.~<DG1.3.1>Z00.01</DG1.3.1> <DG1.3.1>E03.9</DG1.3.1><DG1.3.1>E66.9</DG1.3.1><DG1.3. .~.~<DG1.3.1>Z00.01</DG1.3.1><DG1.3.1>E03.9</DG1.3.1><DG1.3.1>E66.9</DG1.3.1><DG 1.3. .~.~<DG1.3.1>Z00.01</DG1.3.1><DG1.3.1>E03.9</DG1.3.1> <DG1.3.1>E66.9</DG1.3.1><DG1.3. .~.~<DG1.3.1>Z00.01</DG1.3.1><DG1.3.1>E03.9</DG1.3.1><DG1.3.1>E66.9</DG1.3.1><DG 1.3. Alkaline Phos 88 U/L 38-126 [facility] ([facility]) .~.~<DG1.3.1>Z00.01</DG1.3.1><DG1.3.1>E03.9</DG1.3.1><DG1.3.1>E66.9</DG1.3.1><DG 1.3. Is patient fasting? N~.~.~<DG1.3.1>Z00.01</DG1.3.1><DG1.3.1>E03.9</DG1.3.1><DG1.3.1>E66.9</DG1.3 .~.~<DG1.3.1> Z00.01</DG1.3.1><DG1.3.1>E03.9</DG1.3.1><DG1.3.1>E66.9</DG1.3.1><DG1.3. Is patient fasting? N~.~.~<DG1.3.1>Z00.01</DG1.3.1><DG1.3.1>E03.9</DG1.3.1><DG1.3.1>E66.9</DG1.3 .~.~<DG1.3.1>Z00.01</DG1.3.1> <DG1.3.1>E03.9</DG1.3.1><DG1.3.1>E66.9</DG1.3.1><DG1.3. .~.~<DG1.3.1>Z00.01</DG1.3.1><DG1.3.1>E03.9</DG1.3.1><DG1.3.1>E66.9</DG1.3.1><DG 1.3. .~.~<DG1.3.1>Z00.01</DG1.3.1><DG1.3.1>E03.9</DG1.3.1> <DG1.3.1>E66.9</DG1.3.1><DG1.3. .~.~<DG1.3.1>Z00.01</DG1.3.1><DG1.3.1>E03.9</DG1.3.1><DG1.3.1>E66.9</DG1.3.1><DG 1.3. Total Bili Laboratory test result 0.2-1.3 [facility] ([facility]) .~.~<DG1.3.1>Z00.01</DG1.3.1><DG1.3.1>E03.9</DG1.3.1><DG1.3.1>E66.9</DG1.3.1><DG 1.3. Is patient fasting? N~.~.~<DG1.3.1>Z00.01</DG1.3.1><DG1.3.1>E03.9</DG1.3.1><DG1.3.1>E66.9</DG1.3 .~.~<DG1.3.1> Z00.01</DG1.3.1><DG1.3.1>E03.9</DG1.3.1><DG1.3.1>E66.9</DG1.3.1><DG1.3. Is patient fasting? N~.~.~<DG1.3.1>Z00.01</DG1.3.1><DG1.3.1>E03.9</DG1.3.1><DG1.3.1>E66.9</DG1.3 .~.~<DG1.3.1>Z00.01</DG1.3.1> <DG1.3.1>E03.9</DG1.3.1><DG1.3.1>E66.9</DG1.3.1><DG1.3. .~.~<DG1.3.1>Z00.01</DG1.3.1><DG1.3.1>E03.9</DG1.3.1><DG1.3.1>E66.9</DG1.3.1><DG 1.3. .~.~<DG1.3.1>Z00.01</DG1.3.1><DG1.3.1>E03.9</DG1.3.1> <DG1.3.1>E66.9</DG1.3.1><DG1.3. .~.~<DG1.3.1>Z00.01</DG1.3.1><DG1.3.1>E03.9</DG1.3.1><DG1.3.1>E66.9</DG1.3.1><DG 1.3. Sgot/Ast 16 U/L 5-40 [facility] ([facility]) .~.~<DG1.3.1>Z00.01</DG1.3.1><DG1.3.1>E03.9</DG1.3.1><DG1.3.1>E66.9</DG1.3.1><DG 1.3. Is patient fasting? N~.~.~<DG1.3.1>Z00.01</DG1.3.1><DG1.3.1>E03.9</DG1.3.1><DG1.3.1>E66.9</DG1.3 .~.~<DG1.3.1> Z00.01</DG1.3.1><DG1.3.1>E03.9</DG1.3.1><DG1.3.1>E66.9</DG1.3.1><DG1.3. Is patient fasting? N~.~.~<DG1.3.1>Z00.01</DG1.3.1><DG1.3.1>E03.9</DG1.3.1><DG1.3.1>E66.9</DG1.3 .~.~<DG1.3.1>Z00.01</DG1.3.1> <DG1.3.1>E03.9</DG1.3.1><DG1.3.1>E66.9</DG1.3.1><DG1.3. .~.~<DG1.3.1>Z00.01</DG1.3.1><DG1.3.1>E03.9</DG1.3.1><DG1.3.1>E66.9</DG1.3.1><DG 1.3. .~.~<DG1.3.1>Z00.01</DG1.3.1><DG1.3.1>E03.9</DG1.3.1> <DG1.3.1>E66.9</DG1.3.1><DG1.3. .~.~<DG1.3.1>Z00.01</DG1.3.1><DG1.3.1>E03.9</DG1.3.1><DG1.3.1>E66.9</DG1.3.1><DG 1.3. Anion Gap 10.0 mmol/L 8.0-16.0 [facility]) .~.~<DG1.3.1>Z00.01</DG1.3.1><DG1.3.1>E03.9</DG1.3.1><DG1.3.1>E66.9</DG1.3.1><DG 1.3. Is patient fasting? N~.~.~<DG1.3.1>Z00.01</DG1.3.1><DG1.3.1>E03.9</DG1.3.1><DG1.3.1>E66.9</DG1.3 .~.~<DG1.3.1> Z00.01</DG1.3.1><DG1.3.1>E03.9</DG1.3.1><DG1.3.1>E66.9</DG1.3.1><DG1.3. Is patient fasting? N~.~.~<DG1.3.1>Z00.01</DG1.3.1><DG1.3.1>E03.9</DG1.3.1><DG1.3.1>E66.9</DG1.3 .~.~<DG1.3.1>Z00.01</DG1.3.1> <DG1.3.1>E03.9</DG1.3.1><DG1.3.1>E66.9</DG1.3.1><DG1.3. .~.~<DG1.3.1>Z00.01</DG1.3.1><DG1.3.1>E03.9</DG1.3.1><DG1.3.1>E66.9</DG1.3.1><DG 1.3. .~.~<DG1.3.1>Z00.01</DG1.3.1><DG1.3.1>E03.9</DG1.3.1> <DG1.3.1>E66.9</DG1.3.1><DG1.3. .~.~<DG1.3.1>Z00.01</DG1.3.1><DG1.3.1>E03.9</DG1.3.1><DG1.3.1>E66.9</DG1.3.1><DG 1.3. SGPT/Alt 13 U/L 7-56 [facility] ([facility]) .~.~<DG1.3.1>Z00.01</DG1.3.1><DG1.3.1>E03.9</DG1.3.1><DG1.3.1>E66.9</DG1.3.1><DG 1.3. Is patient fasting? N~.~.~<DG1.3.1>Z00.01</DG1.3.1><DG1.3.1>E03.9</DG1.3.1><DG1.3.1>E66.9</DG1.3 .~.~<DG1.3.1> Z00.01</DG1.3.1><DG1.3.1>E03.9</DG1.3.1><DG1.3.1>E66.9</DG1.3.1><DG1.3. Is patient fasting? N~.~.~<DG1.3.1>Z00.01</DG1.3.1><DG1.3.1>E03.9</DG1.3.1><DG1.3.1>E66.9</DG1.3 .~.~<DG1.3.1>Z00.01</DG1.3.1> <DG1.3.1>E03.9</DG1.3.1><DG1.3.1>E66.9</DG1.3.1><DG1.3. .~.~<DG1.3.1>Z00.01</DG1.3.1><DG1.3.1>E03.9</DG1.3.1><DG1.3.1>E66.9</DG1.3.1><DG 1.3. .~.~<DG1.3.1>Z00.01</DG1.3.1><DG1.3.1>E03.9</DG1.3.1> <DG1.3.1>E66.9</DG1.3.1><DG1.3. .~.~<DG1.3.1>Z00.01</DG1.3.1><DG1.3.1>E03.9</DG1.3.1><DG1.3.1>E66.9</DG1.3.1><DG 1.3. Non-Aa GFR Laboratory test result [facility] ([facility]) .~.~<DG1.3.1>Z00.01</DG1.3.1><DG1.3.1>E03.9</DG1.3.1><DG1.3.1>E66.9</DG1.3.1><DG 1.3. Is patient fasting? N~.~.~<DG1.3.1>Z00.01</DG1.3.1><DG1.3.1>E03.9</DG1.3.1><DG1.3.1>E66.9</DG1.3 .~.~<DG1.3.1> Z00.01</DG1.3.1><DG1.3.1>E03.9</DG1.3.1><DG1.3.1>E66.9</DG1.3.1><DG1.3. Is patient fasting? N~.~.~<DG1.3.1>Z00.01</DG1.3.1><DG1.3.1>E03.9</DG1.3.1><DG1.3.1>E66.9</DG1.3 .~.~<DG1.3.1>Z00.01</DG1.3.1> <DG1.3.1>E03.9</DG1.3.1><DG1.3.1>E66.9</DG1.3.1><DG1.3. .~.~<DG1.3.1>Z00.01</DG1.3.1><DG1.3.1>E03.9</DG1.3.1><DG1.3.1>E66.9</DG1.3.1><DG 1.3. .~.~<DG1.3.1>Z00.01</DG1.3.1><DG1.3.1>E03.9</DG1.3.1> <DG1.3.1>E66.9</DG1.3.1><DG1.3. .~.~<DG1.3.1>Z00.01</DG1.3.1><DG1.3.1>E03.9</DG1.3.1><DG1.3.1>E66.9</DG1.3.1><DG 1.3. Afr Amer GFR Laboratory test result [facility]) .~.~<DG1.3.1>Z00.01</DG1.3.1><DG1.3.1>E03.9</DG1.3.1><DG1.3.1>E66.9</DG1.3.1><DG 1.3. Is patient fasting? N~.~.~<DG1.3.1>Z00.01</DG1.3.1><DG1.3.1>E03.9</DG1.3.1><DG1.3.1>E66.9</DG1.3 .~.~<DG1.3.1> Z00.01</DG1.3.1><DG1.3.1>E03.9</DG1.3.1><DG1.3.1>E66.9</DG1.3.1><DG1.3. Is patient fasting? N~.~.~<DG1.3.1>Z00.01</DG1.3.1><DG1.3.1>E03.9</DG1.3.1><DG1.3.1>E66.9</DG1.3 .~.~<DG1.3.1>Z00.01</DG1.3.1> <DG1.3.1>E03.9</DG1.3.1><DG1.3.1>E66.9</DG1.3.1><DG1.3. .~.~<DG1.3.1>Z00.01</DG1.3.1><DG1.3.1>E03.9</DG1.3.1><DG1.3.1>E66.9</DG1.3.1><DG 1.3. .~.~<DG1.3.1>Z00.01</DG1.3.1><DG1.3.1>E03.9</DG1.3.1> <DG1.3.1>E66.9</DG1.3.1><DG1.3. .~.~<DG1.3.1>Z00.01</DG1.3.1><DG1.3.1>E03.9</DG1.3.1><DG1.3.1>E66.9</DG1.3.1><DG 1.3. Age 40 [facility] .~.~<DG1.3.1>Z00.01</DG1.3.1><DG1.3.1>E03.9</DG1.3.1><DG1.3.1>E66.9</DG1.3.1><DG 1.3. Is patient fasting? N~.~.~<DG1.3.1>Z00.01</DG1.3.1><DG1.3.1>E03.9</DG1.3.1><DG1.3.1>E66.9</DG1.3 .~.~<DG1.3.1> Z00.01</DG1.3.1><DG1.3.1>E03.9</DG1.3.1><DG1.3.1>E66.9</DG1.3.1><DG1.3. Is patient fasting? N~.~.~<DG1.3.1>Z00.01</DG1.3.1><DG1.3.1>E03.9</DG1.3.1><DG1.3.1>E66.9</DG1.3 .~.~<DG1.3.1>Z00.01</DG1.3.1> <DG1.3.1>E03.9</DG1.3.1><DG1.3.1>E66.9</DG1.3.1><DG1.3. .~.~<DG1.3.1>Z00.01</DG1.3.1><DG1.3.1>E03.9</DG1.3.1><DG1.3.1>E66.9</DG1.3.1><DG 1.3. .~.~<DG1.3.1>Z00.01</DG1.3.1><DG1.3.1>E03.9</DG1.3.1> <DG1.3.1>E66.9</DG1.3.1><DG1.3. .~.~<DG1.3.1>Z00.01</DG1.3.1><DG1.3.1>E03.9</DG1.3.1><DG1.3.1>E66.9</DG1.3.1><DG 1.3. ID Date Data Source [id number] 01/19/2021 10:22:00 AM EDT [facility] ([facility]) Name Value Range Interpretation Code Description Data Saray rce(s) Supporting Document(s) CBC No Diff Laboratory test result [facility] ([facility]) .~.~<DG1.3.1>Z00.01</DG1.3.1><DG1.3.1>E03.9</DG1.3.1><DG1.3.1>E66.9</DG1.3.1><DG 1.3. Is patient fasting? N~.~.~<DG1.3.1>Z00.01</DG1.3.1><DG1.3.1>E03.9</DG1.3.1><DG1.3.1>E66.9</DG1.3 .~.~<DG1.3.1> Z00.01</DG1.3.1><DG1.3.1>E03.9</DG1.3.1><DG1.3.1>E66.9</DG1.3.1><DG1.3. Is patient fasting? N~.~.~<DG1.3.1>Z00.01</DG1.3.1><DG1.3.1>E03.9</DG1.3.1><DG1.3.1>E66.9</DG1.3 .~.~<DG1.3.1>Z00.01</DG1.3.1> <DG1.3.1>E03.9</DG1.3.1><DG1.3.1>E66.9</DG1.3.1><DG1.3. .~.~<DG1.3.1>Z00.01</DG1.3.1><DG1.3.1>E03.9</DG1.3.1><DG1.3.1>E66.9</DG1.3.1><DG 1.3. .~.~<DG1.3.1>Z00.01</DG1.3.1><DG1.3.1>E03.9</DG1.3.1> <DG1.3.1>E66.9</DG1.3.1><DG1.3. .~.~<DG1.3.1>Z00.01</DG1.3.1><DG1.3.1>E03.9</DG1.3.1><DG1.3.1>E66.9</DG1.3.1><DG 1.3. WBC 7.7 10^3/uL 4.2-11.0 [facility] ([facility]) .~.~<DG1.3.1>Z00.01</DG1.3.1><DG1.3.1>E03.9</DG1.3.1><DG1.3.1>E66.9</DG1.3.1><DG 1.3. Is patient fasting? N~.~.~<DG1.3.1>Z00.01</DG1.3.1><DG1.3.1>E03.9</DG1.3.1><DG1.3.1>E66.9</DG1.3 .~.~<DG1.3.1> Z00.01</DG1.3.1><DG1.3.1>E03.9</DG1.3.1><DG1.3.1>E66.9</DG1.3.1><DG1.3. Is patient fasting? N~.~.~<DG1.3.1>Z00.01</DG1.3.1><DG1.3.1>E03.9</DG1.3.1><DG1.3.1>E66.9</DG1.3 .~.~<DG1.3.1>Z00.01</DG1.3.1> <DG1.3.1>E03.9</DG1.3.1><DG1.3.1>E66.9</DG1.3.1><DG1.3. .~.~<DG1.3.1>Z00.01</DG1.3.1><DG1.3.1>E03.9</DG1.3.1><DG1.3.1>E66.9</DG1.3.1><DG 1.3. .~.~<DG1.3.1>Z00.01</DG1.3.1><DG1.3.1>E03.9</DG1.3.1> <DG1.3.1>E66.9</DG1.3.1><DG1.3. .~.~<DG1.3.1>Z00.01</DG1.3.1><DG1.3.1>E03.9</DG1.3.1><DG1.3.1>E66.9</DG1.3.1><DG 1.3. Hemoglobin 11.1 g/dL 12.0-16.0 Below low normal [facility] ( [facility]) .~.~<DG1.3.1>Z00.01</DG1.3.1><DG1.3.1>E03.9</DG1.3.1><DG1.3.1>E66.9</DG1.3.1><DG 1.3. Is patient fasting? N~.~.~<DG1.3.1>Z00.01</DG1.3.1><DG1.3.1>E03.9</DG1.3.1><DG1.3.1>E66.9</DG1.3 .~.~<DG1.3.1> Z00.01</DG1.3.1><DG1.3.1>E03.9</DG1.3.1><DG1.3.1>E66.9</DG1.3.1><DG1.3. Is patient fasting? N~.~.~<DG1.3.1>Z00.01</DG1.3.1><DG1.3.1>E03.9</DG1.3.1><DG1.3.1>E66.9</DG1.3 .~.~<DG1.3.1>Z00.01</DG1.3.1> <DG1.3.1>E03.9</DG1.3.1><DG1.3.1>E66.9</DG1.3.1><DG1.3. .~.~<DG1.3.1>Z00.01</DG1.3.1><DG1.3.1>E03.9</DG1.3.1><DG1.3.1>E66.9</DG1.3.1><DG 1.3. .~.~<DG1.3.1>Z00.01</DG1.3.1><DG1.3.1>E03.9</DG1.3.1> <DG1.3.1>E66.9</DG1.3.1><DG1.3. .~.~<DG1.3.1>Z00.01</DG1.3.1><DG1.3.1>E03.9</DG1.3.1><DG1.3.1>E66.9</DG1.3.1><DG 1.3. RBC 3.74 10^6/uL 4.20-5.40 Below low normal [facility] ([facility]) .~.~<DG1.3.1>Z00.01</DG1.3.1><DG1.3.1>E03.9</DG1.3.1><DG1.3.1>E66.9</DG1.3.1><DG 1.3. Is patient fasting? N~.~.~<DG1.3.1>Z00.01</DG1.3.1><DG1.3.1>E03.9</DG1.3.1><DG1.3.1>E66.9</DG1.3 .~.~<DG1.3.1> Z00.01</DG1.3.1><DG1.3.1>E03.9</DG1.3.1><DG1.3.1>E66.9</DG1.3.1><DG1.3. Is patient fasting? N~.~.~<DG1.3.1>Z00.01</DG1.3.1><DG1.3.1>E03.9</DG1.3.1><DG1.3.1>E66.9</DG1.3 .~.~<DG1.3.1>Z00.01</DG1.3.1> <DG1.3.1>E03.9</DG1.3.1><DG1.3.1>E66.9</DG1.3.1><DG1.3. .~.~<DG1.3.1>Z00.01</DG1.3.1><DG1.3.1>E03.9</DG1.3.1><DG1.3.1>E66.9</DG1.3.1><DG 1.3. .~.~<DG1.3.1>Z00.01</DG1.3.1><DG1.3.1>E03.9</DG1.3.1> <DG1.3.1>E66.9</DG1.3.1><DG1.3. .~.~<DG1.3.1>Z00.01</DG1.3.1><DG1.3.1>E03.9</DG1.3.1><DG1.3.1>E66.9</DG1.3.1><DG 1.3. MCH 29.7 pg 27.0-34.0 [facility] .~.~<DG1.3.1>Z00.01</DG1.3.1><DG1.3.1>E03.9</DG1.3.1><DG1.3.1>E66.9</DG1.3.1><DG 1.3. Is patient fasting? N~.~.~<DG1.3.1>Z00.01</DG1.3.1><DG1.3.1>E03.9</DG1.3.1><DG1.3.1>E66.9</DG1.3 .~.~<DG1.3.1> Z00.01</DG1.3.1><DG1.3.1>E03.9</DG1.3.1><DG1.3.1>E66.9</DG1.3.1><DG1.3. Is patient fasting? N~.~.~<DG1.3.1>Z00.01</DG1.3.1><DG1.3.1>E03.9</DG1.3.1><DG1.3.1>E66.9</DG1.3 .~.~<DG1.3.1>Z00.01</DG1.3.1> <DG1.3.1>E03.9</DG1.3.1><DG1.3.1>E66.9</DG1.3.1><DG1.3. .~.~<DG1.3.1>Z00.01</DG1.3.1><DG1.3.1>E03.9</DG1.3.1><DG1.3.1>E66.9</DG1.3.1><DG 1.3. .~.~<DG1.3.1>Z00.01</DG1.3.1><DG1.3.1>E03.9</DG1.3.1> <DG1.3.1>E66.9</DG1.3.1><DG1.3. .~.~<DG1.3.1>Z00.01</DG1.3.1><DG1.3.1>E03.9</DG1.3.1><DG1.3.1>E66.9</DG1.3.1><DG 1.3. MCV 93.6 fL 81.0-101 [facility] .~.~<DG1.3.1>Z00.01</DG1.3.1><DG1.3.1>E03.9</DG1.3.1><DG1.3.1>E66.9</DG1.3.1><DG 1.3. Is patient fasting? N~.~.~<DG1.3.1>Z00.01</DG1.3.1><DG1.3.1>E03.9</DG1.3.1><DG1.3.1>E66.9</DG1.3 .~.~<DG1.3.1> Z00.01</DG1.3.1><DG1.3.1>E03.9</DG1.3.1><DG1.3.1>E66.9</DG1.3.1><DG1.3. Is patient fasting? N~.~.~<DG1.3.1>Z00.01</DG1.3.1><DG1.3.1>E03.9</DG1.3.1><DG1.3.1>E66.9</DG1.3 .~.~<DG1.3.1>Z00.01</DG1.3.1> <DG1.3.1>E03.9</DG1.3.1><DG1.3.1>E66.9</DG1.3.1><DG1.3. .~.~<DG1.3.1>Z00.01</DG1.3.1><DG1.3.1>E03.9</DG1.3.1><DG1.3.1>E66.9</DG1.3.1><DG 1.3. .~.~<DG1.3.1>Z00.01</DG1.3.1><DG1.3.1>E03.9</DG1.3.1> <DG1.3.1>E66.9</DG1.3.1><DG1.3. .~.~<DG1.3.1>Z00.01</DG1.3.1><DG1.3.1>E03.9</DG1.3.1><DG1.3.1>E66.9</DG1.3.1><DG 1.3. Hematocrit 35.0 % 37.0-47.0 Below low normal [facility] ( [facility]) .~.~<DG1.3.1>Z00.01</DG1.3.1><DG1.3.1>E03.9</DG1.3.1><DG1.3.1>E66.9</DG1.3.1><DG 1.3. Is patient fasting? N~.~.~<DG1.3.1>Z00.01</DG1.3.1><DG1.3.1>E03.9</DG1.3.1><DG1.3.1>E66.9</DG1.3 .~.~<DG1.3.1> Z00.01</DG1.3.1><DG1.3.1>E03.9</DG1.3.1><DG1.3.1>E66.9</DG1.3.1><DG1.3. Is patient fasting? N~.~.~<DG1.3.1>Z00.01</DG1.3.1><DG1.3.1>E03.9</DG1.3.1><DG1.3.1>E66.9</DG1.3 .~.~<DG1.3.1>Z00.01</DG1.3.1> <DG1.3.1>E03.9</DG1.3.1><DG1.3.1>E66.9</DG1.3.1><DG1.3. .~.~<DG1.3.1>Z00.01</DG1.3.1><DG1.3.1>E03.9</DG1.3.1><DG1.3.1>E66.9</DG1.3.1><DG 1.3. .~.~<DG1.3.1>Z00.01</DG1.3.1><DG1.3.1>E03.9</DG1.3.1> <DG1.3.1>E66.9</DG1.3.1><DG1.3. .~.~<DG1.3.1>Z00.01</DG1.3.1><DG1.3.1>E03.9</DG1.3.1><DG1.3.1>E66.9</DG1.3.1><DG 1.3. RDW 15.5 % 11.5-14.5 Above high normal [facility] ([facility]) .~.~<DG1.3.1>Z00.01</DG1.3.1><DG1.3.1>E03.9</DG1.3.1><DG1.3.1>E66.9</DG1.3.1><DG 1.3. Is patient fasting? N~.~.~<DG1.3.1>Z00.01</DG1.3.1><DG1.3.1>E03.9</DG1.3.1><DG1.3.1>E66.9</DG1.3 .~.~<DG1.3.1> Z00.01</DG1.3.1><DG1.3.1>E03.9</DG1.3.1><DG1.3.1>E66.9</DG1.3.1><DG1.3. Is patient fasting? N~.~.~<DG1.3.1>Z00.01</DG1.3.1><DG1.3.1>E03.9</DG1.3.1><DG1.3.1>E66.9</DG1.3 .~.~<DG1.3.1>Z00.01</DG1.3.1> <DG1.3.1>E03.9</DG1.3.1><DG1.3.1>E66.9</DG1.3.1><DG1.3. .~.~<DG1.3.1>Z00.01</DG1.3.1><DG1.3.1>E03.9</DG1.3.1><DG1.3.1>E66.9</DG1.3.1><DG 1.3. .~.~<DG1.3.1>Z00.01</DG1.3.1><DG1.3.1>E03.9</DG1.3.1> <DG1.3.1>E66.9</DG1.3.1><DG1.3. .~.~<DG1.3.1>Z00.01</DG1.3.1><DG1.3.1>E03.9</DG1.3.1><DG1.3.1>E66.9</DG1.3.1><DG 1.3. MCHC 31.7 g/dL 31.0-36.0 [facility] ([facility]) .~.~<DG1.3.1>Z00.01</DG1.3.1><DG1.3.1>E03.9</DG1.3.1><DG1.3.1>E66.9</DG1.3.1><DG 1.3. Is patient fasting? N~.~.~<DG1.3.1>Z00.01</DG1.3.1><DG1.3.1>E03.9</DG1.3.1><DG1.3.1>E66.9</DG1.3 .~.~<DG1.3.1> Z00.01</DG1.3.1><DG1.3.1>E03.9</DG1.3.1><DG1.3.1>E66.9</DG1.3.1><DG1.3. Is patient fasting? N~.~.~<DG1.3.1>Z00.01</DG1.3.1><DG1.3.1>E03.9</DG1.3.1><DG1.3.1>E66.9</DG1.3 .~.~<DG1.3.1>Z00.01</DG1.3.1> <DG1.3.1>E03.9</DG1.3.1><DG1.3.1>E66.9</DG1.3.1><DG1.3. .~.~<DG1.3.1>Z00.01</DG1.3.1><DG1.3.1>E03.9</DG1.3.1><DG1.3.1>E66.9</DG1.3.1><DG 1.3. .~.~<DG1.3.1>Z00.01</DG1.3.1><DG1.3.1>E03.9</DG1.3.1> <DG1.3.1>E66.9</DG1.3.1><DG1.3. .~.~<DG1.3.1>Z00.01</DG1.3.1><DG1.3.1>E03.9</DG1.3.1><DG1.3.1>E66.9</DG1.3.1><DG 1.3. Platelets 289 10^3/uL 150-450 [facility] ([facility]) .~.~<DG1.3.1>Z00.01</DG1.3.1><DG1.3.1>E03.9</DG1.3.1><DG1.3.1>E66.9</DG1.3.1><DG 1.3. Is patient fasting? N~.~.~<DG1.3.1>Z00.01</DG1.3.1><DG1.3.1>E03.9</DG1.3.1><DG1.3.1>E66.9</DG1.3 .~.~<DG1.3.1> Z00.01</DG1.3.1><DG1.3.1>E03.9</DG1.3.1><DG1.3.1>E66.9</DG1.3.1><DG1.3. Is patient fasting? N~.~.~<DG1.3.1>Z00.01</DG1.3.1><DG1.3.1>E03.9</DG1.3.1><DG1.3.1>E66.9</DG1.3 .~.~<DG1.3.1>Z00.01</DG1.3.1> <DG1.3.1>E03.9</DG1.3.1><DG1.3.1>E66.9</DG1.3.1><DG1.3. .~.~<DG1.3.1>Z00.01</DG1.3.1><DG1.3.1>E03.9</DG1.3.1><DG1.3.1>E66.9</DG1.3.1><DG 1.3. .~.~<DG1.3.1>Z00.01</DG1.3.1><DG1.3.1>E03.9</DG1.3.1> <DG1.3.1>E66.9</DG1.3.1><DG1.3. .~.~<DG1.3.1>Z00.01</DG1.3.1><DG1.3.1>E03.9</DG1.3.1><DG1.3.1>E66.9</DG1.3.1><DG 1.3. MPV 10.8 fL 7.4-10.4 Above high normal [facility] ([facility]) .~.~<DG1.3.1>Z00.01</DG1.3.1><DG1.3.1>E03.9</DG1.3.1><DG1.3.1>E66.9</DG1.3.1><DG 1.3. Is patient fasting? N~.~.~<DG1.3.1>Z00.01</DG1.3.1><DG1.3.1>E03.9</DG1.3.1><DG1.3.1>E66.9</DG1.3 .~.~<DG1.3.1> Z00.01</DG1.3.1><DG1.3.1>E03.9</DG1.3.1><DG1.3.1>E66.9</DG1.3.1><DG1.3. Is patient fasting? N~.~.~<DG1.3.1>Z00.01</DG1.3.1><DG1.3.1>E03.9</DG1.3.1><DG1.3.1>E66.9</DG1.3 .~.~<DG1.3.1>Z00.01</DG1.3.1> <DG1.3.1>E03.9</DG1.3.1><DG1.3.1>E66.9</DG1.3.1><DG1.3. .~.~<DG1.3.1>Z00.01</DG1.3.1><DG1.3.1>E03.9</DG1.3.1><DG1.3.1>E66.9</DG1.3.1><DG 1.3. .~.~<DG1.3.1>Z00.01</DG1.3.1><DG1.3.1>E03.9</DG1.3.1> <DG1.3.1>E66.9</DG1.3.1><DG1.3. .~.~<DG1.3.1>Z00.01</DG1.3.1><DG1.3.1>E03.9</DG1.3.1><DG1.3.1>E66.9</DG1.3.1><DG 1.3. ID Date Data Source [id number] 01/20/2021 09:38:00 AM EDT [facility] Value Range Interpretation Code Description Data Saray rce(s) Supporting Document(s) Thyroperoxidase Ab [Units/volume] in Serum or Plasma <9 IU/mL 0-[address] [facility] Thyroglobulin Ab [Units/volume] in Serum or Plasma <1.0 IU/mL 0.0-0.[address] [facility] Thyroglobulin Antibody measured by [employer] Methodology ID Date Data Source [id number] 01/19/2021 02:09:00 PM EDT [facility] Name Value Range Interpretation Code Description Data Saray rce(s) Supporting Document(s) Calcidiol [Moles/volume] in Serum or Plasma 7 NG/ML [facility] VITAMIN-D(2 5HYDROXY) Deficiency: <=20 ng/ml Insufficiency: 21-29 ng/ml Preferred level: => 30 ng/ml ID Date Data Source [id number] 01/19/2021 02:09:[address] [facility] Name Value Range Interpretation Code Description Data Saray rce(s) Supporting Document(s) Folate [Mass/volume] in Serum or Plasma 9.6 NG/ML 4.4 - 31.[address] [facility] ID Date Data Source [id number] 01/19/2021 02:09:00 PM EDT [facility] Value Range Interpretation Code Description Data Saray rce(s) Supporting Document(s) Cobalamin (Vitamin B12) [Mass/volume] in Serum or Plasma 199 PG/ML 232 - [address] [facility] ID Date Data Source [id number] 01/19/2021 01:38:00 PM EDT [facility] Value Range Interpretation Code Description Data Saray rce(s) Supporting Document(s) Iron [Mass/volume] in Serum or Plasma 49 UG/DL 42 - [address] [facility] ID Date Data Source [id number] 01/19/2021 01:38:00 PM EDT [facility] Value Range Interpretation Code Description Data Saray rce(s) Supporting Document(s) [facility] L[facility] Cholesterol [Mass/volume] in Serum or Plasma 133 MG/DL 131 - [address] [facility] Deprecated Triglyceride [Mass/volume] in Serum or Plasma 68 MG/DL 3 5 - [address] [facility] HDL 44 MG/DL 29 - 86 [facility] Cholesterol in LDL [Mass/volume] in Serum or Plasma by Direc t assay 85 mg/dL 65 - [address] [facility] Cholesterol.total/Cholesterol in HDL [Mass Ratio] in Serum o r Plasma 3.0 3.2 - 4.[address] [facility] LDL/HDL 1.93 1.47 - 3.22 [facility] CVE RISK CHOL/HDL LDL/HDLMEN: 1/2 AVERAGE 3.43 1.00 AVERAGE 4.97 3.55 2X AVERAGE 9.55 6.25 3X AVERAGE 23.99 7.99WOMEN: 1/2 AVERAGE 3.27 1.47 AVERAGE 4.44 3.22 2X AVERAGE 7.05 5.03 3X AVERAGE 11.04 6.14 ID Date Data Source [id number] 01/19/2021 01:23:[address] [facility] Name Value Range Interpretation Code Description Data Saray rce(s) Supporting Document(s) Thyrotropin [Units/volume] in Serum or Plasma by Detec tion limit <= 0.05 mIU/L 0.11 uIU/mL 0.47 - 5.[address] [facility] ID Date Data Source [id number] 01/19/2021 01:23:[address] [facility] Name Value Range Interpretation Code Description Data Saray rce(s) Supporting Document(s) COMPREHENSIVE METABOLIC PANEL [facility] COMPREHENSIVE METABOLIC PANEL Sodium [Moles/volume] in Serum or Plasma 141 mEq/L 134 - [address] [facility] Potassium [Moles/volume] in Serum or Plasma 4.2 mEq/L 3.6 - 5.[address] [facility] Chloride [Moles/volume] in Serum or Plasma 104 mEq/L 98 - [address] [facility] Carbon dioxide, total [Moles/volume] in Serum or Plasma 27 MEQ/L 22 - [address] [facility] Glucose [Mass/volume] in Serum or Plasma 134 MG/DL 70 - [address] [facility] BUN 8 MG/DL 7 - 21 [facility] Creatinine [Mass/volume] in Serum or Plasma 0.6 MG/DL 0.7 - 1.[address] [facility] BUN/CREAT 13 8 - 27 [facility] al Protein [Mass/volume] in Serum or Plasma 6.9 G/DL 6.3 - 8.[address] [facility] Albumin [Mass/volume] in Serum or Plasma 3.8 G/DL 3.9 - 5.[address] [facility] Globulin [Mass/volume] in Serum by calculation 3.1 GM/DL 2.4 - 3.[address] [facility] A/G RATIO 1.2 0.8 - 2.0 [facility] Calcium [Mass/volume] in Serum or Plasma 9.0 MG/DL 8.4 - 10.[address] [facility] Bilirubin.total [Mass/volume] in Serum or Plasma <0.7 MG/DL 0.2 - 1.[address] [facility] Alkaline phosphatase [Enzymatic activity/volume] in Serum or Plasma 88 U/L 38 - [address] [facility] Aspartate aminotransferase [Enzymatic activity/volume] in Serum or Plasma 16 U/L 5 - [address] [facility] Alanine aminotransferase [Enzymatic activity/volume] in Seru m or Plasma 13 U/L 7 - [address] [facility] Anion gap 3 in Serum or Plasma 10.0 mmol/L 8.0 - 16.[address] [facility] AGE 40 yrs [facility] NON-AA GFR >60 mL/min [facility] AFR AMER GFR >60 mL/min [facility] spital Male GFR In terprentation 20-49 [...] >32 mL/min Normal ID Date Data Source [id number] 01/19/2021 12:55:[address] [facility] Name Value Range Interpretation Code Description Data Saray rce(s) Supporting Document(s) Hemoglobin A1c/Hemoglobin.total in Blood 6.0 % 4.4 - 6.[address] [facility] {A1]{HB] ID Date Data Source [id number] 01/19/2021 12:54:[address] [facility] Name Value Range Interpretation Code Description Data Saray rce(s) Supporting Document(s) CBC NO DIFF [facility] ital COMPLETE BLOOD COUNT Leukocytes [#/volume] in Blood by Automated count 7.7 10^3/uL 4.2 - [address] [facility] Erythrocytes [#/volume] in Blood by Automated count 3.74 10^6/uL 4. 20 - 5.[address] [facility] Hemoglobin [Mass/volume] in Blood 11.1 g/dL 12.0 - 16.[address] [facility] Hematocrit [Volume Fraction] of Blood by Automated count 35.0 % 3 7.0 - 47.[address] [facility] Erythrocyte mean corpuscular volume [Entitic volume] by Auto mated count 93.6 fL 81.0 - [address] [facility] Erythrocyte mean corpuscular hemoglobin [Entitic mass] by Automated count 29.7 pg 27.0 - 34.[address] [facility] Erythrocyte mean corpuscular hemoglobin concentration [Mass/volume] by Automated count 31.7 g/dL 31.0 - 36.[address] [facility] Erythrocyte distribution width [Ratio] by Automated count 15.5 % 11.5 - 14.[address] [facility] Platelets [#/volume] in Blood by Automated count 289 10^3/uL 150 - [address] [facility] Platelet mean volume [Entitic volume] in Blood by Automated count 10.8 fL 7.4 - 10.[address] [facility] ID Date Data Source [id number] 12/13/2020 08:32:00 AM EDT [facility] ([facility]) Name Value Range Interpretation Code Description Data Saray rce(s) Supporting Document(s) Trichomonas vaginalis rRNA [Presence] in Unspecified specimen by Probe and target amplification method Laboratory test result [facility] ([facility]) A negative test result does not exclude the possibility of infection because test results may be affected by improper specimen collection, technical error, sample mix-up, or because the number of organisms in the sample is below the limit of detection of the test. ID Date Data Source [id number] 12/13/2020 08:32:00 AM EDT [facility] ([facility]) Name Value Range Interpretation Code Description Data Saray rce(s) Supporting Document(s) Bacteria identified in Urine by Culture Laboratory test result [facility] ([facility]) <content>FULL REPORT IN LAB NOTES ([facility]</content>
<content></content>
<content>ORGANISM 1: ESCHERICHIA COLI</content>
<content></content>
[...] FOR ESBL</content>
<content></content> ID Date Data Source [id number] 12/10/2020 04:20:00 PM EDT [facility] ([facility]) Name Value Range Interpretation Code Description Data Saray rce(s) Supporting Document(s) US Abd Complete Laboratory test result [facility] ([facility]) US Pelvic Laboratory test result [facility] ([facility]) ID Date Data Source [id number] 11/23/2020 09:19:00 AM EDT [facility] ([facility]) Name Value Range Interpretation Code Description Data Saray rce(s) Supporting Document(s) Bacteria identified in Urine by Culture Laboratory test result [facility] ([facility]) <content>FULL REPORT IN LAB NOTES (eCW a [...] <=1 S</content>
<content></content> ID Date Data Source [id number] 11/02/2020 05:32:[address] [facility]) Name Value Range Interpretation Code Description Data Saray rce(s) Supporting Document(s) Trichomonas vaginalis rRNA [Presence] in Unspecified specimen by Probe and target amplification method Laboratory test result [facility] ([facility]) A negative test result does not exclude the possibility of infection because test results may be affected by improper specimen collection, technical error, sample mix-up, or because the number of organisms in the sample is below the limit of detection of the test. ID Date Data Source [id number] 11/02/2020 05:32:[address] [facility]) Name Value Range Interpretation Code Description Data Saray rce(s) Supporting Document(s) Bacteria identified in Urine by Culture Laboratory test result [facility] ([facility]) <content>FULL REPORT IN LAB [...] <=1 S</content>
<content></content> ID Date Data Source [id number] 11/02/2020 05:28:00 PM EDT [facility] ([facility]) Name Value Range Interpretation Code Description Data Saray rce(s) Supporting Document(s) Bacteria identified in Urine by Culture Laboratory test result [facility] ([facility]) ID Date Data Source [id number] 07/30/2020 01:59:35 PM [facility] Name Value Range Interpretation Code Description Data Saray rce(s) Supporting Document(s) Progress Note [facility] HUCNOu7rPzIOJiNq33/BSQfnDHGzp4UuAQoyYGc6DUetKXKhC0VhBBC7qJ8oQTE1UNtLMoRgLnOjNoS8 lbm [file] ppPLGoJwGo79/malt house loader+FsYQ5uUovtbM+DrmRSP57o0ei [file] ICAgICAgICAgICAgICAgICAgICAgICAgICAgICAgIC AgICAgICAgICAgICAgICAgICAgICAgICAgICAgICAgICAgICAgICANCiAgICAgICAgICAgICAgICAgIC AgICAgICAgICAgICAgICAgICAgICAgICAgICAgICAgICAgICAgICAgICAgICAgICAgICAgICAgICAgIC AgICAgICAgICAgICAgICAgICAgICANCiAgICAgICAg ICAgICAgICAgICAgICAgICAgICAgICAgICAgICAgICAgICAgICAgICAgICAgICAgICAgICAgICAgICAg ICAgICAgICAgICAgICAgICAgICAgICAgICAgICAgICANCiAgICAgICAgICAgICAgICAgICAgICAgICAg ICAgICAgICAgICAgICAgICAgICAgICAgICAgICAgIC AgICAgICAgICAgICAgICAgICAgICAgICAgICAgICAgICAgICAgICAgICANCiAgICAgICAgICAgICAgIC AgICAgICAgICAgICAgICAgICAgICAgICAgICAgICAgICAgICAgICAgICAgICAgICAgICAgICAgICAgIC AgICAgICAgICAgICAgICAgICAgICAgICANCiAgICAg ICAgICAgICAgICAgICAgICAgICAgICAgICAgICAgICAgICAgICAgICAgICAgICAgICAgICAgICAgICAg ICAgICAgICAgICAgICAgICAgICAgICAgICAgICAgICAgICANCiAgICAgICAgICAgICAgICAgICAgICAg ICAgICAgICAgICAgICAgICAgICAgICAgICAgICAgIC AgICAgICAgICAgICAgICAgICAgICAgICAgICAgICAgICAgICAgICAgICAgICANCiAgICAgICAgICAgIC AgICAgICAgICAgICAgICAgICAgICAgICAgICAgICAgICAgICAgICAgICAgICAgICAgICAgICAgICAgIC AgICAgICAgICAgICAgICAgICAgICAgICAgICANCiAg ICAgICAgICAgICAgICAgICAgICAgICAgICAgICAgICAgICAgICAgICAgICAgICAgICAgICAgICAgICAg ICAgICAgICAgICAgICAgICAgICAgICAgICAgICAgICAgICAgICANCiAgICAgICAgICAgICAgICAgICAg ICAgICAgICAgICAgICAgICAgICAgICAgICAgICAgIC AgICAgICAgICAgICAgICAgICAgICAgICAgICAgICAgICAgICAgICAgICAgICAgICANCjw/cITpJ5qqyU EysyK0G0rgKz2UUv9UMU8sv4HrLYBiVBwmwjLgLwhNAuUjHHPdYouUYlg6OOreOB0VuDDkK0YsQ7HhWO acYS3APEBuRDQctCAnIZCdNQVsXtV7QITpZWojEE2F kADhLPqmCLSxSDBnDeMmHWHtDDQrYJMvCDJfCJOASJ1SIiPxE2NmrL77JYBLVd4+DQplbmRvYmoNCjMx BVQhf8DnWMk0GM9MRBGfJhlbv1DxKhHhHUOZTYsyAG9TOWN0URBlJVRqNh7PDFGzQ024iyRlRO7ERy4A AbXiKJ5ccw7IHtEcIJQjTktCSqg9HZdaVB2SaZXjDU xTur7cvwTsupKLy5ZctvUyvOUFiLX0vKXmGzCYr1WqELGMTXZilLPnVi2yJd0gMRYgBMAiHrRzXMBUTJ 5LTGNfUYIbpQNwWXPcSICSQA7KWWijMZG9ZIQjtmNwfUPxMHjcQS6LHFFomtNmZnIeXOMUWLv+Pg0KZW 1xa6VzMVfvMsSmSJ1sma2SJEaDKzJzR1S1ePQkD4R3 JGuuHj1OXCEuFWDmCwyfNRKPFNxsBK4NKS0dfbQ1MU1VzESgYKQbZUOxxZTtXPf3J67roHSvAWbdYZ2M ICA+Jane+Wc5WKPFkXEEyAGShNdXmYOMRNoLbP7WzM2RHx2CrB8ShDR88tTpmikXjHXhdRE3STI6bXJNd VUVPNU4TaOUebZ0xahDlCZLzHYUESwKgL56wlACaRG IfRTTjOZXoVp5GIJGyI4XfhnXanRmuwzVsWRSrPSAVEY3ZALkhrdJimHPmxYljRI36rCkcIU6DTd9UCv GjSZ5sug8SmQNsXn8FAWRgBR6JIVZkHQZfFEJhZVA2WDRcIpTcMZsfFLMwLBHoWXJ5EOXtZVYuBO6JAt LfKMKiHJQyFZNmEUSnKIEsub6ASDAtAWN3TYf3VmIh CEIhGMAbFTcyGMKbKDTaIXD5BCMyPNNuQW2RGaWfILJeTUY3CoIjDUSwTNUitn0TXBExZKQhNiekYMYi QXXhXZQzOWazZXAkFZA6GhUfQZDfJIFrSL7LPxDvJQSgCBR5ENRsPVOfTUSxkg0PMCUaDFIdPJxfGpVd UHOvJELcFSrgMLGgCTN6YLJ0LVBtKAByVU6WClKdEI VoYSG1EbXfQNGtZHPxaq0HCTLrYRMzDIK9AQPhCYCeROFwKMasIVMgWRBdKbXuDBOeKTLqPY9TCuHxXV JjMSM4DqaeZVFaTUZkeg0TQQEcBPFdPiLrVLBpHMClMBIbVQugISLbOILzPRfnIKVuNMIiXW5AXdRgIX IwJSXyZKAvCQZvRUFwfn5UILVrWGCeIKE6QBUwGCGj FPAuCEzyTCSjAVIpMOEmNRXxLNLyYG9LNiGvOUBlNWX9CYebRQPhZFIyvx3SSBHoHTJ0LTzkHmRxJQQg FMMmBFerNRLtVFLpKVgnSZKbYQGcVE0GDjXrGCViAUO9CXdbGUVoFYKnga7XGNCtMTR0QbJ1IzTbYIYi HLTeXQqtXALhYIDrVgTqMECiGTWsOC5HOpJdRSGrET G2VJAsFKAqPWSwxk3ABRUeIZL3Fky9AIQxKKIiEANoMGdfNQNlQRU0LOI9JSWyLNNzEN6RFuKaRAWyON GpKcMcDBTwDPPgie5MMEAdNEI0CFZ8VhBxYSYvQPJzOWggZLNtZLC2QPL1YKHqVWJhUF7VFlNjTFZhAN KsAXBsYHCgKHVjll2ENZUpGKH5AyPeWTBdUHMdBBPb IFc5rkCmpWZqIFt8JC4UW5PuxeHmRrLLLx6Pj887TEDzJQGtZe3VK8jrSe2eLXElXTSAUp7ZUTe3BWM3 CQP2NdYmGSN6WrB5YFLnHwHqOtYhYuOgRQTfMrO+DWhsYsk2GoF3XRWzZavkLbfcJxOgCEIyVFRaKDVi NPI6DY7yQVHVOs7+IEluiLVmrOjpQEUEHvX0PYw9FOzuWPPZTm5W ID Date Data Source [id number] 07/06/2020 12:04:00 [place] [address] PHONE: [phone] FAX: [phone] Name .................. : TONI Velázquez Acct Number.................. : [id number] ROOM. ................. : Number ................... : [id number] Stay type ............. : O/P Discharge Date......... ... : 07/05/20 Admit Date ......... : 07/05/20 Admit Phys .................... : MILADYS RUSSELL Date of ....... : 1980 Family Phys ................... : ROSYJESSE Phone .................. : [phone] Age ................................ : 40 Film# .................. .:[id number] Sex ................................. : F Unsigned transcriptions are preliminary reports and do not represent a medical or legal document THYROID [id number] COMPLETE:07/05/20 07:54 [facility] [id number] (PROCEDURE REASONS: MASS THYROID ULTRASOUND: INDICATION: Mass. FINDINGS: Mueller scale and color Doppler examination of the thyroid bed demonstrate evidence of a prior thyroidectomy with no evidence of residual or recurrent thyroid tissue. There is no evidence of mass visualized. IMPRESSION: No evidence of residual or recurrent thyroid tissue. Electronically Reviewed and Signed By Kostas Ricci M.D. , 07/06/20 12:04, [facility] Transcribe Initials: ANTONIO , Transcribe Date: 07/05/20 09:57, Dictation Date: Copy for: MILADYS ENNIS M.D. via fax Copy for: [address] [place] [address] REC Page 1 of 1 Name Value Range Interpretation Code Description Data Saray rce(s) Supporting Document(s) ID Date Data Source [id number] 07/01/2020 05:08:00 PM EST [facility] Name Value Range Interpretation Code Description Data Saray rce(s) Supporting Document(s) Thyroid Stimulating Hormone 0.017 uIU/ML 0.358-3.740 Below low normal [facility] ([facility]) Free T4 1.50 ng/dL 0.76-1.46 Above high normal [facility] ([facility]) ID Date Data Source [id number] 07/01/2020 05:08:00 PM EST [facility] ([facility]) Name Value Range Interpretation Code Description Data Saray rce(s) Supporting Document(s) Thyroid Stimulating Hormone 0.017 uIU/ML 0.358-3.740 [facility] ([facility]) Free T4 1.50 ng/dL 0.76-1.46 [facility] ([facility]) ID Date Data Source [id number] 06/18/2020 12:00:00 AM EST [facility] Name Value Range Interpretation Code Description Data Saray rce(s) Supporting Document(s) 2019-nCoV RNA XXX LENNY+probe-Imp [facility] This lab was ordered by [facility] and reported by [employer] ID Date Data Source [id number] 06/09/2020 03:24:46 PM EDT [facility] Current Problems: Dental caries (ICD-521 .00) (SRF75-Y81.9)DENTAL CARIES EXTENDING INTO PULP (ICD-521.03) (ZNF09-B77.63)Current Medications: CLINDAMYCIN HCL 300 MG CAPS (CLINDAMYCIN [...] rce(s) Supporting Document(s) ID Date Data Source [id number] 06/04/2020 01:08:00 PM EDT [facility] ([facility]) Name Value Range Interpretation Code Description Data Saray rce(s) Supporting Document(s) Bacteria identified in Urine by Culture [facility] FULL REPORT IN LAB NOTES ([facility] and [facility] ). NO GROWTH CLINICAL SIGNIFICANCE 1 ORGANISM ID Date Data Source [id number] 06/04/2020 12:00:00 AM EDT [facility] Name Value Range Interpretation Code Description Data Saray rce(s) Supporting Document(s) SARS coronavirus 2 Ag [facility] This lab was ordered by [facility] and reported by [facility]. ID Date Data Source [id number] 05/18/2020 02:32:29 PM EDT [facility] Current Problems: Dental caries (ICD-521 .00) (YKK55-C39.9)DENTAL CARIES EXTENDING INTO PULP (ICD-521.03) (RIT78-V41.63)Current Medications: * LEVOTHYROXIN Current Allergies: * AMOXICILLIN [...] noneNo new xrays takenExam reveals: loss of jewish tooth #5_MOpt. was cooperativeDX: loss of jewish tooth #5Plan: IRM placed and advised pt [...] rce(s) Supporting Document(s) ID Date Data Source [id number] 05/18/2020 10:32:56 AM EDT [facility] Current Problems: Dental caries (ICD-521 .00) (XKL49-R16.9)DENTAL CARIES EXTENDING INTO PULP (ICD-521.03) (VFC06-X41.63)Current Medications: * LEVOTHYROXIN Current Allergies: * AMOXICILLIN [...] LATEX (Critical) __Current Problems: Dental caries (ICD-521.00) (LJN79-L10.9)DENTAL CARIES EXTENDING INTO PULP (ICD-521.03) (PDP57-A09.63)Current Medications: * LEVOTHYROXIN Current Allergies: * AMOXICILLIN [...] completed Patient is a former smoker [facility] ([facility], ) Smoking 03/29/2021 12:00:00 AM EDT Patient is a former smoker completed Patient is a former smoker [facility] ([facility]) Alcohol intake 07/30/2020 12:00:00 AM EST Current drinker of al cohol (finding) completed Current drinker of alcohol (finding) [facility] Tobacco use and exposure 07/30/2020 12:00:00 AM EST Never used co mpleted Never used [facility] Smoking 07/30/2020 12:00:00 AM EST Former smoker completed Former smoker [facility] Vital Signs ID Date Data Source UNK Name Value Range Interpretation Code Description Data Source(s) Systolic blood pressure 118 mm[Hg] 118 mm[Hg] M [facility] ([facility], ) Body surface area Derived from formula 2.60 m2 2.60 m2 [facility] ([facility]) Diastolic blood pressure 68 mm[Hg] 68 mm[Hg] [facility] Heart rate 50 /min 50 /min [facility] ([facility]) Oxygen saturation in Arterial blood by Pulse oximetry 100 % 100 % [facility] ([facility]) Body height 68.50 [in_i] 68.50 [in_i] [facility] ([facility]) 5'8.50" Body weight 349.00 [lb_av] [facility].00 [facility]av[facility] Body mass index (BMI) [Ratio] 52.3 kg/m2 52.3 k g/m2 [facility] ([facility]) [place] body weight 140 [lb_av] 140 [lb_av] [facility] ([facility]) Body weight 158.306 kg 158.306 kg [facility] ([facility]) Systolic blood pressure 126 mm[Hg] 126 mm[Hg] M [facility] ([facility]) Diastolic blood pressure 82 mm[Hg] 82 mm[Hg] [facility] Heart rate 71 /min 71 /min [facility] Body temperature 97.1 [degF] 97.1 [degF] [facility] ([facility]) Respiratory rate 16 /min 16 /min [facility] ( [facility]) Oxygen saturation in Arterial blood by Pulse oximetry 99 % 99 % [facility] Body weight 348.00 [lb_av] 348.00 [lb_av] [facility] ([facility]) Body weight 157.853 kg 157.853 kg [facility] ([facility]) Body height 68 [in_i] 68 [in_i] [facility] ([facility]) 5'8" Body mass index (BMI) [Ratio] 52.9 kg/m2 52.9 k g/m2 [facility] ([facility]) Body surface area Derived from formula 2.59 m2 2.59 m2 [facility] ([facility]) Diastolic blood pressure 76 mm[Hg] 76 mm[Hg] [facility] Heart rate 79 /min 79 /min [facility] Body temperature 97.7 [degF] 97.7 [degF] [facility] ([facility]) Oxygen saturation in Arterial blood by Pulse oximetry 100 % 100 % [facility] ([facility]) Body weight 351.25 [lb_av] 351.25 [lb_av] [facility] ([facility]) Body weight 159.327 kg 159.327 kg [facility] Systolic blood pressure 112 mm[Hg] 112 mm[Hg] M [facility] ([facility]) Diastolic blood pressure 79 mm[Hg] 79 mm[Hg] [facility] ([facility]) Heart rate 63 /min 63 /min [facility] Systolic blood pressure 120 mm[Hg] 120 mm[Hg] [facility] Body temperature 97.8 [degF] 97.8 [degF] [facility] ([facility]) Respiratory rate 18 /min 18 /min [facility] Oxygen saturation in Arterial blood by Pulse oximetry 98 % 98 % [facility] Body weight 346.00 [lb_av] 346.00 [lb_av] [facility] ([facility]) Body weight 156.946 kg 156.946 kg [facility] Systolic blood pressure 115 mm[Hg] 115 mm[Hg] [facility] Diastolic blood pressure 83 mm[Hg] 83 mm[Hg] [facility]) Heart rate 92 /min 92 /min [facility]) Respiratory rate 17 /min 17 /min [facility] ( [facility]) Oxygen saturation in Arterial blood by Pulse oximetry 98 % 98 % [facility] ([facility]) Body temperature 97.9 [degF] 97.9 [degF] [facility] ([facility]) Body weight 300.00 [lb_av] 300.00 [lb_av] MED T ([facility]) Body height 68 [in_i] 68 [in_i] [facility] ([facility]) 5'8" Body mass index (BMI) [Ratio] 45.6 kg/m2 45.6 k g/m2 [facility] ([facility]) Systolic blood pressure 122 mm[Hg] 122 mm[Hg] M [facility] ([facility]) Body mass index (BMI) [Ratio] 53.5 kg/m2 53.5 k g/m2 [facility] ([facility]) Body surface area Derived from formula 2.60 m2 2.60 m2 [facility] ([facility]) Body temperature 97.8 [degF] 97.8 [degF] [facility] ([facility]) Diastolic blood pressure 82 mm[Hg] 82 mm[Hg] [facility] ([facility]) Oxygen saturation in Arterial blood by Pulse oximetry 99 % 99 % [facility] Respiratory rate 16 /min 16 /min [facility] Body weight 352.00 [lb_av] 352.00 [lb_av] [facility] ([facility]) Body height 68 [in_i] 68 [in_i] [facility] ([facility]) 5'8" Body weight 159.667 kg 159.667 kg [facility] ([facility]) Heart rate 64 /min 64 /min [facility] ([facility]) Body height 68 [in_i] 68 [in_i] [facility] ([facility]) 5'8" Systolic blood pressure 132 mm[Hg] 132 mm[Hg] M [facility] ([facility]) Body surface area Derived from formula 2.62 m2 2.62 m2 [facility] ([facility]) Diastolic blood pressure 76 mm[Hg] 76 mm[Hg] [facility] ([facility]) Heart rate 73 /min 73 /min [facility] ([facility]) Body temperature 96.9 [degF] 96.9 [degF] [facility] ([facility]) Respiratory rate 15 /min 15 /min [facility] ( [facility]) Oxygen saturation in Arterial blood by Pulse oximetry 96 % 96 % [facility] ([facility]) Body weight 357.25 [lb_av] 357.25 [lb_av] [facility] ([facility]) Body weight 162.049 kg 162.049 kg [facility] ([facility]) Body mass index (BMI) [Ratio] 54.3 kg/m2 54.3 k g/m2 [facility] ([facility]) Systolic blood pressure 120 mm[Hg] 120 mm[Hg] M [facility] ([facility]) Body height 68 [in_i] 68 [in_i] [facility] ([facility]) 5'8" Diastolic blood pressure 85 mm[Hg] 85 mm[Hg] [facility] ([facility], [facility]) Heart rate 71 /min 71 /min [facility] ([facility]) Respiratory rate 13 /min 13 /min [facility] ( [facility]) Oxygen saturation in Arterial blood by Pulse oximetry 98 % 98 % [facility] ([facility], [facility]) Body temperature 96.8 [degF] 96.8 [degF] [facility] ([facility]) Body weight 300.00 [lb_av] 300.00 [lb_av] [facility] T ([facility]) Body mass index (BMI) [Ratio] 45.6 kg/m2 45.6 k g/m2 [facility] ([facility]) Systolic blood pressure 130 mm[Hg] 130 mm[Hg] M [facility] ([facility]) Respiratory rate 16 /min 16 /min [facility] ( [facility]) Oxygen saturation in Arterial blood by Pulse oximetry 97 % 97 % [facility] ([facility]) Body weight 358.00 [lb_av] 358.00 [lb_av] [facility] ([facility]) Body weight 162.389 kg 162.389 kg [facility] ([facility]) Diastolic blood pressure 90 mm[Hg] 90 mm[Hg] [facility] ([facility]) Heart rate 60 /min 60 /min [facility] ([facility]) Body temperature 97.3 [degF] 97.3 [degF] [facility] ([facility]) Body height 68 [in_i] 68 [in_i] [facility] ([facility]) 5'8" Body mass index (BMI) [Ratio] 54.4 kg/m2 54.4 k g/m2 [facility] ([facility]) Body surface area Derived from formula 2.62 m2 2.62 m2 [facility] ([facility]) Diastolic blood pressure 89 mm[Hg] 89 mm[Hg] [facility] ([facility]) Heart rate 87 /min 87 /min [facility] ([facility]) Respiratory rate 13 /min 13 /min [facility] ( [facility]) Oxygen saturation in Arterial blood by Pulse oximetry 98 % 98 % [facility] ([facility], [facility]) Body temperature 96.0 [degF] 96.0 [degF] [facility] ([facility]) Body weight 300.00 [lb_av] 300.00 [lb_av] [facility] ([facility]) Body height 68 [in_i] 68 [in_i] [facility] ([facility], [facility]) 5'8" Body mass index (BMI) [Ratio] 45.6 kg/m2 45.6 k g/m2 [facility] ([facility]) Systolic blood pressure 126 mm[Hg] 126 mm[Hg] M [facility] ([facility], [facility]) Systolic blood pressure 126 mm[Hg] 126 mm[Hg] M [facility] ([facility]) Respiratory rate 18 /min 18 /min [facility] ( [facility]) Oxygen saturation in Arterial blood by Pulse oximetry 96 % 96 % [facility] ([facility]) Body temperature 97.9 [degF] 97.9 [degF] [facility] ([facility]) Body weight 300.00 [lb_av] 300.00 [lb_av] [facility] ([facility], [facility]) Body height 68 [in_i] 68 [in_i] [facility] ([facility], [facility]) 5'8" Body mass index (BMI) [Ratio] 45.6 kg/m2 45.6 k g/m2 [facility] ([facility]) Diastolic blood pressure 87 mm[Hg] 87 mm[Hg] [facility] ([facility]) Heart rate 72 /min 72 /min [facility] ([facility]) Systolic blood pressure 126 mm[Hg] 126 mm[Hg] M [facility] ([facility] ) Diastolic blood pressure 84 mm[Hg] 84 mm[Hg] [facility] ([facility] ) Heart rate 85 /min 85 /min [facility] ([facility] ) Body temperature 96.4 [degF] 96.4 [degF] [facility] ([facility] ) Body height 68.3 [in_i] 68.3 [in_i] [facility] ([facility] 5'8.30" Body weight 354.31 [lb_av] 354.31 [lb_av] [facility] ([facility] ) Body mass index (BMI) [Ratio] 53.4 kg/m2 53.4 k g/m2 [facility] ([facility] ) Oxygen saturation in Arterial blood by Pulse oximetry 97 % 97 % [facility] ([facility] ) Body weight 300.00 [lb_av] 300.00 [lb_av] MEDEN T ([facility], [facility]) Body height 68 [in_i] 68 [in_i] MEDENT ([facility], [facility]) 5'8" Body mass index (BMI) [Ratio] 45.6 kg/m2 45.6 k g/m2 MEDENT ([facility], [facility]) Oxygen saturation in Arterial blood by Pulse oximetry 98 % 98 % MEDENT ([facility], [facility]) Systolic blood pressure 133 mm[Hg] 133 mm[Hg] M EDENT ([facility], [facility]) Diastolic blood pressure 89 mm[Hg] 89 mm[Hg] MEDENT ([facility], [facility]) Heart rate 67 /min 67 /min MEDENT ([facility], [facility]) Respiratory rate 18 /min 18 /min [facility] ( [facility], [facility]) Body temperature 98.0 [degF] 98.0 [degF] [facility] Systolic blood pressure 122 mm[Hg] 122 mm[Hg] M EDENT ([facility] ) Diastolic blood pressure 68 mm[Hg] 68 mm[Hg] MEDENT ([facility] ) Heart rate 80 /min 80 /min [facility] Body temperature 97.5 [degF] 97.5 [degF] MEDENT ([facility] ) Body height 68.3 [in_i] 68.3 [in_i] MEDENT ([facility] ) 5'8.30" Body weight 323.12 [lb_av] 323.12 [lb_av] MEDEN T ([facility] ) Body mass index (BMI) [Ratio] 48.7 kg/m2 48.7 k g/m2 MEDENT ([facility] ) Oxygen saturation in Arterial blood by Pulse oximetry 98 % 98 % MEDENT ([facility] ) ID Date Data Source [id number] 07/30/2020 01:59:35 PM [facility] Name Value Range Interpretation Code Description Data Source(s) WEIGHT RECORDED 330 lb 330 lb [facility] Body height Measured 69 in 69 in [facility] PREFERRED NAME [facility] PREFERRED NAME [facility] ID Date Data Source [id number] 07/30/2020 08:52:40 AM [facility] Name Value Range Interpretation Code Description Data Source(s) [facility]ERRED NAME [facility]
--- NOTE | 2021-07-16 22:23 | REPVR ---
PROCEDURE INFORMATION: Exam: CTA Chest With Contrast Exam date and time: 07/16/2021 9:02 PM Age: 41 years old Clinical indication: Pain; Other: Cp/sob TECHNIQUE: Imaging protocol: Computed tomographic angiography of the chest with contrast. 3D rendering (Not supervised by radiologist): MIP and/or 3D reconstructed images were created by the technologist. Radiation optimization: All CT scans at this facility use at least one of these dose optimization techniques: automated exposure control; mA and/or kV adjustment per patient size (includes targeted exams where dose is matched to clinical indication); or iterative reconstruction. Contrast material: ISOVUE 370; Contrast volume: 75 ml; Contrast route: INTRAVENOUS (IV); COMPARISON: CT ANGIO CHEST 01/30/2021 4:08 PM FINDINGS: Pulmonary arteries: There is a small subsegmental pulmonary embolism in the right lower lobe (image 40, series 505). No other pulmonary emboli are seen. RV-LV ratio is 0.9. Aorta: Unremarkable. No aortic aneurysm. No aortic dissection. Lungs: Clear. No consolidation. No masses. Pleural spaces: No pneumothorax. No pleural effusion. Heart: Normal heart size. No pericardial effusion. Lymph nodes: Unremarkable. No enlarged lymph nodes. Bones/joints: Unremarkable. No acute fracture. Soft tissues: Unremarkable. IMPRESSION: 1. Small subsegmental pulmonary embolism in the right lower lobe. No other pulmonary emboli or signs of heart strain. 2. Other emboli seen on the previous exam have resolved. Electronically signed by: Ryan Albert On 07/16/2021 22:23:14 PM
[2021-07-16 22:40] VITALS: BP 139/93
[2021-07-16] MEDS ORDERED: BENZ200C70 PO (23:15)
[2021-07-17 01:24] LABS: RSV AMPLIFICATION NEGATIVE (NEGATIVE)
--- NOTE | 2021-07-17 07:35 | ECGEPIP ---
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
[2021-07-17] MEDS ORDERED: PRED20TA PO (16:06)
== END 2021-07-16 23:53 | disposition home or self-care (01) ==
LOC: M ED 14:22
DX: J06.9 Acute upper respiratory infection, unspecified (principal); E11.9 Type 2 diabetes mellitus without complications; F33.9 Major depressive disorder, recurrent, unspecified; F41.9 Anxiety disorder, unspecified; E03.9 Hypothyroidism, unspecified; G47.33 Obstructive sleep apnea (adult) (pediatric); E66.9 Obesity, unspecified; Z85.850 Personal history of malignant neoplasm of thyroid; Z98.84 Bariatric surgery status; Z88.8 Allergy status to other drugs, medicaments and biological substances; Z91.040 Latex allergy status; Z79.899 Other long term (current) drug therapy; Z79.890 Hormone replacement therapy; Z79.01 Long term (current) use of anticoagulants; Z87.891 Personal history of nicotine dependence
CPT/HCPCS: 36415; 71275; 80047; 80076; 84702; 85025; 85379; 85610; 85652; 85730; 86140; 87631; 93005; 99284; Q9967

== ENCOUNTER → 2021-07-24 | Outpatient (CLI) | payer OTHER ==
[~2021-07-24] MED LIST changes: +BENZ200C70 PO; +PRED20TA PO
--- NOTE | 2021-07-26 19:15 | SLEEPCENT ---
DATE: 07/24/2021 ORDERED BY: LUCIAN Fong Nocturnal polysomnography was performed for evaluation of sleep physiology in this patient with a history of excessive somnolence, nonrestorative sleep, morning headaches, and snoring who has a prior history of sleep apnea syndrome. Nine hours and 26 minutes of data were reviewed. There were 502.5 minutes of sleep identified. Sleep latency was very short at 30 seconds. REM latency was mildly prolonged at 122.5 minutes. Sleep architecture was fair with five REM cycles but periods of wake and some fragmentation late in the study. Overall sleep efficiency was 89.3%. The electrocardiogram showed a sinus rhythm with an average heart rate of 50 beats per minute. EEG showed normal waveforms for wake and sleep. There were 62 respiratory events identified of 10 seconds in duration or greater for an apnea-hypopnea index of 7.4. The events were obstructive, not stage-related, not related to body posture. Arousals from respiratory events occurred 2.7 times per hour, and oxygen desaturations below 90% were not appreciated. There was some limb activity in the EMG leads. Limb movement arousal index was 6. No trains of events were seen. IMPRESSION: Obstructive sleep apnea syndrome (G47.33). Apnea-hypopnea index 7.4. RECOMMENDATION: The patient should be encouraged to return to [facility] for [facility]. In the interim, alcohol and sedative avoidance should be practiced and caution exercised during the operation of motor vehicles. cc: Dilma Johnson MD
== END ==
LOC: M SLEEP 20:00
PROVIDERS: ATTEND Physician Assistant
DX: G47.33 Obstructive sleep apnea (adult) (pediatric) (principal)

== ENCOUNTER → 2021-08-25 | Outpatient (CLI) | payer OTHER ==
[~2021-08-25] MED LIST changes: -LEVO250T12 PO; +LEVO250T3 PO; +VENTAER INH
== END ==
LOC: M SLEEP 20:00
PROVIDERS: ATTEND Physician Assistant
DX: G47.33 Obstructive sleep apnea (adult) (pediatric) (principal)

== ENCOUNTER 2021-09-02 02:54 | Emergency (ER) | payer OTHER ==
[~2021-09-02] VITALS: Ht 172.7 cm; Wt 136.4 kg
[~2021-09-02 02:54] MED LIST changes: -VENTAER INH
[2021-09-02 03:46] LABS: BASO % 0.4 % (0.0-1.0); EOS # 0.1 10^3/uL (0.0-0.5); EOS % 1.2 % (0.0-3.0); HEMOGLOBIN 9.5 g/dl (12.0-15.5); LYMPH # 0.7 10^3/uL (1.5-5.0); LYMPH % 14.1 % (24.0-44.0); MEAN CORPUSCULAR HEMOGLOBIN 27.1 pg (27.0-33.0); MEAN CORPUSCULAR HGB CONC 30.6 g/dl (32.0-36.5); MEAN CORPUSCULAR VOLUME 88.3 fl (80.0-96.0); MONO # 0.9 10^3/uL (0.0-0.8); MONO % 17.4 % (2.0-8.0); NEUTROPHILS # 3.4 10^3/uL (1.5-8.5); NEUTROPHILS % 66.5 % (36.0-66.0); PLATELET COUNT, AUTOMATED 252 10^3/uL (150-450); RED BLOOD COUNT 3.51 10^6/uL (4.00-5.40); WHITE BLOOD COUNT 5.2 10^3/uL (4.0-10.0)
[2021-09-02 04:40] LABS: ALBUMIN 3.1 GM/DL (3.2-5.2); ALT/SGPT 27 U/L (12-78); BILIRUBIN,TOTAL 0.4 MG/DL (0.2-1.0); BLOOD UREA NITROGEN 7 MG/DL (7-18); CALCIUM LEVEL 8.1 MG/DL (8.5-10.1); CARBON DIOXIDE LEVEL 26 MEQ/L (21-32); CHLORIDE LEVEL 107 MEQ/L (98-107); CREATININE FOR GFR 0.74 MG/DL (0.55-1.30); GLOMERULAR FILTRATION RATE > 60.0 (>58); GLUCOSE, FASTING 122 MG/DL (70-100); HCG, SERUM QUANTITATIVE < 1.0 MIU/ML; POTASSIUM SERUM 3.8 MEQ/L (3.5-5.1); SODIUM LEVEL 139 MEQ/L (136-145); TOTAL PROTEIN 6.8 GM/DL (6.4-8.2)
[2021-09-02] MEDS ORDERED: ACETAMINOPHEN 500 MG TAB PO ONE (05:00)
[2021-09-02] MEDS ORDERED: BENZ200C70 PO (06:25)
[2021-09-02] MEDS ORDERED: VENTAER INH (06:26)
[2021-09-02 07:08] VITALS: BP 132/84
== END 2021-09-02 07:15 | disposition home or self-care (01) ==
LOC: M ED 02:54
DX: U07.1 COVID-19 (principal); R07.89 Other chest pain; R05.9 Cough, unspecified; R51.9 Headache, unspecified; E03.9 Hypothyroidism, unspecified; Z86.711 Personal history of pulmonary embolism; Z88.8 Allergy status to other drugs, medicaments and biological substances; Z91.040 Latex allergy status; Z79.01 Long term (current) use of anticoagulants; Z79.890 Hormone replacement therapy; Z79.899 Other long term (current) drug therapy

== ENCOUNTER → 2021-09-24 | Outpatient (REF) | payer OTHER ==
[~2021-09-24] MED LIST changes: +VENTAER INH
== END ==
LOC: M WUC 18:20
PROVIDERS: ATTEND Physician Assistant
DX: N30.01 Acute cystitis with hematuria (principal)

== ENCOUNTER → 2021-10-11 | Outpatient (CLI) | payer OTHER ==
[2021-10-11 19:53] LABS: APPEARANCE, URINE HAZY (CLEAR); BACTERIA, URINE AUTO 1+ (NEGATIVE); BILIRUBIN, URINE AUTO NEGATIVE (NEGATIVE); BLOOD, URINE BLOOD NEGATIVE (NEGATIVE); CALCIUM OXALATE CRYSTALS SMALL; COLOR, URINE YELLOW (YELLOW); GLUCOSE, URINE (UA) AUTO NEGATIVE (NEGATIVE); KETONE, URINE AUTO TRACE mg/dL (NEGATIVE); LEUKOCYTE ESTERASE, URINE AUTO NEGATIVE (NEGATIVE); MUCUS, URINE SMALL (NEGATIVE); NITRITE, URINE AUTO NEGATIVE (NEGATIVE); PROTEIN, URINE AUTO NEGATIVE (NEGATIVE); RBC, URINE AUTO 2 /HPF (0-3); SPECIFIC GRAVITY URINE AUTO 1.021 (1.002-1.035); SQUAMOUS EPITHELIAL CELL UR AU 3 /HPF (0-6); WBC, URINE AUTO 2 /HPF (0-3)
== END ==
LOC: M LAB 17:08
PROVIDERS: ATTEND Physician Assistant
DX: R30.0 Dysuria (principal)

== ENCOUNTER → 2021-12-14 | Outpatient (REF) | payer OTHER | LOC: M LAB REF 20:42 | PROVIDERS: ATTEND Student in an Organized Health Care Education/Training Program | DX: R30.0 Dysuria (principal) ==

== ENCOUNTER → 2022-01-07 | Outpatient (CLI) | payer OTHER | LOC: M WHC 07:10 | PROVIDERS: ATTEND Internal Medicine | DX: Z12.31 Encounter for screening mammogram for malignant neoplasm of breast (principal); Z80.3 Family history of malignant neoplasm of breast ==